=== PATIENT | female | born 1940 | race Caucasian/White ===

== ENCOUNTER 2018-05-20 12:23 | Observation (INO) | payer OTHER ==
[~2018-05-20] VITALS: Ht 154.9 cm; Wt 53.2 kg
[~2018-05-20 12:23] MED LIST: BENAZEPRIL HCL10 MG PO; CITRACAL; CITRACAL + D C1 EACH PO; CLARITIN; CLARITIN10 MG PO; CLONIDINE HCL0.1 MG PO; EYE CAPS PO; KLOR-CON; KLOR-CON 1010 MEQ PO; LASIX80 MG PO; OMEPRAZOLE; OMEPRAZOLE20 MG PO; PREDNISONE2.5 MG PO; VERAPAMIL HCL240 MG PO
[2018-05-20] MEDS ORDERED: ASPIRIN 81 MG CHEW TAB PO ONE ×2 (12:45→15:45)
[2018-05-20 13:25] LABS: BASOPHILS # (AUTO) 0.1 (0.0-0.1); BASOPHILS % 0.6 % (0.0-1.0); EOSINOPHILS % 0.1 % (0.0-6.0); HEMATOCRIT 36.5 % (34.2-44.1); LYMPHOCYTES # (AUTO) 2.5 (1.0-3.2); LYMPHOCYTES % 16.2 % (18.0-39.1); MEAN CORPUSCULAR HEMOGLOBIN 31.3 pg (28-32); MEAN CORPUSCULAR HGB CONC 32.9 g/dL (31-35); MEAN CORPUSCULAR VOLUME 95.3 fL (81-99); MONOCYTES % 6.5 % (4.4-11.3); NEUTROPHILS # (AUTO) 11.6 (2.1-6.9); NEUTROPHILS % 75.3 % (38.7-80.0); PLATELET COUNT 355 x10e3/uL (140-360); RED BLOOD COUNT 3.83 x10e6/uL (3.6-5.1)
[2018-05-20 13:35] LABS: INR 1.14; PROTHROMBIN TIME 13.7 seconds (11.9-14.5)
[2018-05-20 13:36] LABS: PARTIAL THROMBOPLASTIN TIME 29.7 seconds (23.8-35.5)
[2018-05-20 13:47] LABS: ALBUMIN 3.1 g/dL (3.5-5.0); ALBUMIN/GLOBULIN RATIO 0.9 (0.8-2.0); ANION GAP 15.6 mmol/L (8-16); CALCIUM 8.8 mg/dL (8.4-10.2); CHOL/HDL RATIO 4.8 (3.0-3.6); CREATININE, SERUM 1.09 mg/dL (0.57-1.11); MAGNESIUM 1.7 MG/DL (1.3-2.1); POTASSIUM 3.6 mmol/L (3.5-5.1)
--- NOTE | 2018-05-20 13:56 | Diagnostic Imaging Report ---
EXAMINATION: CHEST SINGLE (PORTABLE) 05/20/2018 12:37 PM COMPARISON: None INDICATION: Shortness of breath, lower extremity weakness DISCUSSION: LINES: None. LUNGS: The lungs are well inflated and clear. No pneumonia or pulmonary edema. PLEURA: No pleural effusion or pneumothorax. HEART AND MEDIASTINUM: Normal heart size. Atherosclerotic calcifications of the thoracic aorta. BONES AND SOFT TISSUES: No acute osseous lesion. The soft tissues are normal. IMPRESSION: No acute cardiopulmonary disease. Joselo Wallis MD Signed by: Dr. Joselo Wallis M.D. on 05/20/2018 1:53 PM
[2018-05-20 14:31] LABS: CLARITY,URINE HAZY (CLEAR); COLOR,URINE YELLOW (YELLOW); LEUKOCYTE ESTERASE ,URINE TRACE (NEGATIVE); NITRITE,URINE NEGATIVE (NEGATIVE); PROTEIN,URINE DIPSTICK NEGATIVE (NEGATIVE)
[2018-05-20 14:32] LABS: BILIRUBIN,URINE NEGATIVE (NEGATIVE); KETONES,URINE NEGATIVE (NEGATIVE); URINE UROBILINOGEN 0.2 mg/dL (0.2 - 1)
[2018-05-20 14:43] LABS: BACTERIA,URINE FEW /HPF; EPITHELIAL CELLS,URINE FEW /LPF
[2018-05-20 17:13] VITALS: BP 123/57
[2018-05-20 17:56] VITALS: BP 123/57
[2018-05-20 18:15] VITALS: BP 123/57
[2018-05-20 19:30] VITALS: BP 123/57
[2018-05-20 21:04] VITALS: BP 140/65
[2018-05-21] VITALS (8 sets, daily range): BP systolic 116–189; BP diastolic 54–97
[2018-05-21] MEDS ORDERED: LOSARTAN POTASS25 MG PO (00:43)
[2018-05-21] MEDS ORDERED: HYDRALAZINE HCL 20 MG/ML VIAL IV PRN ×2 (00:45→13:45)
[2018-05-21] MEDS: VERAPAMIL HCL 240 MG TABSR PO SCH ×3 (00:57→17:10)
[2018-05-21] MEDS: CLONIDINE HCL 0.1 MG TAB PO SCH ×5 (00:58→21:00)
[2018-05-21] MEDS: LOSARTAN POTASSIUM 25 MG TAB PO SCH ×3 (00:58→12:08)
[2018-05-21 05:43] LABS: CREATINE KINASE MB 0.7 ng/mL (0-5.0)
[2018-05-21 05:58] LABS: CHOL/HDL RATIO 4.6 (3.0-3.6)
[2018-05-21] MEDS ORDERED: ONDANSETRON HCL INJ 2 MG/ML VIAL IV PRN (08:45)
[2018-05-21] MEDS ORDERED: ACETAMINOPHEN 325 MG TAB PO PRN (08:45)
[2018-05-21] MEDS ORDERED: HYDROCODONE/APAP 5MG-325MG TAB PO PRN (08:45)
[2018-05-21 09:08] LABS: BASOPHILS # (AUTO) 0.1 (0.0-0.1); BASOPHILS % 0.4 % (0.0-1.0); EOSINOPHILS # (AUTO) 0.1 (0.0-0.4); EOSINOPHILS % 0.4 % (0.0-6.0); HEMATOCRIT 34.3 % (34.2-44.1); HEMOGLOBIN 11.3 g/dL (12.0-16.0); LYMPHOCYTES # (AUTO) 3.8 (1.0-3.2); LYMPHOCYTES % 28.3 % (18.0-39.1); MEAN CORPUSCULAR HGB CONC 32.9 g/dL (31-35); MEAN CORPUSCULAR VOLUME 94.2 fL (81-99); MONOCYTES # (AUTO) 1.2 (0.2-0.8); MONOCYTES % 8.8 % (4.4-11.3); NEUTROPHILS # (AUTO) 8.2 (2.1-6.9); NEUTROPHILS % 61.1 % (38.7-80.0); PLATELET COUNT 345 x10e3/uL (140-360); RED BLOOD COUNT 3.64 x10e6/uL (3.6-5.1); RED CELL DISTRIBUTION WIDTH 14.7 % (11.7-14.4)
[2018-05-21] MEDS ORDERED: FAMOTIDINE20 MG PO (09:18)
[2018-05-21 09:25] LABS: ANION GAP 12.9 mmol/L (8-16); CALCIUM 8.2 mg/dL (8.4-10.2); CREATININE, SERUM 0.97 mg/dL (0.57-1.11); MAGNESIUM 1.9 MG/DL (1.3-2.1)
[2018-05-21 09:35] LABS: POTASSIUM 2.9 mmol/L (3.5-5.1)
[2018-05-21] MEDS ORDERED: POTASSIUM CHLORIDE 20 MEQ TAB CR PO NR (09:44)
[2018-05-21] MEDS: PREDNISONE 10 MG TAB PO SCH (10:30)
[2018-05-21] MEDS: FAMOTIDINE 20 MG TAB PO SCH (10:30)
[2018-05-21] MEDS: CEFTRIAXONE SOD 1 GM VIAL IV SCH (10:30)
[2018-05-21] MEDS: FUROSEMIDE 40 MG TAB PO SCH (10:30)
[2018-05-21] MEDS ORDERED: NITROGLYCERIN 0.4 MG SUBL SL PRN (13:45)
[2018-05-21] MEDS ORDERED: METOPROLOL TARTRATE INJ 1 MG/ML VIAL IV PRN (13:45)
[2018-05-21] MEDS ORDERED: POTASSIUM CHLORIDE 20 MEQ TAB CR PO SCH (15:00)
[2018-05-21] MEDS: CALCIUM CITRATE PO SCH ×2 (15:00→21:00)
[2018-05-21] MEDS: VIT D3 PO SCH ×2 (15:00→21:00)
[2018-05-21 15:18] LABS: ALBUMIN 2.6 g/dL (3.5-5.0); BILIRUBIN,DIRECT 0.1 mg/dL (0.0-0.5); CHOL/HDL RATIO 4.2 (3.0-3.6); MAGNESIUM 1.9 MG/DL (1.3-2.1); PHOSPHORUS 1.2 MG/DL (2.3-4.7)
[2018-05-21 15:38] LABS: THYROID STIMULATING HORMONE 0.402 uIU/mL (0.350-4.940)
[2018-05-21] MEDS ORDERED: ATORVASTATIN 10 MG TAB PO SCH (21:00)
[2018-05-22 00:19] VITALS: BP 161/65
[2018-05-22] MEDS: CLONIDINE HCL 0.1 MG TAB PO SCH ×2 (01:24→14:34)
[2018-05-22 04:35] LABS: BASOPHILS % 0.4 % (0.0-1.0); EOSINOPHILS % 0.4 % (0.0-6.0); HEMATOCRIT 32.2 % (34.2-44.1); HEMOGLOBIN 10.4 g/dL (12.0-16.0); LYMPHOCYTES # (AUTO) 2.8 (1.0-3.2); LYMPHOCYTES % 26.5 % (18.0-39.1); MEAN CORPUSCULAR HEMOGLOBIN 31.3 pg (28-32); MEAN CORPUSCULAR HGB CONC 32.3 g/dL (31-35); MONOCYTES # (AUTO) 0.8 (0.2-0.8); MONOCYTES % 7.7 % (4.4-11.3); NEUTROPHILS # (AUTO) 6.8 (2.1-6.9); NEUTROPHILS % 64.3 % (38.7-80.0); PLATELET COUNT 324 x10e3/uL (140-360); RED BLOOD COUNT 3.32 x10e6/uL (3.6-5.1); RED CELL DISTRIBUTION WIDTH 14.7 % (11.7-14.4)
[2018-05-22 05:00] LABS: ANION GAP 13.7 mmol/L (8-16); CALCIUM 8.8 mg/dL (8.4-10.2); CREATININE, SERUM 1.02 mg/dL (0.57-1.11); MAGNESIUM 2.3 MG/DL (1.3-2.1)
[2018-05-22 05:02] LABS: POTASSIUM 3.7 mmol/L (3.5-5.1)
[2018-05-22 05:22] VITALS: BP 142/69
[2018-05-22] MEDS ORDERED: FERROUS SULFAT325 M1 PO (07:44)
[2018-05-22] MEDS ORDERED: CEFTIN PO (07:44)
[2018-05-22] MEDS ORDERED: DOCUSATE SODIU100 MG PO (07:44)
[2018-05-22] MEDS ORDERED: ASCORBIC ACID500 MG PO (07:44)
[2018-05-22] MEDS ORDERED: PANTOPRAZOLE SOD 40 MG TABEC PO SCH (08:45)
[2018-05-22 09:00] VITALS: BP 174/77
[2018-05-22] MEDS ORDERED: LORATADINE 10 MG TAB PO SCH (09:00)
[2018-05-22] MEDS: CALCIUM CITRATE PO SCH ×2 (09:00→14:30)
[2018-05-22] MEDS: VIT D3 PO SCH ×2 (09:00→14:30)
[2018-05-22] MEDS ORDERED: PHOSPHORUS 250 MG TAB PO SCH (09:00)
[2018-05-22] MEDS ORDERED: LORATADINE 10 MG TAB PO PRN (09:00)
[2018-05-22] MEDS: CEFTRIAXONE SOD 1 GM VIAL IV SCH (09:57)
[2018-05-22] MEDS: FERROUS SULFATE 325 MG TAB PO SCH ×2 (09:57→17:12)
[2018-05-22] MEDS: LOSARTAN POTASSIUM 25 MG TAB PO SCH (09:57)
[2018-05-22] MEDS: DOCUSATE SODIUM 100 MG CAP PO SCH ×2 (09:57→17:12)
[2018-05-22] MEDS: VERAPAMIL HCL 240 MG TABSR PO SCH ×2 (09:57→17:12)
[2018-05-22] MEDS: FAMOTIDINE 20 MG TAB PO SCH (09:57)
[2018-05-22] MEDS: PREDNISONE 10 MG TAB PO SCH (09:58)
[2018-05-22] MEDS: ASCORBIC ACID 500 MG TAB PO SCH ×2 (09:58→17:12)
[2018-05-22] MEDS: POTASSIUM CHLORIDE 20 MEQ TAB CR PO SCH ×2 (09:58→14:34)
[2018-05-22] MEDS: FUROSEMIDE 40 MG TAB PO SCH (09:58)
[2018-05-22 12:00] VITALS: BP 151/72
[2018-05-22 13:20] VITALS: BP 143/63
--- NOTE | 2018-05-22 16:33 | Discharge Summary ---
ADMISSION DIAGNOSES 1. Chest pain. 2. Hypertension. 3. Urinary tract infection. 4. Hyponatremia. 5. Hyperlipidemia. 6. Hypokalemia. DISCHARGE DIAGNOSES 1. Chest pain. 2. Hypertension. 3. Urinary tract infection. 4. Hyponatremia. 5. Hyperlipidemia. 6. Hypokalemia. 7. Ruled out myocardial infarction. 8. Hypermagnesemia. HISTORY: The patient has a history of hypertension, polymyalgia rheumatica, chronic venous stasis and GERD. Surgical history of hysterectomy, cholecystectomy and appendectomy. HOSPITAL COURSE: Ms. Rosanna Jean-Baptiste complains of chest pain last week that started when running into [employer]. It lasted 5 minutes and did not radiate. She said she had dyspnea on exertion over the last few months and attributed it to her venous stasis. Shortness of breath was worse with ambulation. She came to the ER last night when she started having right jaw pain described as aching that lasted for 10 hours. The jaw pain is worse with movement. No fever noted. She is asymptomatic on assessment. On admission, the patient had a chest x-ray which was negative. Troponins were negative x3. Echo showed an EF of 60% to 65%. Cardiology was consulted. UA was positive for leukocytes, RBCs, WBCs, bacteria and blood. The patient was started on Rocephin. Sodium on admission was 134. Fluids were restricted to 1.2 liters. On the day of discharge, the sodium was normal. Potassium repleted, and on the day of discharge is normal. The urine culture came back contaminated, but the patient was still given Ceftin at home for the UTI. She was also given iron and vitamin C for anemia. She will discharge home and has been cleared by cardiology. The patient understands discharge instructions and agrees to plan. She will follow up with primary care physician in one to two weeks and cardiology as discussed. Vital signs stable. The patient is afebrile. Dictated by: Isabelle Kasper NP MANASA SEGURA MD Job#: [id number]
[2018-05-22 17:26] VITALS: BP 126/58
[2018-05-22] MEDS ORDERED: SIMVASTATIN 20 MG TAB PO SCH (21:00)
== END 2018-05-22 18:00 | disposition home or self-care (01) ==
LOC: ER 12:23 → ERHOLD 15:41 → MED/SURG2 16:27
PROVIDERS: ADMIT Internal Medicine; ATTEND Internal Medicine
DX: R07.89 Other chest pain (principal); I10 Essential (primary) hypertension; N39.0 Urinary tract infection, site not specified; E87.1 Hypo-osmolality and hyponatremia; E87.6 Hypokalemia; E78.5 Hyperlipidemia, unspecified; M35.3 Polymyalgia rheumatica; E83.41 Hypermagnesemia; D64.9 Anemia, unspecified; I87.8 Other specified disorders of veins; K21.9 Gastro-esophageal reflux disease without esophagitis
CPT/HCPCS: 36415 ×3; 71045; 80048 ×2; 80053; 80061 ×2; 80076; 81001; 82150 ×2; 82306; 82550 ×2; 82553 ×2; 83690; 83735 ×3; 83880 ×3; 84100; 84443; 84484 ×2; 84550; 85025 ×3; 85379; 85610; 85730; 87086; 93005; 93306; 99284; G0378 ×3; J0696 ×2

== ENCOUNTER 2019-05-18 17:42 | Inpatient (IN) | payer MEDICARE, OTHER ==
[~2019-05-18] VITALS: Ht 154.9 cm; Wt 48.3 kg
[~2019-05-18 17:42] MED LIST changes: +ASCORBIC ACID500 MG PO; +CEFTIN PO; +DOCUSATE SODIU100 MG PO; +FAMOTIDINE20 MG PO; +FERROUS SULFAT325 M1 PO; +LOSARTAN POTASS25 MG PO
--- OUTSIDE RECORDS SUMMARY | 2019-05-18 17:46 | XMS REPORT ---
Author Author Rico Sloan Organization [employer] Address Unknown Phone Unavailable Care Team Providers Care Supervisor [facility] Name Role Phone Rico Sloan CP Unavailable Allergies No Known Allergies Problems Problem Type Condition Code Onset Dates Condition Status Problem Polymyalgia rheumatica M35.3 Active Problem Polyarthralgia M25.50 Active Problem Carpal tunnel syndrome G56.00 Active Problem Lymphadenopathy of head and neck R59.1 Active Problem Age related osteoporosis M81.0 Active Problem Abnormal WBC count D72.9 Active Problem Other osteoporosis without current pathological fracture M81.8 Active Problem Osteoarthritis M19.90 Active Problem Vitamin D deficiency E55.9 Active Problem 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
--- OUTSIDE RECORDS SUMMARY | 2019-05-18 17:46 | XMS REPORT ---
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
--- OUTSIDE RECORDS SUMMARY | 2019-05-18 17:46 | XMS REPORT | Continuity of Care Document ---
Author Author [employer] Organization [employer] Address Unknown Phone Unavailable Care Team Providers Care Cinder Pitman Name Role Phone [employer] Unavailable Unavailable Problems Problem Status Onset Date Classification Date Reported Comments Source Carpal tunnel syndrome Active Problem 05/15/2019 Manish Sloan Polymyalgia rheumatica Active Problem 05/15/2019 Manish Sloan Age related osteoporosis Active Problem 05/15/2019 Manish Sloan Vitamin D deficiency Active Problem 05/15/2019 Manish Sloan Lymphadenopathy of head and neck Active Problem 05/15/2019 Manish Sloan Osteoarthritis Active Problem 05/15/2019 Manish Sloan Polyarthralgia Active Problem 05/15/2019 Manish Sloan Other mcc (current) drug therapy Active Problem 05/15/2019 Manish Sloan Other osteoporosis without current pathological fracture Active Problem 05/15/2019 Manish Sloan Leukocytosis, unspecified type Active Diagnosis 10/27/2017 Manish Sloan Abnormal WBC count Active Problem 05/15/2019 Manish Sloan Chest pain Active Problem 05/22/2018 [facility] Dyspnea on exertion Active Problem 05/22/2018 [facility] Medications Medication Details Route Status Patient Instructions Ordering Provider Order Date Source Boniva 1 tablet Orally Active 150 MG Orally once a month Bone 08/01/2018 Manish Sloan Ascorbic Acid 500 Mg Tablet Daily Active Ranjith 05/22/2018 [facility] Ceftin Twice A Day Active Ranjith 05/22/2018 [facility] Docusate Sodium 100 Mg Capsule Twice A Day Active Ranjith 05/22/2018 [facility] Ferrous Sulfate 325 Mg Tablet.dr Daily Active [place] 05/22/2018 [facility] Benazepril Hcl 10 Mg Tablet, 10 Mg Oral Daily Active 05/21/2018 [facility] Omeprazole 20 Mg Capsule., 20 Mg Oral Twice A Day Active 05/21/2018 [facility] PredniSONE 1 tablet Orally Active 10 MG Orally Once a day Sloan 03/21/2018 Manish Sloan Prednisone 2 tablets Orally Active 1mg Orally Once a day Sloan 01/16/2018 Manish Sloan PredniSONE 1 tablet Orally Active 5 MG Orally Once a day Sloan 01/16/2018 Manish Sloan PredniSONE take 7.5 mg on alternating days with 6 mg Orally Active 5 MG Orally Once a day Fakoya 11/18/2017 Manish Sloan PredniSONE 1 tab Orally Active 5 MG Orally Take with 2 mg prednisone to make 7 mg daily Sloan 10/25/2017 Manish Sloan Prolia as directed Subcutaneous Active 60 MG/ML Subcutaneous Sloan 10/25/2017 Manish Sloan Prednisone 2 tabs Orally Active 1mg Orally take with 5mg to make 7 mg a day Sloan 07/21/2017 Manish Sloan Citracal , Daily Active 04/04/2013 [facility] Claritin , as needed Active 04/04/2013 [facility] Klor-Con , Three Times A Day Active 04/04/2013 [facility] Omeprazole , Twice A Day Active 04/04/2013 [facility] Famotidine 1 tablet as needed Orally Active 10 MG Orally Twice a day Bone Manish Sloan Probiotic as directed Orally Active Orally Bone Manish Sloan Clonidine HCl 1 tablet at bedtime Orally Active 0.1 MG Orally Once a day Bone Manish Sloan Citracal + D 3 daily NA Active once a day Bone Manish Sloan Furosemide 1/2 tablet Orally Active 40 MG Orally Once a day Bone Manish Sloan Vitamin E 1 capsule Orally Active 100 UNIT Orally Once a day Bone Manish Sloan Verapamil HCl 1 capsule in the morning Orally Active 240 MG Orally Once a day Bone Manish Sloan Losartan Potassium 1/2 tablet Orally Active 100 MG Orally BID Bone Manish Sloan Iron 1 tablet NA Active once a day Bone Manish Sloan PredniSONE TAKE 4 TABLETS BY MOUTH EVERY DAY Orally Active 2.5 MG Orally Once a day Fakoya Manish Sloan Potassium 1 tablet Orally Active 75 MG Orally Once a day Bone Manish Sloan Vitamin B12 1 tablet Orally Active 1000 MCG Orally Once a day Bone Manish Sloan Prednisone 2 tablets Orally Active 1 MG Orally Once a day Lizandro Sloan PredniSONE 1 tab Orally Active 5 MG Orally Take with 2 mg prednisone to make 7 mg daily Luther Sloan PredniSONE 1 tablet Orally Active 5 MG Orally Take with 2 mg prednisone to make 7 mg daily Lizandro Sloan Calcium Citrate/Vitamin D3 (Citracal + D Caplet) 1 Each Tablet Three Times A Day Active [facility] Clonidine Hcl 0.1 Mg Tablet Three Times A Day Active [facility] Eye Caps Daily Active [facility] Famotidine 20 Mg Tab Daily Active [facility] Furosemide (Lasix) 80 Mg Tablet Daily Active [facility] Loratadine (Claritin) 10 Mg Tablet Daily Prn Active [facility] Losartan Potassium 25 Mg Tablet Daily Active [facility] Potassium Chloride (Klor-Con 10) 10 Meq Tablet.er Three Times A Day Active [facility] Prednisone 2.5 Mg Tablet Daily Active [facility] Verapamil Hcl 240 Mg Tablet.er Twice A Day Active [facility] Allergies, Adverse Reactions, Alerts Substance Category Reaction Severity Reaction type Status Date Reported Comments Source N.K.D.A. Adverse Reaction Info Not Available Adverse Reaction Active 03/21/2018 Manish Sloan Prolia Adverse Reaction Info Not Available Adverse Reaction Active 08/01/2018 Manish Sloan Immunizations No Data Provided for This Section Results Order Name Results Value Reference Range Date Interpretation Comments Source Automated blood basophil count (count/volume) Automated blood basophil count (count/volume) 0.0 0.0 - 0.1 05/22/2018 [facility] Automated blood basophil count as percentage of total leukocytes Automated blood basophil count as percentage of total leukocytes 0.4 0.0 - 1.0 05/22/2018 [facility] Automated blood eosinophil count Automated blood eosinophil count 0.0 0.0 - 0.4 05/22/2018 [facility] Automated blood eosinophil count as percentage of total leukocytes Automated blood eosinophil count as percentage of total leukocytes 0.4 0.0 - 6.0 05/22/2018 [facility] Automated blood hematocrit (volume fraction) Automated blood hematocrit (volume fraction) 32.2 34.2 - 44.1 05/22/2018 [facility] Automated blood lymphocyte count as percentage ot total leukocytes Automated blood lymphocyte count as percentage ot total leukocytes 26.5 18.0 - 39.1 05/22/2018 [facility] Automated blood monocyte count as percentage of total leukocytes Automated blood monocyte count as percentage of total leukocytes 7.7 4.4 - 11.3 05/22/2018 [facility] Automated blood neutrophil count Automated blood neutrophil count 6.8 2.1 - 6.9 05/22/2018 [facility] Automated blood platelet count (count/volume) Automated blood platelet count (count/volume) 324 140 - 360 05/22/2018 [facility] Automated blood segmented neutrophil count as percentage of total leukocytes Automated blood segmented neutrophil count as percentage of total leukocytes 64.3 38.7 - 80.0 05/22/2018 [facility] Automated erythrocyte mean corpuscular hemoglobin (mass per erythrocyte) Automated erythrocyte mean corpuscular hemoglobin (mass per erythrocyte) 31.3 28 - 32 05/22/2018 [facility] Automated erythrocyte mean corpuscular hemoglobin concentration measurement (mass/volume) Automated erythrocyte mean corpuscular hemoglobin concentration measurement (mass/volume) 32.3 31 - 35 05/22/2018 [facility] Automated erythrocyte mean corpuscular volume Automated erythrocyte mean corpuscular volume 97.0 81 - 99 05/22/2018 [facility] Blood erythrocytes automated count (number/volume) Blood erythrocytes automated count (number/volume) 3.32 3.6 - 5.1 05/22/2018 [facility] Blood hemoglobin measurement (moles/volume) Blood hemoglobin measurement (moles/volume) 10.4 12.0 - 16.0 05/22/2018 [facility] Blood leukocytes automated count (number/volume) Blood leukocytes automated count (number/volume) 10.51 4.8 - 10.8 05/22/2018 [facility] Blood lymphocytes count (number/volume) Blood lymphocytes count (number/volume) 2.8 1.0 - 3.2 05/22/2018 [facility] Blood monocytes automated count (number/volume) Blood monocytes automated count (number/volume) 0.8 0.2 - 0.8 05/22/2018 [facility] Estimated glomerular filtration rate (GFR) determination Estimated glomerular filtration rate (GFR) determination 52 60 05/22/2018 [facility] Glucose measurement Glucose measurement 95 74 - 118 05/22/2018 [facility] Serum or plasma anion gap Serum or plasma anion gap 13.7 8 - 16 05/22/2018 [facility] Serum or plasma calcium measurement (mass/volume) Serum or plasma calcium measurement (mass/volume) 8.8 8.4 - 10.2 05/22/2018 [facility] Serum or plasma carbon dioxide, total measurement (moles/volume) Serum or plasma carbon dioxide, total measurement (moles/volume) 27 22 - 29 05/22/2018 [facility] Serum or plasma chloride measurement (moles/volume) Serum or plasma chloride measurement (moles/volume) 102 98 - 107 05/22/2018 [facility] Serum or plasma creatinine measurement (mass/volume) Serum or plasma creatinine measurement (mass/volume) 1.02 0.57 - 1.11 05/22/2018 [facility] Serum or plasma magnesium measurement (mass/volume) Serum or plasma magnesium measurement (mass/volume) 2.3 1.3 - 2.1 05/22/2018 [facility] Serum or plasma potassium measurement (moles/volume) Serum or plasma potassium measurement (moles/volume) 3.7 3.5 - 5.1 05/22/2018 [facility] Serum or plasma sodium measurement (moles/volume) Serum or plasma sodium measurement (moles/volume) 139 136 - 145 05/22/2018 [facility] Serum or plasma urea nitrogen measurement (mass/volume) Serum or plasma urea nitrogen measurement (mass/volume) 20 7 - 26 05/22/2018 [facility] Serum or plasma urea nitrogen/creatinine mass ratio Serum or plasma urea nitrogen/creatinine mass ratio 20 6 - 25 05/22/2018 [facility] Red Cell Distribution Width 14.7 11.7 - 14.4 05/22/2018 [facility] IM GRANULOCYTES % 0.7 0.0 - 1.0 05/22/2018 [facility] Absolute Immature Granulocyte (auto 0.07 0 - 0.1 05/22/2018 [facility] B-Type Natriuretic Peptide 65.1 0 - 100 05/22/2018 [facility] Phosphorus measurement Phosphorus measurement 1.2 2.3 - 4.7 05/21/2018 [facility] Serum or plasma alanine aminotransferase measurement (enzymatic activity/volume) Serum or plasma alanine aminotransferase measurement (enzymatic activity/volume) 36 0 - 55 05/21/2018 [facility] Serum or plasma albumin measurement (mass/volume) Serum or plasma albumin measurement (mass/volume) 2.6 3.5 - 5.0 05/21/2018 [facility] Serum or plasma alkaline phosphatase measurement (enzymatic activity/volume) Serum or plasma alkaline phosphatase measurement (enzymatic activity/volume) 64 40 - 150 05/21/2018 [facility] Serum or plasma amylase measurement (enzymatic activity/volume) Serum or plasma amylase measurement (enzymatic activity/volume) 69 25 - 125 05/21/2018 [facility] Serum or plasma cholesterol in HDL measurement (mass/volume) Serum or plasma cholesterol in HDL measurement (mass/volume) 50 40 - 60 05/21/2018 [facility] Serum or plasma cholesterol in LDL measurement (mass/volume) Serum or plasma cholesterol in LDL measurement (mass/volume) 139 60 - 130 05/21/2018 [facility] Serum or plasma cholesterol measurement (mass/volume) Serum or plasma cholesterol measurement (mass/volume) 212 0 - 199 05/21/2018 [facility] Serum or plasma conjugated bilirubin measurement (mass/volume) Serum or plasma conjugated bilirubin measurement (mass/volume) 0.1 0.0 - 0.5 05/21/2018 [facility] Serum or plasma protein measurement (mass/volume) Serum or plasma protein measurement (mass/volume) 6.0 6.5 - 8.1 05/21/2018 [facility] Serum or plasma thyrotropin measurement by detection limit <=0.005 miu/l (units/volume) Serum or plasma thyrotropin measurement by detection limit <=0.005 miu/l (units/volume) 0.402 0.350 - 4.940 05/21/2018 [facility] Serum or plasma total bilirubin measurement (mass/volume) Serum or plasma total bilirubin measurement (mass/volume) 0.3 0.2 - 1.2 05/21/2018 [facility] Serum or plasma total cholesterol/cholesterol in HDL mass ratio Serum or plasma total cholesterol/cholesterol in HDL mass ratio 4.2 3.0 - 3.6 05/21/2018 [facility] Serum or plasma triglyceride measurement (mass/volume) Serum or plasma triglyceride measurement (mass/volume) 114 0 - 149 05/21/2018 [facility] Serum or plasma uric acid measurement (mass/volume) Serum or plasma uric acid measurement (mass/volume) 6.0 2.6 - 8.0 05/21/2018 [facility] Aspartate Amino Transf (AST/SGOT) 25 5 - 34 05/21/2018 [facility] Fibrin D-dimer DDU measurement in platelet poor plasma (mass/volume) Fibrin D-dimer DDU measurement in platelet poor plasma (mass/volume) 0.85 0.00 - 0.45 05/21/2018 [facility] Serum or plasma creatine kinase MB measurement (mass/volume) Serum or plasma creatine kinase MB measurement (mass/volume) 0.70 0 - 5.0 05/21/2018 [facility] Serum or plasma creatine kinase measurement (enzymatic activity/volume) Serum or plasma creatine kinase measurement (enzymatic activity/volume) 38 29 - 168 05/21/2018 [facility] Troponin I measurement by highly sensitive enzyme immunoassay Troponin I measurement by highly sensitive enzyme immunoassay 0.008 0 - 0.300 05/21/2018 [facility] Automated urine sediment leukocyte count by microscopy (number/high power field) Automated urine sediment leukocyte count by microscopy (number/high power field) <10 0 - 5 05/20/2018 [facility] Bacteria detection in urine sediment by light microscopy Bacteria detection in urine sediment by light microscopy FEW NONE 05/20/2018 [facility] Epithelial cells detection in urine sediment by light microscopy Epithelial cells detection in urine sediment by light microscopy FEW NONE 05/20/2018 [facility] Erythrocytes detection in urine sediment by light microscopy Erythrocytes detection in urine sediment by light microscopy <10 0 - 5 05/20/2018 [facility] Specific gravity of Urine by Test strip Specific gravity of Urine by Test strip 1.010 1.010 - 1.025 05/20/2018 [facility] Urine clarity Urine clarity HAZY CLEAR 05/20/2018 [facility] Urine color determination Urine color determination YELLOW YELLOW 05/20/2018 [facility] Urine erythrocytes detection Urine erythrocytes detection TRACE NEGATIVE 05/20/2018 [facility] Urine glucose detection Urine glucose detection NEGATIVE NEGATIVE 05/20/2018 [facility] Urine ketones detection by automated test strip Urine ketones detection by automated test strip NEGATIVE NEGATIVE 05/20/2018 [facility] Urine leukocyte esterase detection by dipstick Urine leukocyte esterase detection by dipstick TRACE NEGATIVE 05/20/2018 [facility] Urine nitrite detection Urine nitrite detection NEGATIVE NEGATIVE 05/20/2018 [facility] Urine pH measurement by automated test strip Urine pH measurement by automated test strip 6 5 - 7 05/20/2018 [facility] Urine protein measurement by test strip (mass/volume) Urine protein measurement by test strip (mass/volume) NEGATIVE NEGATIVE 05/20/2018 [facility] Urine total bilirubin measurement (mass/volume) Urine total bilirubin measurement (mass/volume) NEGATIVE NEGATIVE 05/20/2018 [facility] Urine urobilinogen measurement by test strip (mass/volume) Urine urobilinogen measurement by test strip (mass/volume) 0.2 0.2 - 1 05/20/2018 [facility] Activated partial thromboplastin time (aPTT) in platelet poor plasma bycoagulation assay Activated partial thromboplastin time (aPTT) in platelet poor plasma bycoagulation assay 29.7 23.8 - 35.5 05/20/2018 [facility] INR in Platelet poor plasma by Coagulation assay INR in Platelet poor plasma by Coagulation assay 1.14 05/20/2018 [facility] Plasma globulin measurement (mass/volume) Plasma globulin measurement (mass/volume) 3.6 2.3 - 3.5 05/20/2018 [facility] Prothrombin time (PT) in platelet poor plasma by coagulation assay Prothrombin time (PT) in platelet poor plasma by coagulation assay 13.7 11.9 - 14.5 05/20/2018 [facility] Serum or plasma albumin/globulin mass ratio Serum or plasma albumin/globulin mass ratio 0.9 0.8 - 2.0 05/20/2018 [facility] Serum or plasma lipase measurement (enzymatic activity/volume) Serum or plasma lipase measurement (enzymatic activity/volume) 34 8 - 78 05/20/2018 [facility] Pathology Reports No Data Provided for This Section Diagnostic Reports No Data Provided for This Section Consultation Notes No Data Provided for This Section Discharge Summaries No Data Provided for This Section History and Physicals No Data Provided for This Section Vital Signs Vital Sign Value Date Comments Source Weight 114 08/01/2018 Manish Sloan Height 58 08/01/2018 Manish Sloan Temperature Oral (F) 96.8 F 08/01/2018 Manish Sloan Heart Rate 68 08/01/2018 Manish Sloan Diastolic (mm Hg) 60 08/01/2018 Manish Sloan Systolic (mm Hg) 130 08/01/2018 Manish Almanzarer Weight 119.9 03/21/2018 Manish Almanzarer Height 58 03/21/2018 Manish Sloan Temperature Oral (F) 96.4 F 03/21/2018 Manish Sloan Heart Rate 60 03/21/2018 Manish Sloan Diastolic (mm Hg) 62 03/21/2018 Manish Sloan Systolic (mm Hg) 92 03/21/2018 Manish Sloan Weight 118 03/09/2018 Manish Sloan Height 58 03/09/2018 Manish Sloan Temperature Oral (F) 97.4 F 03/09/2018 Manish Sloan Heart Rate 72 03/09/2018 Manish Sloan Diastolic (mm Hg) 68 03/09/2018 Manish Sloan Systolic (mm Hg) 130 03/09/2018 Manish Sloan Weight 119.8 01/12/2018 Manish Sloan Height 58.5 01/12/2018 Manish Sloan Temperature Oral (F) 97.4 F 01/12/2018 Manish Sloan Heart Rate 60 01/12/2018 Manish Sloan Diastolic (mm Hg) 60 01/12/2018 Manish Sloan Systolic (mm Hg) 112 01/12/2018 Manish Sloan Weight 116 11/23/2017 Manish Sloan Height 58 11/23/2017 Manish Sloan Temperature Oral (F) 97.1 F 11/23/2017 Manish Sloan Heart Rate 58 11/23/2017 Manish Sloan Diastolic (mm Hg) 54 11/23/2017 Manish Sloan Systolic (mm Hg) 104 11/23/2017 Manish Sloan Weight 120.9 10/25/2017 Manish Sloan Height 61 10/25/2017 Manish Sloan Temperature Oral (F) 98.2 F 10/25/2017 Manish Sloan Heart Rate 60 10/25/2017 Manish Sloan Diastolic (mm Hg) 78 10/25/2017 Manish Sloan Systolic (mm Hg) 122 10/25/2017 Manish Sloan Weight 121 07/21/2017 Manish Sloan Height 59 07/21/2017 Manish Sloan Temperature Oral (F) 96.3 F 07/21/2017 Manish Sloan Heart Rate 52 07/21/2017 Manish Sloan Diastolic (mm Hg) 68 07/21/2017 Manish Sloan Systolic (mm Hg) 132 07/21/2017 Manish Sloan Encounters Location Location Details Encounter Type Encounter Number Reason For Visit Attending Provider ADM Date DC Date Status Source Discharged Inpatient (obs) [id number] MANASA SEGURA MD 05/20/2018 05/22/2018 [facility] Procedures No Data Provided for This Section Assessment and Plan No Data Provided for This Section Plan of Care Plan of Care Date Source Discharge Date 05/22/18 6:00pm Disposition HOME, SELF-CARE Instructions/Education Provided Chest Pain - Chest Wall Prescriptions See Medication Section Referrals SID PINZON MD (Cardiology) Order Date: 1-2 Weeks Entered Date: 05/22/2018 4:12pm Address: [place] [address] [address] Additional Instructions/Education FOLLOW UP WITH DR. PINZON INSTRUCTED. CALL THE OFFICE TO SCHEDULE AN APPOINTMENT TAKE ANTIBIOTIC PRESCRIBED UNTIL ALL MEDICATION TAKEN. 05/22/2018 [facility] Social History Social History Date Source Social History Problem Response Recorded Date/Time Onset Date Status Hx Psychiatric Problems No 04/04/2013 11:15pm Not Applicable Not Applicable Smoking Status Start Date Stop Date Never Smoker 05/22/2018 [facility] Family History Value Date Source Relationship Condition Age at Onset Recorded Date/Time 32 Father Family history of coronary artery disease 50's - 60 05/20/2018 6:08pm 05/22/2018 [facility] Advance Directives Order Name Results Value Date Source Advance Directives Advance Directives Directive Response Recorded Date/Time Does the patient have an advance directive? No 05/20/18 5:09pm If yes, is advance directive on file with [facility]? No 04/04/13 11:15pm If not on file with [facility] will patient provide a copy? No 08/21/12 2:47pm Do you have a Directive to Physician? No 05/20/18 3:40pm Do you have a Medical Power of Hedge Fund Principal? No 05/20/18 3:40pm Do you have an out of hospital Do Not Resuscitate Order? No 05/20/18 3:40pm Do you have any special needs we should be aware of? No 05/20/18 3:40pm Do you have a support person here with you today? Yes 05/20/18 3:40pm Did patient receive Notice of Privacy Practices? Yes 05/20/18 3:40pm Did patient receive patient rights and responsibilities? Yes 05/20/18 3:40pm 05/22/2018 [facility] Functional Status No Data Provided for This Section
--- OUTSIDE RECORDS SUMMARY | 2019-05-18 17:46 | XMS REPORT ---
Author Author Rico Sloan Organization [employer] Address Unknown Phone Unavailable Care Team Providers Care Catalytic Converter Operator Helper Name Role Phone Rico Sloan CP Unavailable [...]
--- OUTSIDE RECORDS SUMMARY | 2019-05-18 17:46 | XMS REPORT ---
Author Author Gretta Bone [facility] eClinicalWorks Address Unknown Phone Unavailable Care Team Providers Care Char Filter Operator Helper Name Role Phone Gretta Bone CP Unavailable Allergies, Adverse Reactions, Alerts Substance Reaction Event Type Prolia Info Not Available Drug Allergy Problems Problem Type Condition Code Onset Dates [...] Vitamin D deficiency E55.9 Active Problem Other fpc (current) drug therapy Z79.899 Active Assessment Other extermination supervisor (current) drug therapy Z79.899 Active Assessment Age related osteoporosis M81.0 Active Assessment Polymyalgia rheumatica M35.3 Active Medications Medication Code System Code Instructions Start Date End Date Status Dosage Clonidine HCl [facility] 99155880655 0.1 MG Orally Once a day Active 1 tablet at bedtime Probiotic [facility] 17369732662 Orally Active as directed Citracal + D NDC 0 once a day Active 3 daily Furosemide ND 01430427258 40 MG Orally Once a day Active 1/2 tablet Boniva [facility] 80060360176 150 MG Orally once a month Aug 01, 2018 Active 1 tablet Iron [facility] [address]-16 once a day Active 1 tablet Losartan Potassium ND 43760405462 100 MG Orally BID Active 1/2 tablet Potassium ND 62747876942 75 MG Orally Once a day Active 1 tablet Vitamin B12 [facility] 80083266770 1000 MCG Orally Once a day Active 1 tablet PredniSONE [facility] 84329733131 5 MG Orally Take with 2 mg prednisone to make 7 mg daily Active 1 tablet Vitamin E [facility] 96139732983 100 UNIT Orally Once a day Active 1 capsule Famotidine [facility] 19214610930 10 MG Orally Twice a day Active 1 tablet as needed Verapamil HCl [facility] 55405100742 240 MG Orally Once a day Active 1 capsule in the morning Prednisone NDC 0 1 MG Orally Once a day Active 2 tablets Vital Signs Date/Time: Aug 01, 2018 BMI 23.82 Index Weight 114 lbs Height 58 in Temperature 96.8 F Cardiac Monitoring Heart Rate 68 /min Blood Pressure Diastolic 60 mm Hg Blood Pressure Systolic 130 mm Hg Results No Known Results Summary Purpose eClinicalWorks Submission
--- OUTSIDE RECORDS SUMMARY | 2019-05-18 17:46 | XMS REPORT ---
Author Author Rico Sloan Organization [employer] Address Unknown Phone Unavailable Care Team Providers Care Biomedical Specialist Name Role Phone Rico Sloan CP Unavailable [...] Vitamin D deficiency E55.9 Active Problem Other long-term (current) drug therapy Z79.899 Active Medications No Known Medications Results No Known Results Summary Purpose eClinicalWorks Submission
--- OUTSIDE RECORDS SUMMARY | 2019-05-18 17:46 | XMS REPORT ---
Author Author Rico Sloan Organization [employer] Address Unknown Phone Unavailable Care Team Providers Care Internet Marketing Director Name Role Phone Rico Sloan CP Unavailable [...] Vitamin D deficiency E55.9 Active Problem Other intermediate project manager (current) drug therapy Z79.899 Active Medications No Known Medications Results No Known Results Summary Purpose eClinicalWorks Submission
--- OUTSIDE RECORDS SUMMARY | 2019-05-18 17:46 | XMS REPORT ---
Author Author Rico Sloan Organization [employer] Address Unknown Phone Unavailable Care Team Providers Care Petrol Tanker Driver Name Role Phone Rico Sloan CP Unavailable [...] Vitamin D deficiency E55.9 Active Problem Other moth exterminator (current) drug therapy Z79.899 Active Medications No Known Medications Results No Known Results Summary Purpose eClinicalWorks Submission
[2019-05-18] MEDS ORDERED: SODIUM CHLORIDE 0.9% 1000ML 1,000 ML ONE (18:11)
[2019-05-18] MEDS ORDERED: SODIUM CHLORIDE 0.9% 1000ML 1,000 ML IV ONE (18:15)
--- NOTE | 2019-05-18 18:45 | Diagnostic Imaging Report ---
EXAMINATION: Head CT HISTORY: Head pain, hypertension COMPARISON: None. TECHNIQUE: Multidetector axial images were obtained without contrast from the foramen magnum to the vertex . The images were reconstructed using brain and bone algorithms. Thin section brain images were reformatted into coronal and sagittal planes. Image quality: Motion/streaking artifact limits the evaluation of the skull base and posterior cranial fossa. Dose modulation, iterative reconstruction, and/or weight based adjustment of the mA/kV was utilized to reduce the radiation dose to as low as reasonably achievable. FINDINGS: Parenchyma: 1. A few scattered and periventricular white matter hypodensities, most likely age appropriate minimal chronic microvascular ischemic changes. 2. No mass or hemorrhage. No CT evidence of acute territorial vascular insult. Extra-axial spaces:No abnormal density. No extra-axial fluid collections . Incidentally noted small retrocerebellar benign arachnoid cyst without mass effect Brain volume: Normal for age. Ventricles: No hydrocephalus or displacement. Arteries: No density suggestive of thrombus. Dural sinuses: No abnormal density. Extra-axial spaces: No abnormal density. Foramen magnum: No mass, Chiari malformation, or basilar invagination. Sella: No obvious mass. Paranasal/mastoid sinuses: Partial opacification of the tip of the right mastoid air cells, likely effusion from chronic inflammatory process. Skull/Scalp: No lytic or blastic lesions. No fractures. IMPRESSION: No acute intracranial abnormality, particularly no hemorrhage. Signed by: Dr. Dorinda Snyder M.D. on 05/18/2019 6:42 PM
[2019-05-18] MEDS ORDERED: HYDRALAZINE HCL 20 MG/ML VIAL IV STA ×2 (18:46→19:31)
--- OUTSIDE RECORDS SUMMARY | 2019-05-18 19:55 | XMS REPORT | Continuity of Care Document ---
Author Author [facility] Organization [employer] Address Unknown Phone Unavailable Care Team Providers Care Barrel Assembly Inspector Name Role Phone [employer] Unavailable Unavailable Problems Problem Status [...] Polyarthralgia Active Problem 05/15/2019 Manish Sloan Other residential (current) drug therapy Active Problem 05/15/2019 Manish Sloan Other osteoporosis without current pathological fracture Active Problem 05/15/2019 Manish Sloan Leukocytosis, unspecified type Active Diagnosis 10/27/2017 Manish Sloan Abnormal WBC count Active Problem 05/15/2019 Manish Sloan Chest pain Active Problem 05/22/2018 [facility] Dyspnea on exertion Active Problem 05/22/2018 [facility] Medications Medication Details Route Status Patient Instructions Ordering Provider Order Date Source Boniva 1 tablet Orally Active 150 MG Orally once a month [place] 08/01/2018 Manish Sloan Ascorbic Acid 500 Mg Tablet Daily Active Ranjith 05/22/2018 [facility] Ceftin Twice A Day Active Ranjith 05/22/2018 [facility] Docusate Sodium 100 Mg Capsule Twice A Day Active Ranjith 05/22/2018 [facility] Ferrous Sulfate 325 Mg Tablet.dr Daily Active [place] 05/22/2018 [facility] Benazepril Hcl 10 Mg Tablet, 10 Mg Oral Daily Active 05/21/2018 [facility] Omeprazole 20 Mg Capsule., 20 Mg Oral Twice A Day Active 05/21/2018 [facility] PredniSONE 1 tablet Orally Active 10 MG [...] Manish Sloan Citracal , Daily Active 04/04/2013 [facility] Claritin , as needed Active 04/04/2013 [facility] Klor-Con , Three Times A Day Active 04/04/2013 [facility] Omeprazole , Twice A Day Active 04/04/2013 [facility] Famotidine 1 tablet as needed Orally Active [...] Each Tablet Three Times A Day Active [facility] Clonidine Hcl 0.1 Mg Tablet Three Times A Day Active [facility] Eye Caps Daily Active [facility] Famotidine 20 Mg Tab Daily Active [facility] Furosemide (Lasix) 80 Mg Tablet Daily Active [facility] Loratadine (Claritin) 10 Mg Tablet Daily Prn Active [facility] Losartan Potassium 25 Mg Tablet Daily Active [facility] Potassium Chloride (Klor-Con 10) 10 Meq Tablet.er Three Times A Day Active [facility] Prednisone 2.5 Mg Tablet Daily Active [facility] Verapamil Hcl 240 Mg Tablet.er Twice A Day Active [facility] Allergies, Adverse Reactions, Alerts Substance Category Reaction [...] count (count/volume) 0.0 0.0 - 0.1 05/22/2018 [facility] Automated blood basophil count as percentage of total leukocytes Automated blood basophil count as percentage of total leukocytes 0.4 0.0 - 1.0 05/22/2018 [facility] Automated blood eosinophil count Automated blood eosinophil count 0.0 0.0 - 0.4 05/22/2018 [facility] Automated blood eosinophil count as percentage of total leukocytes Automated blood eosinophil count as percentage of total leukocytes 0.4 0.0 - 6.0 05/22/2018 [facility] Automated blood hematocrit (volume fraction) Automated blood hematocrit (volume fraction) 32.2 34.2 - 44.1 05/22/2018 [facility] Automated blood lymphocyte count as percentage ot total leukocytes Automated blood lymphocyte count as percentage ot total leukocytes 26.5 18.0 - 39.1 05/22/2018 [facility] Automated blood monocyte count as percentage of total leukocytes Automated blood monocyte count as percentage of total leukocytes 7.7 4.4 - 11.3 05/22/2018 [facility] Automated blood neutrophil count Automated blood neutrophil count 6.8 2.1 - 6.9 05/22/2018 [facility] Automated blood platelet count (count/volume) Automated blood platelet count (count/volume) 324 140 - 360 05/22/2018 [facility] Automated blood segmented neutrophil count as percentage of total leukocytes Automated blood segmented neutrophil count as percentage of total leukocytes 64.3 38.7 - 80.0 05/22/2018 [facility] Automated erythrocyte mean corpuscular hemoglobin (mass per erythrocyte) Automated erythrocyte mean corpuscular hemoglobin (mass per erythrocyte) 31.3 28 - 32 05/22/2018 [facility] Automated erythrocyte mean corpuscular hemoglobin concentration measurement (mass/volume) Automated erythrocyte mean corpuscular hemoglobin concentration measurement (mass/volume) 32.3 31 - 35 05/22/2018 [facility] Automated erythrocyte mean corpuscular volume Automated erythrocyte mean corpuscular volume 97.0 81 - 99 05/22/2018 [facility] Blood erythrocytes automated count (number/volume) Blood erythrocytes automated count (number/volume) 3.32 3.6 - 5.1 05/22/2018 [facility] Blood hemoglobin measurement (moles/volume) Blood hemoglobin measurement (moles/volume) 10.4 12.0 - 16.0 05/22/2018 [facility] Blood leukocytes automated count (number/volume) Blood leukocytes automated count (number/volume) 10.51 4.8 - 10.8 05/22/2018 [facility] Blood lymphocytes count (number/volume) Blood lymphocytes count (number/volume) 2.8 1.0 - 3.2 05/22/2018 [facility] Blood monocytes automated count (number/volume) Blood monocytes automated count (number/volume) 0.8 0.2 - 0.8 05/22/2018 [facility] Estimated glomerular filtration rate (GFR) determination Estimated glomerular filtration rate (GFR) determination 52 60 05/22/2018 [facility] Glucose measurement Glucose measurement 95 74 - 118 05/22/2018 [facility] Serum or plasma anion gap Serum or plasma anion gap 13.7 8 - 16 05/22/2018 [facility] Serum or plasma calcium measurement (mass/volume) Serum or plasma calcium measurement (mass/volume) 8.8 8.4 - 10.2 05/22/2018 [facility] Serum or plasma carbon dioxide, total measurement (moles/volume) Serum or plasma carbon dioxide, total measurement (moles/volume) 27 22 - 29 05/22/2018 [facility] Serum or plasma chloride measurement (moles/volume) Serum or plasma chloride measurement (moles/volume) 102 98 - 107 05/22/2018 [facility] Serum or plasma creatinine measurement (mass/volume) Serum or plasma creatinine measurement (mass/volume) 1.02 0.57 - 1.11 05/22/2018 [facility] Serum or plasma magnesium measurement (mass/volume) Serum or plasma magnesium measurement (mass/volume) 2.3 1.3 - 2.1 05/22/2018 [facility] Serum or plasma potassium measurement (moles/volume) Serum or plasma potassium measurement (moles/volume) 3.7 3.5 - 5.1 05/22/2018 [facility] Serum or plasma sodium measurement (moles/volume) Serum or plasma sodium measurement (moles/volume) 139 136 - 145 05/22/2018 [facility] Serum or plasma urea nitrogen measurement (mass/volume) Serum or plasma urea nitrogen measurement (mass/volume) 20 7 - 26 05/22/2018 [facility] Serum or plasma urea nitrogen/creatinine mass ratio Serum or plasma urea nitrogen/creatinine mass ratio 20 6 - 25 05/22/2018 [facility] Red Cell Distribution Width 14.7 11.7 - 14.4 05/22/2018 [facility] IM GRANULOCYTES % 0.7 0.0 - 1.0 05/22/2018 [facility] Absolute Immature Granulocyte (auto 0.07 0 - 0.1 05/22/2018 [facility] B-Type Natriuretic Peptide 65.1 0 - 100 05/22/2018 [facility] Phosphorus measurement Phosphorus measurement 1.2 2.3 - 4.7 05/21/2018 [facility] Serum or plasma alanine aminotransferase measurement (enzymatic activity/volume) Serum or plasma alanine aminotransferase measurement (enzymatic activity/volume) 36 0 - 55 05/21/2018 [facility] Serum or plasma albumin measurement (mass/volume) Serum or plasma albumin measurement (mass/volume) 2.6 3.5 - 5.0 05/21/2018 [facility] Serum or plasma alkaline phosphatase measurement (enzymatic activity/volume) Serum or plasma alkaline phosphatase measurement (enzymatic activity/volume) 64 40 - 150 05/21/2018 [facility] Serum or plasma amylase measurement (enzymatic activity/volume) Serum or plasma amylase measurement (enzymatic activity/volume) 69 25 - 125 05/21/2018 [facility] Serum or plasma cholesterol in HDL measurement (mass/volume) Serum or plasma cholesterol in HDL measurement (mass/volume) 50 40 - 60 05/21/2018 [facility] Serum or plasma cholesterol in LDL measurement (mass/volume) Serum or plasma cholesterol in LDL measurement (mass/volume) 139 60 - 130 05/21/2018 [facility] Serum or plasma cholesterol measurement (mass/volume) Serum or plasma cholesterol measurement (mass/volume) 212 0 - 199 05/21/2018 [facility] Serum or plasma conjugated bilirubin measurement (mass/volume) Serum or plasma conjugated bilirubin measurement (mass/volume) 0.1 0.0 - 0.5 05/21/2018 [facility] Serum or plasma protein measurement (mass/volume) Serum or plasma protein measurement (mass/volume) 6.0 6.5 - 8.1 05/21/2018 [facility] Serum or plasma thyrotropin measurement by detection limit <=0.005 miu/l (units/volume) Serum or plasma thyrotropin measurement by detection limit <=0.005 miu/l (units/volume) 0.402 0.350 - 4.940 05/21/2018 [facility] Serum or plasma total bilirubin measurement (mass/volume) Serum or plasma total bilirubin measurement (mass/volume) 0.3 0.2 - 1.2 05/21/2018 [facility] Serum or plasma total cholesterol/cholesterol in HDL mass ratio Serum or plasma total cholesterol/cholesterol in HDL mass ratio 4.2 3.0 - 3.6 05/21/2018 [facility] Serum or plasma triglyceride measurement (mass/volume) Serum or plasma triglyceride measurement (mass/volume) 114 0 - 149 05/21/2018 [facility] Serum or plasma uric acid measurement (mass/volume) Serum or plasma uric acid measurement (mass/volume) 6.0 2.6 - 8.0 05/21/2018 [facility] Aspartate Amino Transf (AST/SGOT) 25 5 - 34 05/21/2018 [facility] Fibrin D-dimer DDU measurement in platelet poor plasma (mass/volume) Fibrin D-dimer DDU measurement in platelet poor plasma (mass/volume) 0.85 0.00 - 0.45 05/21/2018 [facility] Serum or plasma creatine kinase MB measurement (mass/volume) Serum or plasma creatine kinase MB measurement (mass/volume) 0.70 0 - 5.0 05/21/2018 [facility] Serum or plasma creatine kinase measurement (enzymatic activity/volume) Serum or plasma creatine kinase measurement (enzymatic activity/volume) 38 29 - 168 05/21/2018 [facility] Troponin I measurement by highly sensitive enzyme immunoassay Troponin I measurement by highly sensitive enzyme immunoassay 0.008 0 - 0.300 05/21/2018 [facility] Automated urine sediment leukocyte count by microscopy (number/high power field) Automated urine sediment leukocyte count by microscopy (number/high power field) <10 0 - 5 05/20/2018 [facility] Bacteria detection in urine sediment by light microscopy Bacteria detection in urine sediment by light microscopy FEW NONE 05/20/2018 [facility] Epithelial cells detection in urine sediment by light microscopy Epithelial cells detection in urine sediment by light microscopy FEW NONE 05/20/2018 [facility] Erythrocytes detection in urine sediment by light microscopy Erythrocytes detection in urine sediment by light microscopy <10 0 - 5 05/20/2018 [facility] Specific gravity of Urine by Test strip Specific gravity of Urine by Test strip 1.010 1.010 - 1.025 05/20/2018 [facility] Urine clarity Urine clarity HAZY CLEAR 05/20/2018 [facility] Urine color determination Urine color determination YELLOW YELLOW 05/20/2018 [facility] Urine erythrocytes detection Urine erythrocytes detection TRACE NEGATIVE 05/20/2018 [facility] Urine glucose detection Urine glucose detection NEGATIVE NEGATIVE 05/20/2018 [facility] Urine ketones detection by automated test strip Urine ketones detection by automated test strip NEGATIVE NEGATIVE 05/20/2018 [facility] Urine leukocyte esterase detection by dipstick Urine leukocyte esterase detection by dipstick TRACE NEGATIVE 05/20/2018 [facility] Urine nitrite detection Urine nitrite detection NEGATIVE NEGATIVE 05/20/2018 [facility] Urine pH measurement by automated test strip Urine pH measurement by automated test strip 6 5 - 7 05/20/2018 [facility] Urine protein measurement by test strip (mass/volume) Urine protein measurement by test strip (mass/volume) NEGATIVE NEGATIVE 05/20/2018 [facility] Urine total bilirubin measurement (mass/volume) Urine total bilirubin measurement (mass/volume) NEGATIVE NEGATIVE 05/20/2018 [facility] Urine urobilinogen measurement by test strip (mass/volume) Urine urobilinogen measurement by test strip (mass/volume) 0.2 0.2 - 1 05/20/2018 [facility] Activated partial thromboplastin time (aPTT) in platelet poor plasma bycoagulation assay Activated partial thromboplastin time (aPTT) in platelet poor plasma bycoagulation assay 29.7 23.8 - 35.5 05/20/2018 [facility] INR in Platelet poor plasma by Coagulation assay INR in Platelet poor plasma by Coagulation assay 1.14 05/20/2018 [facility] Plasma globulin measurement (mass/volume) Plasma globulin measurement (mass/volume) 3.6 2.3 - 3.5 05/20/2018 [facility] Prothrombin time (PT) in platelet poor plasma by coagulation assay Prothrombin time (PT) in platelet poor plasma by coagulation assay 13.7 11.9 - 14.5 05/20/2018 [facility] Serum or plasma albumin/globulin mass ratio Serum or plasma albumin/globulin mass ratio 0.9 0.8 - 2.0 05/20/2018 [facility] Serum or plasma lipase measurement (enzymatic activity/volume) Serum or plasma lipase measurement (enzymatic activity/volume) 34 8 - 78 05/20/2018 [facility] Pathology Reports No Data Provided for This [...] DC Date Status Source Discharged Inpatient (obs) [id number] MANASA SEGURA MD 05/20/2018 05/22/2018 [facility] Procedures No Data Provided for This Section Assessment and Plan No Data Provided for This Section Plan of Care Plan of Care Date Source Discharge Date 05/22/18 6:00pm Disposition HOME, SELF-CARE Instructions/Education Provided Chest Pain - Chest Wall Prescriptions See Medication Section Referrals SID PINZON MD (Cardiology) Order Date: 1-2 Weeks Entered Date: 05/22/2018 4:12pm Address: [place] [address] [address] Additional Instructions/Education FOLLOW UP WITH DR. PINZON INSTRUCTED. CALL THE OFFICE TO SCHEDULE AN APPOINTMENT TAKE ANTIBIOTIC PRESCRIBED UNTIL ALL MEDICATION TAKEN. 05/22/2018 [facility] Social History Social History Date Source Social History Problem Response Recorded Date/Time Onset Date Status Hx Psychiatric Problems No 04/04/2013 11:15pm Not Applicable Not Applicable Smoking Status Start Date Stop Date Never Smoker 05/22/2018 [facility] Family History Value Date Source Relationship Condition Age at Onset Recorded Date/Time 32 Father Family history of coronary artery disease 50's - 60 05/20/2018 6:08pm 05/22/2018 [facility] Advance Directives Order Name Results Value Date Source Advance Directives Advance Directives Directive Response Recorded Date/Time Does the patient have an advance directive? No 05/20/18 5:09pm If yes, is advance directive on file with [facility]? No 04/04/13 11:15pm If not on file with [facility] will patient provide a copy? No 08/21/12 2:47pm Do you have a Directive to Physician? No 05/20/18 3:40pm Do you have a Medical Power of Machine Greaser? No 05/20/18 3:40pm Do you have an [...] rights and responsibilities? Yes 05/20/18 3:40pm 05/22/2018 [facility] Functional Status No Data Provided for This Section
[2019-05-18 21:30] VITALS: BP 192/77
--- NOTE | 2019-05-18 21:31 | NUR ---
Pt received from [facility] via ambulance. Pt A&O and in no apparent distress. All safety measures ensured and pt call [facility] near. Pt has no complaints of pain.
[2019-05-18 22:40] VITALS: BP 192/77
[2019-05-18] MEDS: SODIUM CHLORIDE 0.9% 1000ML 1,000 ML IV SCH (23:56)
[2019-05-19] MEDS: HYDRALAZINE HCL 20 MG/ML VIAL IV PRN ×2 (02:19→06:43)
--- NOTE | 2019-05-19 02:19 | NUR ---
Pt BP 192/77. Pt IV fluids adjusted. Repeat BP 189/87. Pt asymptomatic. Hydralazine 10mg IV given. Will continue to monitor pt and repeat BP.
--- NOTE | 2019-05-19 03:35 | NUR ---
Pt repeat BP 188/77. Pt asymptomatic with no complaints. Will continue to monitor and give next dose of Hydralazine once due.
[2019-05-19] MEDS: SODIUM CHLORIDE 0.9% 1000ML 1,000 ML IV SCH (03:36)
[2019-05-19 05:36] VITALS: BP 188/77
--- NOTE | 2019-05-19 06:44 | NUR ---
Pt BP 192/87. Hydralazine 10mg IV given.
[2019-05-19 07:27] VITALS: BP 183/84
--- NOTE | 2019-05-19 07:35 | NUR ---
Bedside report walking rounds complete with day shift RN.
[2019-05-19 08:06] VITALS: BP 183/84
[2019-05-19] MEDS ORDERED: NIFEDIPINE CR 30 MG TAB PO NR (09:45)
[2019-05-19] MEDS: METOPROLOL TARTRATE 50 MG TAB PO SCH ×2 (09:54→16:47)
[2019-05-19 10:20] LABS: BASOPHILS # (AUTO) 0.1 (0.0-0.1); BASOPHILS % 0.4 % (0.0-1.0); EOSINOPHILS % 0.2 % (0.0-6.0); HEMATOCRIT 36.7 % (34.2-44.1); HEMOGLOBIN 12.3 g/dL (12.0-16.0); LYMPHOCYTES # (AUTO) 2.6 (1.0-3.2); LYMPHOCYTES % 18.9 % (18.0-39.1); MEAN CORPUSCULAR HEMOGLOBIN 31.1 pg (28-32); MEAN CORPUSCULAR HGB CONC 33.5 g/dL (31-35); MEAN CORPUSCULAR VOLUME 92.9 fL (81-99); MONOCYTES # (AUTO) 1.2 (0.2-0.8); MONOCYTES % 8.9 % (4.4-11.3); NEUTROPHILS # (AUTO) 9.8 (2.1-6.9); NEUTROPHILS % 71.2 % (38.7-80.0); PLATELET COUNT 336 x10e3/uL (140-360); RED BLOOD COUNT 3.95 x10e6/uL (3.6-5.1); RED CELL DISTRIBUTION WIDTH 13.5 % (11.7-14.4)
--- NOTE | 2019-05-19 10:30 | History and Physical ---
PRIMARY CARE PHYSICIAN: Neel Aviles MD. CHIEF COMPLAINT: Elevated blood pressure. HISTORY OF PRESENT ILLNESS: The patient is an 79-year-old female with long history of hypertension. The patient stated every time she gets home medication for her polymyalgia rheumatica, the patient's blood pressure went up. The patient is otherwise stable now. She is comfortable. No chest pain. No shortness of breath. The patient had echocardiogram back in last year, which showed ejection fraction of 60%. No history of arrhythmia. The patient is stable at this time. PAST MEDICAL HISTORY: Hypertension, polymyalgia rheumatica, chronic venous stasis, reflux, history of dyslipidemia, and electrolyte disorder. PAST SURGICAL HISTORY: Hysterectomy, cholecystectomy, and appendectomy. SOCIAL HISTORY: The patient does not smoke or use alcohol. No regular drugs. ALLERGIES: NO KNOWN ALLERGIES. HOME MEDICATIONS: The patient was on: 1. Ascorbic acid. 2. Calcium. 3. Clonidine 0.1 mg t.i.d. 4. Colace. 5. Pepcid. 6. Ferrous sulfate. 7. Lasix 40 mg daily. 8. Claritin 10 mg daily. 9. Losartan 25 mg daily. 10. Potassium 20 mEq three times a day. 11. Prednisone 2.5 mg daily. 12. Verapamil 240 mg daily. PHYSICAL EXAMINATION: VITAL SIGNS: Temperature is 98, blood pressure 183/84, pulse rate is 85, and respirations 18. GENERAL: The patient is not in acute distress. HEENT: Normocephalic, atraumatic. Pupils reactive. Anicteric. NECK: Supple grossly. PULMONARY: Diminished breath sounds bilaterally. CARDIOVASCULAR: S1, S2. Regular rate and rhythm. ABDOMEN: Soft. Positive bowel sounds. Grossly nontender, non-distention. EXTREMITIES: No cyanosis or edema. NEUROLOGIC: No gross focal deficit. LABORATORY DATA: Laboratory is still pending. IMPRESSION: 1. Hypertensive urgency. 2. Baseline polymyalgia rheumatica associated with hypertensive episode. 3. Osteoarthritis. 4. Reflux and fluid retention. PLAN: Discontinue IV fluid for now. Hold off the diuretics. Start the patient on nifedipine XL 60 mg once a day. Discontinue the Cardizem. Add on Lopressor 50 mg twice a day. Discontinue the clonidine due to the short-acting and rebound hypertension. We will continue some of the patient other medication. We will stop the losartan, the furosemide, and the potassium now. Repeat lab work. We will follow up on the patient's blood pressure. MD RAHTA Paul/MADINA /[id number]
[2019-05-19 10:35] LABS: BLOOD UREA NITROGEN 12 mg/dL (7-26); BUN/CREATININE RATIO 14 (6-25); CALCIUM 9.4 mg/dL (8.4-10.2); CARBON DIOXIDE 24 mmol/L (22-29); CHLORIDE 106 mmol/L (98-107); CREATININE, SERUM 0.83 mg/dL (0.57-1.11); EST GLOMERULAR FILTRATION RATE > 60 ML/MIN (60-); GLUCOSE 92 mg/dL (74-118); SODIUM 140 mmol/L (136-145)
[2019-05-19 11:25] VITALS: BP 168/67
[2019-05-19 15:36] VITALS: BP 169/73
[2019-05-19] MEDS: DOCUSATE SODIUM 100 MG CAP PO SCH (16:46)
--- NOTE | 2019-05-19 19:15 | NUR ---
Bedside report and walking rounds complete. Pt resting in bed and in no apparent distress. All safety measures ensured and pt call [facility] near.
[2019-05-19 20:00] VITALS: BP 181/79
[2019-05-20] VITALS (8 sets, daily range): BP systolic 114–219; BP diastolic 73–94
[2019-05-20] MEDS: HYDRALAZINE HCL 20 MG/ML VIAL IV PRN (00:19)
--- NOTE | 2019-05-20 00:19 | NUR ---
Pt BP 219/94. Pt asymptomatic and no complaints. Hydralazine 10mg IV given. Will continue to monitor pt and repeat BP.
--- NOTE | 2019-05-20 01:56 | NUR ---
Pt repeat BP 183/77. Pt asymptomatic and no complaints. Will continue to monitor.
[2019-05-20] MEDS ORDERED: NIFEDIPINE CR 30 MG TAB PO SCH (06:00)
--- NOTE | 2019-05-20 07:08 | NUR ---
Bedside report and walking rounds complete with day shift RN.
--- NOTE | 2019-05-20 07:17 | NUR ---
Morning rounds completed. Patient sitting up in bed, no c/o of pain or signs of distress. Bed locked and in low position, call light placed within reach. Patient instructed to call for assistance if needed. Will continue to monitor.
[2019-05-20] MEDS ORDERED: VALSARTAN 160 MG TAB PO ONE (07:45)
[2019-05-20] MEDS ORDERED: FUROSEMIDE 40 MG PO SCH (07:45)
[2019-05-20] MEDS ORDERED: NIFEDIPINE CR 30 MG TAB PO ONE (07:45)
[2019-05-20] MEDS: METOPROLOL TARTRATE 50 MG TAB PO SCH ×2 (07:46→16:37)
[2019-05-20] MEDS ORDERED: POTASSIUM CHLORIDE 10MEQ EA PO ONE (08:00)
[2019-05-20] MEDS: LORATADINE 10 MG TAB PO SCH (08:03)
[2019-05-20] MEDS: FERROUS SULFATE 325 MG TAB PO SCH (08:03)
[2019-05-20] MEDS: DOCUSATE SODIUM 100 MG CAP PO SCH ×2 (08:03→16:37)
[2019-05-20] MEDS: FAMOTIDINE 20 MG TAB PO SCH (08:03)
[2019-05-20] MEDS: ASCORBIC ACID 500 MG TAB PO SCH (08:03)
[2019-05-20] MEDS: FUROSEMIDE 40 MG TAB PO SCH (08:13)
[2019-05-20] MEDS: POTASSIUM CHLORIDE 10MEQ EA PO SCH ×2 (08:22→08:24)
[2019-05-20] MEDS: NIFEDIPINE CR 30 MG TAB PO SCH (10:33)
--- NOTE | 2019-05-20 12:04 | Diagnostic Imaging Report ---
EXAMINATION: Renal Doppler ultrasound. CLINICAL HISTORY :Hypertension COMPARISON: <None available.> TECHNIQUE: Grayscale and color Doppler evaluation of the kidneys and bladder was performed in transverse and longitudinal planes. Doppler interrogation of the main, hilar, segmental and arcuate renal arteries bilaterally as well as evaluation of the aorta were performed. DISCUSSION: RIGHT KIDNEY: The right kidney measures 8.7 cm in length and shows normal echogenicity. The right renal cortex measures 2.1 cm. No hydronephrosis, shadowing calculi or solid mass lesions. 1.2 x 1.1 x 1.2 cm mostly exophytic cystic, anechoic lesion in the lateral interpolar region consistent with a simple cyst. . Right main renal artery PSV is 178.5, 181.7 and 164.0 cm/sec at the proximal, mid and distal aspects. The renal ostium could not be visualized due to overlying bowel gas. Segmental artery PSV is 57.8, 53.9 and 33.5cm/sec at the superior, mid and inferior aspects of the right kidney Arterial waveforms are normal. The right renal artery PSV/aortic PSV ratio is 2.9. LEFT KIDNEY: The left kidney measures 7.8 cm in length and shows normal echogenicity. The left renal cortex measures 1.7 cm. No hydronephrosis, shadowing calculi or solid mass lesions. 1.0 x 0.7 x 0.8 cm cystic, anechoic lesion in the inferior pole Left main renal artery PSV is 115.1 and 106.3 cm/sec at the mid and distal portions. The ostium and proximal portions are obscured by overlying bowel gas.. Segmental artery PSV is 41.1, 42.1 and 35.5cm/sec at the superior, mid and inferior aspects. Arterial waveforms are normal. The left renal artery PSV/aortic PSV ratio is 1.8. Abdominal aortic PSV is 62.3, 61.4 and 62.3 cm/sec at the proximal, celiac axis/SMA and distal aspects IVC and renal veins are patent.. BLADDER: No focal lesions. IMPRESSION: 1. Limited exam, as the right renal ostium, left renal ostium and proximal left renal artery could not be evaluated due to overlying bowel gas. 2. Borderline elevation of the mid aspect of the right main renal artery and borderline right renal artery/aorta ratio. This may reflect mild stenosis and can be confirmed with CTA of the renal arteries. 3. Right kidney and the lower limit of normal. Left kidney smaller than normal. No hydronephrosis or obstruction. 4. Bilateral simple cysts, which require no further follow-up. Signed by: Dr. Neel Hutchinson M.D. on 05/20/2019 12:01 PM
--- NOTE | 2019-05-20 19:03 | NUR ---
Bedside report given to night nurse. Patient in stable condition.
--- NOTE | 2019-05-20 19:50 | NUR ---
INITIAL ASSESSMENT COMPLETE, CALL LIGHT IN REACH, FAMILY AT BEDSIDE, NO DISTRESS NOTED, PT STATES HE HAS A DULL HEADACHE, VS STABLE, IV INTACT, TELE #5 ON PT, TOLD TO CALL FOR HELP
[2019-05-21] VITALS (7 sets, daily range): BP systolic 122–196; BP diastolic 59–86
--- NOTE | 2019-05-21 | NUR ---
PT IN BED, NO DISTRESS NOTED, CALL LIGHT IN REACH, FAMILY AT BEDSIDE, VS STABLE, TOLD TO CALL FOR NEEDS
[2019-05-21] MEDS: ACETAMINOPHEN 325 MG TAB PO PRN ×2 (00:20→16:05)
[2019-05-21] MEDS: HYDRALAZINE HCL 20 MG/ML VIAL IV PRN (00:21)
--- NOTE | 2019-05-21 04:00 | NUR ---
VS STABLE, NO DISTRESS NOTED, PT AWAKE FOR VS, CALL LIGHT IN REACH, VS IMPROVED, TOLD TO CALL FOR NEEDS
[2019-05-21 05:50] LABS: BASOPHILS # (AUTO) 0.1 (0.0-0.1); BASOPHILS % 0.4 % (0.0-1.0); EOSINOPHILS % 0.2 % (0.0-6.0); HEMATOCRIT 40.7 % (34.2-44.1); HEMOGLOBIN 13.9 g/dL (12.0-16.0); LYMPHOCYTES # (AUTO) 3.5 (1.0-3.2); LYMPHOCYTES % 21.5 % (18.0-39.1); MEAN CORPUSCULAR HEMOGLOBIN 31.4 pg (28-32); MEAN CORPUSCULAR HGB CONC 34.2 g/dL (31-35); MEAN CORPUSCULAR VOLUME 92.1 fL (81-99); MONOCYTES # (AUTO) 2.3 (0.2-0.8); MONOCYTES % 14.2 % (4.4-11.3); NEUTROPHILS # (AUTO) 10.3 (2.1-6.9); NEUTROPHILS % 63.3 % (38.7-80.0); PLATELET COUNT 356 x10e3/uL (140-360); RED BLOOD COUNT 4.42 x10e6/uL (3.6-5.1); RED CELL DISTRIBUTION WIDTH 13.3 % (11.7-14.4)
[2019-05-21 06:11] LABS: ANION GAP 13.2 mmol/L (8-16); BLOOD UREA NITROGEN 12 mg/dL (7-26); BUN/CREATININE RATIO 14 (6-25); CALCIUM 8.6 mg/dL (8.4-10.2); CARBON DIOXIDE 25 mmol/L (22-29); CHLORIDE 101 mmol/L (98-107); CREATININE, SERUM 0.88 mg/dL (0.57-1.11); EST GLOMERULAR FILTRATION RATE > 60 ML/MIN (60-); GLUCOSE 108 mg/dL (74-118); POTASSIUM 3.2 mmol/L (3.5-5.1); SODIUM 136 mmol/L (136-145)
[2019-05-21] MEDS: VALSARTAN 160 MG TAB PO SCH ×2 (06:42→09:36)
[2019-05-21 06:50] LABS: MAGNESIUM 1.8 MG/DL (1.3-2.1); PHOSPHORUS 2.5 MG/DL (2.3-4.7)
[2019-05-21 07:04] LABS: LYMPHOCYTES % (MANUAL) 23 % (19-48); MONOCYTES % (MANUAL) 12 % (3.4-9.0); NEUTROPHILS % (MANUAL) 65 % (40-74); PLATELET ESTIMATE ADEQUATE
[2019-05-21 07:05] LABS: RBC MORPHOLOGY COMMENT NORMAL
[2019-05-21] MEDS ORDERED: POTASSIUM PHOSPHATE 20 MM in SODIUM CHLORIDE 0.9% 250ML 250 ML IV ONE (09:00)
[2019-05-21] MEDS ORDERED: POTASSIUM CHLORIDE 10MEQ EA PO SCH (09:00)
[2019-05-21] MEDS: DOCUSATE SODIUM 100 MG CAP PO SCH ×2 (09:31→17:01)
[2019-05-21] MEDS: FERROUS SULFATE 325 MG TAB PO SCH (09:31)
[2019-05-21] MEDS: FUROSEMIDE 40 MG TAB PO SCH (09:31)
[2019-05-21] MEDS: LORATADINE 10 MG TAB PO SCH (09:32)
[2019-05-21] MEDS: MAGNESIUM OXIDE 400 MG TAB PO SCH ×2 (09:32→17:01)
[2019-05-21] MEDS: FAMOTIDINE 20 MG TAB PO SCH (09:32)
[2019-05-21] MEDS: ASCORBIC ACID 500 MG TAB PO SCH (09:32)
[2019-05-21] MEDS: CEFTRIAXONE SOD 1 GM/NS 50 ML 50 ML IV SCH (09:32)
[2019-05-21] MEDS: METOPROLOL TARTRATE 50 MG TAB PO SCH ×2 (09:37→17:02)
[2019-05-21] MEDS: NIFEDIPINE CR 30 MG TAB PO SCH ×2 (09:38→17:03)
[2019-05-21] MEDS: LIDOCAINE 5% PATCH TP SCH ×2 (09:45→22:00)
[2019-05-21] MEDS ORDERED: POTASSIUM CHLORIDE 20MEQ/100ML 200 ML IV ONE (16:00)
--- NOTE | 2019-05-21 16:10 | NUR ---
Made Dr. Santiago aware patient given potassium phosphate 20mmols, and 20 MEQ KCL PO this morning, received orders to cancel potassium chloride riders 40 MEQ,
[2019-05-21] MEDS: SPIRONOLACTONE 25 MG TAB PO SCH (17:01)
--- NOTE | 2019-05-21 17:26 | Consultation ---
DATE OF CONSULTATION: 05/21/2019 HISTORY OF PRESENT ILLNESS: The patient is an 79-year-old female with underlying history of prior UTI, hypertension, history of hyponatremia and other electrolyte imbalance. Renal has been consulted for management of electrolyte imbalance and abnormal kidney function. She has existing history of chronic kidney renal insufficiency. Currently sprained her right knee and she does not know how, and complaining of pain. There is no local swelling, warmth, or tenderness present. She is lying supine, in no apparent distress. Workup included a kidney ultrasound shows right kidney 8.7 cm. No hydronephrosis. Left kidney 7.8 cm. Bilateral simple cysts. LABORATORY TEST: Shows a potassium of 3 and magnesium level 1.8. Phosphorus 2.4. TSH 1.024. ALLERGIES: NO APPARENT DRUG ALLERGIES. SOCIAL HISTORY: Does not smoke or drink. Currently denies nausea, vomiting, or diarrhea. CURRENT MEDICATIONS: 1. Ceftriaxone. 2. Tylenol p.r.n. 3. Docusate sodium. 4. Pepcid 20 mg daily. 5. Furosemide 40 mg daily, which I am going to stop. 6. She is on loratadine. 7. Hydralazine p.r.n. 8. Mag oxide 400 mg p.o. b.i.d. 9. Metoprolol 50 mg p.o. b.i.d. 10. Nifedipine 60 mg p.o. once and 90 mg p.o. daily. 11. She is on KCl 20 mEq p.o. b.i.d. PHYSICAL EXAMINATION: GENERAL: Awake, alert, lying supine, in no apparent distress. VITAL SIGNS: Blood pressure 196/86, pulse rate 86, afebrile, respiratory rate 22. HEAD AND NECK: Cornea clear. Oral mucosa moist. Neck veins flat. LUNGS: Relatively clear. No rales or rhonchi. HEART: S1, S2 audible. ABDOMEN: Otherwise soft, nontender. EXTREMITIES: Lower extremity, no edema. IMPRESSION: 1. Hypokalemia. 2. Hypertension. PLAN: I will order a CT of the adrenal gland to rule out adrenal adenoma and possibility of primary hyperaldosteronism. In the mean time, I will replace potassium, discontinue Lasix, titrate Procardia to 60 mg twice a day, start Aldactone 50 mg twice a day. Magnesium level noted. Continue with oral magnesium. Workup of her knee pain per primary care physician. Please see orders. MD KATARINA Soto/MADINA /[id number]
--- NOTE | 2019-05-21 19:15 | NUR ---
RECEIVED REPORT FROM DAY NURSE. PATIENT IS RESTING COMFORTABLY IN BED. BED IS IN LOWEST POSITION AND CALL LIGHT IS WITHIN REACH. WILL CONTINUE TO MONITOR PATIENT'S PLAN OF CARE.
--- NOTE | 2019-05-21 19:15 | NUR ---
HANDOFF REPORT TO ONCOMING NURSE, PATIENT IN BED EATING AND DRINKING. FAMILY AT BEDSIDE.
--- NOTE | 2019-05-21 20:02 | Diagnostic Imaging Report ---
CT Abdomen Unenhanced CPT CODE: 45885 INDICATION: Potential adrenal mass TECHNIQUE: 2.5 mm collimation axial images obtained from lung base to iliac crest without intravenous contrast. RADIATION DOSE: Total DLP: (DLP x 0.015 x size factor) mGy*cm Estimated effective dose: (DLP x 0.015 x size factor) mSv CTDIvol has been reviewed. It is below the limits set by the Radiation Protocol Committee (RPC). Comparison: Renal ultrasound 05/20/2019. FINDINGS: Lung bases: Bibasilar subsegmental atelectasis, right greater than left. Liver: Normal attenuation. No mass. Gallbladder: Absent. Biliary tree: No intrahepatic or hepatic biliary ductal dilatation Pancreas: Normal in attenuation without mass or ductal dilatation. Spleen: Normal in attenuation and size without mass. Adrenal Glands: Right: Normal morphology. No mass. Left: Mild thickening at the apex without discrete mass. There is a calcification adjacent to the lateral limb. On coronal reformations, this appears vascular. Kidneys: Right: 2 to 3 mm calculus in the upper pole the right kidney. 8 mm partially exophytic lesion may correspond to a cyst on ultrasound. No hydronephrosis. Left: Calculus in the anterior lower pole measures 3 mm. Hyperattenuating lesion in the lower pole measures 5 mm and may represent a proteinaceous/hemorrhagic cyst. No hydronephrosis. Bowel: Small hiatal hernia. Mild distention of the central small bowel loops without dilatation. No surrounding inflammation. Visualized large bowel is normal in diameter with normal wall thickness. Aorta: Normal in diameter with scattered calcifications Lymph Nodes: No enlarged abdominal or retroperitoneal lymph nodes. Peritoneum/retroperitoneum: No free fluid or fluid collection. Bones: Anterolisthesis of L3 on L4 of approximately 6 mm. There are degenerative changes of the spine at T12-L1. Soft tissues: Unremarkable. IMPRESSION: 1. Nonspecific thickening of the left adrenal gland with an adjacent calcification, likely vascular. A contrast-enhanced examination would be needed for confirmation. No defined nodule either adrenal gland. 2. Other findings as described above. Signed by: Dr. Joana Medellin MD on 05/21/2019 7:59 PM
--- NOTE | 2019-05-21 22:00 | NUR ---
patients lidocaine patch has come off of the right knee. patient is requesting another patch be applied to the knee. New Lidocaine patch has been obtained and applied to patients right knee.
[2019-05-22] VITALS (8 sets, daily range): BP systolic 121–173; BP diastolic 59–76
[2019-05-22] MEDS: ACETAMINOPHEN 325 MG TAB PO PRN ×2 (00:15→17:09)
[2019-05-22 06:04] LABS: BASOPHILS # (AUTO) 0.1 (0.0-0.1); BASOPHILS % 0.5 % (0.0-1.0); EOSINOPHILS % 0.2 % (0.0-6.0); HEMATOCRIT 40.1 % (34.2-44.1); HEMOGLOBIN 13.6 g/dL (12.0-16.0); LYMPHOCYTES # (AUTO) 3.6 (1.0-3.2); LYMPHOCYTES % 20.5 % (18.0-39.1); MEAN CORPUSCULAR HEMOGLOBIN 31.3 pg (28-32); MEAN CORPUSCULAR HGB CONC 33.9 g/dL (31-35); MEAN CORPUSCULAR VOLUME 92.4 fL (81-99); MONOCYTES # (AUTO) 2.3 (0.2-0.8); MONOCYTES % 12.9 % (4.4-11.3); NEUTROPHILS # (AUTO) 11.5 (2.1-6.9); NEUTROPHILS % 65.2 % (38.7-80.0); PLATELET COUNT 336 x10e3/uL (140-360); RED BLOOD COUNT 4.34 x10e6/uL (3.6-5.1); RED CELL DISTRIBUTION WIDTH 13.4 % (11.7-14.4)
[2019-05-22 06:23] LABS: ANION GAP 12.4 mmol/L (8-16); CREATININE, SERUM 0.95 mg/dL (0.57-1.11); POTASSIUM 3.4 mmol/L (3.5-5.1)
--- NOTE | 2019-05-22 06:38 | NUR ---
report given to day nurse. patient is resting comfortably in bed. bed is in lowest position and call mcbride is within reach.
[2019-05-22 06:54] LABS: LYMPHOCYTES % (MANUAL) 28 % (19-48); MONOCYTES % (MANUAL) 11 % (3.4-9.0); NEUTROPHILS % (MANUAL) 61 % (40-74); PLATELET ESTIMATE ADEQUATE
[2019-05-22 06:55] LABS: RBC MORPHOLOGY COMMENT NORMAL
--- NOTE | 2019-05-22 07:11 | NUR ---
pt asleep resp even and unlabored pt easily aroused to name and touch, pt able to make needs known, call light in reach pt has no c/o pain when asked, will cont to monitor.
[2019-05-22] MEDS: DOCUSATE SODIUM 100 MG CAP PO SCH ×2 (09:21→18:14)
[2019-05-22] MEDS: LORATADINE 10 MG TAB PO SCH (09:21)
[2019-05-22] MEDS: SPIRONOLACTONE 25 MG TAB PO SCH ×2 (09:21→18:14)
[2019-05-22] MEDS: VALSARTAN 160 MG TAB PO SCH (09:22)
[2019-05-22] MEDS: NIFEDIPINE CR 30 MG TAB PO SCH ×2 (09:22→18:15)
[2019-05-22] MEDS: FAMOTIDINE 20 MG TAB PO SCH (09:22)
[2019-05-22] MEDS: ASCORBIC ACID 500 MG TAB PO SCH (09:22)
[2019-05-22] MEDS: METOPROLOL TARTRATE 50 MG TAB PO SCH ×2 (09:22→18:15)
[2019-05-22] MEDS: FERROUS SULFATE 325 MG TAB PO SCH (09:22)
[2019-05-22] MEDS: MAGNESIUM OXIDE 400 MG TAB PO SCH ×2 (09:22→18:14)
[2019-05-22] MEDS: LIDOCAINE 5% PATCH TP SCH (09:25)
[2019-05-22] MEDS: CEFTRIAXONE SOD 1 GM/NS 50 ML 50 ML IV SCH (09:26)
[2019-05-22] MEDS ORDERED: POTASSIUM CHLORIDE 20MEQ/100ML 200 ML IV ONE (13:00)
[2019-05-22] MEDS ORDERED: MAGNESIUM SULFATE 2GM/50ML 50 ML IV ONE (13:00)
[2019-05-22] MEDS ORDERED: SODIUM CHLORIDE 0.9% 1000ML 1,000 ML ONE (15:13)
--- NOTE | 2019-05-22 19:13 | NUR ---
WALKING ROUNDS PERFORMED, RECEIVED PT LAYING FOWLERS IN BED, AAOX3, RR EVEN AND NON-LABORED, ON ROOM AIR. PT CURRENTLY EATING DINNER. NO S/SX OF DISTRESS NOTED. IV TO (R) WRIST NOTED TO BE BRUISED, RECEIVED IN REPORT UNABLE TO FLUSH IV. IV CURRENTLY SALINE LOCKED. LEFT PT FOWLERS IN BED, EATING DINNER, BED IN LOW LOCKED POSITION, SIDE RAILS UPX2, CALL LIGHT AND PHONE WITHIN REACH.
--- NOTE | 2019-05-22 19:20 | NUR ---
report given to oncoming nurse, pt stable.
--- NOTE | 2019-05-22 20:15 | NUR ---
(R) FA IV DRESSING REMOVED AND NEW TEGADERM APPLIED. ABLE TO FLUSH IV, NO PAIN NOTED. RECONNECTED IV POTASSIUM.
[2019-05-22 23:43] LABS: BILIRUBIN,URINE NEGATIVE (NEGATIVE); CLARITY,URINE CLOUDY (CLEAR); COLOR,URINE YELLOW (YELLOW); KETONES,URINE NEGATIVE (NEGATIVE); LEUKOCYTE ESTERASE ,URINE SMALL (NEGATIVE); NITRITE,URINE NEGATIVE (NEGATIVE); PROTEIN,URINE DIPSTICK 1+ (NEGATIVE); URINE UROBILINOGEN 0.2 mg/dL (0.2 - 1)
[2019-05-23] VITALS (8 sets, daily range): BP systolic 135–160; BP diastolic 61–68
[2019-05-23 00:16] LABS: BACTERIA,URINE MANY /HPF; EPITHELIAL CELLS,URINE FEW /LPF; MUCUS,URINE FEW (RARE); TRANSITIONAL EPI CELLS,URINE FEW
[2019-05-23] MEDS: MAGNESIUM OXIDE 400 MG TAB PO SCH ×2 (07:54→16:24)
[2019-05-23] MEDS: FAMOTIDINE 20 MG TAB PO SCH (07:54)
[2019-05-23] MEDS: LORATADINE 10 MG TAB PO SCH (07:54)
[2019-05-23] MEDS: SPIRONOLACTONE 25 MG TAB PO SCH ×2 (07:54→16:24)
[2019-05-23] MEDS: VALSARTAN 160 MG TAB PO SCH (07:54)
[2019-05-23] MEDS: NIFEDIPINE CR 30 MG TAB PO SCH ×2 (07:54→16:25)
[2019-05-23] MEDS: METOPROLOL TARTRATE 50 MG TAB PO SCH ×2 (07:54→16:24)
[2019-05-23] MEDS: CEFTRIAXONE SOD 1 GM/NS 50 ML 50 ML IV SCH (07:54)
[2019-05-23] MEDS: FERROUS SULFATE 325 MG TAB PO SCH (07:54)
[2019-05-23] MEDS: LIDOCAINE 5% PATCH TP SCH (07:54)
[2019-05-23] MEDS: ASCORBIC ACID 500 MG TAB PO SCH (07:54)
[2019-05-23] MEDS: DOCUSATE SODIUM 100 MG CAP PO SCH ×2 (07:54→16:24)
[2019-05-23] MEDS: ACETAMINOPHEN 325 MG TAB PO PRN (07:55)
--- NOTE | 2019-05-23 07:55 | NUR ---
TYLENOL PRN GIVEN FOR TEMP OF 100.2
--- NOTE | 2019-05-23 19:15 | NUR ---
BED SIDE SHIFT REPORT TAKEN FROM MORNING MARIA LUZ IN THE BED.STABLE CONDITION.
[2019-05-24 00:20] VITALS: BP 145/65
[2019-05-24 03:49] VITALS: BP 151/70
--- NOTE | 2019-05-24 04:15 | NUR ---
PATIENT IS RESTING IN THE BED.STABLE CONDITION.
[2019-05-24 05:41] LABS: BASOPHILS # (AUTO) 0.1 (0.0-0.1); BASOPHILS % 0.6 % (0.0-1.0); EOSINOPHILS # (AUTO) 0.1 (0.0-0.4); EOSINOPHILS % 1.1 % (0.0-6.0); HEMATOCRIT 36.1 % (34.2-44.1); HEMOGLOBIN 11.9 g/dL (12.0-16.0); LYMPHOCYTES # (AUTO) 2.5 (1.0-3.2); LYMPHOCYTES % 23.2 % (18.0-39.1); MEAN CORPUSCULAR HEMOGLOBIN 30.8 pg (28-32); MEAN CORPUSCULAR VOLUME 93.5 fL (81-99); MONOCYTES # (AUTO) 1.1 (0.2-0.8); MONOCYTES % 10.7 % (4.4-11.3); NEUTROPHILS # (AUTO) 6.8 (2.1-6.9); NEUTROPHILS % 63.9 % (38.7-80.0); PLATELET COUNT 333 x10e3/uL (140-360); RED BLOOD COUNT 3.86 x10e6/uL (3.6-5.1); RED CELL DISTRIBUTION WIDTH 13.2 % (11.7-14.4)
[2019-05-24 06:05] LABS: ALANINE AMINOTRANSFERASE 22 IU/L (0-55); ALBUMIN 2.5 g/dL (3.5-5.0); ALBUMIN/GLOBULIN RATIO 0.7 (0.8-2.0); ALKALINE PHOSPHATASE 52 IU/L (40-150); ANION GAP 13.9 mmol/L (8-16); BLOOD UREA NITROGEN 13 mg/dL (7-26); BUN/CREATININE RATIO 15 (6-25); CALCIUM 9.1 mg/dL (8.4-10.2); CARBON DIOXIDE 26 mmol/L (22-29); CHLORIDE 100 mmol/L (98-107); CREATININE, SERUM 0.87 mg/dL (0.57-1.11); EST GLOMERULAR FILTRATION RATE > 60 ML/MIN (60-); GLUCOSE 95 mg/dL (74-118); POTASSIUM 3.9 mmol/L (3.5-5.1); SODIUM 136 mmol/L (136-145)
--- NOTE | 2019-05-24 06:59 | NUR ---
Bed side shift report given to the oncoming rn.stable condition.
[2019-05-24 08:13] VITALS: BP 154/69
[2019-05-24] MEDS: SPIRONOLACTONE 25 MG TAB PO SCH (08:14)
[2019-05-24] MEDS: LORATADINE 10 MG TAB PO SCH (08:14)
[2019-05-24] MEDS: FAMOTIDINE 20 MG TAB PO SCH (08:14)
[2019-05-24] MEDS: NIFEDIPINE CR 30 MG TAB PO SCH (08:14)
[2019-05-24] MEDS: FERROUS SULFATE 325 MG TAB PO SCH (08:14)
[2019-05-24] MEDS: CEFTRIAXONE SOD 1 GM/NS 50 ML 50 ML IV SCH (08:14)
[2019-05-24] MEDS: VALSARTAN 160 MG TAB PO SCH (08:14)
[2019-05-24] MEDS: METOPROLOL TARTRATE 50 MG TAB PO SCH (08:14)
[2019-05-24] MEDS: MAGNESIUM OXIDE 400 MG TAB PO SCH (08:14)
[2019-05-24] MEDS: ASCORBIC ACID 500 MG TAB PO SCH (08:14)
[2019-05-24] MEDS: DOCUSATE SODIUM 100 MG CAP PO SCH (08:14)
[2019-05-24] MEDS: LIDOCAINE 5% PATCH TP SCH (08:15)
[2019-05-24 09:10] VITALS: BP 154/69
[2019-05-24] MEDS ORDERED: DIOVAN160 MG PO (09:28)
[2019-05-24] MEDS ORDERED: METOPROLOL TART50 MG PO (09:28)
[2019-05-24] MEDS ORDERED: NIFEDIPINE ER30 M1 PO (09:31)
[2019-05-24] MEDS ORDERED: ALDACTONE25 MG PO (09:32)
--- NOTE | 2019-05-24 10:01 | NUR ---
DISCHARGE INSTRUCTIONS AND PRESCRIPTIONS GIVEN. PT VERBALIZED UNDERSTANDING IV DC PRESSURE DRESSING APPLIED AND TAPED PT IS NOW WAITING FOR RIDE HOME
--- NOTE | 2019-05-24 11:07 | NUR ---
PT DC TO HOME AT THIS TIME
--- NOTE | 2019-05-25 06:56 | Discharge Summary ---
PRIMARY CARE PHYSICIAN: Neel Aviles MD. CONSULTANTS: Dr. Lazaro Santiago. FINAL DIAGNOSES: 1. Hypertensive urgency with difficult blood pressure control. 2. Hypokalemia, corrected. 3. Urinary tract infection. Urine culture negative due to previous antibiotic treatment. 4. Leukocytosis, most likely reactive, leukemoid reaction. However, patient did have low-grade fever, resolved. DISCHARGE MEDICATIONS/HOME MEDICATIONS: As follows. She will continue as follows: 1. Ascorbic acid. 2. Calcium citrate. 3. Colace. 4. Pepcid. 5. Ferrous sulfate. 6. Loratadine. The patient will discontinue clonidine, Lasix, losartan, potassium, prednisone, and verapamil. New prescription is: 1. Metoprolol tartrate 50 mg twice a day. 2. Diovan 160 mg daily. 3. Nifedipine ER 60 mg twice a day. 4. Aldactone 50 mg twice a day. SUMMARY: The patient is an 79-year-old female with difficult blood pressure control due to rebound hypertension. The patient was on short-acting medication that contributed to the patient up and down blood pressure. Overall, the patient was stable. Workup including abdominal CT scan done. Nonspecific thickening of the left adrenal gland with an adjacent calcification likely vascular problem. There is no other significant finding. The renal ultrasound showed borderline elevation of the mid aspect of the right main renal artery and borderline right renal artery aorta ratio. The Doppler was done. No significant abnormality. She had bilateral simple cysts of the kidney. The patient is otherwise stable. The right kidney lower limit of the normal, left kidney smaller than normal, but no hydronephrosis or obstruction. The patient is stable. She makes good urine. Vital signs stable. Blood pressure is 130-150 under control systolic. LABORATORY DATA: WBC is 10.6. Hemoglobin and hematocrit of 11.9 and 36.1. Platelet is normal at 333. The patient is stable. Urinalysis that was cloudy urine, but the urine culture was negative. The patient is otherwise stable. She did have enough antibiotics. The patient is stable, discharged home with the above instructions. She will need to follow up with Dr. Lazaro Santiago to continue to monitor her electrolyte and renal function. The patient will follow up with Dr. Neel Aviles for repeated lab work. The patient is otherwise stable. She is ambulatory. No chest pain, no shortness of breath. No abdominal pain. She makes good urine. She will go home today. MD RAHAT Paul/MADINA /[id number] cc: Neel Aviles MD
== END 2019-05-24 11:00 | disposition home or self-care (01) | DRG 305 ==
LOC: FSED 17:42 → ERHOLD 19:38 → INTOOBSV 19:38 → MED/SURG 21:28 → INTOOBSV 05-20 07:47 → OBSVTOIN 05-20 07:47
PROVIDERS: ADMIT Internal Medicine; ATTEND Internal Medicine
DX: I16.0 Hypertensive urgency (principal); N39.0 Urinary tract infection, site not specified; E87.6 Hypokalemia; M19.90 Unspecified osteoarthritis, unspecified site; S83.91XA Sprain of unspecified site of right knee, initial encounter; M35.3 Polymyalgia rheumatica; K21.9 Gastro-esophageal reflux disease without esophagitis; E78.5 Hyperlipidemia, unspecified; Z87.440 Personal history of urinary (tract) infections; D72.823 Leukemoid reaction; E27.8 Other specified disorders of adrenal gland; N28.1 Cyst of kidney, acquired; I12.9 Hypertensive chronic kidney disease with stage 1 through stage 4 chronic kidney disease, or unspecified chronic kidney disease; N18.9 Chronic kidney disease, unspecified
CPT/HCPCS: 36415; 70450; 74150; 76770; 80048; 80053; 81001; 82948; 83735; 84100; 84443; 85025; 87086; 93976; 99284; G0378; J0360; J0696; J3475; J3480; J7030; J7050

== ENCOUNTER 2019-08-05 11:27 | Emergency (ER) | payer MEDICARE ==
[~2019-08-05] VITALS: Ht 154.9 cm; Wt 51.7 kg
[~2019-08-05 11:27] MED LIST changes: +ALDACTONE25 MG PO; +DIOVAN160 MG PO; +METOPROLOL TART50 MG PO; +NIFEDIPINE ER30 M1 PO
[2019-08-05] MEDS ORDERED: ALBUTEROL/IPRATROPIUM 3 ML NEB NEB ONE (12:00)
--- NOTE | 2019-08-05 12:43 | Diagnostic Imaging Report ---
EXAMINATION: CXR 2 VIEW - HOPD INDICATION: Cough, congestion for 5 days ^[id number] ^1200 COMPARISON: Chest x-ray 05/20/2018 FINDINGS: PA and lateral views TUBES and LINES: None. LUNGS: Lungs are well inflated. There is no evidence of pneumonia or pulmonary edema. Mild bronchial wall thickening. PLEURA: Mild stable eventration of the right diaphragm. No pleural effusion or pneumothorax. HEART AND MEDIASTINUM: The cardiomediastinal silhouette is unremarkable.. BONES AND SOFT TISSUES: No focal osseous lesions. Soft tissues are unremarkable. UPPER ABDOMEN: Cholecystectomy clips in the right upper quadrant. No free air under the diaphragm. IMPRESSION: Mild bronchial wall thickening is suggestive of acute or chronic bronchitis. No infiltrates. Signed by: Dr. Joana Medellin MD on 08/05/2019 12:40 PM
[2019-08-05] MEDS ORDERED: ALBUTEROL/IPRATROPIUM 3 ML NEB ONE (12:55)
[2019-08-05 13:09] VITALS: BP 170/79
== END 2019-08-05 13:16 | disposition home or self-care (01) ==
LOC: FSED 11:27
DX: R05 Cough (principal); J20.9 Acute bronchitis, unspecified
CPT/HCPCS: 71046; 80048; 80076; 82553; 83880; 84484; 85025; 87400; 93005; 99284

== ENCOUNTER 2020-01-15 13:24 | Emergency (ER) | payer MEDICARE ==
[~2020-01-15] VITALS: Ht 154.9 cm; Wt 51.7 kg
[2020-01-15 13:59] LABS: BASOPHILS # (AUTO) 0.1 (0.0-0.1); BASOPHILS % 0.6 % (0.0-1.0); EOSINOPHILS # (AUTO) 0.3 (0.0-0.4); EOSINOPHILS % 2.1 % (0.0-6.0); HEMATOCRIT 34.4 % (34.2-44.1); HEMOGLOBIN 11.6 g/dL (12.0-16.0); LYMPHOCYTES # (AUTO) 1.5 (1.0-3.2); LYMPHOCYTES % 11.8 % (18.0-39.1); MEAN CORPUSCULAR HEMOGLOBIN 31.8 pg (28-32); MEAN CORPUSCULAR HGB CONC 33.7 g/dL (31-35); MEAN CORPUSCULAR VOLUME 94.2 fL (81-99); MONOCYTES # (AUTO) 0.6 (0.2-0.8); MONOCYTES % 5.1 % (4.4-11.3); NEUTROPHILS # (AUTO) 9.9 (2.1-6.9); NEUTROPHILS % 79.8 % (38.7-80.0); PLATELET COUNT 383 x10e3/uL (140-360); RED BLOOD COUNT 3.65 x10e6/uL (3.6-5.1); RED CELL DISTRIBUTION WIDTH 12.3 % (11.7-14.4)
[2020-01-15 14:02] LABS: STREPTOCOCCUS GRP A ANTIGEN NEGATIVE (NEGATIVE)
[2020-01-15 14:09] LABS: INR 0.96; PROTHROMBIN TIME 13.4 seconds (11.9-14.5)
[2020-01-15 14:14] LABS: INFLUENZAE A&B ANTIGEN (RAPID) NEGATIVE (NEGATIVE)
--- NOTE | 2020-01-15 14:14 | Diagnostic Imaging Report ---
Chest, portable AP view History: Wheezing, cough Comparison: 08/05/2019 IMPRESSION: The heart is within normal limits of size. There is no focal consolidation, sizable pleural effusion, or pneumothorax. Minimal left basilar atelectasis is present. No acute osseous abnormalities. Signed by: Charbel Abrams MD on 01/15/2020 2:11 PM
[2020-01-15 14:19] LABS: ALANINE AMINOTRANSFERASE 18 IU/L (0-55); ALBUMIN 3.6 g/dL (3.5-5.0); ALBUMIN/GLOBULIN RATIO 1.2 (0.8-2.0); ALKALINE PHOSPHATASE 52 IU/L (40-150); BLOOD UREA NITROGEN 26 mg/dL (7-26); BUN/CREATININE RATIO 15 (6-25); CALCIUM 9.7 mg/dL (8.4-10.2); CARBON DIOXIDE 24 mmol/L (22-29); CHLORIDE 103 mmol/L (98-107); CREATINE KINASE 110 IU/L (29-168); CREATININE, SERUM 1.75 mg/dL (0.57-1.11); EST GLOMERULAR FILTRATION RATE 28 ML/MIN (60-); GLUCOSE 120 mg/dL (74-118); SODIUM 133 mmol/L (136-145)
[2020-01-15] MEDS ORDERED: SODIUM CHLORIDE 0.9% 1000ML 1,000 ML IV STA (14:52)
[2020-01-15 15:40] LABS: BILIRUBIN,URINE NEGATIVE (NEGATIVE); CLARITY,URINE SL CLOUDY (CLEAR); COLOR,URINE YELLOW (YELLOW); KETONES,URINE NEGATIVE (NEGATIVE); LEUKOCYTE ESTERASE ,URINE MODERATE (NEGATIVE); NITRITE,URINE NEGATIVE (NEGATIVE); PROTEIN,URINE DIPSTICK NEGATIVE (NEGATIVE); URINE UROBILINOGEN 0.2 mg/dL (0.2 - 1)
[2020-01-15 15:50] LABS: BACTERIA,URINE MODERATE /HPF; EPITHELIAL CELLS,URINE FEW /LPF
[2020-01-15 15:51] LABS: AMORPHOUS SEDIMENT,URINE MODERATE (FEW); TRANSITIONAL EPI CELLS,URINE FEW
[2020-01-15 16:57] VITALS: BP 148/48
== END 2020-01-15 17:09 | disposition home or self-care (01) ==
LOC: ER 13:24
DX: R05 Cough (principal); J20.9 Acute bronchitis, unspecified; N39.0 Urinary tract infection, site not specified; N28.9 Disorder of kidney and ureter, unspecified
CPT/HCPCS: 36415; 71045; 80053; 81001; 82550; 82553; 83518; 83880; 84484; 85025; 85610; 85730; 87070; 87086; 87400; 93005; 94760; 99284; J7030

== ENCOUNTER 2020-03-09 14:45 | Inpatient (IN) | payer MEDICARE, OTHER ==
[~2020-03-09] VITALS: Ht 154.9 cm; Wt 52.6 kg
--- OUTSIDE RECORDS SUMMARY | 2020-03-09 14:49 | XMS REPORT ---
Author Author JAMEY Verma Organization Unknown Address Unknown Phone Care Team Providers Care Forensic Technician Name Role Phone LuciKacie PP Unavailable Reason for Referral No Reason for Referral was given. History of Present Illness No HPI available. Problems * Normal Routine History And Physical Senior Citizen (65-80) (V70.0); ( Active) * Hypertension (401.9); (Active) * Hyperlipidemia (272.4); (Active) * Laceration Of Forearm (881.00); (Active) Medication * Verapamil HCl ER 240 MG Oral Tablet Extended Release; 1 tablet bid (Active) * CloNIDine HCl 0.1 MG Oral Tablet; TAKE 1 TABLET BY MOUTH 3 TIMES A DAY; Start Date: 08/09/2013; End Date: (Active) * Lasix 40 MG Oral Tablet; TAKE 1 TABLET DAILY. (Active) * Omeprazole 20 MG Oral Capsule Delayed Release; TAKE 1 CAPSULE TWICE DAILY. (Active) * Potassium TABS; 20 mEq TID (Active) * PredniSONE 2.5 MG Oral Tablet; TAKE 1 TABLET 3 TIMES DAILY UNTIL GONE.; Start Date: 06/21/2013; End Date: (Active) * Hydrochlorothiazide 12.5 MG Oral Capsule; TAKE 1 CAPSULE DAILY. (Active) * Benazepril HCl 10 MG Oral Tablet; TAKE 1 TABLET DAILY. (Active) * ICaps CAPS; TAKE DIRECTED. (Active) * Citracal Plus TABS; TAKE 2 TABLET DAILY (Active) * Vitamin B-6 100 MG Oral Tablet; TAKE 1 TABLET DAILY DIRECTED. (Active) * Vitamin E 400 UNIT Oral Capsule; TAKE DIRECTED. (Active) * Tylenol CAPS; PRN (Active) * Claritin 10 MG Oral Capsule; TAKE 1 CAPSULE DAILY (Active) Allergies and Adverse Reactions * No Known Drug Allergies (Active) Past Medical History * History of Polymyalgia Rheumatica (725); (Resolved) Procedures Procedure Procedure Date Date Completed Status Tonsillectomy With Adenoidectomy - - Resolved Cholecystectomy - - Resolved Hysterectomy - - Resolved Family History * Maternal history of Hypertension (V17.49); (Active) * Maternal history of Diabetes Mellitus (V18.0); (Active) * Maternal history of Coronary Artery Disease (V17.49); (Active) * Maternal history of Uterine Cancer (V16.49); (Active) Social History * Never A Smoker (Active) * Never Drank Alcohol (Active) * Marital History - (Active) Advance Directives * No Advance Directives available. Encounters * AUDIT 08/09/2013
--- OUTSIDE RECORDS SUMMARY | 2020-03-09 14:49 | XMS REPORT ---
Author Author JAMEY Sloan Organization [employer] Address Unknown Phone Unavailable Care Team Providers Care Basic Combatant Swimmer Name Role Phone Rico Sloan CP Unavailable Allergies No Known Allergies Problems Problem Type Condition Code Onset Dates Condition Statu s Problem Polymyalgia rheumatica M35.3 Activ e Problem Polyarthralgia M25.50 Active Problem Carpal tunnel syndrome G56.00 Activ e Problem Abnormal WBC count D72.9 Active Problem Lymphadenopathy of head and neck R59.1 Active Problem Other specified counseling Z71.89 A ctive Problem Other osteoporosis without current pathological fractu re M81.8 Active Problem Osteoarthritis M19.90 Active Problem Vitamin D deficiency E55.9 Active Problem Other fci (current) drug therapy Z79.899 Active Medications No Known Medications Results No Known Results Summary Purpose [employer] Submission
--- OUTSIDE RECORDS SUMMARY | 2020-03-09 14:49 | XMS REPORT ---
Author Author JAMEY Verma Organization Unknown Address Unknown Phone Care Team Providers Care Naval Aircrewman Operator Name Role Phone Luci Kacie PP Unavailable Reason for Referral No Reason for Referral was given. History of Present Illness No HPI available. Problems * Normal Routine History And Physical Senior Citizen (65-80) (V70.0); ( Active) * Hypertension (401.9); (Active) * Hyperlipidemia (272.4); (Active) * Laceration Of Forearm (881.00); (Active) * Chronic Reflux Esophagitis (530.11); (Active) Medication * Verapamil HCl ER 240 MG Oral Tablet Extended Release; 1 tablet bid (Active) * CloNIDine HCl 0.1 MG Oral Tablet; TAKE 1 TABLET BY MOUTH 3 TIMES A DAY; Start Date: 08/09/2013; End Date: (Active) * Lasix 40 MG Oral Tablet; TAKE 1 TABLET DAILY. (Active) * Potassium TABS; 20 mEq TID (Active) * PredniSONE 2.5 MG Oral Tablet; TAKE 1 TABLET 3 TIMES DAILY UNTIL GONE.; Start Date: 06/21/2013; End Date: (Active) * Omeprazole 20 MG Oral Capsule Delayed Release; TAKE TAKE ONE CAPSULE BY MOUTH TWICE A DAY; Start Date: 08/20/2013 (Active) * Hydrochlorothiazide 12.5 MG Oral Capsule; [...] No Advance Directives available. Encounters * AUDIT 08/20/2013
--- OUTSIDE RECORDS SUMMARY | 2020-03-09 14:49 | XMS REPORT ---
Author Author JAMEY Sloan Organization [employer] Address Unknown Phone Unavailable Care Team Providers Care Fire Range Technician Name Role Phone Rico Sloan CP Unavailable Allergies, Adverse Reactions, Alerts Substance Reaction Event Type Prolia Info Not Available Drug Allergy Problems Problem Type Condition Code Onset Dates Condition Statu s Problem Polymyalgia rheumatica M35.3 Activ e Problem Polyarthralgia M25.50 Active Problem Carpal tunnel syndrome G56.00 Activ e Assessment Osteoarthritis M19.90 Active Assessment Carpal tunnel syndrome G56.00 Activ e Assessment Polymyalgia rheumatica M35.3 Activ e Assessment Other specified counseling Z71.89 A ctive Problem Abnormal WBC count D72.9 Active Problem Lymphadenopathy of head and neck R59.1 Active Problem Other specified counseling Z71.89 A ctive Problem Other osteoporosis without current pathological fractu re M81.8 Active Problem Osteoarthritis M19.90 Active Problem Vitamin D deficiency E55.9 Active Problem Other computer terminal operator (current) drug therapy Z79.899 Active Medications Medication Code System Code Instructions Start Date End Date Status Dosage Metoprolol Tartrate [facility] 59453732882 50 MG Orally Twice a day Active 1 tablet with food NIFEdipine ER ND 29942050571 60 MG Orally twice a day Active 1 tablet on an empty stomach Furosemide ND 10008953085 40 MG Orally Once a day A ctive 1/2 tablet Vitamin E [facility] 12488756317 100 UNIT Orally Once a day Active 1 capsule PredniSONE ND 19234852448 1 MG Orally q am with food Active take 2 tablets by mouth once daily Valsartan ND 03135428834 80 MG Orally Once a day Ac tive 1 tablet Probiotic [facility] 43427278006 Orally Active as direct ed Famotidine ND 13681104558 20 MG Orally Twice a day Active 1 tablet as needed Iron [facility] [address]-01 once a day Active 1 tab let PredniSONE ND 07870649870 5 MG Orally Take with 2 mg prednisone to make 7 mg daily Active 1 tablet Spironolactone [facility] 28297128706 50 MG Orally Twice a day Active 1 tablet with food Vital Signs Date/Time: January 29, 2020 BMI 23.22 Index Weight 115 lbs Height 59 in Results No Known Results Summary Purpose [employer] Submission
--- OUTSIDE RECORDS SUMMARY | 2020-03-09 14:49 | XMS REPORT ---
Author Author JAMEY Sloan Organization [employer] Address Unknown Phone Unavailable Care Team Providers Care Depot Manager Name Role Phone Rico Sloan CP Unavailable Allergies No Known Allergies Problems Problem Type Condition Code Onset Dates Condition Statu s Problem Polymyalgia rheumatica M35.3 Activ e Problem Polyarthralgia M25.50 Active Problem Carpal tunnel syndrome G56.00 Activ e Problem Lymphadenopathy of head and neck R59.1 Active Problem Age related osteoporosis M81.0 Act mert Problem Abnormal WBC count D72.9 Active Problem Other osteoporosis without current pathological fractu re M81.8 Active Problem Osteoarthritis M19.90 Active Problem Vitamin D deficiency E55.9 Active Problem Other half-way (current) drug therapy Z79.899 Active Medications Medication Code System Code Instructions Start Date End Date Status Dosage PredniSONE [facility] 13283208303 10 MG Orally Once a day Jun 22, 2019 Active 1 tablet Results No Known Results Summary Purpose [employer] Submission
--- OUTSIDE RECORDS SUMMARY | 2020-03-09 14:49 | XMS REPORT ---
Author Author JAMEY LAWS Organization Unknown Address Unknown Phone Care Team Providers Care Special Order Jeweler Name Role Phone FREDI LAWS PP Unavailable Reason for Referral No Reason [...] Potassium TABS; 20 mEq TID (Active) * Omeprazole 20 MG Oral Capsule Delayed Release; TAKE TAKE ONE CAPSULE BY MOUTH TWICE A DAY; Start Date: 08/20/2013; End Date: (Active) * PredniSONE 2.5 MG Oral Tablet; [...] No Advance Directives available. Encounters * AUDIT 08/27/2013
--- OUTSIDE RECORDS SUMMARY | 2020-03-09 14:49 | XMS REPORT ---
Author Author JAMEY Sloan Organization [employer] Address Unknown Phone Unavailable Care Team Providers Care Survey Workers Supervisor Name Role Phone Rico Sloan CP Unavailable Allergies, Adverse Reactions, Alerts Substance Reaction Event Type Prolia Info Not Available Drug Allergy Problems Problem Type Condition Code Onset Dates Condition Statu s Problem Carpal tunnel syndrome G56.00 Activ e Problem Polymyalgia rheumatica M35.3 Activ e Assessment Osteoarthritis M19.90 Active Assessment Other osteoporosis without current pathological fractu re M81.8 Active Assessment Polyarthralgia M25.50 Active Assessment Polymyalgia rheumatica M35.3 Activ e Problem Lymphadenopathy of head and neck R59.1 Active Problem Vitamin D deficiency E55.9 Active Problem Abnormal WBC count D72.9 Active Problem Osteoarthritis M19.90 Active Problem Polyarthralgia M25.50 Active Problem 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 Active Problem Other osteoporosis without current pathological fractu re M81.8 Active Medications Medication Code System Code Instructions Start Date End Date Status Dosage Spironolactone [facility] [address]-75 50 MG Orally Twice a day Active 1 tablet with food Metoprolol Tartrate [facility] 34941999643 50 MG Orally Twice a day Active 1 tablet with food Citracal + D ND 0 once a day Active 3 kenisha y Iron [facility] [address]-76 once a day Active 1 tab let NIFEdipine ER [facility] [address]-43 60 MG Orally twice a day Active 1 tablet on an empty stomach Clonidine HCl [facility] 70462698151 0.1 MG Orally Once a day Active 1 tablet at bedtime Famotidine [facility] 61166043539 20 MG Orally Twice a day Active 1 tablet as needed Verapamil HCl [facility] 32769962206 240 MG Orally Once a day Active 1 capsule in the morning Boniva [facility] 92609840988 150 MG Active TAKE 1 TABL ET BY MOUTH ONCE A MONTH. Vitamin E [facility] 95299490628 100 UNIT Orally Once a day Active 1 capsule Losartan Potassium [facility] 93648568936 100 MG Orally BID Active 1/2 tablet PredniSONE [facility] 98082406641 5 MG Orally Take with 2 mg prednisone to make 7 mg daily Active 1 tablet PredniSONE [facility] 50228348581 1 MG Orally q am with food Active take 2 tablets by mouth once daily Probiotic [facility] 35975740452 Orally Active as direct ed Potassium [facility] 27571617276 75 MG Orally Once a day Ac tive 1 tablet Valsartan [facility] 38699225125 80 MG Orally Once a day Ac tive 1 tablet Vitamin B12 [facility] 02948317411 1000 MCG Orally Once a day Active 1 tablet Furosemide [facility] 46115882998 40 MG Orally Once a day A ctive 1/2 tablet Vital Signs Date/Time: Jul 31, 2019 BMI 23.35 Index Weight 115.6 lbs Height 59 in Temperature 97.9 F Cardiac Monitoring Heart Rate 80 /min Blood Pressure Diastolic 50 mm Hg Blood Pressure Systolic 120 mm Hg Results No Known Results Summary Purpose [employer] Submission
--- OUTSIDE RECORDS SUMMARY | 2020-03-09 14:49 | XMS REPORT ---
Author Author JAMEY LAWS Organization Unknown Address Unknown Phone Care Team Providers Care School Photographs Detailer Name Role Phone FREDI LAWS PP Unavailable [...] 0.1 MG Oral Tablet; TAKE 1 TABLET TWICE DAILY. (Active) * Lasix 40 MG Oral Tablet; TAKE 1 TABLET DAILY. (Active) * Potassium TABS; 20 mEq TID (Active) * PredniSONE 2.5 MG Oral Tablet; TAKE 1 TABLET 3 TIMES DAILY. (Active) * Omeprazole 20 MG Oral Capsule Delayed Release; TAKE 1 CAPSULE TWICE DAILY. (Active) * Hydrochlorothiazide 12.5 MG Oral Capsule; [...] Oral Capsule; TAKE 1 CAPSULE DAILY (Active) * Cephalexin 500 MG Oral Capsule; TAKE 1 CAPSULE 3 TIMES DAILY.; Start Date: 06/01/2013; End Date: 06/08/2013 (Active) Allergies and Adverse Reactions * No [...] No Advance Directives available. Encounters * AUDIT 06/01/2013
--- OUTSIDE RECORDS SUMMARY | 2020-03-09 14:49 | XMS REPORT | Continuity of Care Document ---
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 [employer] Unavailable Un available Problems Problem Status Onset Date Classification Date Reported Comments Source Hypertension Active 08/27/2013 [facility] Hyperlipidemia Active 08/27/2013 [facility] Laceration Of Forearm Active 08/27/2013 [facility] Chronic Reflux Esophagitis Act mert 08/27/2013 [facility] Carpal tunnel syndrome Active Problem 02/03/2020 Manish Sloan Polymyalgia rheumatica Active Problem 02/03/2020 Manish Sloan Age related osteoporosis Active Problem 06/23/2019 Manish Sloan Vitamin D deficiency Active Problem 02/03/2020 Manish Sloan Lymphadenopathy of head and neck Active Problem 06/2020 Manish Sloan Osteoarthritis Active Diagnosis 02/03/2020 Manish Sloan Polyarthralgia Active Problem 02/03/2020 Manish Sloan Other retirement (current) drug therapy Active Problem 06/2020 Manish Sloan Other osteoporosis without current patho logical fracture Active Prob isa 02/03/2020 Manish Almanzarer Abnormal WBC count Active Problem 02/03/2020 Manish Sloan Leukocytosis, unspecified type Active Diagnosis 0 10/27/2017 Manish Sloan Other specified counseling Act mert Diagnosis 0 02/03/2020 Manish Sloan Medications Medication Details Route Status Patient Instructions Ordering Provider Order Date Source PredniSONE 1 tablet Orally Active 10 MG Orally Once a day Sloan 06/22/2019 Manish Sloan Boniva 1 tablet Orally Active 150 MG Orally once a mo [facility] Sloan 01/16/2019 Manish Sloan Boniva 1 tablet Orally Active 150 MG Orally once a mo [facility] 08/01/2018 Manish Sloan PredniSONE 1 tablet Orally Active 10 MG Orally Once a day Sloan 03/21/2018 Manish Sloan Prednisone 2 tablets Orally Active 1mg Orally Once a day Sloan 01/16/2018 Manish Sloan PredniSONE 1 tablet Orally Active 5 MG Orally Once a day [place] 01/16/2018 Manish Sloan PredniSONE take 7.5 mg on alte rnating days with 6 mg Orally Active 5 MG Orally Once a day [place] 11/18/2017 Manish Sloan PredniSONE 1 tab Orally Active 5 MG Orally Take with 2 mg prednisone to make 7 mg daily Sloan 10/25/2017 Manish Sloan Prolia as directed Subcutaneous Active 60 MG/ML Subcutaneous Almond 10/25/2017 Manish Sloan Prednisone 2 tabs Orally Active 1mg Orally take with 5m g to make 7 mg a day [place] 07/21/2017 Manish Sloan Omeprazole 20 MG Oral Capsule Delayed Release ; Start Date: 08/20/2013; End Date: (Active) Active 08/20/2013 [facility] CloNIDine HCl 0.1 MG Oral Tablet ; Start Date: 08/09/2013; End Date: (Active) Active 08/09/2013 [facility] PredniSONE 2.5 MG Oral Tablet ; Start Date: 06/21/2013; End Date: (Active) Active 06/21/2013 [facility] Cephalexin 500 MG Oral Capsule ; Start Date: 06/01/2013; End Date: 06/08/2013 (Active) Active 06/01/2013 [facility] Verapamil HCl ER 240 MG Oral Tablet Extended Release (Active) Active [facility] CloNIDine HCl 0.1 MG Oral Tablet (Active) Active [facility] Lasix 40 MG Oral Tablet (Acti ve) Active [facility] Potassium TABS (Active) Active [facility] PredniSONE 2.5 MG Oral Tablet (Active) Active [facility] Omeprazole 20 MG Oral Capsule Delayed Release (Active) Active [facility] Hydrochlorothiazide 12.5 MG Oral Capsule (Active) Active [facility] Benazepril HCl 10 MG Oral Tablet (Active) Active [facility] ICaps CAPS (Active) Active [facility] Citracal Plus TABS (Active) Active [facility] Vitamin B-6 100 MG Oral Tablet (Active) Active [facility] Vitamin E 400 UNIT Oral Capsule (Active) Active [facility] Tylenol CAPS (Active) Active [facility] Claritin 10 MG Oral Capsule ( Active) Active [facility] Furosemide 1/2 tablet Orally Active 40 MG Orally Once a day [place] Manish Sloan Losartan Potassium 1/2 tablet Orally Active 100 MG Orally BID [place] Manish Sloan PredniSONE TAKE 4 TABLETS BY M OUTH EVERY DAY Orally Active 2.5 MG Orally Once a day [place] Manish Sloan Clonidine HCl 1 tablet at bedt sunny Orally Active 0.1 MG Orally Once a day Sloan Manish Sloan Probiotic as directed Orally Active Orally Luther Sloan Citracal + D 3 daily NA Active once a day Sloan Galindo Sloan Iron 1 tablet NA Active once a day [place] Manish Sloan Verapamil HCl 1 capsule in the morning Orally Active 240 MG Orally Once a day [place] Manish Sloan Vitamin E 1 capsule Orally Active 100 UNIT Orally Once a day Sloan Manish Sloan Vitamin B12 1 tablet Orally Active 1000 MCG Orally Once a day [place] Manish Sloan Famotidine 1 tablet as needed Orally Active 10 MG Orally Twice a day Sloan Manish Sloan PredniSONE take 2 tablets by m outh once daily Orally Active 1 MG Orally q am with food [place]mond Mnaish Sloan Potassium 1 tablet Orally Active 75 MG Orally Once a day Sloan Galindo Sloan Prednisone 2 tablets Orally Active 1 MG Orally Once a day Sloan Galindo Sloan PredniSONE 1 tablet Orally Active 5 MG Orally Take with 2 mg prednisone to make 7 mg daily Sloan Manish Sloan PredniSONE 1 tab Orally Active 5 MG Orally Take with 2 mg prednisone to make 7 mg daily [place] Manish Sloan Spironolactone 1 tablet with f ood Orally Active 50 MG Orally Twice a day Sloan Manish Sloan Metoprolol Tartrate 1 tablet w ith food Orally Active 50 MG Orally Twice a day Sloan Manish Sloan NIFEdipine ER 1 tablet on an e mpty stomach Orally Active 60 MG Orally twice a day [place] Manish Sloan Famotidine 1 tablet as needed Orally Active 20 MG Orally Twice a day Sloan Manish Sloan Boniva TAKE 1 TABLET BY MOUTH ONCE A MONTH. NA Active 15 0 MG Sloan Manish Sloan Valsartan 1 tablet Orally Active 80 MG Orally Once a day Sloan Galindo Sloan NIFEdipine ER 1 tablet on an e mpty stomach Orally Active 60 MG Orally twice a day Sloan Manish Sloan Iron 1 tablet NA Active once a day Sloan Manish Sloan Spironolactone 1 tablet with f ood Orally Active 50 MG Orally Twice a day Sloan Manish Sloan Allergies, Adverse Reactions, Alerts Substance Category Reaction Severity Reaction type Status Date Reported Comments Source N.K.D.A. Adverse Reaction Info Not Available Adverse Reaction Active 03/21/2018 Manish Sloan Prolia Adverse Reaction Info Not Available Adverse Reaction Active 01/29/2020 Manish Sloan No Known Drug Allergies drug a llergy drug aller gy Active [facility] Immunizations No Data Provided for This Section Results No Data Provided for This Section Pathology Reports No Data Provided for This Section Diagnostic Reports No Data Provided for This Section Consultation Notes No Data Provided for This Section Discharge Summaries No Data Provided for This Section History and Physicals No Data Provided for This Section Vital Signs Vital Sign Value Date Comments Source Weight 115 01/29/2020 Manish Sloan Height 59 0 01/29/2020 Manish Sloan Weight 115.6 07/31/2019 Manish Sloan Height 59 1 09/30/2018 Manish Sloan Temperature Oral (F) 97.9 F 07/31/2019 Manish Sloan Heart Rate 80 07/31/2019 Manish Sloan Diastolic (mm Hg) 50 07/31/2019 Manish Sloan Systolic (mm Hg) 120 07/31/2019 Manish Sloan Weight 113.4 01/29/2019 Manish Sloan Height 58 0 01/29/2019 Manish Sloan Temperature Oral (F) 97.6 F 01/29/2019 Manish Sloan Heart Rate 72 01/29/2019 Manish Sloan Diastolic (mm Hg) 60 01/29/2019 Manish Sloan Systolic (mm Hg) 166 01/29/2019 Manish Sloan Weight 114 08/01/2018 Manish Sloan Height 58 1 10/01/2017 Manish Sloan Temperature Oral (F) 96.8 F 08/01/2018 Manish Sloan Heart Rate 68 08/01/2018 Manish Sloan Diastolic (mm Hg) 60 08/01/2018 Manish Sloan Systolic (mm Hg) 130 08/01/2018 Manish Sloan Weight 119.9 03/21/2018 Manish Sloan Height 58 0 03/21/2018 Manish Sloan Temperature Oral (F) 96.4 F 03/21/2018 Manish Sloan Heart Rate 60 03/21/2018 Manish Sloan Diastolic (mm Hg) 62 03/21/2018 Manish Sloan Systolic (mm Hg) 92 03/21/2018 Manish Sloan Weight 118 03/09/2018 Manish Sloan Height 58 0 03/09/2018 Manish Sloan Temperature Oral (F) 97.4 [...] Weight 116 11/23/2017 Manish Sloan Height 58 0 11/23/2017 Manish Sloan Temperature Oral (F) 97.1 F 11/23/2017 Manish Sloan Heart Rate 58 11/23/2017 Manish Sloan Diastolic (mm Hg) 54 11/23/2017 Manish Sloan Systolic (mm Hg) 104 11/23/2017 Manish Sloan Weight 120.9 10/25/2017 Manish Sloan Height 61 0 10/25/2017 Manish Sloan Temperature Oral (F) 98.2 F 10/25/2017 Manish Sloan Heart Rate 60 10/25/2017 Manish Sloan Diastolic (mm Hg) 78 10/25/2017 Manish Sloan Systolic (mm Hg) 122 10/25/2017 Manish Sloan Weight 121 07/21/2017 Manish Sloan Height 59 1 Manish Sloan Temperature Oral (F) 96.3 F 07/21/2017 Manish Sloan Heart Rate 52 07/21/2017 Manish Sloan Diastolic (mm Hg) 68 07/21/2017 Manish Sloan Systolic (mm Hg) 132 07/21/2017 Manish Sloan Encounters Location Location Details Encounter Type Encounter Number Reason For Visit Attending Provider ADM Date DC Date Status Source AUDIT [id number] 06/01/2013 06/01/2013 [facility] AUDIT [id number] 08/09/2013 08/09/2013 [facility] AUDIT [id number] 08/20/2013 08/20/2013 [facility] AUDIT [id number] 08/27/2013 08/27/2013 [facility] Procedures No Data Provided for This Section Assessment and Plan No Data Provided for This Section Plan of Care No Data Provided for This Section Social History Social History Date Source Never A Smoker (Active) Never Drank Alcohol (Active) Marital History - (Active) 08/27/2013 [facility] Family History Value Date S ource Maternal history of Hypertension (V17.49 ); (Active) Maternal history of Diabetes Mellitus (V18.0); (Active) Maternal history of Coronary Artery Disease (V17.49); (Active) Maternal history of Uterine Cancer (V16.49); (Active) 08/27/2013 [facility] Maternal history of Hypertension (V17.49 ); (Active) Maternal history of Diabetes Mellitus (V18.0); (Active) Maternal history of Coronary Artery Disease (V17.49); (Active) Maternal history of Uterine Cancer (V16.49); (Active) 08/20/2013 [facility] Maternal history of Hypertension (V17.49 ); (Active) Maternal history of Diabetes Mellitus (V18.0); (Active) Maternal history of Coronary Artery Disease (V17.49); (Active) Maternal history of Uterine Cancer (V16.49); (Active) 08/09/2013 [facility] Maternal history of Hypertension (V17.49 ); (Active) Maternal history of Diabetes Mellitus (V18.0); (Active) Maternal history of Coronary Artery Disease (V17.49); (Active) Maternal history of Uterine Cancer (V16.49); (Active) 06/01/2013 [facility] Advance Directives Order Name Results Value Date Source Advance Directives Advance Dir ectives No Advance Directives available. 08/27/2013 [facility] Advance Directives Advance Dir ectives No Advance Directives available. 08/20/2013 [facility] Advance Directives Advance Dir ectives No Advance Directives available. 08/09/2013 [facility] Advance Directives Advance Dir ectives No Advance Directives available. 06/01/2013 [facility] Functional Status No Data Provided for This Section
--- OUTSIDE RECORDS SUMMARY | 2020-03-09 14:49 | XMS REPORT ---
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 Medications Medication Code System Code Instructions Start Date End Date Status Dosage Vitamin B12 [facility] 96768758090 1000 MCG Orally Once a day Active 1 tablet Losartan Potassium ND 54298288356 100 MG Orally BID Active 1/2 tablet Clonidine HCl ND 81325835887 0.1 MG Orally Once a day Active 1 tablet at bedtime Famotidine ND 30136817166 10 MG Orally Twice a day Active 1 tablet as needed Citracal + D ND 0 once a day Active 3 kenisha y PredniSONE ND 57343824116 1 MG Active TAKE 2 TA BLETS BY MOUTH ONCE DAILY Furosemide ND 00061882555 40 MG Orally Once a day A ctive 1/2 tablet Probiotic ND 01430842448 Orally Active as direct ed Iron [facility] [address]-50 once a day Active 1 tab let Potassium ND 71694887546 75 MG Orally Once a day Ac tive 1 tablet Verapamil HCl ND 51227415321 240 MG Orally Once a day Active 1 capsule in the morning Prednisone NDC 0 1 MG Orally Once a day Active 2 tablets PredniSONE [facility] 75945936318 5 MG Orally Take with 2 mg prednisone to make 7 mg daily Active 1 tablet Boniva [facility] 99715519701 150 MG Orally once a month January 16, 2019 Active 1 tablet Vitamin E [facility] 64189013225 100 UNIT Orally Once a day Active 1 capsule Vital Signs Date/Time: January 29, 2019 BMI 23.70 Index Weight 113.4 lbs Height 58 in Temperature 97.6 F Cardiac Monitoring Heart Rate 72 /min Blood Pressure Diastolic 60 mm Hg Blood Pressure Systolic 166 mm Hg Results No Known Results Summary Purpose [employer] Submission
--- OUTSIDE RECORDS SUMMARY | 2020-03-09 14:50 | XMS REPORT | Continuity of Care Document ---
Author Author [facility] t Organization [facility] Address [address] [place] [address] Phone Unavailable Care Team Providers Care Operations [place] Name Role Phone ISELA MCGEE MD PCP Ivy PERALES Attphys Unavailable ROETHKEN BOYLE Attphys Unavailable FLAHERTY, PEPITO Attphys Unavailable Stacy FERMIN Attphys Unavailable FLAHERTYPEPITO Admphys Unavailable Payers Payer Name Policy Type Policy Number Effective Date Expiration Date Grace mancera [facility] [id number] 2018 00:00:00 2019 00:00:00 [facility] [place] [employer] [id number] 2018 00:00:00 [facility] Problems Condition Name Condition Details Condition Category Status Onset Date Resolution Date Last Treatment Date Treating Clinician Comments Source Chest pain Chest pain Problem Active [facility] Dyspnea on exertion Dyspnea on exertion Problem Active [facility] Hypertension Hype rtension Active 08/27/2013 [facility] Problem Active 2013-08-27 21:19:13 Claude Knutson Hyperlipidemia Hype rlipidemia Active 08/27/2013 [facility] Problem Active 2013-08-27 21:19:13 M emomanolo Knutson Laceration Of Forearm Lace ration Of Forearm Active 08/27/2013 [facility] Problem Active 2013-08-27 21:19:13 Monique Knutson Chronic Reflux Esophagitis Chr onic Reflux Esophagitis Active 08/27/2013 [facility] Problem Active 2013-08-27 21:19: 13 Monique Knutson Carpal tunnel syndrome Carp al tunnel syndrome Active Problem 02/03/2020 Manish Sloan Problem Active 2020-02-03 02 :45:03 Monique Knutson Polymyalgia rheumatica Poly myalgia rheumatica Active Problem 02/03/2020 Manish Almanzarer Problem Active 2020-02-03 02 :45:03 Monique Knutson Age related osteoporosis Age related osteoporosis Active Problem 06/23/2019 Manish Sloan Problem Active 2019-06-23 02 :45:26 Monique Knutson Vitamin D deficiency Alisha min D deficiency Active Problem 02/03/2020 Manish Sloan Problem Active 2020-02-03 02:45:03 Monique Knutson Lymphadenopathy of head and neck Lymphadenopathy of head and neck Active Problem 02/03/2020 Manish Sloan Problem Active 2020-02-03 02:45:03 Monique Knutson Osteoarthritis Oste oarthritis Active Diagnosis 02/03/2020 Manish Sloan Diagnosis Active 2020-02-03 02:45:03 Monique Knutson Polyarthralgia Poly arthralgia Active Problem 02/03/2020 Manish Almanzarer Problem Active 2020-02-03 02:45:03 Monique Knutson 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 Active Problem 02/03/2020 Manish Sloan Problem Ac tive 2020-02-03 02:45:03 Monique nkowles Other osteoporosis without current pathological fractu re Other osteoporosis without current pathological fracture Active Problem 02/03/2020 Manish Almanzarer Problem Active 2020-02-03 02:45:03 Monique Knutson Abnormal WBC count Abno rmal WBC count Active Problem 02/03/2020 Manish Sloan Problem Active 2020-02-03 02:45:03 Monique Knutson Leukocytosis, unspecified type Leukocytosis, unspecified type Active Diagnosis 10/27/2017 Manish Sloan Diagnosis Active 2017-10-27 03:48:08 Monique Knutson Other specified counseling Oth er specified counseling Active Diagnosis 02/03/2020 Manish Sloan Diagnosis Active 2020-02-03 02:45:03 Monique Knutson Allergies, Adverse Reactions, Alerts Allergy Name Allergy Type Status Severity Reaction(s) Onset Date Inacti ve Date Treating Clinician Comments Source Prolia Prolia Active Info Not Available 2020-01-29 00:00:00 Monique Knutson NDanna Odell Active Info Not Available 2018-03-21 00:00:00 Monique Eamon No Known Drug Allergies No Known Drug Allergies Active Monique Baltazarann Family History Family Member Diagnosis Comments Start Date Stop Date Source Unknown Family Member Family History 2013-06-01 18:02:18 2 18:02:18 [facility] Social History Social Habit Start Date Stop Date Quantity Comments Source Social History 2013-08-27 21:19:13 2013-08-27 21:19:13 [facility] Medications Ordered Medication Name Filled Medication Name Start Date Stop Da te Current Medication? Ordering Clinician Indication Dosage Frequency Signature (SIG) Comments Components Source Furosemide 2020-02-03 02:45:03 Yes Rico Sloan 1/[address] [facility] Probiotic 2020-02-03 02:45:03 Yes Rico Sloan a s directed [facility] Vitamin E 2020-02-03 02:45:03 Yes Rico Sloan [address] [facility] PredniSONE 2020-02-03 02:45:03 Yes Rico Sloan take 2 tablets by mouth once daily [facility] PredniSONE 2020-02-03 02:45:03 Yes Rico Almanzarer [address] [facility] Metoprolol Tartrate 2020-02-03 02:45:03 Yes Rico Carmona r [address] [facility] Famotidine 2020-02-03 02:45:03 Yes Rico Almanzarer [address] [facility] Valsartan 2020-02-03 02:45:03 Yes Rico Sloan [address] [facility] NIFEdipine ER 2020-02-03 02:45:03 Yes Rico Almanzarer 1 tablet on an empty stomach [facility] Iron 2020-02-03 02:45:03 Yes Rico Almanzarer [address] [facility] Spironolactone 2020-02-03 02:45:03 Yes Rico Sloan [address] [facility] Losartan Potassium 2019-09-01 03:46:23 Yes Rico Sloan 1/[address] [facility] Clonidine HCl 2019-09-01 03:46:23 Yes Rico Sloan [address] [facility] Citracal + D 2019-09-01 03:46:23 Yes Rico Almanzarer [address] [facility] Iron 2019-09-01 03:46:23 Yes Rico Sloan [address] [facility] Verapamil HCl 2019-09-01 03:46:23 Yes Rico Sloan 1 capsule in the morning [facility] Vitamin B12 2019-09-01 03:46:23 Yes Rico Sloan [address] [facility] Potassium 2019-09-01 03:46:23 Yes Rico Sloan [address] [facility] Spironolactone 2019-09-01 03:46:23 Yes Rico Sloan [address] [facility] NIFEdipine ER 2019-09-01 03:46:23 Yes Rico Sloan 1 tablet on an empty stomach [facility] Boniva 2019-09-01 03:46:23 Yes Rico Sloan TAKE 1 TABLET BY MOUTH ONCE A MONTH. [facility] PredniSONE 2019-06-22 00:00:00 Yes Rico Sloan [address] [facility] Famotidine 2019-06-20 03:09:47 Yes Rico Sloan [address] [facility] Prednisone 2019-06-20 03:09:47 Yes Rico Sloan [address] [facility] Boniva 2019-01-16 00:00:00 Yes Rico Sloan 1 ta blet [facility] 2018-08-01 00:00:00 Yes Grettaricky Almanzarace [address] [facility] Ascorbic Acid 500 Mg Tablet Ascorbic Acid 500 Mg Tablet 2018-05-22 00:00:00 Yes Isabelle M Ranjith [employer] 500 Daily [facility] Docusate Sodium 100 Mg Capsule Docusate Sodium 100 Mg Capsul e 2018-05-22 00:00:00 Yes Isabelle M Ranjith [employer] 100 Twice A Day [facility] Ferrous Sulfate 325 Mg Tablet. Ferrous Sulfate 325 Mg Kianna deng 2018-05-22 00:00:00 Yes Isabelle M Ranjith [employer] 325 Daily [facility] Ceftin , 250 Mg Oral Ceftin , 250 Mg Oral 2018-05-22 00:00:00 20 14-05-29 00:00:00 No Isabelle M Ranjith [employer] 250 Twice A Day [facility] PredniSONE 2018-03-23 02:52:04 Yes Rico Sloan [address] [facility] PredniSONE 2018-03-21 00:00:00 Yes Rico Sloan [address] [facility] Prednisone 2018-01-16 00:00:00 Yes Rico Sloan [address] [facility] PredniSONE 2018-01-16 00:00:00 Yes Rico Sloan [address] [facility] PredniSONE 2017-11-18 00:00:00 Yes Latifa Fakoya take 7.5 mg on alternating days with 6 mg [facility] PredniSONE 2017-10-25 00:00:00 Yes Rico Sloan 1 tab Monique Knutson Prolia 2017-10-25 00:00:00 Yes Rico Sloan as d irected [facility] PredniSONE 2017-07-26 02:46:54 Yes Latifa Fakoya TAKE 4 TABLETS BY MOUTH EVERY DAY [facility] Prednisone 2017-07-21 00:00:00 Yes Rico Sloan 2 tabs [facility] Verapamil HCl ER 240 MG Oral Tablet Extended Release 2 21:19:13 Yes (Active) [facility] Lasix 40 MG Oral Tablet 2013-08-27 21:19:13 Yes (Active) [facility] Potassium TABS 2013-08-27 21:19:13 Yes (Act mert) [facility] Hydrochlorothiazide 12.5 MG Oral Capsule 2013-08-27 21:19:13 Yes (Active) [facility] Benazepril HCl 10 MG Oral Tablet 2013-08-27 21:19:13 Yes (Active) [facility] ICaps CAPS 2013-08-27 21:19:13 Yes (Active) [facility] Citracal Plus TABS 2013-08-27 21:19:13 Yes (Active) [facility] Vitamin B-6 100 MG Oral Tablet 2013-08-27 21:19:13 Yes (Active) [facility] Vitamin E 400 UNIT Oral Capsule 2013-08-27 21:19:13 Yes (Active) [facility] Tylenol CAPS 2013-08-27 21:19:13 Yes (Activ e) [facility] Claritin 10 MG Oral Capsule 2013-08-27 21:19:13 Yes [facility] Oral Capsule Delayed Release 2013-08-20 06:00:0 0 Yes ; Start Date: 08/20/2013; End Date: (Active) [facility] Omeprazole 20 MG Oral Capsule Delayed Release 2013-08-09 20:18:1 9 Yes (Active) [facility] CloNIDine HCl 0.1 MG Oral Tablet 2013-08-09 06:00:00 Yes ; Start Date: 08/09/2013; End Date: (Active) [facility] PredniSONE 2.5 MG Oral Tablet 2013-06-21 05:00:00 Yes ; Start Date: 06/21/2013; End Date: (Active) Monique Knutson CloNIDine HCl 0.1 MG Oral Tablet 2013-06-01 18:02:18 Yes (Active) Monique nKutson PredniSONE 2.5 MG Oral Tablet 2013-06-01 18:02:18 Yes (Active) Monique Knutson Cephalexin 500 MG Oral Capsule 2013-06-01 05:00:00 Yes ; Start Date: 06/01/2013; End Date: 06/08/2013 (Active) Monique Knutson Calcium Citrate/Vitamin D3 (Citracal + D Caplet) 1 Eac h Tablet Calcium Citrate/Vitamin D3 (Citracal + D Caplet) 1 Each Tablet Yes 1 Three Times A Day [facility] Eye Caps Eye Caps Yes 1 Daily [facility] Famotidine 20 Mg Tab Famotidine 20 Mg Tab Yes 20 Daily [facility] Loratadine (Claritin) 10 Mg Tablet Loratadine (Claritin) 10 Mg Tablet Yes 10 Daily Prn [facility] Metoprolol Tartrate 50 Mg Tablet Metoprolol Tartrate 50 Mg Tablet Yes 50 Twice A Day [facility] Nifedipine (Nifedipine Er) 30 Mg Tab.er.24 Nifedipine (Nifedipine Er) 30 Mg Tab.er.24 Yes 60 Twice A Day [facility] Spironolactone (Aldactone) 25 Mg Tablet Spironolactone (Maggy ctone) 25 Mg Tablet Yes 50 Twice A Day [facility] Valsartan (Diovan) 160 Mg Tab Valsartan (Diovan) 160 Mg Tab Yes 160 Daily [facility] Clonidine Hcl 0.1 Mg Tablet, 0.1 Mg Oral Clonidine Hcl 0.1 Mg Tablet, 0.1 Mg Oral 2019-05-24 00:00:00 No .1 Three Times A Day [facility] Furosemide (Lasix) 80 Mg Tablet, 40 Mg Oral Furosemide (Lasix) 80 Mg Tablet, 40 Mg Oral 2019-05-24 00:00:00 No 40 Daily [facility] Losartan Potassium 25 Mg Tablet, 25 Mg Oral Losartan P otassium 25 Mg Tablet, 25 Mg Oral 2019-05-24 00:00:00 No 25 Daily [facility] Potassium Chloride (Klor-Con 10) 10 Meq Tablet.er, 20 Meq Oral Potassium Chloride (Klor-Con 10) 10 Meq Tablet.er, 20 Meq Oral 2019-05-24 00: 00:00 No 20 Three Times A Day [facility] Prednisone 2.5 Mg Tablet, 10 Mg Oral Prednisone 2.5 Mg Tablet, 1 0 Mg Oral 2019-05-24 00:00:00 No 10 Daily [facility] Verapamil Hcl 240 Mg Tablet.er, 240 Mg Oral Verapamil Hcl 240 Mg Tablet.er, 240 Mg Oral 2019-05-24 00:00:00 No 240 Twice A Day [facility] Benazepril Hcl 10 Mg Tablet, 10 Mg Oral Benazepril Hcl 10 Mg Tablet, 10 Mg Oral 2018-05-21 00:00:00 No 10 Daily [facility] Omeprazole 20 Mg Capsule., 20 Mg Oral Omeprazole 20 Mg Cap kevin., 20 Mg Oral 2018-05-21 00:00:00 No 20 Twice A Day [facility] Citracal , Citracal , 2013-04-04 00:00:00 No Clarisa ly [facility] Claritin , Claritin , 2013-04-04 00:00:00 No as needed [facility] Klor-Con , Klor-Con , 2013-04-04 00:00:00 No Thr ee Times A Day [facility] Omeprazole , Omeprazole , 2013-04-04 00:00:00 No Twice A Day [facility] Vital Signs Vital Name Observation Time Observation Value Comments Source Weight 2020-01-29 15:45:00 [facility] Height 2020-01-29 15:45:00 [facility] Weight 2019-07-31 17:15:00 [facility] Height 2019-07-31 17:15:00 [facility] Temperature Oral (F) 2019-07-31 17:15:[address] [facility] Heart Rate 2019-07-31 17:15:00 [facility] Diastolic (mm Hg) 2019-07-31 17:15:00 [facility] Systolic (mm Hg) 2019-07-31 17:15:00 Claude rial [facility] Weight 2019-01-29 15:30:00 [facility] Height 2019-01-29 15:30:00 [facility] Temperature Oral (F) 2019-01-29 15:30:00 97.6 F [facility] Heart Rate 2019-01-29 15:30:00 [facility] Diastolic (mm Hg) 2019-01-29 15:30:00 [facility] Systolic (mm Hg) 2019-01-29 15:30:00 Claude rial [facility] Weight 2018-08-01 16:45:00 [facility] Height 2018-08-01 16:45:00 [facility] Temperature Oral (F) 2018-08-01 16:45:00 96.8 F [facility] Heart Rate 2018-08-01 16:45:00 [facility] Diastolic (mm Hg) 2018-08-01 16:45:00 [facility] Systolic (mm Hg) 2018-08-01 16:45:00 Claude sravanthil [facility] Weight 2018-03-21 16:15:00 [facility] Height 2018-03-21 16:15:00 [facility] Temperature Oral (F) 2018-03-21 16:15:00 96.4 F [facility] Heart Rate 2018-03-21 16:15:00 [facility] Diastolic (mm Hg) 2018-03-21 16:15:00 [facility] Systolic (mm Hg) 2018-03-21 16:15:00 Claude rial [facility] Weight 2018-03-09 16:45:00 [facility] Height 2018-03-09 16:45:00 [facility] Temperature Oral (F) 2018-03-09 16:45:00 97.4 F [facility] Heart Rate 2018-03-09 16:45:00 [facility] Diastolic (mm Hg) 2018-03-09 16:45:00 [facility] Systolic (mm Hg) 2018-03-09 16:45:00 Claude sravanthil [facility] Weight 2018-01-12 16:15:00 [facility] Height 2018-01-12 16:15:00 [facility] Temperature Oral (F) 2018-01-12 16:15:00 97.4 F [facility] Heart Rate 2018-01-12 16:15:00 [facility] Diastolic (mm Hg) 2018-01-12 16:15:00 [facility] Systolic (mm Hg) 2018-01-12 16:15:00 Cluade rial [place] Weight 2017-11-23 16:30:00 [facility] Height 2017-11-23 16:30:00 [facility] Temperature Oral (F) 2017-11-23 16:30:00 97.1 F [facility] Heart Rate 2017-11-23 16:30:00 [facility] Diastolic (mm Hg) 2017-11-23 16:30:00 [facility] Systolic (mm Hg) 2017-11-23 16:30:00 Claude rial [facility] Weight 2017-10-25 20:15:00 [facility] Height 2017-10-25 20:15:00 [facility] Temperature Oral (F) 2017-10-25 20:15:00 98.2 F [facility] Heart Rate 2017-10-25 20:15:00 [facility] Diastolic (mm Hg) 2017-10-25 20:15:00 [facility] Systolic (mm Hg) 2017-10-25 20:15:00 Claude rial [facility] Weight 2017-07-21 15:30:00 [facility] Height 2017-07-21 15:30:00 [facility] Temperature Oral (F) 2017-07-21 15:30:00 96.3 F [facility] Heart Rate 2017-07-21 15:30:00 [facility] Diastolic (mm Hg) 2017-07-21 15:30:00 [facility] Systolic (mm Hg) 2017-07-21 15:30:00 Claude rial Eamon Procedures Procedure Date / Time Performed Performing Clinician [facility] e Computed tomography of abdomen without contrast 2019-05-21 0 0:00:00 SHANTE PEREZ [facility] US Doppler renal vessels limited 2019-05-20 00:00[facility] renal 2019-05-20 00:00:00 FLAHERTY [facility] Encounters Start Date/Time End Date/Time [facility] ID Source 2020-01-29 11:51:00 2020-01-29 11:51:00 Outpatient Rico DU [id number] Manish Sloan MD 2020-01-29 10:45:00 2020-01-29 10:45:00 Outpatient Rico DU [id number] CARLOS Sloan MD 2020-01-15 13:24:00 2020-01-15 17:09:00 Departed Emergency Room 1 NATALI PERALES [facility] [id number] [facility] 2019-08-05 11:27:00 2019-08-05 13:16:00 Departed Emergency Room 1 KEN KUO [facility] [id number] [facility] 2019-07-31 11:15:00 2019-07-31 11:15:00 Outpatient Rico Sloan MD [place] [id number] Manish Sloan MD 2019-06-22 08:31:00 2019-06-22 08:31:00 Outpatient MD FLORIAN Burnett MD [place] [id number] Manish Sloan MD 2019-05-20 07:47:00 2019-05-24 11:00:00 Discharged Inpatient 1 PEPITO FLAHERTY [facility] [id number] [facility] 2019-05-14 08:49:00 2019-05-14 08:49:00 Outpatient Rico Sloan MD PA [id number] CARLOS Sloan MD 2019-01-29 10:30:00 2019-01-29 10:30:00 Outpatient MD FLORIAN Burnett MD PA [id number] CARLOS Sloan MD 2019-01-09 15:23:00 2019-01-09 15:23:00 Outpatient Rico Sloan MD PA [id number] CARLOS Sloan MD 2018-08-01 11:45:00 2018-08-01 11:45:00 Outpatient Rico Sloan MD PA [id number] Manish Sloan MD 2018-08-01 10:45:00 2018-08-01 10:45:00 Outpatient Rico Sloan MD PA [id number] Manish Sloan MD 2018-07-18 10:22:00 2018-07-18 10:22:00 Outpatient Rico DU [id number] Manish Sloan MD 2018-06-07 13:15:00 2018-06-07 13:15:00 Outpatient Rico DU [id number] Manish Sloan MD 2018-06-07 13:07:00 2018-06-07 13:07:00 Outpatient Rico Sloan MD PA [id number] Manish Sloan MD 2018-05-20 15:41:00 2018-05-22 18:00:00 Discharged Inpatient (obs) 1 [facility] [id number] [facility] 2018-03-22 09:05:00 2018-03-22 09:05:00 Outpatient Rico DU [id number] Manish Sloan MD 2018-03-21 11:55:00 2018-03-21 11:55:00 Outpatient Rico Sloan MD PA [id number] Manish Sloan MD 2018-03-21 11:15:00 2018-03-21 11:15:00 Outpatient Rico Sloan MD PA [id number] Manish Sloan MD 2018-03-09 11:45:00 2018-03-09 11:45:00 Outpatient Rico DU [id number] Manish Sloan MD 2018-01-16 11:50:00 2018-01-16 11:50:00 Outpatient Rico Sloan MD PA [id number] Manish Sloan MD 2018-01-12 11:15:00 2018-01-12 11:15:00 Outpatient Rico Sloan MD PA [id number] Manish Sloan MD 2017-12-02 10:00:00 2017-12-02 10:00:00 Outpatient Rico DU [id number] Manish Sloan MD 2017-11-28 09:02:00 2017-11-28 09:02:00 Outpatient Rico Sloan MD PA [id number] Manish Sloan MD 2017-11-23 10:30:00 2017-11-23 10:30:00 Outpatient Rico Sloan MD PA [id number] Manish Sloan MD 2017-10-25 14:15:00 2017-10-25 14:15:00 Outpatient Rico Sloan MD PA [id number] Manish Sloan MD 2017-09-28 14:24:00 2017-09-28 14:24:00 Outpatient Rico Sloan MD PA [id number] Manish Sloan MD 2017-07-21 12:54:00 2017-07-21 12:54:00 Outpatient Rico Sloan MD PA [id number] Manish Sloan MD 2017-07-21 10:30:00 2017-07-21 10:30:00 Outpatient Rico Sloan MD PA [id number] Manish Sloan MD 2013-08-27 15:19:13 2013-08-27 15:19:13 Outpatient MHIE MHIE [id number] 2013-08-20 13:37:51 2013-08-20 13:37:50 Outpatient [facility]IE [facility] [id number] 2013-08-09 14:18:19 2013-08-09 14:18:19 Outpatient [facility] [id number] 2013-06-01 13:02:19 2013-06-01 13:02:18 Outpatient MHIE [facility]IE [id number] Results Test Description Test Time Test Comments Results Result Comments Source Urine WBC 2020-01-15 15:51:00 Test Item Urine WBC (test code = 5821-4) 6-10 0-5 [facility] [id number] 15:51:00* Test Item Value Reference Range Interpretation Comments Urine RBC (test code = 65494-2) NONE 0-5 [facility] [id number] 15:51:00* Test Item Value Reference Range Interpretation Comments Urine Bacteria (test code = 30399-0) MODERATE NONE [facility] Epithelial [id number] 15:51:00 * Test Item Value Reference Range Interpretation Comments Urine Epithelial Cells (test code = 79524-4) FEW NONE [facility] Transitional Epithelial Cells 2020-01-15 15:51:00* Test Item Value Reference Range Interpretation Comments Urine Transitional Epithelial Cells (test code = 8249-5) FEW NONE [facility] Amorphous [id number] 15:51:00* Test Item Value Reference Range Interpretation Comments Urine Amorphous Sediment (test code = 8246-1) MODERATE FEW H [facility] [id number] 15:40:00* Test Item Value Reference Range Interpretation Comments Urine Color (test code = 5778-6) YELLOW YELLOW [facility] [id number] 15:40:00* Test Item Value Reference Range Interpretation Comments Urine Clarity (test code = 24554-8) SL CLOUDY CLEAR [facility] Specific [id number] 15:40:00 * Test Item Value Reference Range Interpretation Comments Urine Specific Palmer (test code = 5811-5) 1.020 1.010-1.02 5 [facility] [id number] 15:40:00* Test Item Value Reference Range Interpretation Comments Urine pH (test code = 32567-1) 5 5-7 [facility] Leukocyte [id number] 15:40:00* Test Item Value Reference Range Interpretation Comments Urine Leukocyte Esterase (test code = 5799-2) MODERATE NEGATIVE [facility] [id number] 15:40:00* Test Item Value Reference Range Interpretation Comments Urine Nitrite (test code = 18192-9) NEGATIVE NEGATIVE [facility] [id number] 15:40:00* Test Item Value Reference Range Interpretation Comments Urine Protein (test code = 5804-0) NEGATIVE NEGATIVE [facility] Glucose (UA)2020-01-15 15:40:00* Test Item Value Reference Range Interpretation Comments Urine Glucose (UA) (test code = 2349-9) NEGATIVE NEGATIVE [facility] [id number] 15:40:00* Test Item Value Reference Range Interpretation Comments Urine Ketones (test code = 64918-4) NEGATIVE NEGATIVE [facility] [id number] 15:40:00* Test Item Value Reference Range Interpretation Comments Urine Urobilinogen (test code = 80863-2) 0.2 0.2-1 [facility] [id number] 15:40:00* Test Item Value Reference Range Interpretation Comments Urine Bilirubin (test code = 1978-6) NEGATIVE NEGATIVE [facility] [id number] 15:40:00* Test Item Value Reference Range Interpretation Comments Urine Blood (test code = 69386-5) NEGATIVE NEGATIVE [facility] Natriuretic [id number] 14:36:00* Test Item Value Reference Range Interpretation Comments B-Type Natriuretic Peptide (test code = 36991-2) 84.6 0-100 [facility] Kinase [id number] 14:26:00* Test Item Value Reference Range Interpretation Comments Creatine Kinase MB (test code = 05293-7) 2.70 0-5.0 [facility] [id number] 14:26:00* Test Item Value Reference Range Interpretation Comments Troponin I (test code = 92530-0) < 0.001 0-0.300 [facility]th[facility] [id number] 14:23:00* Test Item Value Reference Range Interpretation Comments Prothrombin Time (test code = 5902-2) 13.4 11.9-14.5 [facility] Time International Ratio 2020-01-15 14:23:00* Test Item Value Reference Range Interpretation Comments Prothromb Time International Ratio (test code = 6301-6) 0.96 Oral Anticoagulant Therapy INR Values:1. Low Intensity Therapy 1.5 - 2.02 . Moderate Intensity Therapy 2.0 - 3.03. High Intensity Therapy(1) 2.5 - 3. 54. High Intensity Therapy(2) 3.0 - 4.05. Panic Value INR > 5.0 [facility] CenterActivated Partial Thromboplast Time 2020-01-15 14:23:00* Test Item Value Reference Range Interpretation Comments Activated Partial Thromboplast Time (test code = 87213-7) 27.0 23.8-35.5 [facility] Pidxd2007-29-01 14:23:00* Test Item Value Reference Range Interpretation Comments Sodium Level (test code = 2951-2) 133 136-145 L [facility] CenterPotassium Yggcn0231-64-88 14:23:00* Test Item Value Reference Range Interpretation Comments Potassium Level (test code = 2823-3) 5.0 3.5-5.1 [facility] CenterChloride Rfuox9766-87-03 14:23:00* Test Item Value Reference Range Interpretation Comments Chloride Level (test code = 2075-0) 103 98-107 [facility] CenterCarbon Dioxide Mypxj0182-91-93 14:23:00* Test Item Value Reference Range Interpretation Comments Carbon Dioxide Level (test code = 2028-9) 24 22-29 [facility] CenterAnion Dox5794-94-10 14:23:00* Test Item Value Reference Range Interpretation Comments Anion Gap (test code = 97273-9) 11.0 8-16 [facility] CenterBlood Urea Tezfnkdt8421-43-28 14:23:00* Test Item Value Reference Range Interpretation Comments Blood Urea Nitrogen (test code = 3094-0) 26 7-26 [facility] CenterCreatinine2020-04-21 14:23:00* Test Item Value Reference Range Interpretation Comments Creatinine (test code = 2160-0) 1.75 0.57-1.11 H [facility] CenterBUN/Creatinine Cdjbm5406-85-11 14:23:00* Test Item Value Reference Range Interpretation Comments BUN/Creatinine Ratio (test code = 3097-3) 15 6-25 [facility] CenterEstimat Glomerular Filtration Rate 2020-01-15 14:23:00* Test Item Value Reference Range Interpretation Comments Estimat Glomerular Filtration Rate (test code = 635836972) 28 >60 L Ranges were taken from the National Kidney Disease Education Program and the On license of [facility] Kidney Foundation literature.Reference ranges:60 or greater: Kymqgs37-65 ( for 3 consecutive months): Chronic kidney disease 15 or less: Kidney failureCarrollton Regional Medical CenterGlucose Ynncf1683-43-85 14:23:00* Test Item Value Reference Range Interpretation Comments Glucose Level (test code = VZZ9125) 120 74-118 H [facility] CenterCalcium Jkgwu3228-86-51 14:23:00* Test Item Value Reference Range Interpretation Comments Calcium Level (test code = 49544-8) 9.7 8.4-10.2 [facility] CenterTotal Jetjwfzae1772-41-60 14:23:00* Test Item Value Reference Range Interpretation Comments Total Bilirubin (test code = 1975-2) 0.3 0.2-1.2 [facility] CenterAspartate Amino Transf (AST/SGOT) 2020-01-15 14:23:00* Test Item Value Reference Range Interpretation Comments Aspartate Amino Transf (AST/SGOT) (test code = Aspartate Amino Transf (AST/SGOT)) 22 5-34 [facility] CenterAlanine Aminotransferase (ALT/SGPT) 2020-01-15 14:23:00* Test Item Value Reference Range Interpretation Comments Alanine Aminotransferase (ALT/SGPT) (test code = 1742-6) 18 0-55 [facility] CenterTotal Hbytsfk2675-03-85 14:23:00* Test Item Value Reference Range Interpretation Comments Total Protein (test code = 2885-2) 6.6 6.5-8.1 [facility] CenterAlbumin2020-04-21 14:23:00* Test Item Value Reference Range Interpretation Comments Albumin (test code = 1751-7) 3.6 3.5-5.0 [facility] CenterGlobulin2020-04-21 14:23:00* Test Item Value Reference Range Interpretation Comments Globulin (test code = 02452-5) 3.0 2.3-3.5 [facility] CenterAlbumin/Globulin Xdvfw9030-08-16 14:23:00 * Test Item Value Reference Range Interpretation Comments Albumin/Globulin Ratio (test code = 1759-0) 1.2 0.8-2.0 [facility] CenterAlkaline Tecvqagdmmd8925-98-62 14:23:00* Test Item Value Reference Range Interpretation Comments Alkaline Phosphatase (test code = 6768-6) 52 40-150 [facility] CenterCreatine Yiwejh5610-96-74 14:23:00* Test Item Value Reference Range Interpretation Comments Creatine Kinase (test code = 2157-6) 110 29-168 [facility] CenterInfluenza Virus Types A,B Antigen 2020-01-15 14:14:00* Test Item Value Reference Range Interpretation Comments Influenza Virus Types A,B Antigen (test code = 51045-6) NEGATIVE NEGATIVE [facility] CenterCHEST SINGLE (PORTABLE)2020-01-15 14:10:00 [place] [address] Patient Name: JAMEY ELAINE MR #: [id number] : 1940 Age/Sex: 79/F Req #: [id number] Adm Physician: Ordered by: HENRY NELSON LEGAL TRANSCRIPTIONIST Report #: [id number] Location: ER Room/Bed: Procedure: [id number] DX/CHEST SINGLE (PORTABLE) Exam Date: 01/15/20 Exam Time: 1350 REPORT STATUS: Signed Chest, portable AP view History: Wheezing, cough Comparison: 08/05/20 19 IMPRESSION: The heart is within normal limits of size. There is no focal consolidation, sizable pleural effusion, or pneumothorax. Minimal left b asilar atelectasis is present. No acute osseous abnormalities. Signed by: Charbel Lou MD on 01/15/2020 2:11 PM Dictated By: CHARBEL LOU MD 10 Transcribed By: CAMI on 01/15/201410 COPY TO: HENRY NELSON NP White Blood Qdllm2327-32-03 14:05:00* Test Item Value Reference Range Interpretation Comments White Blood Count (test code = 6690-2) 12.43 4.8-10.8 H [facility] CenterRed Blood Iwidx5132-52-45 14:05:00* Test Item Value Reference Range Interpretation Comments Red Blood Count (test code = 789-8) 3.65 3.6-5.1 [facility] CenterHemoglobin2020-04-21 14:05:00* Test Item Value Reference Range Interpretation Comments Hemoglobin (test code = 83371-6) 11.6 12.0-16.0 L [facility] CenterHematocrit2020-04-21 14:05:00* Test Item Value Reference Range Interpretation Comments Hematocrit (test code = 4544-3) 34.4 34.2-44.1 [facility] CenterMean Corpuscular Drbsgl2754-31-39 14:05:00* Test Item Value Reference Range Interpretation Comments Mean Corpuscular Volume (test code = 787-2) 94.2 81-99 [facility] Corpuscular Loyfwkxact8710-38-09 14:05:00* Test Item Value Reference Range Interpretation Comments Mean Corpuscular Hemoglobin (test code = 785-6) 31.8 28-32 [facility] Concent 2020-01-15 14:05:00* Test Item Value Reference Range Interpretation Comments Mean Corpuscular Hemoglobin Concent (test code = 786-4) 33.7 31-35 [facility] CenterRed Cell Distribution Wzbed6343-01-51 14:05:00* Test Item Value Reference Range Interpretation Comments Red Cell Distribution Width (test code = 90068-1) 12.3 11.7 -14.4 [facility] CenterPlatelet Qolsb3232-63-18 14:05:00* Test Item Value Reference Range Interpretation Comments Platelet Count (test code = 777-3) 383 140-360 H [facility] CenterNeutrophils (%) (Auto)2020-01-15 14:05:00 * Test Item Value Reference Range Interpretation Comments Neutrophils (%) (Auto) (test code = 90028-8) 79.8 38.7-80.0 [facility] CenterLymphocytes (%) (Auto)2020-01-15 14:05:00 * Test Item Value Reference Range Interpretation Comments Lymphocytes (%) (Auto) (test code = 736-9) 11.8 18.0-39.1 L [facility] CenterMonocytes (%) (Auto)2020-01-15 14:05:00* Test Item Value Reference Range Interpretation Comments Monocytes (%) (Auto) (test code = 5905-5) 5.1 4.4-11.3 [facility] CenterEosinophils (%) (Auto)2020-01-15 14:05:00 * Test Item Value Reference Range Interpretation Comments Eosinophils (%) (Auto) (test code = 713-8) 2.1 0.0-6.0 [facility] CenterBasophils (%) (Auto)2020-01-15 14:05:00* Test Item Value Reference Range Interpretation Comments Basophils (%) (Auto) (test code = 706-2) 0.6 0.0-1.0 [facility] CenterIM GRANULOCYTES %2020-01-15 14:05:00* Test Item Value Reference Range Interpretation Comments IM GRANULOCYTES % (test code = IM GRANULOCYTES %) 0.6 0.0- 1.0 [facility] CenterNeutrophils # (Auto)2020-01-15 14:05:00* Test Item Value Reference Range Interpretation Comments Neutrophils # (Auto) (test code = 751-8) 9.9 2.1-6.9 H [facility] CenterLymphocytes # (Auto)2020-01-15 14:05:00* Test Item Value Reference Range Interpretation Comments Lymphocytes # (Auto) (test code = 64079-0) 1.5 1.0-3.2 [facility] CenterMonocytes # (Auto)2020-01-15 14:05:00* Test Item Value Reference Range Interpretation Comments Monocytes # (Auto) (test code = 742-7) 0.6 0.2-0.8 [facility] CenterEosinophils # (Auto)2020-01-15 14:05:00* Test Item Value Reference Range Interpretation Comments Eosinophils # (Auto) (test code = 711-2) 0.3 0.0-0.4 [facility] CenterBasophils # (Auto)2020-01-15 14:05:00* Test Item Value Reference Range Interpretation Comments Basophils # (Auto) (test code = 704-7) 0.1 0.0-0.1 [facility] CenterAbsolute Immature Granulocyte (auto 2020-01-15 14:05:00* Test Item Value Reference Range Interpretation Comments Absolute Immature Granulocyte (auto (kevin t code = Absolute Immature Granulocyte (auto) 0.07 0-0.1 [facility] CenterGroup A Streptococcus Npgliw3653-86-02 14:02:00* Test Item Value Reference Range Interpretation Comments Group A Streptococcus Screen (test code = 37918-5) NEGATIVE NEG ATIVE [facility] CenterCXR 2 VIEW - IGFQ4034-41-82 12:39:00 [place] [address] Patient Name: JAMEY ELAINE MR #: [id number] : 1940 Age/Sex: 79/F Req #: [id number] Adm Physician: Ordered by: KEN KUO MD Report #: [id number] Location: [facility] Room/Bed: Procedure: [id number] HOPD/CXR 2 VIEW - HOPD Exam Date: 08/05/19 Exam Time : 1200 REPORT STATUS: Signed EXA MINATION: CXR 2 VIEW - HOPD INDICATION: Cough, congestion for 5 days [id number] COMPARISON: Chest x-ray 05/20/2018 FINDINGS: PA and lateral views TUBES and LINES: None. LUNGS: Lungs are well i nflated. There is no evidence of pneumonia or pulmonary edema. Mild bronchial wall thickening. PLEURA: Mild stable eventration of the right diaphragm. No pleural effusion or pneumothorax. HEART AND MEDIASTINUM: The cardiomed iastinal silhouette is unremarkable.. BONES AND SOFT TISSUES: No focal o sseous lesions. Soft tissues are unremarkable. UPPER ABDOMEN: Cholecyst ectomy clips in the right upper quadrant. No free air under the diaphragm. IMPRESSION: Mild bronchial wall thickening is suggestive of acute or chron ic bronchitis. No infiltrates. Signed by: Dr. Kristian Keating MD on 08/05/2019 12:40 PM Dictated By: KRISTIAN KEATING MD Electronically Si gned By: KRISTIAN KEATING MD on 08/05/19 1240 Transcribed By: CAMI on 08/05 1240 COPY TO: KEN KUO MD Sodium Qjpxx0385-66-10 06:05:00* Test Item Value Reference Range Interpretation Comments Sodium Level (test code = 2951-2) 136 136-145 [facility] CenterPotassium Aeokr2436-67-98 06:05:00* Test Item Value Reference Range Interpretation Comments Potassium Level (test code = 2823-3) 3.9 3.5-5.1 [facility] CenterChloride Avtsr7297-83-32 06:05:00* Test Item Value Reference Range Interpretation Comments Chloride Level (test code = 2075-0) 100 98-107 [facility] CenterCarbon Dioxide Szlkc7545-61-73 06:05:00* Test Item Value Reference Range Interpretation Comments Carbon Dioxide Level (test code = 2028-9) 26 22-29 [facility] CenterAnion Oii5707-13-40 06:05:00* Test Item Value Reference Range Interpretation Comments Anion Gap (test code = 74150-7) 13.9 8-16 [facility] CenterBlood Urea Jwedngzy5214-91-52 06:05:00* Test Item Value Reference Range Interpretation Comments Blood Urea Nitrogen (test code = 3094-0) 13 7-26 [facility] CenterCreatinine2019-08-29 06:05:00* Test Item Value Reference Range Interpretation Comments Creatinine (test code = 2160-0) 0.87 0.57-1.11 [facility] CenterBUN/Creatinine Rvzer2285-88-67 06:05:00* Test Item Value Reference Range Interpretation Comments BUN/Creatinine Ratio (test code = 3097-3) 15 6-25 [facility] CenterEstimat Glomerular Filtration Rate 2019-05-24 06:05:00* Test Item Value Reference Range Interpretation Comments Estimat Glomerular Filtration Rate (test code = 815461372) > 60 >60 Ranges were taken from the National Kidney Disease Education Program and the [facility] Kid[facility] Foundation literature.Reference ranges:60 or greater: Wgsxev89-43 ( for 3 consecutive months): Chronic kidney disease 15 or less: Kidney failureCarrollton Regional Medical CenterGlucose Dqghn9190-52-03 06:05:00* Test Item Value Reference Range Interpretation Comments Glucose Level (test code = YKV4981) 95 74-118 [facility] CenterCalcium Ztiov9570-86-58 06:05:00* Test Item Value Reference Range Interpretation Comments Calcium Level (test code = 12233-9) 9.1 8.4-10.2 [facility] CenterTotal Qamtbauat0216-72-13 06:05:00* Test Item Value Reference Range Interpretation Comments Total Bilirubin (test code = 1975-2) 0.4 0.2-1.2 [facility] CenterAspartate Amino Transf (AST/SGOT) 2019-05-24 06:05:00* Test Item Value Reference Range Interpretation Comments Aspartate Amino Transf (AST/SGOT) (test code = Aspartate Amino Transf (AST/SGOT)) 26 5-34 [facility] CenterAlanine Aminotransferase (ALT/SGPT) 2019-05-24 06:05:00* Test Item Value Reference Range Interpretation Comments Alanine Aminotransferase (ALT/SGPT) (test code = 1742-6) 22 0-[address] [facility] Fppadmt5566-65-59 06:05:00* Test Item Value Reference Range Interpretation Comments Total Protein (test code = 2885-2) 6.1 6.5-8.1 L [facility] CenterAlbumin2019-08-29 06:05:00* Test Item Value Reference Range Interpretation Comments Albumin (test code = 1751-7) 2.5 3.5-5.0 L [facility] CenterGlobulin2019-08-29 06:05:00* Test Item Value Reference Range Interpretation Comments Globulin (test code = 00504-1) 3.6 2.3-3.5 H [facility] CenterAlbumin/Globulin Mxuqm2050-63-10 06:05:00 * Test Item Value Reference Range Interpretation Comments Albumin/Globulin Ratio (test code = 1759-0) 0.7 0.8-2.0 L [facility] CenterAlkaline Slautdtorwq4158-30-32 06:05:00* Test Item Value Reference Range Interpretation Comments Alkaline Phosphatase (test code = 6768-6) 52 40-150 [facility]odium Spins1152-17-00 06:05:00* Test Item Value Reference Range Interpretation Comments Sodium Level (test code = 2951-2) 136 136-145 [facility] CenterPotassium Kwmuw3824-35-00 06:05:00* Test Item Value Reference Range Interpretation Comments Potassium Level (test code = 2823-3) 3.9 3.5-5.1 [facility] CenterChloride Enhax5010-07-13 06:05:00* Test Item Value Reference Range Interpretation Comments Chloride Level (test code = 2075-0) 100 98-107 [facility] CenterCarbon Dioxide Rudjr7442-64-20 06:05:00* Test Item Value Reference Range Interpretation Comments Carbon Dioxide Level (test code = 2028-9) 26 22-29 [facility] CenterAnion Dhu5104-86-68 06:05:00* Test Item Value Reference Range Interpretation Comments Anion Gap (test code = 66220-8) 13.9 8-16 [facility] CenterBlood Urea Pxspkdcx3985-56-11 06:05:00* Test Item Value Reference Range Interpretation Comments Blood Urea Nitrogen (test code = 3094-0) 13 7-26 [facility] CenterCreatinine2019-08-29 06:05:00* Test Item Value Reference Range Interpretation Comments Creatinine (test code = 2160-0) 0.87 0.57-1.11 [facility] CenterBUN/Creatinine Dvbwn3753-70-60 06:05:00* Test Item Value Reference Range Interpretation Comments BUN/Creatinine Ratio (test code = 3097-3) 15 6- [facility] CenterEstimat Glomerular Filtration Rate 2019-05-24 06:05:00* Test Item Value Reference Range Interpretation Comments Estimat Glomerular Filtration Rate (test code = 401007783) > 60 >60 Ranges were taken from the National Kidney Disease Education Program and the [facility] Kidney Foundation literature.Reference ranges:60 or greater: Zggfgp40-64 ( for 3 consecutive months): Chronic kidney disease 15 or less: Kidney failureCarrollton Regional Medical CenterGlucose Klllj4817-31-49 06:05:00* Test Item Value Reference Range Interpretation Comments Glucose Level (test code = VLD5420) 95 74-118 [facility] CenterCalcium Zzxrt8516-17-97 06:05:00* Test Item Value Reference Range Interpretation Comments Calcium Level (test code = 68472-0) 9.1 8.4-10.2 [facility] CenterTotal Hsufjlhki6458-77-84 06:05:00* Test Item Value Reference Range Interpretation Comments Total Bilirubin (test code = 1975-2) 0.4 0.2-1.2 [facility] CenterAspartate Amino Transf (AST/SGOT) 2019-05-24 06:05:00* Test Item Value Reference Range Interpretation Comments Aspartate Amino Transf (AST/SGOT) (test code = Aspartate Amino Transf (AST/SGOT)) 26 5-34 [facility] CenterAlanine Aminotransferase (ALT/SGPT) 2019-05-24 06:05:00* Test Item Value Reference Range Interpretation Comments Alanine Aminotransferase (ALT/SGPT) (test code = 1742-6) 22 0-[address] [facility] Ibawihe9233-91-99 06:05:00* Test Item Value Reference Range Interpretation Comments Total Protein (test code = 2885-2) 6.1 6.5-8.1 L [facility] CenterAlbumin2019-08-29 06:05:00* Test Item Value Reference Range Interpretation Comments Albumin (test code = 1751-7) 2.5 3.5-5.0 L [facility] CenterGlobulin2019-08-29 06:05:00* Test Item Value Reference Range Interpretation Comments Globulin (test code = 50371-2) 3.6 2.3-3.5 H [facility] CenterAlbumin/Globulin Yljwf7168-53-41 06:05:00 * Test Item Value Reference Range Interpretation Comments Albumin/Globulin Ratio (test code = 1759-0) 0.7 0.8-2.0 L [facility] CenterAlkaline Qifjfinrxvs6903-14-60 06:05:00* Test Item Value Reference Range Interpretation Comments Alkaline Phosphatase (test code = 6768-6) 52 40-150 [facility] CenterWhite Blood Tqchr4827-77-18 05:55:00* Test Item Value Reference Range Interpretation Comments White Blood Count (test code = 6690-2) 10.66 4.8-10.8 [facility] CenterRed Blood Pkblb7678-22-46 05:55:00* Test Item Value Reference Range Interpretation Comments Red Blood Count (test code = 789-8) 3.86 3.6-5.1 [facility] CenterHemoglobin2019-08-29 05:55:00* Test Item Value Reference Range Interpretation Comments Hemoglobin (test code = 41768-4) 11.9 12.0-16.0 L [facility] CenterHematocrit2019-08-29 05:55:00* Test Item Value Reference Range Interpretation Comments Hematocrit (test code = 4544-3) 36.1 34.2-44.1 [facility] CenterMean Corpuscular Boxmqu4945-54-20 05:55:00* Test Item Value Reference Range Interpretation Comments Mean Corpuscular Volume (test code = 787-2) 93.5 81-99 [facility] CenterMean Corpuscular Zbznnrdnte5531-89-13 05:55:00* Test Item Value Reference Range Interpretation Comments Mean Corpuscular Hemoglobin (test code = 785-6) 30.8 28-32 [facility] CenterMean Corpuscular Hemoglobin Concent 2019-05-24 05:55:00* Test Item Value Reference Range Interpretation Comments Mean Corpuscular Hemoglobin Concent (test code = 786-4) 33.0 31-35 [facility] CenterRed Cell Distribution Cylbd9765-99-79 05:55:00* Test Item Value Reference Range Interpretation Comments Red Cell Distribution Width (test code = 01998-5) 13.2 11.7 -14.4 [facility] CenterPlatelet Cutpl8122-42-56 05:55:00* Test Item Value Reference Range Interpretation Comments Platelet Count (test code = 777-3) 333 140-360 [facility] CenterNeutrophils (%) (Auto)2019-05-24 05:55:00 * Test Item Value Reference Range Interpretation Comments Neutrophils (%) (Auto) (test code = 28960-5) 63.9 38.7-80.0 [facility] CenterLymphocytes (%) (Auto)2019-05-24 05:55:00 * Test Item Value Reference Range Interpretation Comments Lymphocytes (%) (Auto) (test code = 736-9) 23.2 18.0-39.1 [facility] CenterMonocytes (%) (Auto)2019-05-24 05:55:00* Test Item Value Reference Range Interpretation Comments Monocytes (%) (Auto) (test code = 5905-5) 10.7 4.4-11.3 [facility] CenterEosinophils (%) (Auto)2019-05-24 05:55:00 * Test Item Value Reference Range Interpretation Comments Eosinophils (%) (Auto) (test code = 713-8) 1.1 0.0-6.0 [facility] CenterBasophils (%) (Auto)2019-05-24 05:55:00* Test Item Value Reference Range Interpretation Comments Basophils (%) (Auto) (test code = 706-2) 0.6 0.0-1.0 [facility] CenterIM GRANULOCYTES %2019-05-24 05:55:00* Test Item Value Reference Range Interpretation Comments IM GRANULOCYTES % (test code = IM GRANULOCYTES %) 0.5 0.0- 1.0 [facility] CenterNeutrophils # (Auto)2019-05-24 05:55:00* Test Item Value Reference Range Interpretation Comments Neutrophils # (Auto) (test code = 751-8) 6.8 2.1-6.9 [facility] CenterLymphocytes # (Auto)2019-05-24 05:55:00* Test Item Value Reference Range Interpretation Comments Lymphocytes # (Auto) (test code = 95924-2) 2.5 1.0-3.2 [facility] CenterMonocytes # (Auto)2019-05-24 05:55:00* Test Item Value Reference Range Interpretation Comments Monocytes # (Auto) (test code = 742-7) 1.1 0.2-0.8 H [facility] CenterEosinophils # (Auto)2019-05-24 05:55:00* Test Item Value Reference Range Interpretation Comments Eosinophils # (Auto) (test code = 711-2) 0.1 0.0-0.4 [facility] CenterBasophils # (Auto)2019-05-24 05:55:00* Test Item Value Reference Range Interpretation Comments Basophils # (Auto) (test code = 704-7) 0.1 0.0-0.1 [facility] CenterAbsolute Immature Granulocyte (auto 2019-05-24 05:55:00* Test Item Value Reference Range Interpretation Comments Absolute Immature Granulocyte (auto (kevin t code = Absolute Immature Granulocyte (auto) 0.05 0-0.1 [facility] CenterWhite Blood Srclc4746-11-49 05:55:00* Test Item Value Reference Range Interpretation Comments White Blood Count (test code = 6690-2) 10.66 4.8-10.8 [facility] CenterRed Blood Ndbkm2611-35-74 05:55:00* Test Item Value Reference Range Interpretation Comments Red Blood Count (test code = 789-8) 3.86 3.6-5.1 [facility] CenterHemoglobin2019-08-29 05:55:00* Test Item Value Reference Range Interpretation Comments Hemoglobin (test code = 50292-4) 11.9 12.0-16.0 L [facility] CenterHematocrit2019-08-29 05:55:00* Test Item Value Reference Range Interpretation Comments Hematocrit (test code = 4544-3) 36.1 34.2-44.1 [facility] CenterMean Corpuscular Tdpxhh9386-02-93 05:55:00* Test Item Value Reference Range Interpretation Comments Mean Corpuscular Volume (test code = 787-2) 93.5 81-99 [facility] CenterMean Corpuscular Pxkuvejpdo8284-97-28 05:55:00* Test Item Value Reference Range Interpretation Comments Mean Corpuscular Hemoglobin (test code = 785-6) 30.8 28-32 [facility] CenterMean Corpuscular Hemoglobin Concent 2019-05-24 05:55:00* Test Item Value Reference Range Interpretation Comments Mean Corpuscular Hemoglobin Concent (test code = 786-4) 33.0 31-35 [facility] CenterRed Cell Distribution Elncz8171-41-31 05:55:00* Test Item Value Reference Range Interpretation Comments Red Cell Distribution Width (test code = 66237-9) 13.2 11.7 -14.4 [facility] CenterPlatelet Wluvf4786-72-50 05:55:00* Test Item Value Reference Range Interpretation Comments Platelet Count (test code = 777-3) 333 140-360 [facility] CenterNeutrophils (%) (Auto)2019-05-24 05:55:00 * Test Item Value Reference Range Interpretation Comments Neutrophils (%) (Auto) (test code = 02486-7) 63.9 38.7-80.0 [facility] (Auto)2019-05-24 05:55:00 * Test Item Value Reference Range Interpretation Comments Lymphocytes (%) (Auto) (test code = 736-9) 23.2 18.0-39.1 [facility] (%) (Auto)2019-05-24 05:55:00* Test Item Value Reference Range Interpretation Comments Monocytes (%) (Auto) (test code = 5905-5) 10.7 4.4-11.3 [facility]ophils (%) (Auto)2019-05-24 05:55:00 * Test Item Value Reference Range Interpretation Comments Eosinophils (%) (Auto) (test code = 713-8) 1.1 0.0-6.0 [facility]Basophils (%) (Auto)2019-05-24 05:55:00* Test Item Value Reference Range Interpretation Comments Basophils (%) (Auto) (test code = 706-2) 0.6 0.0-1.0 [facility] CenterIM GRANULOCYTES %2019-05-24 05:55:00* Test Item Value Reference Range Interpretation Comments IM GRANULOCYTES % (test code = IM GRANULOCYTES %) 0.5 0.0- 1.0 [facility] CenterNeutrophils # (Auto)2019-05-24 05:55:00* Test Item Value Reference Range Interpretation Comments Neutrophils # (Auto) (test code = 751-8) 6.8 2.1-6.9 [facility] CenterLymphocytes # (Auto)2019-05-24 05:55:00* Test Item Value Reference Range Interpretation Comments Lymphocytes # (Auto) (test code = 89455-1) 2.5 1.0-3.2 [facility]Monocytes # (Auto)2019-05-24 05:55:00* Test Item Value Reference Range Interpretation Comments Monocytes # (Auto) (test code = 742-7) 1.1 0.2-0.8 H [facility] CenterEosinophils # (Auto)2019-05-24 05:55:00* Test Item Value Reference Range Interpretation Comments Eosinophils # (Auto) (test code = 711-2) 0.1 0.0-0.4 [facility]Basophils # (Auto)2019-05-24 05:55:00* Test Item Value Reference Range Interpretation Comments Basophils # (Auto) (test code = 704-7) 0.1 0.0-0.1 [facility] CenterAbsolute Immature Granulocyte (auto 2019-05-24 05:55:00* Test Item Value Reference Range Interpretation Comments Absolute Immature Granulocyte (auto (kevin t code = Absolute Immature Granulocyte (auto) 0.05 0-0.1 [facility] CenterUrine [id number] 00:16:00* Test Item Value Reference Range Interpretation Comments Urine WBC (test code = 5821-4) 11-20 0-5 H [facility] CenterU[facility] [id number] 00:16:00* Test Item Value Reference Range Interpretation Comments Urine RBC (test code = 00660-8) 11-20 0-5 H [facility] CenterU[facility] Ewngabyx3770-76-88 00:16:00* Test Item Value Reference Range Interpretation Comments Urine Bacteria (test code = 79342-0) MANY NONE H [facility] CenterU[facility] Epithelial [id number] 00:16:00 * Test Item Value Reference Range Interpretation Comments Urine Epithelial Cells (test code = 25672-8) FEW NONE [facility] Center[facility] Transitional Epithelial Cells 2019-05-23 00:16:00* Test Item Value Reference Range Interpretation Comments Urine Transitional Epithelial Cells (test code = 8249-5) FEW NONE H [facility] CenterU[facility] Fine Granular Dxrxw1755-26-32 00:16:00* Test Item Value Reference Range Interpretation Comments Urine Fine Granular Casts (test code = 80577-4) 1-5 >0 H [facility] CenterU[facility] Coarse Granular Zzqpd7981-51-97 00:16:00* Test Item Value Reference Range Interpretation Comments Urine Coarse Granular Casts (test code = 89042-0) 1-5 >0 H [facility] CenterU[facility] Dpuvy6921-63-93 00:16:00* Test Item Value Reference Range Interpretation Comments Urine Mucus (test code = 8247-9) FEW RARE H [facility] CenterU[facility] [id number] 00:16:00* Test Item Value Reference Range Interpretation Comments Urine WBC (test code = 5821-4) 11-20 0-5 H [facility] Center[facility] [id number] 00:16:00* Test Item Value Reference Range Interpretation Comments Urine RBC (test code = 43480-5) 11-20 0-5 H [facility] CenterU[facility] Sgspfqub4595-25-38 00:16:00* Test Item Value Reference Range Interpretation Comments Urine Bacteria (test code = 70643-8) MANY NONE H [facility] Center[facility] Epithelial Wookk8211-82-13 00:16:00 * Test Item Value Reference Range Interpretation Comments Urine Epithelial Cells (test code = 52917-4) FEW NONE [facility] Transitional Epithelial Cells 2019-05-23 00:16:00* Test Item Value Reference Range Interpretation Comments Urine Transitional Epithelial Cells (test code = 8249-5) FEW NONE H [facility] CenterU[facility] Fine Granular Bshpn7754-03-74 00:16:00* Test Item Value Reference Range Interpretation Comments Urine Fine Granular Casts (test code = 51810-9) 1-5 >0 H [facility] CenterUrine Coarse Granular Onibb9843-13-68 00:16:00* Test Item Value Reference Range Interpretation Comments Urine Coarse Granular Casts (test code = 65764-8) 1-5 >0 H [facility] CenterU[facility] Ttuiz0434-15-36 00:16:00* Test Item Value Reference Range Interpretation Comments Urine Mucus (test code = 8247-9) FEW RARE H [facility] CenterU[facility] Fine Granular Mcukl2756-35-25 00:16:00* Test Item Value Reference Range Interpretation Comments Urine Fine Granular Casts (test code = 28733-5) 1-5 >0 H [facility] CenterU[facility] Coarse Granular Epwcy6325-90-79 00:16:00* Test Item Value Reference Range Interpretation Comments Urine Coarse Granular Casts (test code = 43146-5) 1-5 >0 H [facility] Center[facility] Aajhi2366-19-07 00:16:00* Test Item Value Reference Range Interpretation Comments Urine Mucus (test code = 8247-9) FEW RARE H [facility] CenterU[facility] Aprdt3138-33-86 23:44:00* Test Item Value Reference Range Interpretation Comments Urine Color (test code = 5778-6) YELLOW YELLOW [facility] Fpxvnnv8330-73-66 23:44:00* Test Item Value Reference Range Interpretation Comments Urine Clarity (test code = 01550-6) CLOUDY CLEAR H [facility] CenterUrine Specific Bvskbew7053-23-43 23:44:00 * Test Item Value Reference Range Interpretation Comments Urine Specific Palmer (test code = 5811-5) 1.025 1.010-1.02 5 [facility] CenterU[facility] zR6375-35-02 23:44:00* Test Item Value Reference Range Interpretation Comments Urine pH (test code = 83737-5) 5.5 5-7 [facility] Leukocyte Kobdcdtw9549-58-81 23:44:00* Test Item Value Reference Range Interpretation Comments Urine Leukocyte Esterase (test code = 20640-4) SMALL NEGATIV E [facility] CenterU[facility] Lhwmuez1291-92-67 23:44:00* Test Item Value Reference Range Interpretation Comments Urine Nitrite (test code = 75703-1) NEGATIVE NEGATIVE [facility] Slpivkf9767-97-11 23:44:00* Test Item Value Reference Range Interpretation Comments Urine Protein (test code = 26575-9) 1+ NEGATIVE H [facility] CenterU[facility] Glucose (UA)2019-05-22 23:44:00* Test Item Value Reference Range Interpretation Comments Urine Glucose (UA) (test code = 43967-4) NEGATIVE NEGATIVE [facility] Lrjygeu0770-35-77 23:44:00* Test Item Value Reference Range Interpretation Comments Urine Ketones (test code = 80876-6) NEGATIVE NEGATIVE [facility] Ixpwwggefwlg9048-90-78 23:44:00* Test Item Value Reference Range Interpretation Comments Urine Urobilinogen (test code = 41084-5) 0.2 0.2-1 [facility] Vkumlaghn4117-04-63 23:44:00* Test Item Value Reference Range Interpretation Comments Urine Bilirubin (test code = 1977-8) NEGATIVE NEGATIVE [facility] Gxuht7148-91-71 23:44:00* Test Item Value Reference Range Interpretation Comments Urine Blood (test code = 68523-2) MODERATE NEGATIVE [facility] Wwiwg7617-28-60 23:44:00* Test Item Value Reference Range Interpretation Comments Urine Color (test code = 5778-6) YELLOW YELLOW [facility] Gkhphoc3802-86-50 23:44:00* Test Item Value Reference Range Interpretation Comments Urine Clarity (test code = 69298-0) CLOUDY CLEAR H [facility] CenterU[facility] Specific Qmlkrfn2197-90-59 23:44:00 * Test Item Value Reference Range Interpretation Comments Urine Specific Palmer (test code = 5811-5) 1.025 1.010-1.02 5 [facility] iQ4475-30-35 23:44:00* Test Item Value Reference Range Interpretation Comments Urine pH (test code = 09119-4) 5.5 5-7 [facility] Leukocyte Yyiirskb6472-18-05 23:44:00* Test Item Value Reference Range Interpretation Comments Urine Leukocyte Esterase (test code = 06780-4) SMALL NEGATIV E [facility] CenterU[facility] Oaclxea2815-99-84 23:44:00* Test Item Value Reference Range Interpretation Comments Urine Nitrite (test code = 74952-4) NEGATIVE NEGATIVE [facility] Shgfyuk6749-55-09 23:44:00* Test Item Value Reference Range Interpretation Comments Urine Protein (test code = 41403-1) 1+ NEGATIVE H [facility] CenterU[facility] Glucose (UA)2019-05-22 23:44:00* Test Item Value Reference Range Interpretation Comments Urine Glucose (UA) (test code = 47164-8) NEGATIVE NEGATIVE [facility] Iolrzgi4522-74-43 23:44:00* Test Item Value Reference Range Interpretation Comments Urine Ketones (test code = 39284-1) NEGATIVE NEGATIVE [facility] Itbanhfjyngg9534-46-09 23:44:00* Test Item Value Reference Range Interpretation Comments Urine Urobilinogen (test code = 61757-7) 0.2 0.2-1 [facility] Acqsivmxx0554-22-09 23:44:00* Test Item Value Reference Range Interpretation Comments Urine Bilirubin (test code = 1977-8) NEGATIVE NEGATIVE [facility] Djnra0085-07-49 23:44:00* Test Item Value Reference Range Interpretation Comments Urine Blood (test code = 93502-1) MODERATE NEGATIVE [facility] CenterDifferential Total Cells Counted 2019-05-22 06:55:00* Test Item Value Reference Range Interpretation Comments Differential Total Cells Counted (test code = Differen tial Total Cells Counted) 100 [facility] CenterNeutrophils % (Manual)2019-05-22 06:55:00 * Test Item Value Reference Range Interpretation Comments Neutrophils % (Manual) (test code = 46821-1) 61 40-74 [facility] CenterLymphocytes % (Manual)2019-05-22 06:55:00 * Test Item Value Reference Range Interpretation Comments Lymphocytes % (Manual) (test code = 737-7) 28 -48 [facility] CenterMon[facility] % (Manual)2019-05-22 06:55:00* Test Item Value Reference Range Interpretation Comments Monocytes % (Manual) (test code = 744-3) 11 3.4-9.0 H [facility] CenterPlatelet Vikgrmoi9352-49-42 06:55:00* Test Item Value Reference Range Interpretation Comments Platelet Estimate (test code = 12266-6) ADEQUATE [facility] CenterRed Cell Morphology Ssyynzl8487-32-62 06:55:00* Test Item Value Reference Range Interpretation Comments Red Cell Morphology Comment (test code = 6742-1) NORMAL [facility] CenterDifferential Total Cells Counted 2019-05-22 06:55:00* Test Item Value Reference Range Interpretation Comments Differential Total Cells Counted (test code = Differen tial Total Cells Counted) 100 [facility] CenterNeutrophils % (Manual)2019-05-22 06:55:00 * Test Item Value Reference Range Interpretation Comments Neutrophils % (Manual) (test code = 31165-0) 61 40-74 [facility] CenterLymphocytes % (Manual)2019-05-22 06:55:00 * Test Item Value Reference Range Interpretation Comments Lymphocytes % (Manual) (test code = 737-7) 28 -48 [facility] CenterMon[facility] % (Manual)2019-05-22 06:55:00* Test Item Value Reference Range Interpretation Comments Monocytes % (Manual) (test code = 744-3) 11 3.4-9.0 H [facility] CenterPlatelet Tefkfwav5064-59-00 06:55:00* Test Item Value Reference Range Interpretation Comments Platelet Estimate (test code = 35911-8) ADEQUATE [facility] CenterRed Cell Morphology Kqvyglb7093-78-47 06:55:00* Test Item Value Reference Range Interpretation Comments Red Cell Morphology Comment (test code = 6742-1) NORMAL [facility] CenterDifferential Total Cells Counted 2019-05-22 06:55:00* Test Item Value Reference Range Interpretation Comments Differential Total Cells Counted (test code = Differen tial Total Cells Counted) 100 [facility] CenterNeutrophils % (Manual)2019-05-22 06:55:00 * Test Item Value Reference Range Interpretation Comments Neutrophils % (Manual) (test code = 86912-9) 61 40-74 [facility] CenterLymphocytes % (Manual)2019-05-22 06:55:00 * Test Item Value Reference Range Interpretation Comments Lymphocytes % (Manual) (test code = 737-7) 28 19-48 [facility] CenterMon[facility] % (Manual)2019-05-22 06:55:00* Test Item Value Reference Range Interpretation Comments Monocytes % (Manual) (test code = 744-3) 11 3.4-9.0 H [facility] CenterPlatelet Fhhofblt1531-39-73 06:55:00* Test Item Value Reference Range Interpretation Comments Platelet Estimate (test code = 71786-5) ADEQUATE [facility] CenterRed Cell Morphology Nrmglcn2556-47-29 06:55:00* Test Item Value Reference Range Interpretation Comments Red Cell Morphology Comment (test code = 6742-1) NORMAL [facility] CenterCT ABDOMEN [id number] 18:18:00 [facility] [address] [address] Patient Name: JAMEY ELAINE MR #: [id number] : 1940 Age/Sex: 79/F Req #: [id number] Adm Physician: PEPITO FLAHERTY MD Ordered by: ANA GOMEZ, SHANTE GOMEZ Report #: [id number] Location: MED/SURG Room/Bed: [facility] Procedure: [id number] C T/CT ABDOMEN WO Exam Date: 05/21/19 Exam Time: 1750 REPORT STATUS: Signed CT Abdomen Unenhanced CPT CODE: 73668 INDICATION: Potential adrenal mass TE CHNIQUE: 2.5 mm collimation axial images obtained from lung base to iliac froylan t without intravenous contrast. RADIATION DOSE: Total DLP: (DLP x 0. 015 x size factor) mGy*cm Estimated effective dose: (DLP x 0.015 x size factor) mSv CTDIvol has been reviewed. It is below the limits set by the Radiation Protocol Committee (RPC). Comparison: Renal ultrasound 9. FINDINGS: Lung bases: Bibasilar subsegmental atelectasis, right gre ater than left. Liver: Normal attenuation. No mass. Gallbladder: Absen t. Biliary tree: No intrahepatic or hepatic biliary ductal dilatation Pancreas: Normal in attenuation without mass or ductal dilatation. Spleen: Normal in attenuation and size without mass. Adrenal Glands: Right: Norm al morphology. No mass. Left: Mild thickening at the apex without discrete mass. There is a calcification adjacent to the lateral limb. On coronal reform ations, this appears vascular. Kidneys: Right: 2 to 3 mm calculus i n the upper pole the right kidney. 8 mm partially exophytic lesion may corresp ond to a cyst on ultrasound. No hydronephrosis. Left: Calculus in the anter ior lower pole measures 3 mm. Hyperattenuating lesion in the lower pole measur es 5 mm and may represent a proteinaceous/hemorrhagic cyst. No hydronephrosis. Bowel: Small hiatal hernia. Mild distention of the central small bowel loo ps without dilatation. No surrounding inflammation. Visualized large bowel is normal in diameter with normal wall thickness. Aorta: Normal in diameter with scattered calcifications Lymph Nodes: No enlarged abdominal or retrope ritoneal lymph nodes. Peritoneum/retroperitoneum: No free fluid or fluid co llection. Bones: Anterolisthesis of L3 on L4 of approximately 6 mm. There a re degenerative changes of the spine at T12-L1. Soft tissues: Unremarkabl e. IMPRESSION: 1. Nonspecific thickening of the left adrenal gland wi th an adjacent calcification, likely vascular. A contrast-enhanced examination would be needed for confirmation. No defined nodule either adrenal gland. 2. Other findings as described above. Signed by: Dr. Kristian Keating MD on 05/21/2019 7:59 PM Dictated By: KRISTIAN KEATING MD 58 Transcribed By: CAMI on 1958 COPY TO: SHANTE PEREZ Phosphorus Zthqs9513-12-44 06:52:00* Test Item Value Reference Range Interpretation Comments Phosphorus Level (test code = PJB2153) 2.5 2.3-4.7 [facility] Nouhb7391-83-91 06:52:00* Test Item Value Reference Range Interpretation Comments Magnesium Level (test code = 20346-9) 1.8 1.3-2.1 [facility] CenterPhosphorus Byjwe1993-24-72 06:52:00* Test Item Value Reference Range Interpretation Comments Phosphorus Level (test code = OGX3425) 2.5 2.3-4.7 [facility] Zdmyd0786-20-86 06:52:00* Test Item Value Reference Range Interpretation Comments Magnesium Level (test code = 92675-4) 1.8 1.3-2.1 [facility] CenterPhosphorus Zpqro2234-08-59 06:52:00* Test Item Value Reference Range Interpretation Comments Phosphorus Level (test code = CVC1041) 2.5 2.3-4.7 [facility] Ashcs6725-14-47 06:52:00* Test Item Value Reference Range Interpretation Comments Magnesium Level (test code = 42762-8) 1.8 1.3-2.1 [facility] Xshkphi4623-52-14 00:07:00* Test Item Value Reference Range Interpretation Comments Bedside Glucose (test code = 42415-9) 165 70-120 H Meter ID: [id number] [facility] Glucose 2019-05-21 00:07:00* Test Item Value Reference Range Interpretation Comments Bedside Glucose (test code = 71750-4) 165 70-120 H Meter ID: [id number] [facility] Glucose 2019-05-21 00:07:00* Test Item Value Reference Range Interpretation Comments Bedside Glucose (test code = 96035-4) 165 70-120 H Meter ID: [id number] [facility] RETROPERITONEAL [id number] 11:50:00 [facility] [address] [address] Patient Name: JAMEY ELAINE MR #: [id number] : 1940 Age/Sex: 79/F Req #: [id number] Adm Physician: PEPITO FLAHERTY MD Ordered by: PEPITO FLAHERTY MD Report #: [id number] Location: MED/SURG Room/Bed: [facility] Procedure: [id number] US/US RENAL RETROPERITONEAL COMP Exam Date: 05/20/19 Exam Time: 951 REPORT STATUS: Signed EXAMINATION: Renal Doppler ultrasound. CLINICAL HISTORY :Hypertension COMPARISON: <None available.> TECHNIQUE: Grayscale and color Doppler evaluation of the kidneys and bladder was performed in transverse and longitudinal planes. Doppler interrogation of the main, hilar, segmental and arcuate renal arteries bilaterally as well as evaluation of the aorta were performed. DISCUSSION: RIGHT KIDNEY: The right kidney measures 8.7 cm in length and shows normal echogenicity. The right renal cortex measures 2.1 cm. No hydronephrosis, shadowing calculi or solid mass lesions. 1.2 x 1.1 x 1.2 cm mostly exophytic cystic, anechoic lesion in the lateral interpolar region consistent with a simple cyst. . Right main renal artery PSV is 178.5, 181.7 and 164.0 cm/sec at the proximal, mid and distal aspects. The renal ostium could not be visualized due to overlying bowel gas. Segmental artery PSV is 57.8, 53.9 and 33.5cm/sec at the superior, mid and inferior aspects of the right kidney Arterial waveforms are normal. The right renal artery PSV/aortic PSV ratio is 2.9. LEFT KIDNEY: The left kidney measures 7.8 cm in length and shows normal echogenicity. The left renal cortex measures 1.7 cm. No hydronephrosis, shadowing calculi or solid mass lesions. 1.0 x 0.7 x 0.8 cm cystic, anechoic lesion in the inferior pole Left main renal artery PSV is 115.1 and 106.3 cm/sec at the mid and distal portions. The ostium and proximal portions are obscured by overlying bowel gas.. Segmental artery PSV is 41.1, 42.1 and 35.5cm/sec at the superior, mid and inferior aspects. Arterial waveforms are normal. The left renal artery PSV/aortic PSV ratio is 1.8. Abdominal aortic PSV is 62.3, 61.4 and 62.3 cm/sec at the proximal, celiac axis/SMA and distal aspects IVC and renal veins are patent.. BLADDER: No focal lesions. IMPRESSION: 1. Limited exam, as the right renal ostium, left renal ostium and proximal left renal artery could not be evaluated due to overlying bowel gas. 2. Borderline elevation of the mid aspect of the right main renal artery and bord chula right renal artery/aorta ratio. This may reflect mild stenosis and can be confirmed with CTA of the renal arteries. 3. Right kidney and the lower limit of normal. Left kidney smaller than normal. No hydronephrosis or obstruc tion. 4. Bilateral simple cysts, which require no further follow-up. S igned by: Dr. Neel Cazares M.D. on 05/20/2019 12:01 PM Dictated By: NEEL CAZARES MD 134 Transcribed By: CAMI on 05/29/19 1348 COPY TO: PEPITO FLAHERTY MD RENAL/LIVER DOPPLER [id number] 11:50:00 [address] [address] Patient Name: JAMEY ELAINE MR #: [id number] : 1940 Age/Sex: 79/F Req #: [id number] [facility] Physician: PEPITO FLAHERTY MD Ordered by: PEPITO FLAHERTY MD Report #: [id number] Location: MED/SURG Room/Bed: [facility] Procedure: [id number] US/US RENAL/LIVER DOPPLER LTD Exam Date: 05/20/19 Exam Ti me: 0952 REPORT STATUS: Signed E XAMINATION: Renal Doppler ultrasound. CLINICAL HISTORY :Hypertension C OMPARISON: <None available.> TECHNIQUE: Grayscale and color Doppler evaluation of the kidneys and bladder was performed in transverse and longitudinal planes. Doppler interrogation of the main, hilar, segmental and arcuate renal arteries bilaterally as well as evaluation of the aorta were performed. DISCUSSION: RIGHT KIDNEY: The right kidney measures 8.7 cm in length and shows normal echogenicity. The right renal cortex measures 2.1 cm. No hydronephrosis, shadowing calculi or solid mass lesions. 1.2 x 1.1 x 1.2 cm mostly exophytic cystic, anechoic lesion in the lateral interpolar region consistent with a simple cyst. . Right main renal artery PSV is 178.5, 181.7 and 164.0 cm/sec at the proximal, mid and distal aspects. The renal ostium could not be visualized due to overlying bowel gas. Segmental artery PSV is 57.8, 53.9 and 33.5cm/sec at the superior, mid and inferior aspects of the right kidney Arterial waveforms are normal. The right renal artery PSV/aortic PSV ratio is 2.9. LEFT KIDNEY: The left kidney measures 7.8 cm in length and shows normal echogenicity. The left renal cortex measures 1.7 cm. No hydronephrosis, shadowing calculi or solid mass lesions. 1.0 x 0.7 x 0.8 cm cystic, anechoic lesion in the inferior pole Left main renal artery PSV is 115.1 and 106.3 cm/sec at the mid and distal portions. The ostium and proximal portions are obscured by overlying bowel gas.. Segmental artery PSV is 41.1, 42.1 and 35.5cm/sec at the superior, mid and inferior aspects. Arterial waveforms are normal. The left renal artery PSV/aortic PSV ratio is 1.8. Abdominal aortic PSV is 62.3, 61.4 and 62.3 cm/sec at the proximal, celiac axis/SMA and distal aspects IVC and renal veins are patent.. BLADDER: No focal lesions. IMPRESSION: 1. Limited exam, as the right renal ostium, left renal ostium and proximal left renal artery could not be evaluated due to overlying bowel gas. 2. Borderline elevation of the mid aspect of the right main renal artery and bord chula right renal artery/aorta ratio. This may reflect mild stenosis and can be confirmed with CTA of the renal arteries. 3. Right kidney and the lower limit of normal. Left kidney smaller than normal. No hydronephrosis or obstruc tion. 4. Bilateral simple cysts, which require no further follow-up. S igned by: Dr. Neel Cazares M.D. on 05/20/2019 12:01 PM Dictated By: NEEL CAZARES MD 1348 Transcribed By: CAMI on 05/29/19 1348 COPY TO: PEPITO FLAHERTY MD Thyroid Stimulating Hormone (TSH)2019-05-19 11:22:00* Test Item Value Reference Range Interpretation Comments Thyroid Stimulating Hormone (TSH) (test code = 67492-7) 1.024 0.350-4.940 [facility]) 2019-05-19 11:22:00* Test Item Value Reference Range Interpretation Comments Thyroid Stimulating Hormone (TSH) (test code = 29785-0) 1.024 0.350-4.940 [facility] Center[facility]ulating [facility]ormone (TSH) 2019-05-19 11:22:00* Test Item Value Reference Range Interpretation Comments Thyroid Stimulating Hormone (TSH) (test code = 50569-8) 1.024 0.350-4.940 [facility] CenterCT BRAIN DS-VXFT2277-14-23 18:40:00 [facility] [address] [address] Patient Name: JAMEY ELAINE MR #: [id number] : 1940 Age/Sex: 79/F Req #: [id number] Adm Physician: Ordered by: HENRY FLAHERTY DO Report #: [id number] Location: [facility] Room/Bed: Procedure: [id number] HOP D/CT BRAIN WO-HOPD Exam Date: 05/18/19 Exam Time: 18 34 REPORT STATUS: Signed EXAMINA TION: Head CT HISTORY: Head pain, hypertension COMPARISON: None. TECHN IQUE: Multidetector axial images were obtained without contrast from the yolanda en magnum to the vertex . The images were reconstructed using brain and bone a lgorithms. Thin section brain images were reformatted into coronal and sagitt al planes. Image quality: Motion/streaking artifact limits the evaluation of t he skull base and posterior cranial fossa. Dose modulation, iterative recons truction, and/or weight based adjustment of the mA/kV was utilized to reduce t he radiation dose to as low as reasonably achievable. FINDINGS: Parenchyma: 1. A few scattered and periventricular white matter hypodens ities, most likely age appropriate minimal chronic microvascular ischemic savage ges. 2. No mass or hemorrhage. No CT evidence of acute territorial vascular i nsult. Extra-axial spaces:No abnormal density. No extra-axial f luid collections . Incidentally noted small retrocerebellar benign arachnoid c yst without mass effect Brain volume: Normal for age. Ventricle s: No hydrocephalus or displacement. Arteries: No density suggestive of thrombus. Dural sinuses: No abnormal density. Extra-axial space s: No abnormal density. Foramen magnum: No mass, Chiari malformation, or basilar invagination. Sella: No obvious mass. Paranasal/mastoid sinuses: Partial opacification of the tip of the right mastoid air cells, li kenneth effusion from chronic inflammatory process. Skull/Scalp: No lytic o r blastic lesions. No fractures. IMPRESSION: No acute intracranial a bnormality, particularly no hemorrhage. Signed by: Dr. Dorinda Snyder M.D. on 05/18/2019 6:42 PM Dictated By: DORINDA SNYDER MD 41 Transcribed By: CAMI on 05/18/191841 COPY TO: HENRY FLAHERTY DO Sodium Xsfbs6469-05-28 05:02:00* Test Item Value Reference Range Interpretation Comments Sodium Level (test code = 2951-2) 139 136-145 [facility] CenterPotassium Wqckm9473-29-08 05:02:00* Test Item Value Reference Range Interpretation Comments Potassium Level (test code = 2823-3) 3.7 3.5-5.1 VERIFIED PREVIOUS RESULTSCarrollton Regional Medical CenterChloride Level 2018-05-22 05:02:00* Test Item Value Reference Range Interpretation Comments Chloride Level (test code = 2075-0) 102 98-107 [facility] CenterCarbon Dioxide Mkwbp2390-07-75 05:02:00* Test Item Value Reference Range Interpretation Comments Carbon Dioxide Level (test code = 2028-9) 27 22-29 [facility] CenterAnion Jcs6847-54-75 05:02:00* Test Item Value Reference Range Interpretation Comments Anion Gap (test code = 13267-9) 13.7 8-16 [facility] CenterBlood Urea Fstphxiu3089-47-57 05:02:00* Test Item Value Reference Range Interpretation Comments Blood Urea Nitrogen (test code = 3094-0) 20 7-26 [facility] CenterCreatinine2018-08-27 05:02:00* Test Item Value Reference Range Interpretation Comments Creatinine (test code = 2160-0) 1.02 0.57-1.11 [facility] CenterBUN/Creatinine Tznxg8066-49-06 05:02:00* Test Item Value Reference Range Interpretation Comments BUN/Creatinine Ratio (test code = 3097-3) 20 6-25 [facility] CenterEstimat Glomerular Filtration Rate 2018-05-22 05:02:00* Test Item Value Reference Range Interpretation Comments Estimat Glomerular Filtration Rate (test code = 77309-9) 52 >60 L Ranges were taken from the National Kidney Disease Education Program and the On license of [facility] [employer] literature.Reference ranges:60 or greater: Wzekfq07-13 ( for 3 consecutive months): Chronic kidney disease 15 or less: Kidney failureCarrollton Regional Medical CenterGlucose Lrwzt2223-93-49 05:02:00* Test Item Value Reference Range Interpretation Comments Glucose Level (test code = NYL6368) 95 74-118 [facility] CenterCalcium Hpplf6651-99-38 05:02:00* Test Item Value Reference Range Interpretation Comments Calcium Level (test code = 44579-1) 8.8 8.4-10.2 [facility] CenterMagnesium Iaapo7247-46-00 05:02:00* Test Item Value Reference Range Interpretation Comments Magnesium Level (test code = 07990-2) 2.3 1.3-2.1 H [facility] CenterB-Type Natriuretic Lrrnvpe3443-91-86 05:02:00* Test Item Value Reference Range Interpretation Comments B-Type Natriuretic Peptide (test code = 29367-7) 65.1 0-100 [facility] CenterWhite Blood Azayz0986-72-55 04:37:00* Test Item Value Reference Range Interpretation Comments White Blood Count (test code = 6690-2) 10.51 4.8-10.8 [facility] CenterRed Blood Kyutk0582-32-85 04:37:00* Test Item Value Reference Range Interpretation Comments Red Blood Count (test code = 789-8) 3.32 3.6-5.1 L [facility] CenterHemoglobin2018-08-27 04:37:00* Test Item Value Reference Range Interpretation Comments Hemoglobin (test code = 39354-1) 10.4 12.0-16.0 L [facility] CenterHematocrit2018-08-27 04:37:00* Test Item Value Reference Range Interpretation Comments Hematocrit (test code = 4544-3) 32.2 34.2-44.1 L [facility] CenterMean Corpuscular Hkhnwu6829-16-98 04:37:00* Test Item Value Reference Range Interpretation Comments Mean Corpuscular Volume (test code = 787-2) 97.0 81-99 [facility] CenterMean Corpuscular Ejmfjehmlq2838-87-29 04:37:00* Test Item Value Reference Range Interpretation Comments Mean Corpuscular Hemoglobin (test code = 785-6) 31.3 28-32 [facility] CenterMean Corpuscular Hemoglobin Concent 2018-05-22 04:37:00* Test Item Value Reference Range Interpretation Comments Mean Corpuscular Hemoglobin Concent (test code = 786-4) 32.3 31-35 [facility] CenterRed Cell Distribution Jmsjx2546-33-50 04:37:00* Test Item Value Reference Range Interpretation Comments Red Cell Distribution Width (test code = 23925-3) 14.7 11.7 -14.4 H [facility] CenterPlatelet Orqfs5080-70-02 04:37:00* Test Item Value Reference Range Interpretation Comments Platelet Count (test code = 777-3) 324 140-360 [facility] CenterNeutrophils (%) (Auto)2018-05-22 04:37:00 * Test Item Value Reference Range Interpretation Comments Neutrophils (%) (Auto) (test code = 20531-0) 64.3 38.7-80.0 [facility] CenterLymphocytes (%) (Auto)2018-05-22 04:37:00 * Test Item Value Reference Range Interpretation Comments Lymphocytes (%) (Auto) (test code = 736-9) 26.5 18.0-39.1 [facility] CenterMonocytes (%) (Auto)2018-05-22 04:37:00* Test Item Value Reference Range Interpretation Comments Monocytes (%) (Auto) (test code = 5905-5) 7.7 4.4-11.3 [facility] CenterEosinophils (%) (Auto)2018-05-22 04:37:00 * Test Item Value Reference Range Interpretation Comments Eosinophils (%) (Auto) (test code = 713-8) 0.4 0.0-6.0 [facility] CenterBasophils (%) (Auto)2018-05-22 04:37:00* Test Item Value Reference Range Interpretation Comments Basophils (%) (Auto) (test code = 706-2) 0.4 0.0-1.0 [facility] CenterIM GRANULOCYTES %2018-05-22 04:37:00* Test Item Value Reference Range Interpretation Comments IM GRANULOCYTES % (test code = IM GRANULOCYTES %) 0.7 0.0- 1.0 [facility] CenterNeutrophils # (Auto)2018-05-22 04:37:00* Test Item Value Reference Range Interpretation Comments Neutrophils # (Auto) (test code = 751-8) 6.8 2.1-6.9 [facility] CenterLymphocytes # (Auto)2018-05-22 04:37:00* Test Item Value Reference Range Interpretation Comments Lymphocytes # (Auto) (test code = 95941-0) 2.8 1.0-3.2 [facility] CenterMonocytes # (Auto)2018-05-22 04:37:00* Test Item Value Reference Range Interpretation Comments Monocytes # (Auto) (test code = 742-7) 0.8 0.2-0.8 [facility] CenterEosinophils # (Auto)2018-05-22 04:37:00* Test Item Value Reference Range Interpretation Comments Eosinophils # (Auto) (test code = 711-2) 0.0 0.0-0.4 [facility] CenterBasophils # (Auto)2018-05-22 04:37:00* Test Item Value Reference Range Interpretation Comments Basophils # (Auto) (test code = 704-7) 0.0 0.0-0.1 [facility] CenterAbsolute Immature Granulocyte (auto 2018-05-22 04:37:00* Test Item Value Reference Range Interpretation Comments Absolute Immature Granulocyte (auto (kevin t code = Absolute Immature Granulocyte (auto) 0.07 0-0.1 [facility] CenterThyroid Stimulating Hormone (TSH) 2018-05-21 15:39:00* Test Item Value Reference Range Interpretation Comments Thyroid Stimulating Hormone (TSH) (test code = 92118-6) 0.402 0.350-4.940 [facility] CenterUric Qocx1800-76-29 15:23:00* Test Item Value Reference Range Interpretation Comments Uric Acid (test code = 3084-1) 6.0 2.6-8.0 [facility] CenterPhosphorus Fdioo4253-56-00 15:23:00* Test Item Value Reference Range Interpretation Comments Phosphorus Level (test code = PWS3328) 1.2 2.3-4.7 L [facility] CenterTotal Tvnkquhwu9545-58-18 15:23:00* Test Item Value Reference Range Interpretation Comments Total Bilirubin (test code = 1975-2) 0.3 0.2-1.2 [facility] CenterDirect Piuhvhksn2252-30-28 15:23:00* Test Item Value Reference Range Interpretation Comments Direct Bilirubin (test code = 79990-9) 0.1 0.0-0.5 [facility] CenterAspartate Amino Transf (AST/SGOT) 2018-05-21 15:23:00* Test Item Value Reference Range Interpretation Comments Aspartate Amino Transf (AST/SGOT) (test code = Aspartate Amino Transf (AST/SGOT)) 25 5-34 [facility] CenterAlanine Aminotransferase (ALT/SGPT) 2018-05-21 15:23:00* Test Item Value Reference Range Interpretation Comments Alanine Aminotransferase (ALT/SGPT) (test code = 1742-6) 36 0-55 [facility] CenterTotal Ggegvhy6559-87-02 15:23:00* Test Item Value Reference Range Interpretation Comments Total Protein (test code = 2885-2) 6.0 6.5-8.1 L [facility] CenterAlbumin2018-08-26 15:23:00* Test Item Value Reference Range Interpretation Comments Albumin (test code = 1751-7) 2.6 3.5-5.0 L [facility] CenterAlkaline Qtvyrpokldf0680-62-69 15:23:00* Test Item Value Reference Range Interpretation Comments Alkaline Phosphatase (test code = 6768-6) 64 40-150 [facility] CenterTriglycerides Dhacz5243-58-53 15:23:00* Test Item Value Reference Range Interpretation Comments Triglycerides Level (test code = 2571-8) 114 0-149 [facility] CenterCholesterol Lbgah0716-84-99 15:23:00* Test Item Value Reference Range Interpretation Comments Cholesterol Level (test code = 2093-3) 212 0-199 H Less than 200 mg/dL Low Niee816 - 239 mg/dL Borderline Rorj099 m g/dl and greater High Risk [facility] CenterLDL Gewdwlgrgzd7252-85-86 15:23:00* Test Item Value Reference Range Interpretation Comments LDL Cholesterol (test code = 2089-1) 139 60-130 H [facility] CenterHDL Chwqiibupzj0587-94-52 15:23:00* Test Item Value Reference Range Interpretation Comments HDL Cholesterol (test code = 2085-9) 50 40-60 [facility] CenterCholesterol/HDL Wfbkw8142-62-68 15:23:00 * Test Item Value Reference Range Interpretation Comments Cholesterol/HDL Ratio (test code = 9830-1) 4.2 3.0-3.6 H [facility] CenterAmylase Qqxfs3373-15-91 15:23:00* Test Item Value Reference Range Interpretation Comments Amylase Level (test code = 1798-8) 69 25-125 [facility] CenterD-Dimer Quantitative (PE/DVT)2018-05-21 09:22:00* Test Item Value Reference Range Interpretation Comments D-Dimer Quantitative (PE/DVT) (test code = 64502-2) 0.85 0. 00-0.45 H As with all in vitro diagnostic tests, the test results should be interpreted by the physician in conjunction with clinical findings and other test results.Test results are reported in NEW D-dimer units(ug/mLFEU).[facility] CenterCreatine Kinase MW6346-40-70 05:43:00* Test Item Value Reference Range Interpretation Comments Creatine Kinase MB (test code = 84644-2) 0.70 0-5.0 [facility] CenterTroponin Z8880-81-24 05:43:00* Test Item Value Reference Range Interpretation Comments Troponin I (test code = QYY4588) 0.008 0-0.300 [facility] CenterCreatine Zdhjlr7594-58-98 05:38:00* Test Item Value Reference Range Interpretation Comments Creatine Kinase (test code = 2157-6) 38 29-168 [facility] CenterUrine HTN8718-26-95 14:43:00* Test Item Value Reference Range Interpretation Comments Urine WBC (test code = 5821-4) 6-10 0-5 H [facility] CenterUrine WNZ7566-74-52 14:43:00* Test Item Value Reference Range Interpretation Comments Urine RBC (test code = 07842-5) 6-10 0-5 H [facility] CenterUrine Wzxijkrf2339-78-78 14:43:00* Test Item Value Reference Range Interpretation Comments Urine Bacteria (test code = 88482-5) FEW NONE [facility] CenterUrine Epithelial Hikic2814-82-95 14:43:00 * Test Item Value Reference Range Interpretation Comments Urine Epithelial Cells (test code = 29970-0) FEW NONE [facility] CenterUrine Pmsrb2812-77-18 14:32:00* Test Item Value Reference Range Interpretation Comments Urine Color (test code = 5778-6) YELLOW YELLOW [facility] CenterUrine Oyavnxr3403-01-59 14:32:00* Test Item Value Reference Range Interpretation Comments Urine Clarity (test code = 65886-7) HAZY CLEAR [facility] CenterUrine Specific Facqopr3663-55-36 14:32:00 * Test Item Value Reference Range Interpretation Comments Urine Specific Palmer (test code = 5811-5) 1.010 1.010-1.02 5 [facility] CenterUrine tD2647-88-91 14:32:00* Test Item Value Reference Range Interpretation Comments Urine pH (test code = 79852-9) 6 5-7 [facility] CenterUrine Leukocyte Yhvwbrsa3289-39-12 14:32:00* Test Item Value Reference Range Interpretation Comments Urine Leukocyte Esterase (test code = 5799-2) TRACE NEGATIVE H [facility] CenterUrine Wfkuety5567-45-18 14:32:00* Test Item Value Reference Range Interpretation Comments Urine Nitrite (test code = 37326-7) NEGATIVE NEGATIVE [facility] CenterUrine Fhmnbst2186-68-39 14:32:00* Test Item Value Reference Range Interpretation Comments Urine Protein (test code = 5804-0) NEGATIVE NEGATIVE [facility] CenterUrine Glucose (UA)2018-05-20 14:32:00* Test Item Value Reference Range Interpretation Comments Urine Glucose (UA) (test code = 2349-9) NEGATIVE NEGATIVE [facility] CenterUrine Jgbyutv4290-18-43 14:32:00* Test Item Value Reference Range Interpretation Comments Urine Ketones (test code = 81008-7) NEGATIVE NEGATIVE [facility] CenterUrine Omdshgankrdr6594-03-18 14:32:00* Test Item Value Reference Range Interpretation Comments Urine Urobilinogen (test code = 22206-0) 0.2 0.2-1 [facility] CenterUrine Dfgargmjb2848-12-40 14:32:00* Test Item Value Reference Range Interpretation Comments Urine Bilirubin (test code = 1978-6) NEGATIVE NEGATIVE [facility] CenterUrine Riryi8209-60-33 14:32:00* Test Item Value Reference Range Interpretation Comments Urine Blood (test code = 73168-0) TRACE NEGATIVE H [facility] CenterCHEST SINGLE (PORTABLE)2018-05-20 13:52:[address] [address] Patient Name: JAMEY ELAINE MR #: [id number] : 1940 Age/Sex: 78/F Req #: [id number] Adm Physician: Ordered by: ELIZABETH SWARTZ LEGAL TRANSCRIPTIONIST Report #: [id number] Location: ER Room/Bed: Procedure: [id number] DX/CHEST SINGLE (PORTABLE) Exam Date: 05/20/18 Exam Time: [address] ATUS: Signed EXAMINATION: CHEST SINGLE (PORTABLE) 05/20/2018 12:37 PM COMPARISON: None INDICATION: Shortness of breath, lower extremity weakness DISCUSSION: LINES: None. LUNGS: The lungs are well inflated and clear. No pneumonia or pulmonary edema. PLEURA: No pleural effusion or pneumothorax. HEART AND MEDIASTINUM: Normal heart size. Atherosclerotic calcifications of the thoracic aorta. BONES AND SOFT TISSUES: No acute o sseous lesion. The soft tissues are normal. IMPRESSION: No acute card iopulmonary disease. Lisa Wallis MD Signed by: Dr. Lisa Wallis M.D. on 05/20/2018 1:53 PM Dictated By: LISA WALLIS MD [facility] Signed By: LISA WALLIS MD on 05/20/18 1353 Transcribed By: CAMI on 05/20/18 1353 COPY TO: ELIZABETH SWARTZ NP Mrpewiuh6758-67-95 13:48:00* Test Item Value Reference Range Interpretation Comments Globulin (test code = 35114-7) 3.6 2.3-3.5 H [facility] CenterAlbumin/Globulin Efjzx0639-91-31 13:48:00 * Test Item Value Reference Range Interpretation Comments Albumin/Globulin Ratio (test code = 1759-0) 0.9 0.8-2.0 [facility] CenterLipase2018-08-25 13:48:00* Test Item Value Reference Range Interpretation Comments Lipase (test code = 3040-3) 34 8-78 [facility] CenterProthrombin Xzxn3128-75-44 13:39:00* Test Item Value Reference Range Interpretation Comments Prothrombin Time (test code = 5902-2) 13.7 11.9-14.5 [facility] CenterProthromb Time International Ratio 2018-05-20 13:39:00* Test Item Value Reference Range Interpretation Comments Prothromb Time International Ratio (test code = 6301-6) 1.14 Oral Anticoagulant Therapy INR Values:1. Low Intensity Therapy 1.5 - 2.02 . Moderate Intensity Therapy 2.0 - 3.03. High Intensity Therapy(1) 2.5 - 3. 54. High Intensity Therapy(2) 3.0 - 4.05. Panic Value INR > 5.0 [facility] CenterActivated Partial Thromboplast Time 2018-05-20 13:39:00* Test Item Value Reference Range Interpretation Comments Activated Partial Thromboplast Time (test code = 59552-1) 29.7 23.8-35.5 [facility]
[2020-03-09] MEDS ORDERED: SODIUM CHLORIDE 0.9% 500ML 500 ML IV ONE (15:15)
--- NOTE | 2020-03-09 16:15 | Diagnostic Imaging Report ---
EXAMINATION: CHEST SINGLE (PORTABLE) INDICATION: headache, dehydration, n/v/d COMPARISON: 01/15/2020. FINDINGS: TUBES and LINES: None. LUNGS: Mild patchy density in the left midlung laterally may present summation of shadows. PLEURA: No pleural effusion or pneumothorax. HEART AND MEDIASTINUM: Cardiac size is mildly enlarged. There are atherosclerotic calcifications within the aorta. BONES AND SOFT TISSUES: No acute osseous lesion. Soft tissues are unremarkable. UPPER ABDOMEN: No free air under the diaphragm. IMPRESSION: Mild patchy density in the left midlung laterally may present summation of shadows. Consider chest PA and lateral views of patient's condition permits. Signed by: Dr. Harmeet Kwong M.D. on 03/09/2020 4:12 PM
[2020-03-09 16:25] LABS: BASOPHILS # (AUTO) 0.1 (0.0-0.1); BASOPHILS % 0.5 % (0.0-1.0); EOSINOPHILS # (AUTO) 0.1 (0.0-0.4); EOSINOPHILS % 0.7 % (0.0-6.0); HEMATOCRIT 34.6 % (34.2-44.1); HEMOGLOBIN 11.4 g/dL (12.0-16.0); LYMPHOCYTES # (AUTO) 2.1 (1.0-3.2); LYMPHOCYTES % 12.5 % (18.0-39.1); MEAN CORPUSCULAR HGB CONC 32.9 g/dL (31-35); MONOCYTES # (AUTO) 2.2 (0.2-0.8); MONOCYTES % 13.3 % (4.4-11.3); NEUTROPHILS # (AUTO) 12.2 (2.1-6.9); NEUTROPHILS % 72.4 % (38.7-80.0); PLATELET COUNT 503 x10e3/uL (140-360); RED BLOOD COUNT 3.68 x10e6/uL (3.6-5.1); RED CELL DISTRIBUTION WIDTH 11.9 % (11.7-14.4)
--- NOTE | 2020-03-09 16:36 | Diagnostic Imaging Report ---
CT BRAIN WO HISTORY: Trauma COMPARISON: Head CT 05/18/2019 Technique: Noncontrast axial scans were obtained from skull base to the vertex. Coronal and sagittal reconstructions obtained from the axial data. One or more of the following dose reduction techniques were used: Automated exposure control, adjustment of the mA and/or kV according to patient size, and/or utilization of iterative reconstruction technique. DISCUSSION: Scalp/Skull: Unremarkable. Brain sulci: Mildly prominent. Ventricles: Compensatory dilatation. 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 No other mass or fluid collections. Carotid siphon calcifications are present. Parenchyma: New focal cortical hypodensity in the right posterior cerebellum may be due to acute ischemia. Mild bilateral deep white matter hypodensity is likely chronic microvascular ischemic change. Otherwise, no masses, hemorrhage, or large vascular territory acute infarct. Dural sinuses: No abnormal densities. Sellar/Suprasellar region: Intact. Skull base: Intact. Incidental findings: Trace right mastoid effusion. IMPRESSION: 1. New focal cortical hypodensity in the right posterior cerebellum may be due to acute ischemia. 2. No other acute intracranial abnormalities. 3. Mild supratentorial chronic microvascular ischemic change. Mild generalized cerebral volume loss. Signed by: Dr. Justice Ferreira M.D. on 03/09/2020 4:33 PM
[2020-03-09 16:37] LABS: INR 0.96; PROTHROMBIN TIME 13.3 seconds (11.9-14.5)
[2020-03-09 16:38] LABS: PARTIAL THROMBOPLASTIN TIME 28.6 seconds (23.8-35.5)
[2020-03-09 16:45] LABS: ALBUMIN 3.5 g/dL (3.5-5.0); CALCIUM 10.8 mg/dL (8.4-10.2); CREATININE, SERUM 1.74 mg/dL (0.57-1.11); MAGNESIUM 1.3 MG/DL (1.3-2.1)
--- NOTE | 2020-03-09 16:45 | Diagnostic Imaging Report ---
CT CERVICAL SPINE WO HISTORY: Headache COMPARISON: Concurrent head CT TECHNIQUE: CT of the cervical spine without contrast. Sagittal and coronal reformations were created. One or more of the following dose reduction techniques were used: Automated exposure control, adjustment of the mA and/or kV according to patient size, and/or utilization of iterative reconstruction technique. FINDINGS: Cervical lordosis is slightly reversed at C5. There is no significant scoliosis. Mild bone demineralization limits evaluation. No definite acute fracture or compression deformity is seen. The craniocervical junction is intact. No gross spinal canal masses are seen. The paravertebral and paraspinal soft tissues are unremarkable. Multilevel spondylotic changes are severe at C5-C6. Grade 1 anterolisthesis of C3 on C4, C4 on C5, and C7 on T1 are due to facet arthrosis. There is at least mild canal stenosis from C3-C4 to C5-C6 due to posterior disc osteophyte complexes. Mild to moderate atlantoaxial arthrosis is present as well. Mild to moderate right carotid bulb calcified plaque is present. Both carotid arteries have a slight retropharyngeal course. Aberrant right subclavian artery is present. There is mild scarring in the lung apices. 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 IMPRESSION: 1. No acute osseous abnormalities. 2. Multilevel spondylosis, severe at C5-C6. 3. Grade 1 anterolisthesis of C3 on C4, C4 on C5, and C7 on T1 are due to facet arthrosis. Signed by: Dr. Justice Ferreira M.D. on 03/09/2020 4:42 PM
[2020-03-09 16:51] LABS: CREATINE KINASE MB 0.8 ng/mL (0-5.0)
[2020-03-09 16:53] LABS: COLOR,URINE YELLOW (YELLOW)
[2020-03-09 16:54] LABS: CLARITY,URINE CLOUDY (CLEAR); LEUKOCYTE ESTERASE ,URINE TRACE (NEGATIVE); NITRITE,URINE NEGATIVE (NEGATIVE)
[2020-03-09 16:55] LABS: PROTEIN,URINE DIPSTICK NEGATIVE (NEGATIVE)
[2020-03-09 16:56] LABS: BILIRUBIN,URINE NEGATIVE (NEGATIVE); KETONES,URINE NEGATIVE (NEGATIVE); URINE UROBILINOGEN 0.2 mg/dL (0.2 - 1)
[2020-03-09] MEDS ORDERED: ACETAMINOPHEN 325 MG TAB PO ONE (17:00)
[2020-03-09] MEDS ORDERED: DIAZEPAM 2 MG TAB PO ONE (17:00)
[2020-03-09 17:22] LABS: BACTERIA,URINE MANY /HPF; EPITHELIAL CELLS,URINE MANY /LPF
[2020-03-09] MEDS ORDERED: ONDANSETRON HCL INJ 2MG/ML 2ML 2 MG/ML VIAL IV PRN (17:30)
[2020-03-09] MEDS ORDERED: ASPIRIN 325 MG TAB EC PO ONE (17:30)
[2020-03-09 17:50] LABS: ERYTHROCYTE SEDIMENTATION RATE 91 mm/hr (0-20)
--- NOTE | 2020-03-09 18:35 | NUR ---
cOVID 19 Swab obtained and sent to lab
--- NOTE | 2020-03-09 18:46 | Emergency Department Note ---
History of Present Illnes History of Present Illness Chief Complaint: Neurological History of Present Illness This is a 80 year old female headache since this 2 am this morning also reports dizziness when she stands. 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 Any updates have been documented here. 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 Past Surgical History: Cholecysctectomy, Appendectomy, Hysterectomy, T&A Other Surgery: SALIVARY GLAND SURGERY PARTIAL HYST RUPTURED APPENDIX TONSILECTOMY Social History Smoking Cessation: Never Smoker Counseling Performed: No Alcohol Use: None Any Illegal Drug Use: No TB Exposure/Symptoms: No Physically hurt or threatened: No Other Last Tetanus: UNKNOWN Any Pre-Existing Lines (PICC,: No Is patient up to date on immun: Yes Last Flu: utd Last Pneumovax: utd Review of Systems Review of Systems Constitutional: Reports as per HPI EENTM: Reports no symptoms Cardiovascular: Reports no symptoms Respiratory: Reports no symptoms Gastrointestinal: Reports no symptoms Genitourinary: Reports no symptoms Musculoskeletal: Reports as per HPI, Reports neck pain Integumentary: Reports no symptoms Neurological: Reports as per HPI, Reports headache, Reports weakness, Reports other (OFF-BALANCE) Psychological: Reports no symptoms Endocrine: Reports no symptoms Hematological/Lymphatic: Reports no symptoms Physical Exam Related Data Allergies: Coded Allergies: No Known Allergies (Unverified , 08/25/12) Triage Vital Signs Vital Signs Date Time Temp Pulse Resp B/P (MAP) Pulse Ox O2 Delivery O2 Flow Rate FiO2 03/09/20 14:52 98.0 64 16 142/66 98 Physical Exam CONSTITUTIONAL Constitutional: Present well-developed, Present well-nourished HENT HENT: Present normocephalic, Present atraumatic, Present oropharynx clear/moist, Present nose normal HENT L/R: Present left ext ear normal, Present right ext ear normal EYES Eyes: Reports PERRL, Reports conjunctivae normal NECK Neck: Present other (DECR ROM DUE TO PAIN, NO MENINGEAL SIGNS) PULMONARY Pulmonary: Present effort normal, Present breath sounds normal CARDIOVASCULAR Cardiovascular: Present regular rhythm, Present heart sounds normal, Present capillary refill normal, Present normal rate GASTROINTESTINAL Abdominal: Present soft, Present nontender, Present bowel sounds normal GENITOURINARY Genitourinary: Present exam deferred SKIN Skin: Present warm, Present dry MUSCULOSKELETAL Musculoskeletal: Present ROM normal NEUROLOGICAL Neurological: Present alert, Present oriented x 3, Present no gross motor or sensory deficits, Present abnormal gait (ATAXIC); Absent cranial nerve deficit PSYCHOLOGICAL Psychological: Present mood/affect normal, Present judgement normal Results Laboratory Result Diagram: 03/09/20 1609 03/09/20 1609 Laboratory Laboratory Tests Test 03/09/20 16:30 03/09/20 16:09 Urine Color Yellow (YELLOW) Urine Clarity Cloudy (CLEAR) Urine pH 7 (5 - 7) Urine Specific [place] 1.020 (1.010-1.025) Urine Protein Negative (NEGATIVE) Urine Glucose (UA) Negative (NEGATIVE) Urine Ketones Negative (NEGATIVE) Urine Blood Trace (NEGATIVE) Urine Nitrite Negative (NEGATIVE) Urine Bilirubin Negative (NEGATIVE) Urine Urobilinogen 0.2 mg/dL (0.2 - 1) Urine Leukocyte Esterase Trace (NEGATIVE) Urine RBC 6-10 /HPF (0-5) Urine WBC 6-10 /HPF (0-5) Urine Epithelial Cells Many /LPF (NONE) Urine Bacteria Many /HPF (NONE) White Blood Count 16.88 x10e3/uL (4.8-10.8) Red Blood Count 3.68 x10e6/uL (3.6-5.1) Hemoglobin 11.4 g/dL (12.0-16.0) Hematocrit 34.6 % (34.2-44.1) Mean Corpuscular Volume 94.0 fL (81-99) Mean Corpuscular Hemoglobin 31.0 pg (28-32) Mean Corpuscular Hemoglobin Concent 32.9 g/dL (31-35) Red Cell Distribution Width 11.9 % (11.7-14.4) Platelet Count 503 x10e3/uL (140-360) Neutrophils (%) (Auto) 72.4 % (38.7-80.0) Lymphocytes (%) (Auto) 12.5 % (18.0-39.1) Monocytes (%) (Auto) 13.3 % (4.4-11.3) Eosinophils (%) (Auto) 0.7 % (0.0-6.0) Basophils (%) (Auto) 0.5 % (0.0-1.0) Neutrophils # (Auto) 12.2 (2.1-6.9) Lymphocytes # (Auto) 2.1 (1.0-3.2) Monocytes # (Auto) 2.2 (0.2-0.8) Eosinophils # (Auto) 0.1 (0.0-0.4) Basophils # (Auto) 0.1 (0.0-0.1) Absolute Immature Granulocyte (auto 0.10 x10e3/uL (0-0.1) Erythrocyte Sedimentation Rate 91 mm/hr (0-20) Prothrombin Time 13.3 seconds (11.9-14.5) Prothromb Time International Ratio 0.96 Activated Partial Thromboplast Time 28.6 seconds (23.8-35.5) Sodium Level 134 mmol/L (136-145) Potassium Level 4.0 mmol/L (3.5-5.1) Chloride Level 97 mmol/L (98-107) Carbon Dioxide Level 24 mmol/L (22-29) Anion Gap 17.0 mmol/L (8-16) Blood Urea Nitrogen 23 mg/dL (7-26) Creatinine 1.74 mg/dL (0.57-1.11) Estimat Glomerular Filtration Rate 28 ML/MIN (60-) BUN/Creatinine Ratio 13 (6-25) Glucose Level 96 mg/dL (74-118) Calcium Level 10.8 mg/dL (8.4-10.2) Magnesium Level 1.3 MG/DL (1.3-2.1) Total Bilirubin 0.5 mg/dL (0.2-1.2) Aspartate Amino Transf (AST/SGOT) 16 IU/L (5-34) Alanine Aminotransferase (ALT/SGPT) 10 IU/L (0-55) Alkaline Phosphatase 64 IU/L (40-150) Creatine Kinase 27 IU/L (29-168) Creatine Kinase MB 0.80 ng/mL (0-5.0) Troponin I 0.014 ng/mL (0-0.300) Total Protein 7.0 g/dL (6.5-8.1) Albumin 3.5 g/dL (3.5-5.0) Globulin 3.5 g/dL (2.3-3.5) Albumin/Globulin Ratio 1.0 (0.8-2.0) Lab results reviewed: Yes Imaging Imaging results reviewed: Yes Impressions CT BRAIN WO HISTORY: Trauma COMPARISON: Head CT 05/18/2019 Technique: Noncontrast axial scans were obtained from skull base to the vertex. Coronal and sagittal reconstructions obtained from the axial data. One or more of the following dose reduction techniques were used: Automated exposure control, adjustment of the mA and/or kV according to patient size, and/or utilization of iterative reconstruction technique. DISCUSSION: Scalp/Skull: Unremarkable. Brain sulci: Mildly prominent. Ventricles: Compensatory dilatation. 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 No other mass or fluid collections. Carotid siphon calcifications are present. Parenchyma: New focal cortical hypodensity in the right posterior cerebellum may be due to acute ischemia. Mild bilateral deep white matter hypodensity is likely chronic microvascular ischemic change. Otherwise, no masses, hemorrhage, or large vascular territory acute infarct. Dural sinuses: No abnormal densities. Sellar/Suprasellar region: Intact. Skull base: Intact. Incidental findings: Trace right mastoid effusion. IMPRESSION: 1. New focal cortical hypodensity in the right posterior cerebellum may be due to acute ischemia. 2. No other acute intracranial abnormalities. 3. Mild supratentorial chronic microvascular ischemic change. Mild generalized cerebral volume loss. Signed by: Dr. Justice Ferreira M.D. on 03/09/2020 4:[address] CERVICAL SPINE WO HISTORY: Headache COMPARISON: Concurrent head CT TECHNIQUE: CT of the cervical spine without contrast. Sagittal and coronal reformations were created. One or more of the following dose reduction techniques were used: Automated exposure control, adjustment of the mA and/or kV according to patient size, and/or utilization of iterative reconstruction technique. FINDINGS: Cervical lordosis is slightly reversed at C5. There is no significant scoliosis. Mild bone demineralization limits evaluation. No definite acute fracture or compression deformity is seen. The craniocervical junction is intact. No gross spinal canal masses are seen. The paravertebral and paraspinal soft tissues are unremarkable. Multilevel spondylotic changes are severe at C5-C6. Grade 1 anterolisthesis of C3 on C4, C4 on C5, and C7 on T1 are due to facet arthrosis. There is at least mild canal stenosis from C3-C4 to C5-C6 due to posterior disc osteophyte complexes. Mild to moderate atlantoaxial arthrosis is present as well. Mild to moderate right carotid bulb calcified plaque is present. Both carotid arteries have a slight retropharyngeal course. Aberrant right subclavian artery is present. There is mild scarring in the lung apices. 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 IMPRESSION: 1. No acute osseous abnormalities. 2. Multilevel spondylosis, severe at C5-C6. 3. Grade 1 anterolisthesis of C3 on C4, C4 on C5, and C7 on T1 are due to facet arthrosis. Signed by: Dr. Justice Ferreira M.D. on 03/09/2020 4:42 PM Procedure: [id number] DX/CHEST SINGLE (PORTABLE) Exam Date: 03/09/20 Exam Time: 1544 REPORT STATUS: Signed EXAMINATION: CHEST SINGLE (PORTABLE) INDICATION: headache, dehydration, n/v/d COMPARISON: 01/15/2020. FINDINGS: TUBES and LINES: None. LUNGS: Mild patchy density in the left midlung laterally may present summation of shadows. PLEURA: No pleural effusion or pneumothorax. HEART AND MEDIASTINUM: Cardiac size is mildly enlarged. There are atherosclerotic calcifications within the aorta. BONES AND SOFT TISSUES: No acute osseous lesion. Soft tissues are unremarkable. UPPER ABDOMEN: No free air under the diaphragm. IMPRESSION: Mild patchy density in the left midlung laterally may present summation of shadows. Consider chest PA and lateral views of patient's condition permits. Signed by: Dr. Harmeet Kwong M.D. 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: Interpreted by ED physician Date: Mar 09, 2020 Time: 16:03 Rhythm: sinus rhythm Conduction: left bundle branch block ST segments normal: Yes T wave inversion: I, aVL, V6 Clinical Impression: abnormal ECG Assessment & Plan Medical Decision Making MDM PT WITH HEADACHE AND OFF-BALANCE, SLIGHTLY ATAXIC GAIT ON EXAM - CHECK CBC, CHEM, CARDIACS, ECG, CXR, CT HEAD, UA/CX - R/O CEREBRAL BLEED, CVA, STEMI/NSTEMI, ELECTROLYTE ABNL, UTI Reassessment Reassessment SPOKE WITH DR FLAHERTY FOR ADMISSION Assessment & Plan Final Impression: (1) Headache (2) Ataxia Depart Disposition: ADMITTED Last Vital Signs Date Time Temp Pulse Resp B/P (MAP) Pulse Ox O2 Delivery O2 Flow Rate FiO2 03/09/20 18:28 60 16 99 03/09/20 18:04 126/59 03/09/20 14:52 98.0 Home Meds Active Scripts Docusate Sodium (DOCUSATE SODIUM) 100 Mg Capsule, 100 MG PO BID, #60 CAP Prov:TIFFANIE VALDEZ SPEED READING TEACHER 05/22/18 Ascorbic Acid (ASCORBIC ACID) 500 Mg Tablet, 500 MG PO DAILY, #30 TAB Prov:TIFFANIE VALDEZ SPEED READING TEACHER 05/22/18 Ferrous Sulfate (FERROUS SULFATE) 325 Mg Tablet., 325 MG PO DAILY, #30 Prov:TIFFANIE VALDEZ SPEED READING TEACHER 05/22/18 Reported Medications Spironolactone (ALDACTONE) 25 Mg Tablet, 50 MG PO BID 05/24/19 Nifedipine (NIFEDIPINE ER) 30 Mg Tab.er.24, 60 MG PO BID 05/24/19 Valsartan (DIOVAN) 160 Mg Tab, 160 MG PO DAILY, #60 TAB 05/24/19 Metoprolol Tartrate (METOPROLOL TARTRATE) 50 Mg Tablet, 50 MG PO BID, TAB 05/24/19 Famotidine (FAMOTIDINE) 20 Mg Tab, 20 MG PO DAILY, #30 TAB 05/21/18 [Eye Caps] No Conflict Check, 1 TAB PO DAILY 04/04/13 Loratadine (CLARITIN) 10 Mg Tablet, 10 MG PO DAILY PRN 04/04/13 Calcium Citrate/Vitamin D3 (CITRACAL + D CAPLET) 1 Each Tablet, 1 TAB PO TID 04/04/13 Medications in the ED Sodium Chloride 500 ml @ 0 mls/hr Q0M ONCE IV Last administered on 03/09/20at 16:10; Admin Dose 500 MLS/HR; Start 03/09/20 at 15:15; Stop 03/09/20 at 15:17; Status DC Acetaminophen 650 mg ONCE ONCE PO Last administered on 03/09/20at 17:25; Admin Dose 650 MG; Start 03/09/20 at 17:00; Stop 03/09/20 at 17:01; Status DC Diazepam 2 mg ONCE ONCE PO Last administered on 03/09/20at 17:26; Admin Dose 2 MG; Start 03/09/20 at 17:00; Stop 03/09/20 at 17:01; Status DC NATALI PERALES MD Mar 09, 2020 18:46
[2020-03-09 19:05] VITALS: BP 109/50
[2020-03-09 19:12] VITALS: BP 109/50
[2020-03-09] MEDS ORDERED: SODIUM CHLORIDE 0.9% 250ML 250 ML ONE (19:49)
[2020-03-09 20:00] VITALS: BP 109/50
[2020-03-09] MEDS: CEFTRIAXONE SOD 1 GM/NS 50 ML 50 ML IV SCH (20:00)
[2020-03-09 23:05] LABS: CREATINE KINASE MB 0.8 ng/mL (0-5.0)
[2020-03-10] VITALS (8 sets, daily range): BP systolic 0–169; BP diastolic 61–95
[2020-03-10 05:06] LABS: ALBUMIN 3.1 g/dL (3.5-5.0); ALBUMIN/GLOBULIN RATIO 0.9 (0.8-2.0); ANION GAP 18.7 mmol/L (8-16); CHOL/HDL RATIO 4.8 (3.0-3.6); CREATININE, SERUM 1.58 mg/dL (0.57-1.11); POTASSIUM 3.7 mmol/L (3.5-5.1)
[2020-03-10 05:52] LABS: CREATINE KINASE MB 0.6 ng/mL (0-5.0)
[2020-03-10 06:04] LABS: BASOPHILS # (AUTO) 0.1 (0.0-0.1); BASOPHILS % 0.5 % (0.0-1.0); EOSINOPHILS # (AUTO) 0.3 (0.0-0.4); EOSINOPHILS % 2.3 % (0.0-6.0); HEMATOCRIT 35.7 % (34.2-44.1); HEMOGLOBIN 11.7 g/dL (12.0-16.0); LYMPHOCYTES # (AUTO) 1.6 (1.0-3.2); LYMPHOCYTES % 13.5 % (18.0-39.1); MEAN CORPUSCULAR HGB CONC 32.8 g/dL (31-35); MEAN CORPUSCULAR VOLUME 94.4 fL (81-99); MONOCYTES # (AUTO) 1.5 (0.2-0.8); MONOCYTES % 13.3 % (4.4-11.3); NEUTROPHILS % 70.1 % (38.7-80.0); PLATELET COUNT 424 x10e3/uL (140-360); RED BLOOD COUNT 3.78 x10e6/uL (3.6-5.1); RED CELL DISTRIBUTION WIDTH 11.9 % (11.7-14.4)
[2020-03-10] MEDS: CEFTRIAXONE SOD 1 GM/NS 50 ML 50 ML IV SCH ×2 (06:51→17:56)
--- NOTE | 2020-03-10 07:12 | NUR ---
REPORT GIVEN TO DAYSHIFT NURSE. RESTING IN BED. IN STABLE CONDITION. NO SIGNS OF IV INFILTRATION. ZARINA LOCKED AND IN LOW POSITION. CALL LIGHT WITHIN REACH. BED ALARM ACTIVATED.
[2020-03-10] MEDS ORDERED: AZITHROMYCIN 250 MG TAB PO ONE (09:30)
--- NOTE | 2020-03-10 09:46 | History and Physical ---
CHIEF COMPLAINT: Dizziness and difficulty with walking acutely. HISTORY OF PRESENT ILLNESS: The patient is an 80-year-old female with hypertension, polymyalgia rheumatica, chronic venous stasis lower extremities, reflux, dyslipidemia, and overall stable with hypertension, came in with basically episode of dizziness when she stand up. The patient had a CT scan of the brain in the emergency room and this showed that there was new focal cortical hypodensity in the right posterior cerebellum may be due to acute ischemia. The patient is pending for MRI of the brain. The patient had a cervical spine CT that was done showed multilevel spondylosis severe at C5-C6. The patient is otherwise stable at this time. She complained of dizziness, but no visual changes. No chest pain or shortness of breath. PAST MEDICAL HISTORY: 1. Hypertension. 2. Polymyalgia rheumatica. 3. Dyslipidemia. 4. Chronic venous stasis, lower extremity. PAST SURGICAL HISTORY: Hysterectomy, cholecystectomy, and appendectomy. SOCIAL HISTORY: The patient does not smoke or use alcohol. No regular drug. ALLERGIES: NO KNOWN ALLERGIES. MEDICATIONS: At home, she is on: 1. Pepcid. 2. Ferrous sulfate. 3. Metoprolol tartrate. 4. Nifedipine ER. 5. Spironolactone. 6. Diovan. PHYSICAL EXAMINATION: VITAL SIGNS: Temperature is 98, blood pressure 138/63, pulse rate 77, respirations 18. GENERAL: The patient is not in acute distress. She is awake. She is communicating, moving all extremities. HEENT: Normocephalic and atraumatic. Anicteric. NECK: Supple grossly. PULMONARY: Diminished breath sounds without any wheezing or rales. CARDIOVASCULAR: S1, S2. Regular rate and rhythm. ABDOMEN: Soft, nontender, non-distended. EXTREMITIES: No cyanosis or edema. NEUROLOGIC: No gross focal deficit. The patient does have dizziness. She is moving all extremities, however. LABORATORY DATA: Sodium is 136, potassium 3.7, chloride 100, bicarb 21, BUN 21, creatinine 1.5, glucose 87. WBC is 11, hemoglobin 11.7, hematocrit 35.7, platelets 428. INR is 0.96. IMPRESSION: 1. Possible cerebellar ischemic cerebrovascular accident. No bleed on CT scan of the brain. 2. Leukocytosis could be secondary to pneumonia versus mild urinary tract infection. 3. Multiple baseline problems. PLAN: PT and OT. MRI of the brain without contrast. CT chest without contrast. Empiric antibiotics. Home medication resumed. We will follow up on carotid Doppler, echocardiogram as well. We will follow up on the patient's status. In the meantime, baby aspirin once a day. MD RAHAT Paul/MADINA /[id number]
--- NOTE | 2020-03-10 10:00 | NUR ---
ASSESSMENT: Spiritual concern Pt anticipating daughter's arrival. 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 Intervention: Provided hospitality and empathic listening. Closed pt's blinds per request. Provided prayer and information on how to reach nuclear scientist, if needed. No need to follow at this time. Outcome: Followed up with daughter. Will follow as able. KEREN KINGSLEY Technology Applications Consultant Spiritual Care Department O: [phone]
--- NOTE | 2020-03-10 11:54 | Diagnostic Imaging Report ---
EXAMINATION: MRI of the brain without contrast. HISTORY: Ataxia, headaches, weakness, evaluate for cerebellar infarct COMPARISON: Head CT 03/09/2020 TECHNIQUE: Sagittal T2; axial DWI, T2, FLAIR, T1-IR, T2 gradient echo; coronal FLAIR. IMAGE QUALITY: Artifact from patient's motion mildly limits the evaluation of some of the sequences. FINDINGS: Parenchyma: 1. Focal area of restricted diffusion in the right inferolateral cerebellum and FLAIR hyperintensity is consistent with an acute ischemic infarct along the right PICA vascular distribution, and additional smaller focus of FLAIR hyperintensity and mild restricted diffusion in the right inferior cerebellum is also noted. 2. Few scatter and periventricular white matter T2 and FLAIR hyperintense foci, most likely nonspecific chronic microvascular ischemic changes. 3. No mass, hemorrhage, acute or chronic infarcts. Skull: Unremarkable. Vessels: Expected flow voids present in the major arteries and dural sinuses. Extra-axial spaces: No abnormal signal intensity or mass effect. Incidentally noted benign retrocerebellar arachnoid cyst without associated mass effect. Brain volume: Within normal limits for age. Ventricles: No hydrocephalus or displacement. Foramen magnum: Unremarkable. Sella: Unremarkable. Paranasal / mastoid sinuses: No significant inflammatory disease. IMPRESSION: 1. Acute ischemic infarct in the right inferolateral cerebellum, along the PICA distribution, no significant associated mass effect and no hemorrhagic conversion. 2. Mild white matter chronic microvascular ischemic changes. Signed by: Dr. Dorinda Snyder M.D. on 03/10/2020 11:51 AM
[2020-03-10] MEDS ORDERED: PREDNISONE5 MG PO (12:12)
[2020-03-10] MEDS: ASPIRIN 81 MG ENTERIC COATED PO SCH (12:13)
[2020-03-10] MEDS: NIFEDIPINE CR 30 MG TAB PO SCH ×2 (12:15→22:21)
[2020-03-10] MEDS: FERROUS SULFATE 325 MG TAB PO SCH (12:16)
[2020-03-10] MEDS: METOPROLOL TARTRATE 50 MG TAB PO SCH ×2 (12:16→17:56)
--- NOTE | 2020-03-10 13:09 | Diagnostic Imaging Report ---
CT of the chest, without contrast. History: Abnormal chest x-ray. Comparison: Chest radiograph from 03/09/2020. Technique: Multidetector CT scanning of the chest was performed from the level of the apices to the upper abdomen without contrast. Coronal and sagittal multiplanar reformations were obtained. RADIATION DOSE: Total DLP: 369.19 mGy*cm Dose modulation, iterative reconstruction, and/or weight based adjustment of the mA/kV was utilized to reduce the radiation dose to as low as reasonably achievable. FINDINGS: The thyroid and remaining visualized structures within the base of the neck demonstrate no significant abnormalities. The thoracic aorta is normal course and caliber with prominent atherosclerotic calcifications. The heart is not enlarged. No abnormal pericardial fluid is present. There is no abnormal axillary, mediastinal, or hilar lymph node enlargement. The trachea and proximal airways are patent. Bandlike opacity likely reflecting subsegmental atelectasis/scarring noted within the right lower lobe. There is minimal left basilar atelectasis present. The patchy density noted within the mid left lung on the recent prior chest radiograph is not confirmed on this CT examination. The lungs otherwise demonstrate no evidence for consolidation, pneumothorax, mass, suspicious nodule, or pleural effusion. Cholecystectomy clips noted within the right upper quadrant. There is a small hiatal hernia present. The remaining visualized upper abdominal contents demonstrate no significant abnormalities. The osseous structures demonstrate no evidence for acute fracture or destructive process. The extra thoracic soft tissues are unremarkable. IMPRESSION: No acute intrathoracic process identified. Abnormality noted within the left lung on the recent prior chest radiograph likely reflects summation of shadows. Subsegmental atelectasis/scarring noted within the right lower lobe. Small hiatal hernia. Signed by: Dr. Cornell Stallworth MD on 03/10/2020 1:06 PM
[2020-03-11] VITALS (9 sets, daily range): BP systolic 0–131; BP diastolic 50–69
[2020-03-11 05:51] LABS: BASOPHILS # (AUTO) 0.1 (0.0-0.1); BASOPHILS % 0.4 % (0.0-1.0); EOSINOPHILS % 0.1 % (0.0-6.0); HEMATOCRIT 32.9 % (34.2-44.1); HEMOGLOBIN 11.2 g/dL (12.0-16.0); LYMPHOCYTES # (AUTO) 2.4 (1.0-3.2); LYMPHOCYTES % 11.6 % (18.0-39.1); MEAN CORPUSCULAR HEMOGLOBIN 32.7 pg (28-32); MEAN CORPUSCULAR VOLUME 96.2 fL (81-99); MONOCYTES # (AUTO) 2.5 (0.2-0.8); MONOCYTES % 12.5 % (4.4-11.3); NEUTROPHILS # (AUTO) 15.2 (2.1-6.9); NEUTROPHILS % 74.6 % (38.7-80.0); PLATELET COUNT 377 x10e3/uL (140-360); RED BLOOD COUNT 3.42 x10e6/uL (3.6-5.1); RED CELL DISTRIBUTION WIDTH 12.3 % (11.7-14.4)
[2020-03-11 06:10] LABS: ANION GAP 20.4 mmol/L (8-16); CALCIUM 9.3 mg/dL (8.4-10.2); CREATININE, SERUM 1.44 mg/dL (0.57-1.11); POTASSIUM 3.4 mmol/L (3.5-5.1)
[2020-03-11] MEDS: CEFTRIAXONE SOD 1 GM/NS 50 ML 50 ML IV SCH ×2 (06:34→18:01)
--- NOTE | 2020-03-11 07:00 | NUR ---
Walking rounds done. Patient resting comfortably. Bed-side report given to oncoming nurse.
[2020-03-11] MEDS: FAMOTIDINE 20 MG TAB PO SCH (07:30)
[2020-03-11] MEDS: ASPIRIN 81 MG ENTERIC COATED PO SCH (08:54)
[2020-03-11] MEDS: FERROUS SULFATE 325 MG TAB PO SCH (08:54)
[2020-03-11] MEDS: METOPROLOL TARTRATE 50 MG TAB PO SCH ×2 (08:57→16:13)
[2020-03-11] MEDS: AZITHROMYCIN 250 MG TAB PO SCH (08:58)
[2020-03-11] MEDS: NIFEDIPINE CR 30 MG TAB PO SCH ×2 (08:58→20:49)
--- NOTE | 2020-03-11 11:10 | NUR ---
CALL TO PT'S ROOM. SPOKE W HER DAUGHTER, DOTTIE. DISCUSSED REHAB ORDER. DISCUSSED CHOICE. INFORMED OF DR. [facility]. STATES SHE HAD SPOKEN W DR. FLAHERTY, BUT WOULD LIKE TO DISCUSS W HER 2 SIBLINGS BEFORE MAKING A CHOICE. WILL F/U
--- NOTE | 2020-03-11 11:50 | NUR ---
CALL BACK TO DOTTIE IN PT'S RM. STATES SHE AND HER SIBLINGS ALL AGREED TO [facility]. STATES THEY CALLED AND WAS TOLD THEY WOULD BE ABLE TO VISIT THEIR UP TIL 6PM DAILY. CONSENT WAS GIVEN FOR PT TO BE EVAL'D FOR REHAB. CHOICE LETTER WAS SIGNED. MOT WAS INITIATED.
--- NOTE | 2020-03-11 19:12 | NUR ---
REPORT GIVEN TO ONCOMING NURSE, WALKING ROUNDS COMPLETE.
--- NOTE | 2020-03-11 19:20 | NUR ---
Patient received lying in bed. AAO x 2. Patient had no complaints of pain. Respirations even and non-labored. Safety measures in place. Patient instructed to call for assistance when needed. Call light within reach.
--- NOTE | 2020-03-11 22:17 | Consultation ---
DATE OF CONSULTATION: 03/11/2020 REASON FOR CONSULTATION: 1. Right inferior lateral cerebellar stroke with impaired gait mobility. 2. Polymyalgia rheumatica. 3. Hypertension. 4. Dyslipidemia. HISTORY: An 80-year-old female, history of hypertension, PMR, who came into the hospital because of dizziness when she stood up. The CT was negative, but a cervical spine showed severe spondylosis at C5 through 6, but MRI recently showed . The patient is being evaluated for rehab needs. PAST MEDICAL HISTORY: Hypertension, polymyalgia rheumatica, dyslipidemia, and chronic stasis ulcers. PAST SURGICAL HISTORY: Hysterectomy, cholecystectomy, and appendectomy. SOCIAL HISTORY: Lives by herself in a ground floor apartment with otherwise independent. She said being on prednisone even the PMR did not hurt her too much. HABITS: Nonsmoker, nondrinker. ALLERGIES: NO KNOWN DRUG ALLERGIES. FAMILY HISTORY: Negative. REVIEW OF SYSTEMS: Constitutional review of systems essentially negative. LABORATORY DATA: White cell count of 20.32, hemoglobin 11.2, hematocrit 32.9, and platelets of 377. Sodium is 132, potassium 3.4, BUN of 21, and creatinine 1.44. PHYSICAL EXAMINATION: GENERAL: The patient is awake. She is alert. No apparent distress. Family is at the bedside. Following commands. HEENT: Eyes, gaze conjugate. Oral, tongue is midline. NECK: Supple. No JVD. HEART: Regular. LUNGS: Fair air entry. ABDOMEN: Nondistended, nontender. EXTREMITIES: Arthritic changes in the hands and knuckles bilaterally. Limited shoulder range of motion due to her intake of prednisone. Sensory lopez, denies any numbness or tingling in hands, feet, or face. Gallhi-mkgq-awwpqh tracing actually not too bad at this point. Yahflq-apyr-nayiqu tracing relatively well. This is limited, however, due to her shoulder arthritis. Strength lopez, she is good at about 4/5 strength bilaterally. Clonus, negative bilaterally. She has good lower extremity strength. IMPRESSION: 1. Right cerebellar cerebrovascular accident. 2. Polymyalgia rheumatica. 3. Hypertension. 4. History of chronic venous stasis. PLAN: Continue therapy to optimize functional level. We are going to transfer to inpatient rehab for mobility, gait, transfers and ADLs. We will follow along with you. Thank you once again for allowing me to participate in the care of this very interesting patient. Daniel Dimas DO RPL/ARMINL /[id number]
[2020-03-12] VITALS (8 sets, daily range): BP systolic 123–135; BP diastolic 57–64
[2020-03-12] MEDS: CEFTRIAXONE SOD 1 GM/NS 50 ML 50 ML IV SCH ×2 (06:18→18:37)
[2020-03-12 06:21] LABS: BASOPHILS # (AUTO) 0.1 (0.0-0.1); BASOPHILS % 0.4 % (0.0-1.0); EOSINOPHILS # (AUTO) 0.1 (0.0-0.4); EOSINOPHILS % 0.4 % (0.0-6.0); HEMATOCRIT 30.2 % (34.2-44.1); HEMOGLOBIN 10.1 g/dL (12.0-16.0); LYMPHOCYTES # (AUTO) 2.2 (1.0-3.2); LYMPHOCYTES % 13.5 % (18.0-39.1); MEAN CORPUSCULAR HEMOGLOBIN 30.9 pg (28-32); MEAN CORPUSCULAR HGB CONC 33.4 g/dL (31-35); MEAN CORPUSCULAR VOLUME 92.4 fL (81-99); MONOCYTES # (AUTO) 1.6 (0.2-0.8); MONOCYTES % 9.7 % (4.4-11.3); NEUTROPHILS # (AUTO) 12.3 (2.1-6.9); NEUTROPHILS % 75.2 % (38.7-80.0); PLATELET COUNT 408 x10e3/uL (140-360); RED BLOOD COUNT 3.27 x10e6/uL (3.6-5.1); RED CELL DISTRIBUTION WIDTH 11.9 % (11.7-14.4)
[2020-03-12 06:43] LABS: ANION GAP 20.1 mmol/L (8-16); CALCIUM 9.4 mg/dL (8.4-10.2); CREATININE, SERUM 1.28 mg/dL (0.57-1.11); POTASSIUM 3.1 mmol/L (3.5-5.1)
--- NOTE | 2020-03-12 07:00 | NUR ---
Walking rounds done. Patient resting comfortably. Bed-side report given to oncoming nurse regarding patient's status.
--- NOTE | 2020-03-12 07:15 | NUR ---
Received bedside shift report. Patient asleep at this time, no visible signs of distress noted. Call light within reach.
[2020-03-12] MEDS: FAMOTIDINE 20 MG TAB PO SCH (07:30)
[2020-03-12 08:39] LABS: LYMPHOCYTES % (MANUAL) 17 % (19-48); MONOCYTES % (MANUAL) 12 % (3.4-9.0); NEUTROPHILS % (MANUAL) 71 % (40-74); PLATELET ESTIMATE SLIGHTLY INCREASED; PLATELET MORPHOLOGY COMMENT NORMAL; RBC MORPHOLOGY COMMENT NORMAL
[2020-03-12] MEDS: FERROUS SULFATE 325 MG TAB PO SCH (09:23)
[2020-03-12] MEDS: ASPIRIN 81 MG ENTERIC COATED PO SCH (09:23)
[2020-03-12] MEDS: NIFEDIPINE CR 30 MG TAB PO SCH ×2 (09:24→21:58)
[2020-03-12] MEDS: AZITHROMYCIN 250 MG TAB PO SCH (09:24)
[2020-03-12] MEDS: METOPROLOL TARTRATE 50 MG TAB PO SCH ×2 (09:24→18:37)
--- NOTE | 2020-03-12 09:45 | NUR ---
Per Cassidy Mcknight with [facility], still pending insurance auth.
[2020-03-12] MEDS ORDERED: POTASSIUM CHLORIDE 10MEQ EA PO ONE (10:00)
--- NOTE | 2020-03-12 12:05 | NUR ---
Dr Swann called at [phone] regarding patient's prednisone home medication that she has not received. Per Dr. Swann, ok to resume.
[2020-03-12] MEDS ORDERED: PREDNISONE 5 MG TAB PO ONE (12:55)
--- NOTE | 2020-03-12 14:51 | NUR ---
Per Cassidy Mcknight with [facility], still pending auth. States does not expect to get it today, since they just submitted referral yesterday.
--- NOTE | 2020-03-12 18:12 | NUR ---
Notified Dr. Liana Swann regarding patient's c/o leg pain. Verbal order given to give tylenol # 3 Q6H, PRN for pain.
[2020-03-12] MEDS ORDERED: ACETAMINOPHEN/CODEINE 300MG - 30MG TAB PO PRN (18:15)
[2020-03-13 00:27] VITALS: BP 109/67
[2020-03-13 04:56] VITALS: BP 107/76
[2020-03-13] MEDS: CEFTRIAXONE SOD 1 GM/NS 50 ML 50 ML IV SCH (06:02)
--- NOTE | 2020-03-13 07:00 | NUR ---
RCD PT AT BED PT IS ALERT AND ORIENTED PT RESTING ON BED IV PATENT BED LOW AND LOCKED CALL LIGHT IN REACH
[2020-03-13] MEDS: FAMOTIDINE 20 MG TAB PO SCH (07:30)
[2020-03-13 08:19] VITALS: BP 124/69
[2020-03-13] MEDS: METOPROLOL TARTRATE 50 MG TAB PO SCH ×2 (09:00→16:32)
[2020-03-13] MEDS: AZITHROMYCIN 250 MG TAB PO SCH (09:00)
[2020-03-13] MEDS ORDERED: PREDNISONE 5 MG TAB PO SCH (09:00)
[2020-03-13] MEDS: ASPIRIN 81 MG ENTERIC COATED PO SCH (09:00)
[2020-03-13] MEDS: FERROUS SULFATE 325 MG TAB PO SCH (09:00)
[2020-03-13] MEDS: NIFEDIPINE CR 30 MG TAB PO SCH (09:00)
[2020-03-13 10:32] LABS: BASOPHILS # (AUTO) 0.1 (0.0-0.1); BASOPHILS % 0.5 % (0.0-1.0); EOSINOPHILS # (AUTO) 0.1 (0.0-0.4); EOSINOPHILS % 0.7 % (0.0-6.0); HEMATOCRIT 30.8 % (34.2-44.1); HEMOGLOBIN 10.3 g/dL (12.0-16.0); LYMPHOCYTES # (AUTO) 1.3 (1.0-3.2); LYMPHOCYTES % 8.6 % (18.0-39.1); MEAN CORPUSCULAR HEMOGLOBIN 30.9 pg (28-32); MEAN CORPUSCULAR HGB CONC 33.4 g/dL (31-35); MEAN CORPUSCULAR VOLUME 92.5 fL (81-99); MONOCYTES # (AUTO) 1.2 (0.2-0.8); MONOCYTES % 8.1 % (4.4-11.3); NEUTROPHILS # (AUTO) 12.1 (2.1-6.9); NEUTROPHILS % 81.4 % (38.7-80.0); PLATELET COUNT 568 x10e3/uL (140-360); RED BLOOD COUNT 3.33 x10e6/uL (3.6-5.1); RED CELL DISTRIBUTION WIDTH 11.9 % (11.7-14.4)
[2020-03-13 10:56] LABS: ANION GAP 18.7 mmol/L (8-16); CREATININE, SERUM 1.3 mg/dL (0.57-1.11); MAGNESIUM 1.6 MG/DL (1.3-2.1); POTASSIUM 3.7 mmol/L (3.5-5.1)
[2020-03-13 11:30] VITALS: BP 127/58
--- NOTE | 2020-03-13 11:36 | NUR ---
Per Cassidy with [facility], still pending auth. Hoping to have answer today.
[2020-03-13 12:11] LABS: PHOSPHORUS 2.6 MG/DL (2.3-4.7)
[2020-03-13 16:50] VITALS: BP 120/57
--- NOTE | 2020-03-13 16:51 | NUR ---
Insurance approved pt for inpatient rehab. Cassidy will call MOT to nurses station and/or house rn once she has a bed. CM provided her with phone numbers for both. MOT was initiated and placed with pt's packet at nurses station.
--- NOTE | 2020-03-13 17:45 | NUR ---
PAGED DR FLAHERTY TO NOTIFY THAT THE PT IS APPROVED BY [facility] AND FOR THE DISCHARGE ORDER
--- NOTE | 2020-03-13 17:51 | NUR ---
REPORT GIVEN TO DIONIICO BELLA
--- NOTE | 2020-03-13 17:54 | NUR ---
DR FLAHERTY RETURNED THE CALL AND GOT THE DISCHARGE ORDER
--- NOTE | 2020-03-13 18:47 | NUR ---
PT RESTING ON BED BED SIDE REPORT GIVEN TO ONCOMING NURSE
[2020-03-13 20:40] VITALS: BP 119/55
== END 2020-03-13 20:43 | DRG 64 ==
LOC: ER 14:45 → ERHOLD 17:27 → MED/SURG2 19:00
PROVIDERS: ADMIT Internal Medicine; ATTEND Internal Medicine
DX: I63.541 Cerebral infarction due to unspecified occlusion or stenosis of right cerebellar artery (principal); N18.6 End stage renal disease; I12.0 Hypertensive chronic kidney disease with stage 5 chronic kidney disease or end stage renal disease; R26.0 Ataxic gait; R51 Headache; Z90.49 Acquired absence of other specified parts of digestive tract; M35.3 Polymyalgia rheumatica; K21.9 Gastro-esophageal reflux disease without esophagitis; E78.5 Hyperlipidemia, unspecified; M47.812 Spondylosis without myelopathy or radiculopathy, cervical region; I87.8 Other specified disorders of veins; Z11.59 Encounter for screening for other viral diseases
CPT/HCPCS: 36415; 70450; 70551; 71045; 71250; 72125; 80048; 80053; 80061; 81001; 82550; 82553; 82607; 82746; 83735; 84100; 84443; 84484; 85025; 85610; 85651; 85730; 87086; 87635; 93005; 93306; 93880; 97139; 99284; J0696; J7040; J7050; J7512

== ENCOUNTER 2020-05-21 10:14 | Emergency (ER) | payer MEDICARE ==
[~2020-05-21] VITALS: Ht 154.9 cm; Wt 52.6 kg
[~2020-05-21 10:14] MED LIST changes: +PREDNISONE5 MG PO
--- OUTSIDE RECORDS SUMMARY | 2020-05-21 10:27 | XMS REPORT | Continuity of Care Document ---
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 Phone [employer] Unavailable Un available Problems Problem Status Onset Date Classification Date Reported Comments Source Carpal tunnel syndrome Active Problem 02/03/2020 Manish Sloan Polymyalgia rheumatica Active Problem 02/03/2020 Manish Sloan Age related osteoporosis Active Problem 06/23/2019 Manish Sloan Vitamin D deficiency Active Problem 02/03/2020 Manish Sloan Lymphadenopathy of head and neck Active Problem 06/2020 Manish Sloan Osteoarthritis Active Diagnosis 02/03/2020 Manish Sloan Polyarthralgia Active Problem 02/03/2020 Manish Sloan Other care home (current) drug therapy Active Problem 06/2020 Manish Sloan Other osteoporosis without current patho logical fracture Active Prob isa 02/03/2020 Manish Sloan Abnormal WBC count Active Problem 02/03/2020 Manish Sloan Leukocytosis, unspecified type Active Diagnosis 0 10/27/2017 Mnaish Sloan Other specified counseling Act mert Diagnosis 0 02/03/2020 Manish Sloan Hypertension Active 08/27/2013 [facility] Hyperlipidemia Active 08/27/2013 [facility] Laceration Of Forearm Active 08/27/2013 [facility] Chronic Reflux Esophagitis Act mert 08/27/2013 [facility] Medications Medication Details Route Status Patient Instructions Ordering Provider Order Date Source PredniSONE 1 tablet Orally Active 10 MG Orally Once a day [facility] 06/22/2019 Manish Sloan Boniva 1 tablet Orally Active 150 MG Orally once a mo [facility] Sloan 01/16/2019 Manishanabela Sloan Boniva 1 tablet Orally Active 150 MG Orally once a mo [facility] Bone 08/01/2018 Manishanabela Sloan PredniSONE 1 tablet Orally Active 10 [...] mg prednisone to make 7 mg daily [facility] 10/25/2017 Manish Sloan Prolia as directed Subcutaneous Active 60 MG/ML Subcutaneous [place] 10/25/2017 Manish Sloan Prednisone 2 tabs Orally Active 1mg Orally take with 5m g to make 7 mg a day [facility] 07/21/2017 Manish Sloan Omeprazole 20 MG Oral Capsule Delayed Release ; Start Date: 08/20/2013; End Date: (Active) Active 08/20/2013 [facility] CloNIDine HCl 0.1 MG Oral Tablet ; Start Date: 08/09/2013; End Date: (Active) Active 08/09/2013 [facility] PredniSONE 2.5 MG Oral Tablet ; Start Date: 06/21/2013; End Date: (Active) Active 06/21/2013 [facility] Cephalexin 500 MG Oral Capsule ; Start Date: 06/01/2013; End Date: 06/08/2013 (Active) Active 06/01/2013 [facility] Furosemide 1/2 tablet Orally Active 40 MG Orally Once a day [facility] Losartan Potassium 1/2 tablet Orally Active 100 MG Orally BID Luther Sloan PredniSONE TAKE 4 TABLETS BY M OUTH EVERY DAY Orally Active 2.5 MG Orally Once a day [facility] Manish Sloan Clonidine HCl 1 tablet at bedt sunny Orally Active 0.1 MG Orally Once a day Luther Sloan Probiotic as directed Orally Active Orally Luther S[facility] Citracal + D 3 daily NA Active once a day Luther Sloan Iron 1 tablet NA Active once a day Luther Sloan Verapamil HCl 1 capsule in the morning Orally Active 240 MG Orally Once a day Luther Sloan Vitamin E 1 capsule Orally Active 100 UNIT Orally Once a day Luther Sloan Vitamin B12 1 tablet Orally Active 1000 MCG Orally Once a day Luther Sloan Famotidine 1 tablet as needed Orally Active 10 MG Orally Twice a day Luther Sloan PredniSONE take 2 tablets by m outh once daily Orally Active 1 MG Orally q am with food Luther Sloan Potassium 1 tablet Orally Active 75 MG Orally Once a day [facility] Galindo Sloan Prednisone 2 tablets Orally Active 1 MG Orally Once a day [facility] PredniSONE 1 tablet Orally Active 5 MG Orally Take with 2 mg prednisone to make 7 mg daily [facility] Manish Sloan PredniSONE 1 tab Orally Active 5 MG Orally Take with 2 mg prednisone to make 7 mg daily [facility] Manish Sloan Spironolactone 1 tablet with f ood Orally Active 50 MG Orally Twice a day [facility] Manishanabela Sloan Metoprolol Tartrate 1 tablet w ith food Orally Active 50 MG Orally Twice a day [facility] Manish Sloan NIFEdipine ER 1 tablet on an e mpty stomach Orally Active 60 MG Orally twice a day [facility] Manishanabela Sloan Famotidine 1 tablet as needed Orally Active 20 MG Orally Twice a day [facility] Manishanabela Sloan Boniva TAKE 1 TABLET BY MOUTH ONCE A MONTH. NA Active 15 0 MG [facility] Manish Sloan Valsartan 1 tablet Orally Active 80 MG Orally Once a day [facility] NIFEdipine ER 1 tablet on an e mpty stomach Orally Active 60 MG Orally twice a day [facility] Manish Almanzarer Iron 1 tablet NA Active once a day [facility] Manishanabela Sloan Spironolactone 1 tablet with f ood Orally Active 50 MG Orally Twice a day [facility] Manishanabela [facility] Verapamil HCl ER 240 MG Oral Tablet Extended Release (Active) Active [facility] CloNIDine HCl 0.1 MG Oral Tablet (Active) Active [facility] Lasix 40 MG Oral Tablet (Acti ve) Active [facility] Potassium TABS (Active) Active [facility] PredniSONE 2.5 MG Oral Tablet (Active) Active [facility] Omeprazole 20 MG Oral Capsule Delayed Release (Active) Active [facility] Hydrochlorothiazide 12.5 MG Oral Capsule (Active) Active [facility] Benazepril HCl 10 MG Oral Tablet (Active) Active [facility] ICaps CAPS (Active) Active [facility] Citracal Plus TABS (Active) Active [facility] Vitamin B-6 100 MG Oral Tablet (Active) Active [facility] Vitamin E 400 UNIT Oral Capsule (Active) Active [facility] Tylenol CAPS (Active) Active [facility] Claritin 10 MG Oral Capsule ( Active) Active [facility] Allergies, Adverse Reactions, Alerts Substance Category Reaction Severity Reaction type Status Date Reported Comments Source N.K.D.A. Adverse Reaction Info Not Available Adverse Reaction Active 03/21/2018 Manish Sloan Prolia Adverse Reaction Info Not Available Adverse Reaction Active 01/29/2020 Manish Almanzarer No Known Drug Allergies drug a llergy [...] ADM Date DC Date Status Source AUDIT [id number] 06/01/2013 06/01/2013 [facility] AUDIT [id number] 08/09/2013 08/09/2013 [facility] AUDIT [id number] 08/20/2013 08/20/2013 [facility] AUDIT [id number] 08/27/2013 08/27/2013 [facility] Procedures No Data Provided for This Section Assessment and Plan No Data Provided for This Section Plan of Care No Data Provided for This Section Social History Social History Date Source Never A Smoker (Active) Never Drank Alcohol (Active) Marital History - (Active) 08/27/2013 [facility] Family History Value Date S ource Maternal history of Hypertension (V17.49 ); (Active) Maternal history of Diabetes Mellitus (V18.0); (Active) Maternal history of Coronary Artery Disease (V17.49); (Active) Maternal history of Uterine Cancer (V16.49); (Active) 08/27/2013 [facility] Maternal history of Hypertension (V17.49 ); (Active) Maternal history of Diabetes Mellitus (V18.0); (Active) Maternal history of Coronary Artery Disease (V17.49); (Active) Maternal history of Uterine Cancer (V16.49); (Active) 08/20/2013 [facility] Maternal history of Hypertension (V17.49 ); (Active) Maternal history of Diabetes Mellitus (V18.0); (Active) Maternal history of Coronary Artery Disease (V17.49); (Active) Maternal history of Uterine Cancer (V16.49); (Active) 08/09/2013 [facility] Maternal history of Hypertension (V17.49 ); (Active) Maternal history of Diabetes Mellitus (V18.0); (Active) Maternal history of Coronary Artery Disease (V17.49); (Active) Maternal history of Uterine Cancer (V16.49); (Active) 06/01/2013 [facility] Advance Directives Order Name Results Value Date Source Advance Directives Advance Dir ectives No Advance Directives available. 08/27/2013 [facility] Advance Directives Advance Dir ectives No Advance Directives available. 08/20/2013 [facility] Advance Directives Advance Dir ectives No Advance Directives available. 08/09/2013 [facility] Advance Directives Advance Dir ectives No Advance Directives available. 06/01/2013 [facility] Functional Status No Data Provided for This Section
--- OUTSIDE RECORDS SUMMARY | 2020-05-21 10:28 | XMS REPORT | Continuity of Care Document ---
Author Author [facility] t Organization [facility] Address [address] [place] [address] Phone Unavailable Care Team Providers Care Furnace Feeder Name Role Phone ISELA MCGEE MD PCP PEPITO FLAHERTY Attphys Unavailable Ivy PERALES Attphys Unavailable KEN KUO Attphys Unavailable Stacy FERMIN Attphys Unavailable PEPITO FLAHERTY Admphys Unavailable Payers Payer Name Policy Type Policy Number Effective Date Expiration Date Grace man[place]a [place] [id number] 2018 00:00:00 2019 00:00:00 [facility] [id number] 2018 00:00:00 [facility] Problems Condition Name Condition Details Condition Category Status Onset Date Resolution Date Last Treatment Date Treating Clinician Comments Source Chest pain Chest pain Problem Active [facility] Dyspnea on exertion Dyspnea on exertion Problem Active [facility] Carpal tunnel syndrome Carp al tunnel syndrome Active Problem 02/03/2020 Manish Sloan Problem Active 2020-02-03 02 :45:03 Monique Knutson Polymyalgia rheumatica Poly myalgia rheumatica Active Problem 02/03/2020 Manish Sloan Problem Active [...] Polyarthralgia Poly arthralgia Active Problem 02/03/2020 Manish Sloan Problem Active 2020-02-03 02:45:03 Monique Knutson [facility] drug therapy 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 Active Problem 02/03/2020 Manish Sloan Problem Ac tive 2020-02-03 02:45:03 Monique knowles Other osteoporosis without current pathological fractu re Other osteoporosis without current pathological fracture Active Problem 02/03/2020 Manish Sloan Problem Active 2020-02-03 02:45:03 Monique Baltazarann Abnormal WBC count Abno rmal WBC count Active Problem 02/03/2020 Manish Sloan Problem Active 2020-02-03 02:45:03 Monique Eamon Leukocytosis, unspecified type Leukocytosis, unspecified type Active Diagnosis 10/27/2017 Manish Sloan Diagnosis Active 2017-10-27 03:48:08 Monique Knutson Other specified counseling Oth er specified counseling Active Diagnosis 02/03/2020 Manish Sloan Diagnosis Active 2020-02-03 02:45:03 Monique Knutson Hypertension Hype rtension Active 08/27/2013 [facility] Problem Active 2013-08-27 21:19:13 Claude manolo Knutson Hyperlipidemia Hype rlipidemia Active 08/27/2013 [facility] Problem Active 2013-08-27 21:19:13 [facility] Laceration Of Forearm Lace ration Of Forearm Active 08/27/2013 [facility] Problem Active 2013-08-27 21:19:13 Monique Knutson Chronic Reflux Esophagitis Chr onic Reflux Esophagitis Active 08/27/2013 [facility] Problem Active 2013-08-27 21:19: 13 Monique Knutson Allergies, Adverse Reactions, Alerts Allergy Name Allergy Type Status Severity Reaction(s) Onset Date Inacti ve Date Treating Clinician Comments Source No Known Allergies DA Active U 2020-03-13 00:00:00 [facility] Prolia Prolia Active Info Not Available 2020-01-29 00:00[facility]00 [facility] Active Info Not Available 2018-03-21 00:00:00 [facility] No Known Allergies DA Active U 2016-09-17 00:00:00 [facility] No Known Drug Allergies No Known Drug Allergies Active [facility] Family History Family Member Diagnosis Comments Start Date Stop Date Source Unknown Family Member Family History 2013-06-01 18:02:18 2 18:02:18 [facility] Social History Social Habit Start Date Stop Date Quantity Comments Source Social History 2013-08-27 21:19:13 2013-08-27 21:19:13 [facility] Medications Ordered Medication Name Filled Medication Name Start Date Stop Da te Current Medication? Ordering Clinician Indication Dosage Frequency Signature (SIG) Comments Components Source Furosemide 2020-02-03 02:45:03 Yes Rico Sloan 1/2 tablet [facility] Probiotic 2020-02-03 02:45:03 Yes Rico Sloan a s directed [facility] Vitamin E 2020-02-03 02:45:03 Yes Rico Almanzarer 1 capsule [facility] PredniSONE 2020-02-03 02:45:03 Yes Rico Sloan take 2 tablets by mouth once daily [facility] PredniSONE 2020-02-03 02:45:03 Yes Rico Sloan 1 tablet [facility] Metoprolol Tartrate 2020-02-03 02:45:03 Yes Rico Almanzare r 1 tablet with food [facility] Famotidine 2020-02-03 02:45:03 Yes Rico Sloan 1 tablet as needed [facility] Valsartan 2020-02-03 02:45:03 Yes Rico Sloan 1 tablet [facility] NIFEdipine ER 2020-02-03 02:45:03 Yes Rico Sloan 1 tablet on an empty stomach [facility] Iron 2020-02-03 02:45:03 Yes Rico Sloan 1 tabl et [facility] Spironolactone 2020-02-03 02:45:03 Yes Rico Sloan 1 tablet with food [facility] Losartan Potassium 2019-09-01 03:46:23 Yes Rico Sloan 1/2 tablet [facility] Clonidine HCl 2019-09-01 03:46:23 Yes Rico Sloan 1 tablet at bedtime [facility] Citracal + D 2019-09-01 03:46:23 Yes Rico Sloan 3 daily [facility] Iron 2019-09-01 03:46:23 Yes Rico Sloan 1 tabl et [facility] Verapamil HCl 2019-09-01 03:46:23 Yes Rico Sloan 1 capsule in the morning [facility] Vitamin B12 2019-09-01 03:46:23 Yes Rico Sloan 1 tablet [facility] Potassium 2019-09-01 03:46:23 Yes Rico Sloan 1 tablet [facility] Spironolactone 2019-09-01 03:46:23 Yes Rico Sloan 1 tablet with food [facility] NIFEdipine ER 2019-09-01 03:46:23 Yes Rico Sloan 1 tablet on an empty stomach [facility] Boniva 2019-09-01 03:46:23 Yes Rico Sloan TAKE 1 TABLET BY MOUTH ONCE A MONTH. [facility] PredniSONE 2019-06-22 00:00:00 Yes Rico Sloan 1 tablet [facility] Famotidine 2019-06-20 03:09:47 Yes Rico Sloan 1 tablet as needed [facility] Prednisone 2019-06-20 03:09:47 Yes Rico Sloan 2 tablets [facility] Boniva 2019-01-16 00:00:00 Yes Rico Sloan 1 ta blet [facility] Boniva 2018-08-01 00:00:00 Yes Grettaricky Almanzarace 1 t ablet [facility] Ascorbic Acid 500 Mg Tablet Ascorbic Acid 500 Mg Tablet 2018-05-22 00:00:00 Yes Isabelle Kasper Engraver Signature 500 Daily [facility] Docusate Sodium 100 Mg Capsule Docusate Sodium 100 Mg Capsul e 2018-05-22 00:00:00 Yes Isabelle Hernandez Ranjith Engraver Signature 100 Twice A Day [facility] Ferrous Sulfate 325 Mg Tablet. Ferrous Sulfate 325 Mg Tabl et. 2018-05-22 00:00:00 Yes Isabelle Hernandez [place] Engraver Signature 325 Daily [facility] Ceftin , 250 Mg Oral Ceftin , 250 Mg Oral 2018-05-22 00:00:00 20 14-05-29 00:00:00 No Isabelle Hernandez Ranjith Engraver Signature 250 Twice A Day [facility] PredniSONE 2018-03-23 02:52:04 Yes Rico Sloan 1 tab [facility] PredniSONE 2018-03-21 00:00:00 Yes Rico Sloan 1 tablet [facility] Prednisone 2018-01-16 00:00:00 Yes Rico Sloan 2 tablets [facility] PredniSONE 2018-01-16 00:00:00 Yes Rico Sloan 1 tablet [facility] PredniSONE 2017-11-18 00:00:00 Yes Latifa Fakoya take 7.5 mg on alternating days with 6 mg [facility] PredniSONE 2017-10-25 00:00:00 Yes Rico Sloan 1 tab [facility] Prolia 2017-10-25 00:00:00 Yes Rico Sloan as d irected [facility] PredniSONE 2017-07-26 02:46:54 Yes Latifa Fakoya TAKE 4 TABLETS BY MOUTH EVERY DAY [facility] Prednisone 2017-07-21 00:00:00 Yes Rico Sloan 2 tabs [facility] Verapamil HCl ER 240 MG Oral Tablet Extended Release 2 21:19:13 Yes (Active) [facility] Lasix 40 MG Oral Tablet 2013-08-27 21:19:13 Yes (Active) [facility] [address] Potassium TABS 2013-08-27 21:19:13 Yes (Act mert) [facility] [place] Hydrochlorothiazide 12.5 MG Oral Capsule 2013-08-27 21:19:13 Yes (Active) [facility] Benazepril HCl 10 MG Oral Tablet 2013-08-27 21:19:13 Yes (Active) [facility] [address] ICaps CAPS 2013-08-27 21:19:13 Yes (Active) [facility] Citracal Plus TABS 2013-08-27 21:19:13 Yes (Active) [facility] Vitamin B-6 100 MG Oral Tablet 2013-08-27 21:19:13 Yes (Active) [facility] Vitamin E 400 UNIT Oral Capsule 2013-08-27 21:19:13 Yes (Active) [facility] Tylenol CAPS 2013-08-27 21:19:13 Yes (Activ e) [facility] Claritin 10 MG Oral Capsule 2013-08-27 21:19:13 Yes (Active) [facility] Omeprazole 20 MG Oral Capsule Delayed Release 2013-08-20 06:00:0 0 Yes ; Start Date: 08/20/2013; End Date: (Active) Monique Knutson Omeprazole 20 MG Oral Capsule Delayed Release 2013-08-09 20:18:1 9 Yes (Active) Monique Kntuson CloNIDine HCl 0.1 MG Oral Tablet 2013-08-09 06:00:00 Yes ; Start Date: 08/09/2013; End Date: (Active) Monique Knutson PredniSONE 2.5 MG Oral Tablet 2013-06-21 05:00:00 Yes ; Start Date: 06/21/2013; End Date: (Active) Monique Kntuson CloNIDine HCl 0.1 MG Oral Tablet 2013-06-01 18:02:18 Yes (Active) Monique Knutson PredniSONE 2.5 MG Oral Tablet 2013-06-01 18:02:18 Yes (Active) Monique Knutson Cephalexin 500 MG Oral Capsule 2013-06-01 05:00:00 Yes ; Start Date: 06/01/2013; End Date: 06/08/2013 (Active) Monique Knutson Calcium Citrate/Vitamin D3 (Citracal + D Caplet) 1 Eac h Tablet Calcium Citrate/Vitamin D3 (Citracal + D Caplet) 1 Each Tablet Yes 1 Three Times A Day [facility] Eye Caps Eye Caps Yes 1 Daily [facility] Famotidine 20 Mg Tab Famotidine 20 Mg Tab Yes 20 Daily [facility] Loratadine (Claritin) 10 Mg Tablet Loratadine (Claritin) 10 Mg Tablet Yes 10 Daily Prn [facility] Metoprolol Tartrate 50 Mg Tablet Metoprolol Tartrate 50 Mg Tablet Yes 50 Twice A Day [facility] Nifedipine (Nifedipine Er) 30 Mg Tab.er.24 Nifedipine (Nifedipine Er) 30 Mg Tab.er.24 Yes 60 Twice A Day [facility] Spironolactone (Aldactone) 25 Mg Tablet Spironolactone (Maggy ctone) 25 Mg Tablet Yes 50 Twice A Day [facility] Valsartan (Diovan) 160 Mg Tab Valsartan (Diovan) 160 Mg Tab Yes 160 Daily [facility] Clonidine Hcl 0.1 Mg Tablet, 0.1 Mg Oral Clonidine Hcl 0.1 Mg Tablet, 0.1 Mg Oral 2019-05-24 00:00:00 No .1 Three Times A Day [facility] Furosemide (Lasix) 80 Mg Tablet, 40 Mg Oral Furosemide (Lasix) 80 Mg Tablet, 40 Mg Oral 2019-05-24 00:00:00 No 40 Daily [facility] Losartan Potassium 25 Mg Tablet, 25 Mg Oral Losartan P otassium 25 Mg Tablet, 25 Mg Oral 2019-05-24 00:00:00 No 25 Daily [facility] Potassium Chloride (Klor-Con 10) 10 Meq Tablet.er, 20 Meq Oral Potassium Chloride (Klor-Con 10) 10 Meq Tablet.er, 20 Meq Oral 2019-05-24 00: 00:00 No 20 Three Times A Day [facility] Prednisone 2.5 Mg Tablet, 10 Mg Oral Prednisone 2.5 Mg Tablet, 1 0 Mg Oral 2019-05-24 00:00:00 No 10 Daily [facility] Verapamil Hcl 240 Mg Tablet.er, 240 Mg Oral Verapamil Hcl 240 Mg Tablet.er, 240 Mg Oral 2019-05-24 00:00:00 No 240 Twice A Day [facility] Benazepril Hcl 10 Mg Tablet, 10 Mg Oral Benazepril Hcl 10 Mg Tablet, 10 Mg Oral 2018-05-21 00:00:00 No 10 Daily [facility] Omeprazole 20 Mg Capsule., 20 Mg Oral Omeprazole 20 Mg Cap kevin., 20 Mg Oral 2018-05-21 00:00:00 No 20 Twice A Day [facility] Citracal , Citracal , 2013-04-04 00:00:00 No Clarisa ly [facility] Claritin , Claritin , 2013-04-04 00:00:00 No as needed [facility] Klor-Con , Klor-Con , 2013-04-04 00:00:00 No Thr ee Times A Day [facility] Omeprazole , Omeprazole , 2013-04-04 00:00:00 No Twice A Day [facility] Vital Signs Vital Name Observation Time Observation Value Comments Source Weight 2020-01-29 15:45:00 [facility] Height 2020-01-29 15:45:00 [facility] Weight 2019-07-31 17:15:00 [facility] Height 2019-07-31 17:15:00 [facility] Temperature Oral (F) 2019-07-31 17:15:00 97.9 F [facility] Heart Rate 2019-07-31 17:15:00 [facility] Diastolic (mm Hg) 2019-07-31 17:15:00 [facility] Systolic (mm Hg) 2019-07-31 17:15:00 [facility] [place] Weight 2019-01-29 15:30:00 [facility] Height 2019-01-29 15:30:00 [facility] Temperature Oral (F) 2019-01-29 15:30:00 97.6 F [facility] Heart Rate 2019-01-29 15:30:00 [facility] Diastolic (mm Hg) 2019-01-29 15:30:00 [facility] [place] Systolic (mm Hg) 2019-01-29 15:30:00 [facility] Weight 2018-08-01 16:45:00 [facility] Height 2018-08-01 16:45:00 [facility] Temperature Oral (F) 2018-08-01 16:45:00 96.8 F [facility] Heart Rate 2018-08-01 16:45:00 [facility] Diastolic (mm Hg) 2018-08-01 16:45:00 [facility] Systolic (mm Hg) 2018-08-01 16:45:00 Claude [facility] Weight 2018-03-21 16:15:00 [facility] Height 2018-03-21 16:15:00 [facility] Temperature Oral (F) 2018-03-21 16:15:00 96.4 F [facility] Heart Rate 2018-03-21 16:15:00 [facility] Diastolic (mm Hg) 2018-03-21 16:15:00 [facility] Systolic (mm Hg) 2018-03-21 16:15:00 Claude [facility] Weight 2018-03-09 16:45:00 [facility] Height 2018-03-09 16:45:00 [facility] Temperature Oral (F) 2018-03-09 16:45:00 97.4 F [facility] Heart Rate 2018-03-09 16:45:00 [facility] Diastolic (mm Hg) 2018-03-09 16:45:00 [facility] Systolic (mm Hg) 2018-03-09 16:45:00 [facility] [place] Weight 2018-01-12 16:15:00 [facility] Height 2018-01-12 16:15:00 [facility] Temperature Oral (F) 2018-01-12 16:15:00 97.4 F [facility] Heart Rate 2018-01-12 16:15:00 [facility] Diastolic (mm Hg) 2018-01-12 16:15:00 [facility] Systolic (mm Hg) 2018-01-12 16:15:00 [facility] Weight 2017-11-23 16:30:00 [facility] Height 2017-11-23 16:30:00 [facility] Temperature Oral (F) 2017-11-23 16:30:00 97.1 F [facility] Heart Rate 2017-11-23 16:30:00 [facility] Diastolic (mm Hg) 2017-11-23 16:30:00 [facility] Systolic (mm Hg) 2017-11-23 16:30:00 [facility] Weight 2017-10-25 20:15:00 [facility] Height 2017-10-25 20:15:00 [facility] Temperature Oral (F) 2017-10-25 20:15:00 98.2 F [facility] Heart Rate 2017-10-25 20:15:00 [facility] Diastolic (mm Hg) 2017-10-25 20:15:00 [facility] Systolic (mm Hg) 2017-10-25 20:15:00 Claude [facility] Weight 2017-07-21 15:30:00 [facility] Height 2017-07-21 15:30:00 [facility] Temperature Oral (F) 2017-07-21 15:30:00 96.3 F [facility] Heart Rate 2017-07-21 15:30:00 [facility] Diastolic (mm Hg) 2017-07-21 15:30:00 [facility] Systolic (mm Hg) 2017-07-21 15:30:00 [facility] [place] Procedures Procedure Date / Time Performed Performing Clinician [facility] e Computed tomography of abdomen without contrast 2019-05-21 0 0:00:00 SHANTE PEREZ [facility] US Doppler renal vessels limited 2019-05-20 00:00:00 PEPITO FLAHERTY [facility] Ultrasound, renal 2019-05-20 00:00:00 PEPITO FLAHERTY [facility] Encounters Start Date/Time End Date/Time Encounter Type Admission Type Attendi [facility] Care Department Encounter ID Source 2020-01-29 11:51:00 2020-01-29 11:51:00 Outpatient Rico Sloan MD [place] [id number] Manish Sloan MD 2020-01-29 10:45:00 2020-01-29 10:45:00 Outpatient Rico Sloan MD [place] [id number] Manish Sloan MD 2020-01-15 13:24:00 2020-01-15 17:09:00 Departed Emergency Room 1 NATALI PERALES [facility] [id number] [facility] 2019-08-05 11:27:00 2019-08-05 13:16:00 Departed Emergency Room 1 KEN KUO [facility] [id number] [facility] 2019-07-31 11:15:00 2019-07-31 11:15:00 Outpatient Rico Sloan MD PA [id number] Manish Sloan MD 2019-06-22 08:31:00 2019-06-22 08:31:00 Outpatient MD FLORIAN Burnett MD [place] [id number] Manish Sloan MD 2019-05-20 07:47:00 2019-05-24 11:00:00 Discharged Inpatient 1 PEPITO FLAHERTY [facility] [id number] [facility] 2019-05-14 08:49:00 2019-05-14 08:49:00 Outpatient Rico Sloan MD PA [id number] Manish Sloan MD 2019-01-29 10:30:00 2019-01-29 10:30:00 Outpatient MD FLORIAN Burnett MD PA [id number] Manish Sloan MD 2019-01-09 15:23:00 2019-01-09 15:23:00 Outpatient Rico DU [id number] Manish Sloan MD 2018-08-01 11:45:00 2018-08-01 11:45:00 Outpatient Rico DU [id number] Manish Sloan MD 2018-08-01 10:45:00 2018-08-01 10:45:00 Outpatient Rico DU [id number] Manish Sloan MD 2018-07-18 10:22:00 2018-07-18 10:22:00 Outpatient Rico Sloan MD PA [id number] Manish Sloan MD 2018-06-07 13:15:00 2018-06-07 13:15:00 Outpatient Rico DU [id number] Manish Sloan MD 2018-06-07 13:07:00 2018-06-07 13:07:00 Outpatient Rico DU [id number] Manish Sloan MD 2018-05-20 15:41:00 2018-05-22 18:00:00 Discharged Inpatient (obs) 1 JENY KEN [facility] [id number] [facility] 2018-03-22 09:05:00 2018-03-22 09:05:00 Outpatient Rico Sloan MD PA [id number] Manish Sloan MD 2018-03-21 11:55:00 2018-03-21 11:55:00 Outpatient Rico DU [id number] CARLOS Sloan MD 2018-03-21 11:15:00 2018-03-21 11:15:00 Outpatient Rico Sloan MD PA [id number] Manish Sloan MD 2018-03-09 11:45:00 2018-03-09 11:45:00 Outpatient Rico Sloan MD PA [id number] Manish Sloan MD 2018-01-16 11:50:00 2018-01-16 11:50:00 Outpatient Rico Sloan MD PA [id number] Manish Sloan MD 2018-01-12 11:15:00 2018-01-12 11:15:00 Outpatient Rico Sloan MD PA [id number] Manish Sloan MD 2017-12-02 10:00:00 2017-12-02 10:00:00 Outpatient Rico Sloan MD PA [id number] Manish Sloan MD 2017-11-28 09:02:00 2017-11-28 09:02:00 Outpatient Rico Sloan MD PA [id number] Manish Sloan MD 2017-11-23 10:30:00 2017-11-23 10:30:00 Outpatient Rico Sloan MD PA [id number] Manish Sloan MD 2017-10-25 14:15:00 2017-10-25 14:15:00 Outpatient Rico Sloan MD PA [id number] Manish Sloan MD 2017-09-28 14:24:00 2017-09-28 14:24:00 Outpatient Rico Sloan MD PA [id number] Manish Sloan MD 2017-07-21 12:54:00 2017-07-21 12:54:00 Outpatient Rico Sloan MD PA [id number] Manish Sloan MD 2017-07-21 10:30:00 2017-07-21 10:30:00 Outpatient Rico Sloan MD PA [id number] Manish Sloan MD 2013-08-27 15:19:13 2013-08-27 15:19:13 Outpatient [facility] [id number] 2013-08-20 13:37:51 2013-08-20 13:37:50 Outpatient [facility] [id number] 2013-08-09 14:18:19 2013-08-09 14:18:19 [id number] 2013-06-01 13:02:19 2013-06-01 13:02:18 [id number] Results Test Description Test Time Test Comments Results Result Comments Source URINALYSIS COMPLETE 2020-03-16 13:11:00 Test Item UA COLOR (test code = COLU) YELLOW YELLOW UA APPEARANCE (test code = APPU) CLEAR CLEAR UA GLUCOSE DIPSTICK (test code = DGLUU) NEGATIVE mg/dL NEGATIVE UA BILIRUBIN DIPSTICK (test code = BILU) NEGATIVE mg/dL NEGATIVE UA KETONE DIPSTICK (test code = KETU) NEGATIVE mg/dL NEGATIVE UA SPECIFIC GRAVITY (test code = SGU) 1.017 1.001-1.035 UA BLOOD DIPSTICK (test code = SALOME) Negative mg/dL NEGATIVE UA PH DIPSTICK (test code = YINKA) 5.5 5.0-8.0 UA PROTEIN DIPSTICK (test code = PROU) 10 (Trace) mg/dL NEGATIVE A UA UROBILINIOGEN DIPSTICK (test code = URO) Normal mg/dL NEGATIVE UA NITRITE DIPSTICK (test code = DEVIKA) NEGATIVE NEGATIVE UA LEUKOCYTE ESTERASE W REFLEX (test code = LEUUR) 25 Sandrine/uL (Trace) Sandrine/uL NEGATIVE A UA WBC (test code = WBCU) 6-10 per HPF 0-5 A UA RBC (test code = RBCU) 0-2 #/HPF 0-5 UA EPITHELIAL CELLS (test code = EPIU) FEW per HPF FEW UA BACTERIA (test code = BACU) FEW #/HPF NONE A UA HYALINE CAST (test code = HYALU) 3-5 #/LPF 0-5 UA MUCUS (test code = MUCU) FEW #/LPF FEW COMMENTS TO PLASTIC FRAME INSERTER: NOUrine Source? Clean CatchCT CHEST [id number] 13:00:00 [place] [address] Patient Name: JAMEY ELAINE MR #: [id number] : 1940 Age/Sex: 80/F Req #: [id number] Adm Physician: PEPITO FLAHERTY MD Ordered by: PEPITO FLAHERTY MD Report #: [id number] Location: MED/SURG2 Room/Bed: [facility] Procedure: [id number] CT/CT CHEST WO Exam Date: 03/10/20 Exam Time: 1010 REPORT STATUS: Signed CT of the chest, without co ntrast. History: Abnormal chest x-ray. Comparison: Chest radiog raph from 03/09/2020. Technique: Multidetector CT scanning of the chest was performed from the level of the apices to the upper abdomen without contrast. Coronal and sagittal multiplanar reformations were obtained. RADIATION D OSE: Total DLP: 369.19 mGy*cm Dose modulation, iterative reconstru ction, and/or weight based adjustment of the mA/kV was utilized to reduce the radiation dose to as low as reasonably achievable. FINDINGS: The thyro id and remaining visualized structures within the base of the neck demonstrate no significant abnormalities. The thoracic aorta is normal course and kim salena with prominent atherosclerotic calcifications. The heart is not enlarged. No abnormal pericardial fluid is present. There is no abnormal axillary, media stinal, or hilar lymph node enlargement. The trachea and proximal airways are patent. Bandlike opacity likely reflecting subsegmental atelectasis/scarr ing noted within the right lower lobe. There is minimal left basilar atelectas is present. The patchy density noted within the mid left lung on the recent pr ior chest radiograph is not confirmed on this CT examination. The lungs otherw ise demonstrate no evidence for consolidation, pneumothorax, mass, suspicious nodule, or pleural effusion. Cholecystectomy clips noted within the right u pper quadrant. There is a small hiatal hernia present. The remaining visualize d upper abdominal contents demonstrate no significant abnormalities. The osseous structures demonstrate no evidence for acute fracture or destructive p rocess. The extra thoracic soft tissues are unremarkable. IMPRESSION: No acute intrathoracic process identified. Abnormality noted within the left lung on the recent prior chest radiograph likely reflects summation of sh adows. Subsegmental atelectasis/scarring noted within the right lower lobe. Small hiatal hernia. Signed by: Dr. Cornell Stallworth MD on 03/10/2020 1:06 PM Dictated By: CORNELL STALLWORTH MD [id number] Transcribed By: CAMI on 03/10/20 1306 COPY TO: PEPITO KAUR MD MRI BRAIN [id number] 11:46:00 [place] [address] Patient Name: JAMEY ELAINE MR #: [id number] : 1940 Age/Sex: 80/F Req #: [id number] Adm Physician: PEPITO FLAHERTY MD Ordered by: NATALI PERALES MD Report #: [id number] Location: MED/SURG2 Room/Bed: [facility] Procedure: [id number] MRI/MRI BRAIN WO Exam Date: Exam Time: REPORT STATUS: Signed EXAMINATION: MRI of the brain with out contrast. HISTORY: Ataxia, headaches, weakness, evaluate for cerebellar infarct COMPARISON: Head CT 03/09/2020 TECHNIQUE: Sagittal T2; axial DWI, T2, FLAIR, T1-IR, T2 gradient echo; coronal FLAIR. IMAGE QUALITY: Artifact f rom patient's motion mildly limits the evaluation of some of the sequences. FINDINGS: Parenchyma: 1. Focal area of restricted diffusion in the right inferolateral cerebellum and FLAIR hyperintensity is consistent with an acute ischemic infarct along the right PICA vascular distribution, and add itional smaller focus of FLAIR hyperintensity and mild restricted diffusion in the right inferior cerebellum is also noted. 2. Few scatter and periventr icular white matter T2 and FLAIR hyperintense foci, most likely nonspecific ch ronic microvascular ischemic changes. 3. No mass, hemorrhage, acute or chroni c infarcts. Skull: Unremarkable. Vessels: Expected flow voids present in the major arteries and dural sinuses. Extra-axial spac es: No abnormal signal intensity or mass effect. Incidentally noted benign ret rocerebellar arachnoid cyst without associated mass effect. Brain volum e: Within normal limits for age. Ventricles: No hydrocephalus or displace ment. Foramen magnum: Unremarkable. Sella: Unremarkable. Paranasal / mastoid sinuses: No significant inflammatory disease. IMPRESS ION: 1. 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 2. Mild white matter chronic microvascular ischemic savage ges. Signed by: Dr. Robby Snyder M.D. on 03/10/2020 11:51 AM Dictated By: ROBBY SNYDER MD 1151 Transcribed By: CMAI on 03/10/20 1151 COPY TO: NATALI PERALES MD CT CERVICAL SPINE [id number] 16:33:00 [place] [address] Patient Name: JAMEY ELAINE MR #: [id number] : 1940 Age/Sex: 80/F Req #: [id number] Adm Physician: Ordered by: NATALI PERALES MD Report #: [id number] Location: ER Room/Bed: Procedure: [id number] CT/CT CERVICA L SPINE WO Exam Date: 03/09/20 Exam Time: 1545 REPORT STATUS: Signed CT CERVICAL SPI NE WO HISTORY: Headache COMPARISON: Concurrent head CT TECHNIQUE : CT of the cervical spine without contrast. Sagittal and coronal reformation s were created. One or more of the following dose reduction techniques were u sed: Automated exposure control, adjustment of the mA and/or kV according to p atient size, and/or utilization of iterative reconstruction technique. FI NDINGS: Cervical lordosis is slightly reversed at C5. There is no si gnificant scoliosis. Mild bone demineralization limits evaluation. No defin ite acute fracture or compression deformity is seen. The craniocervical j unction is intact. No gross spinal canal masses are seen. The paravertebra l and paraspinal soft tissues are unremarkable. Multilevel spondylotic mauro nges are severe at C5-C6. Grade 1 anterolisthesis of C3 on C4, C4 on C5, and C 7 on T1 are due to facet arthrosis. There is at least mild canal stenosis from C3-C4 to C5-C6 due to posterior disc osteophyte complexes. Mild to moderate a tlantoaxial arthrosis is present as well. Mild to moderate right carotid bu lb calcified plaque is present. Both carotid arteries have a slight retrophary ngeal course. Aberrant right subclavian artery is present. There is mild scarr ing in the lung apices. 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 IMPRESSION: 1. No acute osseous abnormalities. 2. Multilevel spondylosis, severe at C5-C6. 3. Grade 1 anterolisthesis of C3 on C4, C4 on C5, and C7 on T1 are due to facet arthrosis. Signed by: Dr. Aaron Ferreira M.D. on 03/09/2020 4:42 PM Dictated By: JUSTICE FERREIRA MD 1642 Transcribed By: CAMI on 03/09/20 1642 COPY TO: NATALI PERALES MD CT BRAIN WO 2020-03-09 16:27:00 [place] [address] Patient Name: JAMEY ELAINE MR #: [id number] : 1940 Age/Sex: 80/F Req #: [id number] Adm Physician: Ordered by: NATALI PERALES MD Report #: [id number] Location: ER Room/Bed: Procedure: [id number] CT/CT BRAIN W O Exam Date: 03/09/20 Exam Time: 1545 REPORT STATUS: Signed CT BRAIN WO HISTORY: Trauma COMPARISON: Head CT 05/18/2019 Technique: Noncontrast axial scans were obtained from skull base to the vertex. Coronal and sagittal rec onstructions obtained from the axial data. One or more of the following dose reduction techniques were used: Automated exposure control, adjustment of the mA and/or kV according to patient size, and/or utilization of iterative recons truction technique. DISCUSSION: Scalp/Skull: Unremarkable. Brain sul ci: Mildly prominent. Ventricles: Compensatory dilatation. 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 No other mass or f luid collections. Carotid siphon calcifications are present. Parenchyma: New focal cortical hypodensity in the right posterior cerebellum may be due to acute ischemia. Mild bilateral deep white matter hypodensity is likely chronic microvascular ischemic change. Otherwise, no masses, hemorrhage, or large vascular territory acute infarct. Dural sinuses: No abnormal densities. Sellar/Suprasellar region: Intact. Skull base: Intact. Incidental findings: Trace right mastoid effusion. IMPRESSION: 1. New focal cortical hypode nsity in the right posterior cerebellum may be due to acute ischemia. 2. No other acute intracranial abnormalities. 3. Mild supratentorial chronic micro vascular ischemic change. Mild generalized cerebral volume loss. Saba d by: Dr. Justice Ferreira M.D. on 03/09/2020 4:33 PM Dictated By: JUSTICE FERREIRA MD 212 Tra nscribed By: CAMI on 06/14/20 1633 COPY TO: NATALI PERALES MD CHEST SINGLE (PORTABLE)2020-03-09 16:09:00 [place] [address] Patient Name: JAMEY ELAINE MR #: [id number] : 1940 Age/Sex: 80/F Req #: [id number] Adm Physician: Ordered by: NATALI PERALES MD Report #: [id number] Location: ER Room/Bed: Procedure: [id number] DX/CHEST SING LE (PORTABLE) Exam Date: 03/09/20 Exam Time: 1545 REPORT STATUS: Signed EXAMINATION: CHEST SINGLE (PORTABLE) INDICATION: headache, dehydration, n/v/d COMPARISON: 01/15/2020. FINDINGS: TUBES and LINES: None. TONY GS: Mild patchy density in the left midlung laterally may present summation of shadows. PLEURA: No pleural effusion or pneumothorax. HEART AND MEDI ASTINUM: Cardiac size is mildly enlarged. There are atherosclerotic calcifica tions within the aorta. BONES AND SOFT TISSUES: No acute osseous lesion. Soft tissues are unremarkable. UPPER ABDOMEN: No free air under the diaph ragm. IMPRESSION: Mild patchy density in the left midlung laterally may present summation of shadows. Consider chest PA and lateral views of patie nt's condition permits. Signed by: Dr. Harmeet Oliveira M.D. on 02/24 4:12 PM Dictated By: JOVAN OLIVEIRA MD, MD 1612 Transcribed By: CAMI on 03/09/20 16 12 COPY TO: NATALI PERALES MD Urine [id number] 15:51:00* Test Item Value Reference Range Interpretation Comments Urine WBC (test code = 5821-4) 6-10 0-5 [facility] [id number] 15:51:00* Test Item Value Reference Range Interpretation Comments Urine RBC (test code = 67862-2) NONE 0-5 [facility] Tnmlrrez4649-16-14 15:51:00* Test Item Value Reference Range Interpretation Comments Urine Bacteria (test code = 56000-5) MODERATE NONE [facility] Epithelial Yoelx6495-28-82 15:51:00 * Test Item Value Reference Range Interpretation Comments Urine Epithelial Cells (test code = 89009-8) FEW NONE [facility] Transitional Epithelial Cells 2020-01-15 15:51:00* Test Item Value Reference Range Interpretation Comments Urine Transitional Epithelial Cells (test code = 8249-5) FEW NONE [facility] Amorphous Uuwfcnsz6701-23-07 15:51:00* Test Item Value Reference Range Interpretation Comments Urine Amorphous Sediment (test code = 8246-1) MODERATE FEW H [facility] Tglde9127-24-27 15:40:00* Test Item Value Reference Range Interpretation Comments Urine Color (test code = 5778-6) YELLOW YELLOW [facility] Dzofzbj3821-95-01 15:40:00* Test Item Value Reference Range Interpretation Comments Urine Clarity (test code = 41689-4) SL CLOUDY CLEAR [facility] Specific Uenrvjt6319-58-94 15:40:00 * Test Item Value Reference Range Interpretation Comments Urine Specific [place] (test code = 5811-5) 1.020 1.010-1.02 5 [facility] uH2365-89-71 15:40:00* Test Item Value Reference Range Interpretation Comments Urine pH (test code = 70331-3) 5 5-7 [facility] Leukocyte Eemeygfu2071-02-10 15:40:00* Test Item Value Reference Range Interpretation Comments Urine Leukocyte Esterase (test code = 5799-2) MODERATE NEGATIVE [facility] Uevendq9637-81-62 15:40:00* Test Item Value Reference Range Interpretation Comments Urine Nitrite (test code = 73607-4) NEGATIVE NEGATIVE [facility] Aviuumi4800-53-68 15:40:00* Test Item Value Reference Range Interpretation Comments Urine Protein (test code = 5804-0) NEGATIVE NEGATIVE [facility] Glucose (UA)2020-01-15 15:40:00* Test Item Value Reference Range Interpretation Comments Urine Glucose (UA) (test code = 2349-9) NEGATIVE NEGATIVE [facility] Rwomkli1045-54-53 15:40:00* Test Item Value Reference Range Interpretation Comments Urine Ketones (test code = 50985-9) NEGATIVE NEGATIVE [facility] Lhsokhzucpvj3456-55-11 15:40:00* Test Item Value Reference Range Interpretation Comments Urine Urobilinogen (test code = 86823-0) 0.2 0.2-1 [facility] Cbodxcjxb3395-74-00 15:40:00* Test Item Value Reference Range Interpretation Comments Urine Bilirubin (test code = 1978-6) NEGATIVE NEGATIVE [facility] Ssvna7205-17-18 15:40:00* Test Item Value Reference Range Interpretation Comments Urine Blood (test code = 85108-6) NEGATIVE NEGATIVE [facility] HospitalB-Type Natriuretic Lksckjc7643-73-35 14:36:00* Test Item Value Reference Range Interpretation Comments B-Type Natriuretic Peptide (test code = 75644-3) 84.6 0-100 [facility] HospitalCreatine Kinase HH5618-02-64 14:26:00* Test Item Value Reference Range Interpretation Comments Creatine Kinase MB (test code = 41272-9) 2.70 0-5.0 [facility] HospitalTroponin [id number] 14:26:00* Test Item Value Reference Range Interpretation Comments Troponin I (test code = 75447-8) < 0.001 0-0.300 [facility] HospitalProthrombin Ejzb5165-86-99 14:23:00* Test Item Value Reference Range Interpretation Comments Prothrombin Time (test code = 5902-2) 13.4 11.9-14.5 [facility] HospitalProthromb Time International Ratio 2020-01-15 14:23:00* Test Item Value Reference Range Interpretation Comments Prothromb Time International Ratio (test code = 6301-6) 0.96 Oral Anticoagulant Therapy INR Values:1. Low Intensity Therapy 1.5 - 2.02 . Moderate Intensity Therapy 2.0 - 3.03. High Intensity Therapy(1) 2.5 - 3. 54. High Intensity Therapy(2) 3.0 - 4.05. Panic Value INR > 5.0 [facility] HospitalActivated Partial Thromboplast Time 2020-01-15 14:23:00* Test Item Value Reference Range Interpretation Comments Activated Partial Thromboplast Time (test code = 73028-7) 27.0 23.8-35.5 [facility] Inbsc7998-61-80 14:23:00* Test Item Value Reference Range Interpretation Comments Sodium Level (test code = 2951-2) 133 136-145 L [facility] HospitalPotassium Mkbwi1982-59-76 14:23:00* Test Item Value Reference Range Interpretation Comments Potassium Level (test code = 2823-3) 5.0 3.5-5.1 [facility] HospitalChloride Wkxqd4410-20-22 14:23:00* Test Item Value Reference Range Interpretation Comments Chloride Level (test code = 2075-0) 103 98-107 [facility] HospitalCarbon Dioxide Qfgkf0623-96-90 14:23:00* Test Item Value Reference Range Interpretation Comments Carbon Dioxide Level (test code = 2028-9) 24 22-29 [facility] HospitalAnion Olg2415-00-67 14:23:00* Test Item Value Reference Range Interpretation Comments Anion Gap (test code = 36911-1) 11.0 8-16 [facility] HospitalBlood Urea Nvmwamgt2744-43-80 14:23:00* Test Item Value Reference Range Interpretation Comments Blood Urea Nitrogen (test code = 3094-0) 26 7-26 [facility] HospitalCreatinine2020-04-21 14:23:00* Test Item Value Reference Range Interpretation Comments Creatinine (test code = 2160-0) 1.75 0.57-1.11 H [facility] HospitalBUN/Creatinine Wyrzk7836-08-58 14:23:00* Test Item Value Reference Range Interpretation Comments BUN/Creatinine Ratio (test code = 3097-3) 15 6-25 [facility] HospitalEstimat Glomerular Filtration Rate 2020-01-15 14:23:00* Test Item Value Reference Range Interpretation Comments Estimat Glomerular Filtration Rate (test code = 494551579) 28 >60 L Ranges were taken from the National Kidney Disease Education Program and the [facility] Foundation literature.Reference ranges:60 or greater: Jovlvc78-40 ( for 3 consecutive months): Chronic kidney disease 15 or less: Kidney failureColumbus Community HospitalGlucose Wruqu8285-64-55 14:23:00* Test Item Value Reference Range Interpretation Comments Glucose Level (test code = QMQ2179) 120 74-118 H [facility] HospitalCalcium Qfhak1647-94-06 14:23:00* Test Item Value Reference Range Interpretation Comments Calcium Level (test code = 66791-6) 9.7 8.4-10.2 [facility] HospitalTotal Kvjknfhro5391-23-15 14:23:00* Test Item Value Reference Range Interpretation Comments Total Bilirubin (test code = 1975-2) 0.3 0.2-1.2 [facility] HospitalAspartate Amino Transf (AST/SGOT) 2020-01-15 14:23:00* Test Item Value Reference Range Interpretation Comments Aspartate Amino Transf (AST/SGOT) (test code = Aspartate Amino Transf (AST/SGOT)) 22 5-34 [facility] HospitalAlanine Aminotransferase (ALT/SGPT) 2020-01-15 14:23:00* Test Item Value Reference Range Interpretation Comments Alanine Aminotransferase (ALT/SGPT) (test code = 1742-6) 18 0-55 [facility] HospitalTotal Olnmjzn9640-99-03 14:23:00* Test Item Value Reference Range Interpretation Comments Total Protein (test code = 2885-2) 6.6 6.5-8.1 [facility] HospitalAlbumin2020-04-21 14:23:00* Test Item Value Reference Range Interpretation Comments Albumin (test code = 1751-7) 3.6 3.5-5.0 [facility] HospitalGlobulin2020-04-21 14:23:00* Test Item Value Reference Range Interpretation Comments Globulin (test code = 79856-6) 3.0 2.3-3.5 [facility] HospitalAlbumin/Globulin Imgmy6507-80-81 14:23:00 * Test Item Value Reference Range Interpretation Comments Albumin/Globulin Ratio (test code = 1759-0) 1.2 0.8-2.0 [facility] HospitalAlkaline Gbehwnvxpld3160-47-21 14:23:00* Test Item Value Reference Range Interpretation Comments Alkaline Phosphatase (test code = 6768-6) 52 40-150 [facility] HospitalCreatine Lxorqt1563-53-54 14:23:00* Test Item Value Reference Range Interpretation Comments Creatine Kinase (test code = 2157-6) 110 29-168 [facility] HospitalInfluenza Virus Types A,B Antigen 2020-01-15 14:14:00* Test Item Value Reference Range Interpretation Comments Influenza Virus Types A,B Antigen (test code = 27137-2) NEGATIVE NEGATIVE [facility] HospitalCHEST SINGLE (PORTABLE)2020-01-15 14:10:00 [place] [address] Patient Name: JAMEY ELAINE MR #: [id number] : 1940 Age/Sex: 79/F Req #: [id number] Adm Physician: Ordered by: HENRY NELSON NP Report #: [id number] Location: ER Room/Bed: Procedure: [id number] DX/CHEST SINGLE (PORTABLE) Exam Date: 01/15/20 Exam Time: 1350 REPORT STATUS: Signed Chest, portable AP view History: Wheezing, cough Comparison: 08/05/20 IMPRESSION: The heart is within normal limits of size. There is no focal consolidation, sizable pleural effusion, or pneumothorax. Minimal left b asilar atelectasis is present. No acute osseous abnormalities. Signed by: Charbel Lou MD on 01/15/2020 2:11 PM Dictated By: CHARBEL LOU MD 10 Transcribed By: CAMI on 01/15/201410 COPY TO: HENRY NELSON NP White Blood Nfrjo5998-24-21 14:05:00* Test Item Value Reference Range Interpretation Comments White Blood Count (test code = 6690-2) 12.43 4.8-10.8 H [facility] HospitalRed Blood Fbowx2461-80-23 14:05:00* Test Item Value Reference Range Interpretation Comments Red Blood Count (test code = 789-8) 3.65 3.6-5.1 [facility] HospitalHemoglobin2020-04-21 14:05:00* Test Item Value Reference Range Interpretation Comments Hemoglobin (test code = 55344-2) 11.6 12.0-16.0 L [facility] HospitalHematocrit2020-04-21 14:05:00* Test Item Value Reference Range Interpretation Comments Hematocrit (test code = 4544-3) 34.4 34.2-44.1 [facility] HospitalMean Corpuscular Yjyntp7470-95-20 14:05:00* Test Item Value Reference Range Interpretation Comments Mean Corpuscular Volume (test code = 787-2) 94.2 81-99 [facility] HospitalMean Corpuscular Nnqyljbjer3056-36-98 14:05:00* Test Item Value Reference Range Interpretation Comments Mean Corpuscular Hemoglobin (test code = 785-6) 31.8 28-32 [facility] HospitalMean Corpuscular Hemoglobin Concent 2020-01-15 14:05:00* Test Item Value Reference Range Interpretation Comments Mean Corpuscular Hemoglobin Concent (test code = 786-4) 33.7 31-35 [facility] HospitalRed Cell Distribution Zarzm2491-87-19 14:05:00* Test Item Value Reference Range Interpretation Comments Red Cell Distribution Width (test code = 40602-4) 12.3 11.7 -14.4 [facility] HospitalPlatelet Vnbqk8787-23-87 14:05:00* Test Item Value Reference Range Interpretation Comments Platelet Count (test code = 777-3) 383 140-360 H [facility] HospitalNeutrophils (%) (Auto)2020-01-15 14:05:00 * Test Item Value Reference Range Interpretation Comments Neutrophils (%) (Auto) (test code = 85614-0) 79.8 38.7-80.0 [facility] HospitalLymphocytes (%) (Auto)2020-01-15 14:05:00 * Test Item Value Reference Range Interpretation Comments Lymphocytes (%) (Auto) (test code = 736-9) 11.8 18.0-39.1 L [facility] HospitalMonocytes (%) (Auto)2020-01-15 14:05:00* Test Item Value Reference Range Interpretation Comments Monocytes (%) (Auto) (test code = 5905-5) 5.1 4.4-11.3 [facility] HospitalEosinophils (%) (Auto)2020-01-15 14:05:00 * Test Item Value Reference Range Interpretation Comments Eosinophils (%) (Auto) (test code = 713-8) 2.1 0.0-6.0 [facility] HospitalBasophils (%) (Auto)2020-01-15 14:05:00* Test Item Value Reference Range Interpretation Comments Basophils (%) (Auto) (test code = 706-2) 0.6 0.0-1.0 [facility] HospitalIM GRANULOCYTES %2020-01-15 14:05:00* Test Item Value Reference Range Interpretation Comments IM GRANULOCYTES % (test code = IM GRANULOCYTES %) 0.6 0.0- 1.0 [facility] HospitalNeutrophils # (Auto)2020-01-15 14:05:00* Test Item Value Reference Range Interpretation Comments Neutrophils # (Auto) (test code = 751-8) 9.9 2.1-6.9 H [facility] HospitalLymphocytes # (Auto)2020-01-15 14:05:00* Test Item Value Reference Range Interpretation Comments Lymphocytes # (Auto) (test code = 14353-8) 1.5 1.0-3.2 [facility] HospitalMonocytes # (Auto)2020-01-15 14:05:00* Test Item Value Reference Range Interpretation Comments Monocytes # (Auto) (test code = 742-7) 0.6 0.2-0.8 [facility] HospitalEosinophils # (Auto)2020-01-15 14:05:00* Test Item Value Reference Range Interpretation Comments Eosinophils # (Auto) (test code = 711-2) 0.3 0.0-0.4 [facility] HospitalBasophils # (Auto)2020-01-15 14:05:00* Test Item Value Reference Range Interpretation Comments Basophils # (Auto) (test code = 704-7) 0.1 0.0-0.1 [facility] HospitalAbsolute Immature Granulocyte (auto 2020-01-15 14:05:00* Test Item Value Reference Range Interpretation Comments Absolute Immature Granulocyte (auto (kevin t code = Absolute Immature Granulocyte (auto) 0.07 0-0.1 [facility] HospitalGroup A Streptococcus Cmhgga8755-73-55 14:02:00* Test Item Value Reference Range Interpretation Comments Group A Streptococcus Screen (test code = 74588-6) NEGATIVE NEG ATIVE [facility] HospitalCXR 2 VIEW - FFTD3431-70-66 12:39:00 [place] [address] Patient Name: JAMEY ELAINE MR #: [id number] : 1940 Age/Sex: 79/F Req #: [id number] Adm Physician: Ordered by: KEN KUO MD Report #: [id number] Location: [facility] Room/Bed: Procedure: [id number] HOPD/CXR 2 VIEW - HOPD Exam Date: [...] ic bronchitis. No infiltrates. Signed by: Dr. Joana Keating MD on 08/05/2019 12:40 PM Dictated By: JOANA KEATING MD Electronically Si gned By: JOANA KEATING MD on 08/05/19 124 Transcribed By: CAMI on 08/05 1240 COPY TO: KEN KUO MD Sodium Whakt0959-85-96 06:05:00* Test Item Value Reference Range Interpretation Comments Sodium Level (test code = 2951-2) 136 136-145 [facility] Utoqg8824-89-93 06:05:00* Test Item Value Reference Range Interpretation Comments Potassium Level (test code = 2823-3) 3.9 3.5-5.1 [facility] HospitalChloride Drkxs4196-67-81 06:05:00* Test Item Value Reference Range Interpretation Comments Chloride Level (test code = 2075-0) 100 98-107 [facility] HospitalCarbon Dioxide Fgeeq3197-02-51 06:05:00* Test Item Value Reference Range Interpretation Comments Carbon Dioxide Level (test code = 2028-9) 26 -29 [facility] HospitalAnion Gdc5448-32-51 06:05:00* Test Item Value Reference Range Interpretation Comments Anion Gap (test code = 78682-5) 13.9 8-16 [facility] HospitalBlood Urea Iehwkmrl2536-31-93 06:05:00* Test Item Value Reference Range Interpretation Comments Blood Urea Nitrogen (test code = 3094-0) 13 7-26 [facility] HospitalCreatinine2019-08-29 06:05:00* Test Item Value Reference Range Interpretation Comments Creatinine (test code = 2160-0) 0.87 0.57-1.11 [facility] HospitalBUN/Creatinine Yxjhh4179-20-54 06:05:00* Test Item Value Reference Range Interpretation Comments BUN/Creatinine Ratio (test code = 3097-3) 15 03-20 [facility] HospitalEstimat Glomerular Filtration Rate 2019-05-24 06:05:00* Test Item Value Reference Range Interpretation Comments Estimat Glomerular Filtration Rate (test code = 171521676) > 60 >60 Ranges were taken from the National Kidney Disease Education Program and the [facility] literature.Reference ranges:60 or greater: Zxiptk04-42 ( for 3 consecutive months): Chronic kidney disease 15 or less: Kidney failureColumbus Community HospitalGlucose Sbfdf7649-18-16 06:05:00* Test Item Value Reference Range Interpretation Comments Glucose Level (test code = AGH5468) 95 74-118 [facility] HospitalCalcium Scwzp1742-25-56 06:05:00* Test Item Value Reference Range Interpretation Comments Calcium Level (test code = 15308-6) 9.1 8.4-10.2 [facility] HospitalTotal Fippjxrmh6201-23-04 06:05:00* Test Item Value Reference Range Interpretation Comments Total Bilirubin (test code = 1975-2) 0.4 0.2-1.2 [facility] HospitalAspartate Amino Transf (AST/SGOT) 2019-05-24 06:05:00* Test Item Value Reference Range Interpretation Comments Aspartate Amino Transf (AST/SGOT) (test code = Aspartate Amino Transf (AST/SGOT)) 26 5-34 [facility] HospitalAlanine Aminotransferase (ALT/SGPT) 2019-05-24 06:05:00* Test Item Value Reference Range Interpretation Comments Alanine Aminotransferase (ALT/SGPT) (test code = 1742-6) 22 0-55 [facility] Vtimsin9738-33-31 06:05:00* Test Item Value Reference Range Interpretation Comments Total Protein (test code = 2885-2) 6.1 6.5-8.1 L [facility] HospitalAlbumin2019-08-29 06:05:00* Test Item Value Reference Range Interpretation Comments Albumin (test code = 1751-7) 2.5 3.5-5.0 L [facility] HospitalGlobulin2019-08-29 06:05:00* Test Item Value Reference Range Interpretation Comments Globulin (test code = 46469-2) 3.6 2.3-3.5 H [facility] HospitalAlbumin/Globulin Ueeky7367-58-21 06:05:00 * Test Item Value Reference Range Interpretation Comments Albumin/Globulin Ratio (test code = 1759-0) 0.7 0.8-2.0 L [facility] HospitalAlkaline Vikwmuoxyhc9698-28-73 06:05:00* Test Item Value Reference Range Interpretation Comments Alkaline Phosphatase (test code = 6768-6) 52 40-150 [facility] Campusodium Upjes1083-61-96 06:05:00* Test Item Value Reference Range Interpretation Comments Sodium Level (test code = 2951-2) 136 136-145 [facility] HospitalPotassium Ajarb2560-58-83 06:05:00* Test Item Value Reference Range Interpretation Comments Potassium Level (test code = 2823-3) 3.9 3.5-5.1 [facility] HospitalChloride Pdnee7499-44-53 06:05:00* Test Item Value Reference Range Interpretation Comments Chloride Level (test code = 2075-0) 100 98-107 [facility] HospitalCarbon Dioxide Hwbpw6087-18-18 06:05:00* Test Item Value Reference Range Interpretation Comments Carbon Dioxide Level (test code = 2028-9) 26 22-29 [facility] HospitalAnion Laf7747-99-39 06:05:00* Test Item Value Reference Range Interpretation Comments Anion Gap (test code = 29868-4) 13.9 8-16 [facility] HospitalBlood Urea Egjekrqd2771-50-26 06:05:00* Test Item Value Reference Range Interpretation Comments Blood Urea Nitrogen (test code = 3094-0) 13 7-26 [facility] HospitalCreatinine2019-08-29 06:05:00* Test Item Value Reference Range Interpretation Comments Creatinine (test code = 2160-0) 0.87 0.57-1.11 [facility] HospitalBUN/Creatinine Brjpt8873-92-97 06:05:00* Test Item Value Reference Range Interpretation Comments BUN/Creatinine Ratio (test code = 3097-3) 15 03-20 [facility] HospitalEstimat Glomerular Filtration Rate 2019-05-24 06:05:00* Test Item Value Reference Range Interpretation Comments Estimat Glomerular Filtration Rate (test code = 010355123) > 60 >60 Ranges were taken from the National Kidney Disease Education Program and the [facility] literature.Reference ranges:60 or greater: Aymddh53-79 ( for 3 consecutive months): Chronic kidney disease 15 or less: Kidney failureColumbus Community HospitalGlucose Kokwb8465-51-74 06:05:00* Test Item Value Reference Range Interpretation Comments Glucose Level (test code = PFM6529) 95 74-118 [facility] HospitalCalcium Yuoxi2412-80-48 06:05:00* Test Item Value Reference Range Interpretation Comments Calcium Level (test code = 32664-4) 9.1 8.4-10.2 [facility] HospitalTotal Zhmczurvf0791-20-58 06:05:00* Test Item Value Reference Range Interpretation Comments Total Bilirubin (test code = 1975-2) 0.4 0.2-1.2 [facility] HospitalAspartate Amino Transf (AST/SGOT) 2019-05-24 06:05:00* Test Item Value Reference Range Interpretation Comments Aspartate Amino Transf (AST/SGOT) (test code = Aspartate Amino Transf (AST/SGOT)) 26 5-34 [facility] HospitalAlanine Aminotransferase (ALT/SGPT) 2019-05-24 06:05:00* Test Item Value Reference Range Interpretation Comments Alanine Aminotransferase (ALT/SGPT) (test code = 1742-6) 22 0-55 [facility] HospitalTotal Cjvufwm3190-19-16 06:05:00* Test Item Value Reference Range Interpretation Comments Total Protein (test code = 2885-2) 6.1 6.5-8.1 L [facility] HospitalAlbumin2019-08-29 06:05:00* Test Item Value Reference Range Interpretation Comments Albumin (test code = 1751-7) 2.5 3.5-5.0 L [facility] HospitalGlobulin2019-08-29 06:05:00* Test Item Value Reference Range Interpretation Comments Globulin (test code = 20054-2) 3.6 2.3-3.5 H [facility] HospitalAlbumin/Globulin Oguvp2627-52-66 06:05:00 * Test Item Value Reference Range Interpretation Comments Albumin/Globulin Ratio (test code = 1759-0) 0.7 0.8-2.0 L [facility] HospitalAlkaline Dbnwzjderes4605-87-19 06:05:00* Test Item Value Reference Range Interpretation Comments Alkaline Phosphatase (test code = 6768-6) 52 40-150 [facility] HospitalWhite Blood Ybtby3361-35-74 05:55:00* Test Item Value Reference Range Interpretation Comments White Blood Count (test code = 6690-2) 10.66 4.8-10.8 [facility] HospitalRed Blood Igwfj5033-67-91 05:55:00* Test Item Value Reference Range Interpretation Comments Red Blood Count (test code = 789-8) 3.86 3.6-5.1 [facility] HospitalHemoglobin2019-08-29 05:55:00* Test Item Value Reference Range Interpretation Comments Hemoglobin (test code = 57137-5) 11.9 12.0-16.0 L [facility] HospitalHematocrit2019-08-29 05:55:00* Test Item Value Reference Range Interpretation Comments Hematocrit (test code = 4544-3) 36.1 34.2-44.1 [facility] HospitalMean Corpuscular Mvlbom1834-34-21 05:55:00* Test Item Value Reference Range Interpretation Comments Mean Corpuscular Volume (test code = 787-2) 93.5 81-99 [facility] HospitalMean Corpuscular Zyfxmxxspt6647-14-43 05:55:00* Test Item Value Reference Range Interpretation Comments Mean Corpuscular Hemoglobin (test code = 785-6) 30.8 28-32 [facility] HospitalMean Corpuscular Hemoglobin Concent 2019-05-24 05:55:00* Test Item Value Reference Range Interpretation Comments Mean Corpuscular Hemoglobin Concent (test code = 786-4) 33.0 31-35 [facility] HospitalRed Cell Distribution Gavfl5220-83-13 05:55:00* Test Item Value Reference Range Interpretation Comments Red Cell Distribution Width (test code = 20990-4) 13.2 11.7 -14.4 [facility] HospitalPlatelet Bfvca4124-79-93 05:55:00* Test Item Value Reference Range Interpretation Comments Platelet Count (test code = 777-3) 333 140-360 [facility] HospitalNeutrophils (%) (Auto)2019-05-24 05:55:00 * Test Item Value Reference Range Interpretation Comments Neutrophils (%) (Auto) (test code = 78779-6) 63.9 38.7-80.0 [facility] HospitalLymphocytes (%) (Auto)2019-05-24 05:55:00 * Test Item Value Reference Range Interpretation Comments Lymphocytes (%) (Auto) (test code = 736-9) 23.2 18.0-39.1 [facility] HospitalMonocytes (%) (Auto)2019-05-24 05:55:00* Test Item Value Reference Range Interpretation Comments Monocytes (%) (Auto) (test code = 5905-5) 10.7 4.4-11.3 [facility] HospitalEosinophils (%) (Auto)2019-05-24 05:55:00 * Test Item Value Reference Range Interpretation Comments Eosinophils (%) (Auto) (test code = 713-8) 1.1 0.0-6.0 [facility] HospitalBasophils (%) (Auto)2019-05-24 05:55:00* Test Item Value Reference Range Interpretation Comments Basophils (%) (Auto) (test code = 706-2) 0.6 0.0-1.0 [facility] HospitalIM GRANULOCYTES %2019-05-24 05:55:00* Test Item Value Reference Range Interpretation Comments IM GRANULOCYTES % (test code = IM GRANULOCYTES %) 0.5 0.0- 1.0 [facility] HospitalNeutrophils # (Auto)2019-05-24 05:55:00* Test Item Value Reference Range Interpretation Comments Neutrophils # (Auto) (test code = 751-8) 6.8 2.1-6.9 [facility] HospitalLymphocytes # (Auto)2019-05-24 05:55:00* Test Item Value Reference Range Interpretation Comments Lymphocytes # (Auto) (test code = 47270-5) 2.5 1.0-3.2 [facility] HospitalMonocytes # (Auto)2019-05-24 05:55:00* Test Item Value Reference Range Interpretation Comments Monocytes # (Auto) (test code = 742-7) 1.1 0.2-0.8 H [facility] HospitalEosinophils # (Auto)2019-05-24 05:55:00* Test Item Value Reference Range Interpretation Comments Eosinophils # (Auto) (test code = 711-2) 0.1 0.0-0.4 [facility] HospitalBasophils # (Auto)2019-05-24 05:55:00* Test Item Value Reference Range Interpretation Comments Basophils # (Auto) (test code = 704-7) 0.1 0.0-0.1 [facility] HospitalAbsolute Immature Granulocyte (auto 2019-05-24 05:55:00* Test Item Value Reference Range Interpretation Comments Absolute Immature Granulocyte (auto (kevin t code = Absolute Immature Granulocyte (auto) 0.05 0-0.1 [facility] HospitalWhite Blood Dnzwx9318-94-45 05:55:00* Test Item Value Reference Range Interpretation Comments White Blood Count (test code = 6690-2) 10.66 4.8-10.8 [facility] HospitalRed Blood Lanli0892-52-87 05:55:00* Test Item Value Reference Range Interpretation Comments Red Blood Count (test code = 789-8) 3.86 3.6-5.1 [facility] HospitalHemoglobin2019-08-29 05:55:00* Test Item Value Reference Range Interpretation Comments Hemoglobin (test code = 54573-9) 11.9 12.0-16.0 L [facility] HospitalHematocrit2019-08-29 05:55:00* Test Item Value Reference Range Interpretation Comments Hematocrit (test code = 4544-3) 36.1 34.2-44.1 [facility] HospitalMean Corpuscular Sziyon0561-09-35 05:55:00* Test Item Value Reference Range Interpretation Comments Mean Corpuscular Volume (test code = 787-2) 93.5 81-99 [facility] HospitalMean Corpuscular Stciyfvxvi6254-14-43 05:55:00* Test Item Value Reference Range Interpretation Comments Mean Corpuscular Hemoglobin (test code = 785-6) 30.8 28-32 [facility] HospitalMean Corpuscular Hemoglobin Concent 2019-05-24 05:55:00* Test Item Value Reference Range Interpretation Comments Mean Corpuscular Hemoglobin Concent (test code = 786-4) 33.0 31-35 [facility] HospitalRed Cell Distribution Swwoq7742-67-66 05:55:00* Test Item Value Reference Range Interpretation Comments Red Cell Distribution Width (test code = 91931-4) 13.2 11.7 -14.4 [facility] HospitalPlatelet Vhnnq7668-68-12 05:55:00* Test Item Value Reference Range Interpretation Comments Platelet Count (test code = 777-3) 333 140-360 [facility] HospitalNeutrophils (%) (Auto)2019-05-24 05:55:00 * Test Item Value Reference Range Interpretation Comments Neutrophils (%) (Auto) (test code = 68002-6) 63.9 38.7-80.0 [facility] HospitalLymphocytes (%) (Auto)2019-05-24 05:55:00 * Test Item Value Reference Range Interpretation Comments Lymphocytes (%) (Auto) (test code = 736-9) 23.2 18.0-39.1 [facility] HospitalMonocytes (%) (Auto)2019-05-24 05:55:00* Test Item Value Reference Range Interpretation Comments Monocytes (%) (Auto) (test code = 5905-5) 10.7 4.4-11.3 [facility] HospitalEosinophils (%) (Auto)2019-05-24 05:55:00 * Test Item Value Reference Range Interpretation Comments Eosinophils (%) (Auto) (test code = 713-8) 1.1 0.0-6.0 [facility] HospitalBasophils (%) (Auto)2019-05-24 05:55:00* Test Item Value Reference Range Interpretation Comments Basophils (%) (Auto) (test code = 706-2) 0.6 0.0-1.0 [facility] HospitalIM GRANULOCYTES %2019-05-24 05:55:00* Test Item Value Reference Range Interpretation Comments IM GRANULOCYTES % (test code = IM GRANULOCYTES %) 0.5 0.0- 1.0 [facility] HospitalNeutrophils # (Auto)2019-05-24 05:55:00* Test Item Value Reference Range Interpretation Comments Neutrophils # (Auto) (test code = 751-8) 6.8 2.1-6.9 [facility] HospitalLymphocytes # (Auto)2019-05-24 05:55:00* Test Item Value Reference Range Interpretation Comments Lymphocytes # (Auto) (test code = 65474-3) 2.5 1.0-3.2 [facility] HospitalMonocytes # (Auto)2019-05-24 05:55:00* Test Item Value Reference Range Interpretation Comments Monocytes # (Auto) (test code = 742-7) 1.1 0.2-0.8 H [facility] HospitalEosinophils # (Auto)2019-05-24 05:55:00* Test Item Value Reference Range Interpretation Comments Eosinophils # (Auto) (test code = 711-2) 0.1 0.0-0.4 [facility] HospitalBasophils # (Auto)2019-05-24 05:55:00* Test Item Value Reference Range Interpretation Comments Basophils # (Auto) (test code = 704-7) 0.1 0.0-0.1 [facility] HospitalAbsolute Immature Granulocyte (auto 2019-05-24 05:55:00* Test Item Value Reference Range Interpretation Comments Absolute Immature Granulocyte (auto (kevin t code = Absolute Immature Granulocyte (auto) 0.05 0-0.1 [facility] HospitalUrine YUR6123-33-21 00:16:00* Test Item Value Reference Range Interpretation Comments Urine WBC (test code = 5821-4) 11-20 0-5 H [facility] HospitalUrine JLC6144-37-14 00:16:00* Test Item Value Reference Range Interpretation Comments Urine RBC (test code = 13207-2) 11-20 0-5 H [facility] HospitalUrine Hjzoucrc8891-57-66 00:16:00* Test Item Value Reference Range Interpretation Comments Urine Bacteria (test code = 96478-1) MANY NONE H [facility] HospitalUrine Epithelial Czuth0208-91-41 00:16:00 * Test Item Value Reference Range Interpretation Comments Urine Epithelial Cells (test code = 84762-0) FEW NONE [facility] HospitalUrine Transitional Epithelial Cells 2019-05-23 00:16:00* Test Item Value Reference Range Interpretation Comments Urine Transitional Epithelial Cells (test code = 8249-5) FEW NONE H [facility] HospitalUrine Fine Granular Pkjre2937-85-39 00:16:00* Test Item Value Reference Range Interpretation Comments Urine Fine Granular Casts (test code = 33053-8) 1-5 >0 H [facility] HospitalUrine Coarse Granular Odqai4358-38-73 00:16:00* Test Item Value Reference Range Interpretation Comments Urine Coarse Granular Casts (test code = 80553-1) 1-5 >0 H [facility] HospitalUrine Bzqgi3328-87-29 00:16:00* Test Item Value Reference Range Interpretation Comments Urine Mucus (test code = 8247-9) FEW RARE H [facility] HospitalUrine TAP4787-09-67 00:16:00* Test Item Value Reference Range Interpretation Comments Urine WBC (test code = 5821-4) 11-20 0-5 H [facility] HospitalUrine ALU5436-03-14 00:16:00* Test Item Value Reference Range Interpretation Comments Urine RBC (test code = 50356-2) 11-20 0-5 H [facility] HospitalUrine Lqhbekkl8521-97-08 00:16:00* Test Item Value Reference Range Interpretation Comments Urine Bacteria (test code = 98351-1) MANY NONE H [facility] HospitalUrine Epithelial Ualcw3771-06-33 00:16:00 * Test Item Value Reference Range Interpretation Comments Urine Epithelial Cells (test code = 46276-7) FEW NONE [facility] HospitalUrine Transitional Epithelial Cells 2019-05-23 00:16:00* Test Item Value Reference Range Interpretation Comments Urine Transitional Epithelial Cells (test code = 8249-5) FEW NONE H [facility] HospitalUrine Fine Granular Ifzdh3981-96-40 00:16:00* Test Item Value Reference Range Interpretation Comments Urine Fine Granular Casts (test code = 02097-7) 1-5 >0 H [facility] HospitalUrine Coarse Granular Jszps6087-75-71 00:16:00* Test Item Value Reference Range Interpretation Comments Urine Coarse Granular Casts (test code = 20395-3) 1-5 >0 H [facility] HospitalUrine Vyjrf0144-48-95 00:16:00* Test Item Value Reference Range Interpretation Comments Urine Mucus (test code = 8247-9) FEW RARE H [facility] HospitalUrine Fine Granular Hkiey7721-78-98 00:16:00* Test Item Value Reference Range Interpretation Comments Urine Fine Granular Casts (test code = 04204-6) 1-5 >0 H [facility] HospitalUrine Coarse Granular Vtrwu3368-90-00 00:16:00* Test Item Value Reference Range Interpretation Comments Urine Coarse Granular Casts (test code = 16344-4) 1-5 >0 H [facility] HospitalUrine Rpfla9859-42-76 00:16:00* Test Item Value Reference Range Interpretation Comments Urine Mucus (test code = 8247-9) FEW RARE H [facility] HospitalUrine Qgrux6264-63-59 23:44:00* Test Item Value Reference Range Interpretation Comments Urine Color (test code = 5778-6) YELLOW YELLOW [facility]Urine Cjpswcs4082-80-42 23:44:00* Test Item Value Reference Range Interpretation Comments Urine Clarity (test code = 32754-5) CLOUDY CLEAR H [facility] HospitalUrine Specific Exxfaic0751-07-15 23:44:00 * Test Item Value Reference Range Interpretation Comments Urine Specific [place] (test code = 5811-5) 1.025 1.010-1.02 5 [facility] HospitalUrine rI6226-48-90 23:44:00* Test Item Value Reference Range Interpretation Comments Urine pH (test code = 69011-3) 5.5 5-7 [facility] Leukocyte Okavrpuw7679-81-38 23:44:00* Test Item Value Reference Range Interpretation Comments Urine Leukocyte Esterase (test code = 57850-0) SMALL NEGATIV E [facility] HospitalUrine Luxqpjr8711-58-53 23:44:00* Test Item Value Reference Range Interpretation Comments Urine Nitrite (test code = 30925-5) NEGATIVE NEGATIVE [facility] Cirwwiv3351-69-41 23:44:00* Test Item Value Reference Range Interpretation Comments Urine Protein (test code = 31367-1) 1+ NEGATIVE H [facility] HospitalUrine Glucose (UA)2019-05-22 23:44:00* Test Item Value Reference Range Interpretation Comments Urine Glucose (UA) (test code = 95682-7) NEGATIVE NEGATIVE [facility] Gmdrqoj1631-59-07 23:44:00* Test Item Value Reference Range Interpretation Comments Urine Ketones (test code = 18971-8) NEGATIVE NEGATIVE [facility] Ubzfvvlndhia8999-70-86 23:44:00* Test Item Value Reference Range Interpretation Comments Urine Urobilinogen (test code = 83124-0) 0.2 0.2-1 [facility] HospitalU[facility] Hhlkbzlbg1600-96-11 23:44:00* Test Item Value Reference Range Interpretation Comments Urine Bilirubin (test code = 1977-8) NEGATIVE NEGATIVE [facility] Ujbdh0963-78-93 23:44:00* Test Item Value Reference Range Interpretation Comments Urine Blood (test code = 58622-1) MODERATE NEGATIVE [facility] Yajwm9181-01-02 23:44:00* Test Item Value Reference Range Interpretation Comments Urine Color (test code = 5778-6) YELLOW YELLOW [facility] Ddjvqmu8590-18-77 23:44:00* Test Item Value Reference Range Interpretation Comments Urine Clarity (test code = 72304-3) CLOUDY CLEAR H [facility] HospitalUrine Specific Uqqdoik6733-75-66 23:44:00 * Test Item Value Reference Range Interpretation Comments Urine Specific [place] (test code = 5811-5) 1.025 1.010-1.02 5 [facility] qC5750-71-27 23:44:00* Test Item Value Reference Range Interpretation Comments Urine pH (test code = 63210-7) 5.5 5-7 [facility] Leukocyte Ehmhlqnf9160-56-10 23:44:00* Test Item Value Reference Range Interpretation Comments Urine Leukocyte Esterase (test code = 12828-7) SMALL NEGATIV E [facility] HospitalUrine Yvnxbqz7831-29-74 23:44:00* Test Item Value Reference Range Interpretation Comments Urine Nitrite (test code = 13590-9) NEGATIVE NEGATIVE [facility] Yfrbtrj5986-76-96 23:44:00* Test Item Value Reference Range Interpretation Comments Urine Protein (test code = 62702-9) 1+ NEGATIVE H [facility] HospitalUrine Glucose (UA)2019-05-22 23:44:00* Test Item Value Reference Range Interpretation Comments Urine Glucose (UA) (test code = 95824-1) NEGATIVE NEGATIVE [facility] Unagzzs1740-49-20 23:44:00* Test Item Value Reference Range Interpretation Comments Urine Ketones (test code = 80847-7) NEGATIVE NEGATIVE [facility] Bgguidjflzgj4128-27-63 23:44:00* Test Item Value Reference Range Interpretation Comments Urine Urobilinogen (test code = 79526-0) 0.2 0.2-1 [facility] Pyjntoycm9786-39-41 23:44:00* Test Item Value Reference Range Interpretation Comments Urine Bilirubin (test code = 1977-8) NEGATIVE NEGATIVE [facility] Qovtz9441-76-15 23:44:00* Test Item Value Reference Range Interpretation Comments Urine Blood (test code = 86494-3) MODERATE NEGATIVE [facility] HospitalDifferential Total Cells Counted 2019-05-22 06:55:00* Test Item Value Reference Range Interpretation Comments Differential Total Cells Counted (test code = Differen tial Total Cells Counted) 100 [facility] HospitalNeutrophils % (Manual)2019-05-22 06:55:00 * Test Item Value Reference Range Interpretation Comments Neutrophils % (Manual) (test code = 40835-0) 61 40-74 [facility] HospitalLymphocytes % (Manual)2019-05-22 06:55:00 * Test Item Value Reference Range Interpretation Comments Lymphocytes % (Manual) (test code = 737-7) 28 -48 [facility] HospitalMonocytes % (Manual)2019-05-22 06:55:00* Test Item Value Reference Range Interpretation Comments Monocytes % (Manual) (test code = 744-3) 11 3.4-9.0 H [facility] HospitalPlatelet Xndamyut9025-59-52 06:55:00* Test Item Value Reference Range Interpretation Comments Platelet Estimate (test code = 24559-4) ADEQUATE [facility] HospitalRed Cell Morphology Byddgzm1220-09-67 06:55:00* Test Item Value Reference Range Interpretation Comments Red Cell Morphology Comment (test code = 6742-1) NORMAL [facility] HospitalDifferential Total Cells Counted 2019-05-22 06:55:00* Test Item Value Reference Range Interpretation Comments Differential Total Cells Counted (test code = Differbaltazar tial Total Cells Counted) 100 [facility] HospitalNeutrophils % (Manual)2019-05-22 06:55:00 * Test Item Value Reference Range Interpretation Comments Neutrophils % (Manual) (test code = 18394-5) 61 40-74 [facility] HospitalLymphocytes % (Manual)2019-05-22 06:55:00 * Test Item Value Reference Range Interpretation Comments Lymphocytes % (Manual) (test code = 737-7) 28 -48 [facility] HospitalMonocytes % (Manual)2019-05-22 06:55:00* Test Item Value Reference Range Interpretation Comments Monocytes % (Manual) (test code = 744-3) 11 3.4-9.0 H [facility] HospitalPlatelet Vylfmvne3274-28-99 06:55:00* Test Item Value Reference Range Interpretation Comments Platelet Estimate (test code = 23993-7) ADEQUATE [facility] HospitalRed Cell Morphology Rletblg9293-11-62 06:55:00* Test Item Value Reference Range Interpretation Comments Red Cell Morphology Comment (test code = 6742-1) NORMAL [facility] HospitalDifferential Total Cells Counted 2019-05-22 06:55:00* Test Item Value Reference Range Interpretation Comments Differential Total Cells Counted (test code = Roseanen tial Total Cells Counted) 100 [facility] HospitalNeutrophils % (Manual)2019-05-22 06:55:00 * Test Item Value Reference Range Interpretation Comments Neutrophils % (Manual) (test code = 10990-3) 61 40-74 [facility] HospitalLymphocytes % (Manual)2019-05-22 06:55:00 * Test Item Value Reference Range Interpretation Comments Lymphocytes % (Manual) (test code = 737-7) 28 19-48 [facility] HospitalMonocytes % (Manual)2019-05-22 06:55:00* Test Item Value Reference Range Interpretation Comments Monocytes % (Manual) (test code = 744-3) 11 3.4-9.0 H [facility] HospitalPlatelet Ezyzuitf8572-07-69 06:55:00* Test Item Value Reference Range Interpretation Comments Platelet Estimate (test code = 64775-2) ADEQUATE [facility] HospitalRed Cell Morphology Zegrkya1865-33-36 06:55:00* Test Item Value Reference Range Interpretation Comments Red Cell Morphology Comment (test code = 6742-1) NORMAL [facility] HospitalCT ABDOMEN XU5472-61-39 18:18:00 [facility] [address] [address] Patient Name: JAMEY ELAINE MR #: [id number] : 1940 Age/Sex: 79/F Req #: [id number] Adm Physician: PEPITO FLAHERTY MD Ordered by: ANA GOMEZ, SHANTE GOMEZ Report #: [id number] Location: MED/SURG Room/Bed: 107 Procedure: [id number] C T/CT ABDOMEN WO Exam Date: 05/21/19 Exam Time: 1750 REPORT STATUS: Signed CT Abdomen Unenhanced CPT CODE: 25677 INDICATION: Potential adrenal mass TE CHNIQUE: 2.5 [...] findings as described above. Signed by: Dr. Joana Keating MD on 05/21/2019 7:59 PM Dictated By: JOANA KEATING MD 58 Transcribed By: CAMI on 1959 COPY TO: SHANTE PEREZ Phosphorus Axsit8918-95-33 06:52:00* Test Item Value Reference Range Interpretation Comments Phosphorus Level (test code = SSR2703) 2.5 2.3-4.7 [facility] Likyt[facility]11-99-40 06:52:00* Test Item Value Reference Range Interpretation Comments Magnesium Level (test code = 09975-7) 1.8 1.3-2.1 [facility] HospitalPhosphorus Dgwdh5168-88-92 06:52:00* Test Item Value Reference Range Interpretation Comments Phosphorus Level (test code = ISR0653) 2.5 2.3-4.7 [facility] HospitalMagnesium Zydno5297-19-35 06:52:00* Test Item Value Reference Range Interpretation Comments Magnesium Level (test code = 69656-8) 1.8 1.3-2.1 [facility] HospitalPhosphorus Muqsq9175-27-48 06:52:00* Test Item Value Reference Range Interpretation Comments Phosphorus Level (test code = RZU3857) 2.5 2.3-4.7 [facility] Xridr2460-84-83 06:52:00* Test Item Value Reference Range Interpretation Comments Magnesium Level (test code = 58256-9) 1.8 1.3-2.1 [facility] Cbjaued5444-91-16 00:07:00* Test Item Value Reference Range Interpretation Comments Bedside Glucose (test code = 98072-5) 165 70-120 H Meter ID: [id number] [facility] Glucose 2019-05-21 00:07:00* Test Item Value Reference Range Interpretation Comments Bedside Glucose (test code = 03550-8) 165 70-120 H Meter ID: [id number] [facility] Glucose 2019-05-21 00:07:00* Test Item Value Reference Range Interpretation Comments Bedside Glucose (test code = 61367-1) 165 70-120 H Meter ID: [id number] [facility] AIAB3770-26-61 11:50:00 [facility] [address] [address] Patient Name: JAMEY ELAINE MR #: [id number] : 1940 Age/Sex: 79/F Req #: [id number] Adm Physician: PEPITO FLAHERTY MD Ordered by: PEPITO FLAHERTY MD Report #: [id number] Location: MED/SURG Room/Bed: Formerly named [facility] Procedure: [id number] US/US RENAL RETROPERITONEAL COMP Exam Date: 05/20/19 [...] 05/29/19 1348 COPY TO: PEPITO FLAHERTY MD US RENAL/LIVER DOPPLER WOK9991-42-88 11:50:[address] [address] Patient Name: JAMEY ELAINE MR #: [id number] : 1940 Age/Sex: 79/F Req #: [id number] [facility] Physician: PEPITO FLAHERTY MD Ordered by: PEPITO FLAHERTY MD Report #: [id number] Location: MED/SURG Room/Bed: Formerly named [facility] Procedure: [id number] US/US RENAL/LIVER DOPPLER LTD Exam Date: 05/20/19 [...] Thyroid Stimulating Hormone (TSH) (test code = 30407-1) 1.024 0.350-4.940 [facility] (TSH) 2019-05-19 11:22:00* Test Item Value Reference Range Interpretation Comments Thyroid Stimulating Hormone (TSH) (test code = 67182-9) 1.024 0.350-4.940 [facility] HospitalThyroid Stimulating Hormone (TSH) 2019-05-19 11:22:00* Test Item Value Reference Range Interpretation Comments Thyroid Stimulating Hormone (TSH) (test code = 25571-1) 1.024 0.350-4.940 [facility]-UGEF3860-08-23 18:40:00 [facility] [address] [address] Patient Name: JAMEY ELAINE MR #: [id number] : 1940 Age/Sex: 79/F Req #: [id number] Adm Physician: Ordered by: HENRY FLAHERTY DO Report #: [id number] Location: [facility] Room/Bed: Procedure: [id number] HOP D/CT BRAIN WO-HOPD Exam Date: 05/18/19 [...] bnormality, particularly no hemorrhage. Signed by: Dr. Robby Snyder M.D. on 05/18/2019 6:42 PM Dictated By: ROBBY SNYDER MD 41 Transcribed By: CAMI on 05/18/191841 COPY TO: HENRY FLAHERTY DO Sodium Nrsah2890-18-84 05:02:00* Test Item Value Reference Range Interpretation Comments Sodium Level (test code = 2951-2) 139 136-145 [facility] HospitalPotassium Rokvq8442-58-24 05:02:00* Test Item Value Reference Range Interpretation Comments Potassium Level (test code = 2823-3) 3.7 3.5-5.1 VERIFIED PREVIOUS RESULTSColumbus Community HospitalChloride Level 2018-05-22 05:02:00* Test Item Value Reference Range Interpretation Comments Chloride Level (test code = 2075-0) 102 98-107 [facility] HospitalCarbon Dioxide Vjwsd5853-25-39 05:02:00* Test Item Value Reference Range Interpretation Comments Carbon Dioxide Level (test code = 8-9) 27 22-29 [facility] HospitalAnion Qzf8711-72-82 05:02:00* Test Item Value Reference Range Interpretation Comments Anion Gap (test code = 36691-7) 13.7 8-16 [facility] HospitalBlood Urea Ypzuoyev7716-14-49 05:02:00* Test Item Value Reference Range Interpretation Comments Blood Urea Nitrogen (test code = 3094-0) 20 7-26 [facility] HospitalCreatinine2018-08-27 05:02:00* Test Item Value Reference Range Interpretation Comments Creatinine (test code = 2160-0) 1.02 0.57-1.11 [facility] HospitalBUN/Creatinine Cxczb6267-59-51 05:02:00* Test Item Value Reference Range Interpretation Comments BUN/Creatinine Ratio (test code = 3097-3) 20 6-25 [facility] HospitalEstimat Glomerular Filtration Rate 2018-05-22 05:02:00* Test Item Value Reference Range Interpretation Comments Estimat Glomerular Filtration Rate (test code = 05239-5) 52 >60 L Ranges were taken from the National Kidney Disease Education Program and the [facility] literature.Reference ranges:60 or greater: Eltzai37-26 ( for 3 consecutive months): Chronic kidney disease 15 or less: Kidney failureColumbus Community HospitalGlucose Nqrnj8446-61-96 05:02:00* Test Item Value Reference Range Interpretation Comments Glucose Level (test code = TUM4865) 95 74-118 [facility] HospitalCalcium Rclza6020-77-89 05:02:00* Test Item Value Reference Range Interpretation Comments Calcium Level (test code = 79949-0) 8.8 8.4-10.2 [facility] HospitalMagnesium Iciuw6890-01-54 05:02:00* Test Item Value Reference Range Interpretation Comments Magnesium Level (test code = 46994-2) 2.3 1.3-2.1 H [facility] HospitalB-Type Natriuretic Cchsbbw0370-59-64 05:02:00* Test Item Value Reference Range Interpretation Comments B-Type Natriuretic Peptide (test code = 82068-8) 65.1 0-100 [facility] HospitalWhite Blood Zqtnr1752-96-09 04:37:00* Test Item Value Reference Range Interpretation Comments White Blood Count (test code = 6690-2) 10.51 4.8-10.8 [facility] HospitalRed Blood Hboyt0090-53-48 04:37:00* Test Item Value Reference Range Interpretation Comments Red Blood Count (test code = 789-8) 3.32 3.6-5.1 L [facility] HospitalHemoglobin2018-08-27 04:37:00* Test Item Value Reference Range Interpretation Comments Hemoglobin (test code = 71154-5) 10.4 12.0-16.0 L [facility] HospitalHematocrit2018-08-27 04:37:00* Test Item Value Reference Range Interpretation Comments Hematocrit (test code = 4544-3) 32.2 34.2-44.1 L [facility] HospitalMean Corpuscular Havyod7192-72-00 04:37:00* Test Item Value Reference Range Interpretation Comments Mean Corpuscular Volume (test code = 787-2) 97.0 81-99 [facility] HospitalMean Corpuscular Qnldpogent6580-53-21 04:37:00* Test Item Value Reference Range Interpretation Comments Mean Corpuscular Hemoglobin (test code = 785-6) 31.3 28-32 [facility] HospitalMean Corpuscular Hemoglobin Concent 2018-05-22 04:37:00* Test Item Value Reference Range Interpretation Comments Mean Corpuscular Hemoglobin Concent (test code = 786-4) 32.3 31-35 [facility] HospitalRed Cell Distribution Ulesw1408-44-36 04:37:00* Test Item Value Reference Range Interpretation Comments Red Cell Distribution Width (test code = 96179-1) 14.7 11.7 -14.4 H [facility] HospitalPlatelet Phebv2237-09-03 04:37:00* Test Item Value Reference Range Interpretation Comments Platelet Count (test code = 777-3) 324 140-360 [facility] HospitalNeutrophils (%) (Auto)2018-05-22 04:37:00 * Test Item Value Reference Range Interpretation Comments Neutrophils (%) (Auto) (test code = 88978-4) 64.3 38.7-80.0 [facility] HospitalLymphocytes (%) (Auto)2018-05-22 04:37:00 * Test Item Value Reference Range Interpretation Comments Lymphocytes (%) (Auto) (test code = 736-9) 26.5 18.0-39.1 [facility] HospitalMonocytes (%) (Auto)2018-05-22 04:37:00* Test Item Value Reference Range Interpretation Comments Monocytes (%) (Auto) (test code = 5905-5) 7.7 4.4-11.3 [facility] HospitalEosinophils (%) (Auto)2018-05-22 04:37:00 * Test Item Value Reference Range Interpretation Comments Eosinophils (%) (Auto) (test code = 713-8) 0.4 0.0-6.0 [facility] HospitalBasophils (%) (Auto)2018-05-22 04:37:00* Test Item Value Reference Range Interpretation Comments Basophils (%) (Auto) (test code = 706-2) 0.4 0.0-1.0 [facility] HospitalIM GRANULOCYTES %2018-05-22 04:37:00* Test Item Value Reference Range Interpretation Comments IM GRANULOCYTES % (test code = IM GRANULOCYTES %) 0.7 0.0- 1.0 [facility] HospitalNeutrophils # (Auto)2018-05-22 04:37:00* Test Item Value Reference Range Interpretation Comments Neutrophils # (Auto) (test code = 751-8) 6.8 2.1-6.9 [facility] HospitalLymphocytes # (Auto)2018-05-22 04:37:00* Test Item Value Reference Range Interpretation Comments Lymphocytes # (Auto) (test code = 27004-9) 2.8 1.0-3.2 [facility] HospitalMonocytes # (Auto)2018-05-22 04:37:00* Test Item Value Reference Range Interpretation Comments Monocytes # (Auto) (test code = 742-7) 0.8 0.2-0.8 [facility] HospitalEosinophils # (Auto)2018-05-22 04:37:00* Test Item Value Reference Range Interpretation Comments Eosinophils # (Auto) (test code = 711-2) 0.0 0.0-0.4 [facility] HospitalBasophils # (Auto)2018-05-22 04:37:00* Test Item Value Reference Range Interpretation Comments Basophils # (Auto) (test code = 704-7) 0.0 0.0-0.1 [facility] HospitalAbsolute Immature Granulocyte (auto 2018-05-22 04:37:00* Test Item Value Reference Range Interpretation Comments Absolute Immature Granulocyte (auto (kevin t code = Absolute Immature Granulocyte (auto) 0.07 0-0.1 [facility] HospitalThyroid Stimulating Hormone (TSH) 2018-05-21 15:39:00* Test Item Value Reference Range Interpretation Comments Thyroid Stimulating Hormone (TSH) (test code = 55847-2) 0.402 0.350-4.940 [facility] HospitalUric Lqlf7480-45-74 15:23:00* Test Item Value Reference Range Interpretation Comments Uric Acid (test code = 3084-1) 6.0 2.6-8.0 [facility] HospitalPhosphorus Sqzbg5170-35-90 15:23:00* Test Item Value Reference Range Interpretation Comments Phosphorus Level (test code = IHP2943) 1.2 2.3-4.7 L [facility] HospitalTotal Zwecoupex7711-09-45 15:23:00* Test Item Value Reference Range Interpretation Comments Total Bilirubin (test code = 1975-2) 0.3 0.2-1.2 [facility] HospitalDirect Zaowjcere0998-10-65 15:23:00* Test Item Value Reference Range Interpretation Comments Direct Bilirubin (test code = 53366-6) 0.1 0.0-0.5 [facility] HospitalAspartate Amino Transf (AST/SGOT) 2018-05-21 15:23:00* Test Item Value Reference Range Interpretation Comments Aspartate Amino Transf (AST/SGOT) (test code = Aspartate Amino Transf (AST/SGOT)) 25 5-34 [facility] HospitalAlanine Aminotransferase (ALT/SGPT) 2018-05-21 15:23:00* Test Item Value Reference Range Interpretation Comments Alanine Aminotransferase (ALT/SGPT) (test code = 1742-6) 36 0-55 [facility] HospitalTotal Nskmclx2182-86-38 15:23:00* Test Item Value Reference Range Interpretation Comments Total Protein (test code = 2885-2) 6.0 6.5-8.1 L [facility] HospitalAlbumin2018-08-26 15:23:00* Test Item Value Reference Range Interpretation Comments Albumin (test code = 1751-7) 2.6 3.5-5.0 L [facility] HospitalAlkaline Jlhbdrjtibt5066-35-09 15:23:00* Test Item Value Reference Range Interpretation Comments Alkaline Phosphatase (test code = 6768-6) 64 40-150 [facility] HospitalTriglycerides Yarvr9139-01-98 15:23:00* Test Item Value Reference Range Interpretation Comments Triglycerides Level (test code = 2571-8) 114 0-149 [facility] HospitalCholesterol Rsjks1533-30-14 15:23:00* Test Item Value Reference Range Interpretation Comments Cholesterol Level (test code = 2093-3) 212 0-199 H Less than 200 mg/dL Low Ozah536 - 239 mg/dL Borderline Qqen128 m g/dl and greater High Risk [facility] HospitalLDL Ylrythpezsi5339-62-74 15:23:00* Test Item Value Reference Range Interpretation Comments LDL Cholesterol (test code = 2089-1) 139 60-130 H [facility] HospitalHDL Eqhlobznffo9666-97-69 15:23:00* Test Item Value Reference Range Interpretation Comments HDL Cholesterol (test code = 2085-9) 50 40-60 [facility] HospitalCholesterol/HDL Ngtqt6160-20-24 15:23:00 * Test Item Value Reference Range Interpretation Comments Cholesterol/HDL Ratio (test code = 9830-1) 4.2 3.0-3.6 H [facility] HospitalAmylase Dexqu4361-35-67 15:23:00* Test Item Value Reference Range Interpretation Comments Amylase Level (test code = 1798-8) 69 25-125 [facility] HospitalD-Dimer Quantitative (PE/DVT)2018-05-21 09:22:00* Test Item Value Reference Range Interpretation Comments D-Dimer Quantitative (PE/DVT) (test code = 60955-3) 0.85 0. 00-0.45 H As with all in vitro diagnostic tests, the test results should be interpreted by the physician in conjunction with clinical findings and other test results.Test results are reported in NEW D-dimer units(ug/mLFEU).[facility] HospitalCreatine Kinase IW7503-21-60 05:43:00* Test Item Value Reference Range Interpretation Comments Creatine Kinase MB (test code = 14774-3) 0.70 0-5.0 [facility] HospitalTroponin R3090-74-79 05:43:00* Test Item Value Reference Range Interpretation Comments Troponin I (test code = KCP0889) 0.008 0-0.300 [facility] HospitalCreatine Fzlwdj8586-42-65 05:38:00* Test Item Value Reference Range Interpretation Comments Creatine Kinase (test code = 2157-6) 38 29-168 [facility] HospitalUrine JDB1633-01-39 14:43:00* Test Item Value Reference Range Interpretation Comments Urine WBC (test code = 5821-4) 6-10 0-5 H [facility] HospitalUrine QMO2765-32-66 14:43:00* Test Item Value Reference Range Interpretation Comments Urine RBC (test code = 00275-8) 6-10 0-5 H [facility] HospitalUrine Weppdubf6417-21-29 14:43:00* Test Item Value Reference Range Interpretation Comments Urine Bacteria (test code = 58126-2) FEW NONE [facility] HospitalUrine Epithelial Uhvle0135-83-73 14:43:00 * Test Item Value Reference Range Interpretation Comments Urine Epithelial Cells (test code = 72647-8) FEW NONE [facility] HospitalUrine Yscfg9000-23-00 14:32:00* Test Item Value Reference Range Interpretation Comments Urine Color (test code = 5778-6) YELLOW YELLOW [facility] HospitalUrine Ouuxwgc1109-55-45 14:32:00* Test Item Value Reference Range Interpretation Comments Urine Clarity (test code = 25594-8) HAZY CLEAR [facility] HospitalUrine Specific Kgseyag9501-25-70 14:32:00 * Test Item Value Reference Range Interpretation Comments Urine Specific [place] (test code = 5811-5) 1.010 1.010-1.02 5 [facility] HospitalUrine jN1155-38-13 14:32:00* Test Item Value Reference Range Interpretation Comments Urine pH (test code = 86659-0) 6 5-7 [facility] HospitalUrine Leukocyte Sdsirogf4990-09-59 14:32:00* Test Item Value Reference Range Interpretation Comments Urine Leukocyte Esterase (test code = 5799-2) TRACE NEGATIVE H [facility] HospitalUrine Ihgupio6413-60-75 14:32:00* Test Item Value Reference Range Interpretation Comments Urine Nitrite (test code = 81813-5) NEGATIVE NEGATIVE [facility] HospitalUrine Aeirtle0012-34-40 14:32:00* Test Item Value Reference Range Interpretation Comments Urine Protein (test code = 5804-0) NEGATIVE NEGATIVE [facility] HospitalUrine Glucose (UA)2018-05-20 14:32:00* Test Item Value Reference Range Interpretation Comments Urine Glucose (UA) (test code = 2349-9) NEGATIVE NEGATIVE [facility] HospitalUrine Vpirfvl5989-87-42 14:32:00* Test Item Value Reference Range Interpretation Comments Urine Ketones (test code = 26668-6) NEGATIVE NEGATIVE [facility] HospitalUrine Xqvuzkbqbtge5828-01-72 14:32:00* Test Item Value Reference Range Interpretation Comments Urine Urobilinogen (test code = 26662-9) 0.2 0.2-1 [facility] HospitalUrine Kctuwpnpn8000-09-81 14:32:00* Test Item Value Reference Range Interpretation Comments Urine Bilirubin (test code = 1978-6) NEGATIVE NEGATIVE [facility] HospitalUrine Flnlg5003-38-01 14:32:00* Test Item Value Reference Range Interpretation Comments Urine Blood (test code = 94697-9) TRACE NEGATIVE H [facility] HospitalCHEST SINGLE (PORTABLE)2018-05-20 13:52:00 [facility] [address] [place] [address] Patient Name: JAMEY ELAINE MR #: [id number] : 1940 Age/Sex: 78/F Req #: [id number] Adm Physician: Ordered by: ELIZABETH SWARTZ APPLICATIONS SALES CONSULTANT Report #: [id number] Location: ER Room/Bed: Procedure: [id number] DX/CHEST SINGLE (PORTABLE) Exam Date: 05/20/18 Exam [...] 1:53 PM Dictated By: LISA WALLIS MD [facility] Signed By: LISA WALLIS MD on 05/20/18 1353 Transcribed By: CAMI on 05/20/18 1353 COPY TO: ELIZABETH SWARTZ APPLICATIONS SALES CONSULTANT Rnzqrynu0048-11-99 13:48:00* Test Item Value Reference Range Interpretation Comments Globulin (test code = 71551-0) 3.6 2.3-3.5 H [facility] HospitalAlbumin/Globulin Jbypb7519-54-08 13:48:00 * Test Item Value Reference Range Interpretation Comments Albumin/Globulin Ratio (test code = 1759-0) 0.9 0.8-2.0 [facility] HospitalLipase2018-08-25 13:48:00* Test Item Value Reference Range Interpretation Comments Lipase (test code = 3040-3) 34 8-78 [facility] HospitalProthrombin Gjuu3278-07-85 13:39:00* Test Item Value Reference Range Interpretation Comments Prothrombin Time (test code = 5902-2) 13.7 11.9-14.5 [facility] HospitalProthromb Time International Ratio 2018-05-20 13:39:00* Test Item Value Reference Range Interpretation Comments Prothromb Time International Ratio (test code = 6301-6) 1.14 Oral Anticoagulant Therapy INR Values:1. Low Intensity Therapy 1.5 - 2.02 . Moderate Intensity Therapy 2.0 - 3.03. High Intensity Therapy(1) 2.5 - 3. 54. High Intensity Therapy(2) 3.0 - 4.05. Panic Value INR > 5.0 [facility] HospitalActivated Partial Thromboplast Time 2018-05-20 13:39:00* Test Item Value Reference Range Interpretation Comments Activated Partial Thromboplast Time (test code = 76189-4) 29.7 23.8-35.5 [facility]
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
== END 2020-05-21 10:37 | disposition home or self-care (01) ==
LOC: ER 10:24
DX: L03.116 Cellulitis of left lower limb (principal); W22.03XA Walked into furniture, initial encounter; Y92.003 Bedroom of unspecified non-institutional (private) residence as the place of occurrence of the external cause; I12.0 Hypertensive chronic kidney disease with stage 5 chronic kidney disease or end stage renal disease; N18.6 End stage renal disease
CPT/HCPCS: 99283

== ENCOUNTER → 2020-09-04 | Outpatient (CLI) | payer MEDICARE | LOC: MRI 14:11 | PROVIDERS: ATTEND Urology | DX: D41.01 Neoplasm of uncertain behavior of right kidney (principal); N18.9 Chronic kidney disease, unspecified | CPT/HCPCS: 74181 ==

== ENCOUNTER 2021-03-21 23:13 | Emergency (ER) | payer OTHER, MEDICARE ==
[~2021-03-21] VITALS: Ht 149.9 cm; Wt 48.1 kg
== END 2021-03-22 01:30 | disposition home or self-care (01) ==
LOC: FSED 23:49
DX: M25.551 Pain in right hip (principal); S70.01XA Contusion of right hip, initial encounter; R10.31 Right lower quadrant pain; W01.0XXA Fall on same level from slipping, tripping and stumbling without subsequent striking against object, initial encounter; Y92.008 Other place in unspecified non-institutional (private) residence as the place of occurrence of the external cause; I10 Essential (primary) hypertension; E78.5 Hyperlipidemia, unspecified
CPT/HCPCS: 99283

== ENCOUNTER → 2021-05-20 | Outpatient (CLI) | payer MEDICARE | LOC: US 09:38 | PROVIDERS: ATTEND Urology | DX: N28.1 Cyst of kidney, acquired (principal) | CPT/HCPCS: 76770 ==

== ENCOUNTER → 2021-06-02 | Outpatient (CLI) | payer MEDICARE ==
[~2021-06-02] MED LIST changes: +REGADENOSON 0.4 MG/5 ML SYR IV ONE
== END ==
LOC: NM 09:27
PROVIDERS: ATTEND Nurse Practitioner Family
DX: I20.8 Other forms of angina pectoris (principal)
CPT/HCPCS: 78452; 93017; A9502; J2785

== ENCOUNTER 2021-07-09 15:35 | Emergency (ER) | payer MEDICARE ==
[~2021-07-09] VITALS: Ht 149.9 cm; Wt 48.1 kg
[~2021-07-09 15:35] MED LIST changes: -REGADENOSON 0.4 MG/5 ML SYR IV ONE
[2021-07-09] MEDS ORDERED: PREDNISONE20 MG PO (17:12)
== END 2021-07-09 17:28 | disposition home or self-care (01) ==
LOC: FSED 15:50
DX: S63.095A Other dislocation of left wrist and hand, initial encounter (principal); M35.3 Polymyalgia rheumatica; I12.9 Hypertensive chronic kidney disease with stage 1 through stage 4 chronic kidney disease, or unspecified chronic kidney disease; N18.9 Chronic kidney disease, unspecified; E78.5 Hyperlipidemia, unspecified; Z79.52 Long term (current) use of systemic steroids
CPT/HCPCS: 99284

== ENCOUNTER 2021-11-19 19:41 | Emergency (ER) | payer MEDICARE ==
[~2021-11-19] VITALS: Ht 149.9 cm; Wt 48.1 kg
[~2021-11-19 19:41] MED LIST changes: +PREDNISONE20 MG PO
[2021-11-19 20:51] LABS: BASOPHILS # (AUTO) 0.1 (0.0-0.1); BASOPHILS % 0.2 % (0.0-1.0); EOSINOPHILS # (AUTO) 0.1 (0.0-0.4); EOSINOPHILS % 0.5 % (0.0-6.0); HEMATOCRIT 44.3 % (34.2-44.1); HEMOGLOBIN 14.5 g/dL (12.0-16.0); LYMPHOCYTES # (AUTO) 2.9 (1.0-3.2); MEAN CORPUSCULAR HEMOGLOBIN 31.7 pg (28-32); MEAN CORPUSCULAR HGB CONC 32.7 g/dL (31-35); MEAN CORPUSCULAR VOLUME 96.7 fL (81-99); MONOCYTES # (AUTO) 1.3 (0.2-0.8); MONOCYTES % 6.2 % (4.4-11.3); NEUTROPHILS # (AUTO) 15.9 (2.1-6.9); NEUTROPHILS % 77.5 % (38.7-80.0); PLATELET COUNT 416 x10e3/uL (140-360); RED BLOOD COUNT 4.58 x10e6/uL (3.6-5.1); RED CELL DISTRIBUTION WIDTH 12.5 % (11.7-14.4)
[2021-11-19 21:01] LABS: CLARITY,URINE CLEAR (CLEAR); COLOR,URINE YELLOW (YELLOW); KETONES,URINE NEGATIVE (NEGATIVE); LEUKOCYTE ESTERASE ,URINE NEGATIVE (NEGATIVE); NITRITE,URINE NEGATIVE (NEGATIVE); PROTEIN,URINE DIPSTICK NEGATIVE (NEGATIVE); URINE UROBILINOGEN 0.2 mg/dL (0.2 - 1)
[2021-11-19 21:10] LABS: BACTERIA,URINE FEW /HPF; EPITHELIAL CELLS,URINE MODERATE /LPF
[2021-11-19 21:12] LABS: ALBUMIN 4.2 g/dL (3.5-5.0); ALBUMIN/GLOBULIN RATIO 1.1 (0.8-2.0); ANION GAP 18.5 mmol/L (8-16); CALCIUM 10.1 mg/dL (8.4-10.2); CREATININE, SERUM 1.16 mg/dL (0.57-1.11); POTASSIUM 3.5 mmol/L (3.5-5.1)
[2021-11-19] MEDS ORDERED: SODIUM CHLORIDE 0.9% 1000ML 1,000 ML IV SCH (22:45)
== END 2021-11-20 00:30 | disposition home or self-care (01) ==
LOC: ER 19:50
DX: R21 Rash and other nonspecific skin eruption (principal); D72.829 Elevated white blood cell count, unspecified; I10 Essential (primary) hypertension; E78.5 Hyperlipidemia, unspecified; N18.9 Chronic kidney disease, unspecified; Z86.73 Personal history of transient ischemic attack (TIA), and cerebral infarction without residual deficits
CPT/HCPCS: 36415; 80053; 81001; 83605; 85025; 87040; 87086; 99284; J7030

== ENCOUNTER 2021-11-23 12:12 | Inpatient (IN) | payer MEDICARE ==
[~2021-11-23] VITALS: Ht 154.9 cm; Wt 49.4 kg
[2021-11-23] MEDS ORDERED: FUROSEMIDE INJ 10 MG/ML 4 ML VIAL IV ONE ×2 (12:45→23:30)
[2021-11-23 12:49] LABS: BASOPHILS # (AUTO) 0.1 (0.0-0.1); BASOPHILS % 0.2 % (0.0-1.0); EOSINOPHILS # (AUTO) 0.1 (0.0-0.4); EOSINOPHILS % 0.3 % (0.0-6.0); HEMATOCRIT 41.4 % (34.2-44.1); HEMOGLOBIN 14.3 g/dL (12.0-16.0); LYMPHOCYTES # (AUTO) 2.2 (1.0-3.2); LYMPHOCYTES % 10.4 % (18.0-39.1); MEAN CORPUSCULAR HEMOGLOBIN 32.7 pg (28-32); MEAN CORPUSCULAR HGB CONC 34.5 g/dL (31-35); MEAN CORPUSCULAR VOLUME 94.7 fL (81-99); MONOCYTES # (AUTO) 1.3 (0.2-0.8); NEUTROPHILS # (AUTO) 17.5 (2.1-6.9); NEUTROPHILS % 81.4 % (38.7-80.0); PLATELET COUNT 438 x10e3/uL (140-360); RED BLOOD COUNT 4.37 x10e6/uL (3.6-5.1); RED CELL DISTRIBUTION WIDTH 12.6 % (11.7-14.4)
[2021-11-23 13:13] LABS: ALBUMIN/GLOBULIN RATIO 1.2 (0.8-2.0); ANION GAP 16.3 mmol/L (8-16); CALCIUM 9.5 mg/dL (8.4-10.2); CREATININE, SERUM 0.97 mg/dL (0.57-1.11); POTASSIUM 3.3 mmol/L (3.5-5.1)
[2021-11-23] MEDS ORDERED: SODIUM CHLORIDE 0.9% 1000ML 1,000 ML IV ONE (13:15)
[2021-11-23 13:21] LABS: MAGNESIUM 1.7 MG/DL (1.3-2.1)
[2021-11-23] MEDS ORDERED: CEFTRIAXONE 1 GM in SODIUM CHLORIDE 0.9% 50ML 50 ML IV SCH (13:30)
[2021-11-23 13:52] LABS: CLARITY,URINE CLEAR (CLEAR); COLOR,URINE YELLOW (YELLOW); KETONES,URINE NEGATIVE (NEGATIVE); LEUKOCYTE ESTERASE ,URINE NEGATIVE (NEGATIVE); NITRITE,URINE NEGATIVE (NEGATIVE); PROTEIN,URINE DIPSTICK NEGATIVE (NEGATIVE); URINE UROBILINOGEN 0.2 mg/dL (0.2 - 1)
[2021-11-23 14:00] LABS: EPITHELIAL CELLS,URINE MODERATE /LPF; RBC,URINE 0-5 /HPF (0-5); WBC,URINE (MAN) 0-5 /HPF (0-5)
[2021-11-23] MEDS ORDERED: SODIUM CHLORIDE FLUSH 10 ML SYR INJ PRN (14:30)
[2021-11-23] MEDS ORDERED: ONDANSETRON HCL INJ 2MG/ML 2ML 2 MG/ML VIAL IV PRN (14:30)
[2021-11-23 16:06] VITALS: BP 157/75
[2021-11-23 16:52] VITALS: BP 157/75
[2021-11-23 17:08] VITALS: BP 157/75
[2021-11-23] MEDS ORDERED: LASIX40 MG PO (17:27)
[2021-11-23] MEDS ORDERED: CRESTOR5 MG PO (17:27)
[2021-11-23] MEDS ORDERED: PROTONIX20 MG PO (17:27)
[2021-11-23] MEDS ORDERED: VITAMIN D310 MCG (17:27)
[2021-11-23] MEDS ORDERED: ASPIRIN CHEW81 MG PO (17:27)
[2021-11-23] MEDS ORDERED: AZO CRANBERRY250 MG PO (17:27)
[2021-11-23 20:00] VITALS: BP 180/75
[2021-11-23] MEDS: METOPROLOL TARTRATE 50 MG TAB PO SCH (23:30)
[2021-11-23] MEDS ORDERED: NIFEDIPINE CR 30 MG TAB PO ONE (23:30)
[2021-11-23] MEDS ORDERED: ACETAMINOPHEN 325 MG TAB PO PRN (23:45)
[2021-11-23] MEDS ORDERED: HYDROXYZINE HCL 10 MG TAB PO PRN (23:45)
[2021-11-23] MEDS ORDERED: HYDROCODONE/APAP 7.5MG-325MG 1 EA TAB PO PRN (23:45)
[2021-11-23] MEDS ORDERED: MAGNESIUM HYDROXIDE 30 ML UDC PO PRN (23:45)
[2021-11-24] VITALS (7 sets, daily range): BP systolic 142–168; BP diastolic 60–74
[2021-11-24] MEDS: PIPERACILLIN/TAZOBACTAM 3.375 GM in SODIUM CHLORIDE 0.9% 50ML 50 ML IV SCH ×4 (00:44→21:00)
[2021-11-24] MEDS ORDERED: SODIUM CHLORIDE 0.9% 250ML 250 ML ONE (00:51)
[2021-11-24 05:49] LABS: BASOPHILS % 0.3 % (0.0-1.0); EOSINOPHILS % 0.1 % (0.0-6.0); HEMATOCRIT 39.7 % (34.2-44.1); HEMOGLOBIN 13.7 g/dL (12.0-16.0); LYMPHOCYTES # (AUTO) 2.2 (1.0-3.2); LYMPHOCYTES % 15.1 % (18.0-39.1); MEAN CORPUSCULAR HEMOGLOBIN 32.5 pg (28-32); MEAN CORPUSCULAR HGB CONC 34.5 g/dL (31-35); MEAN CORPUSCULAR VOLUME 94.3 fL (81-99); MONOCYTES % 6.4 % (4.4-11.3); NEUTROPHILS # (AUTO) 11.4 (2.1-6.9); NEUTROPHILS % 76.9 % (38.7-80.0); PLATELET COUNT 360 x10e3/uL (140-360); RED BLOOD COUNT 4.21 x10e6/uL (3.6-5.1); RED CELL DISTRIBUTION WIDTH 12.4 % (11.7-14.4)
[2021-11-24] MEDS ORDERED: NIFEDIPINE CR 30 MG TAB PO SCH ×2 (06:00)
[2021-11-24 06:15] LABS: ANION GAP 15.3 mmol/L (8-16); CALCIUM 8.2 mg/dL (8.4-10.2); CREATININE, SERUM 0.94 mg/dL (0.57-1.11); POTASSIUM 3.3 mmol/L (3.5-5.1)
[2021-11-24] MEDS: PANTOPRAZOLE SOD 40 MG TABEC PO SCH (07:30)
[2021-11-24] MEDS: SPIRONOLACTONE 25 MG TAB PO SCH ×2 (08:00→12:00)
[2021-11-24] MEDS: FUROSEMIDE INJ 10 MG/ML 4 ML VIAL IV SCH ×2 (08:00→12:00)
[2021-11-24] MEDS ORDERED: PANTOPRAZOLE SOD 40 MG TABEC PO SCH (09:00)
[2021-11-24] MEDS: METOPROLOL TARTRATE 50 MG TAB PO SCH ×2 (09:00→18:09)
[2021-11-24] MEDS ORDERED: POTASSIUM CHLORIDE 10MEQ EA PO NR (10:15)
[2021-11-24] MEDS: ASPIRIN 81 MG CHEW TAB PO SCH (13:01)
[2021-11-24] MEDS: FERROUS SULFATE 325 MG TAB PO SCH (13:02)
[2021-11-24] MEDS ORDERED: POTASSIUM CHLORIDE 20 MEQ TAB CR PO ONE (15:12)
[2021-11-24] MEDS: NIFEDIPINE CR 30 MG TAB PO SCH (21:00)
[2021-11-24] MEDS: SIMVASTATIN 20 MG TAB PO SCH (21:00)
[2021-11-25] VITALS (7 sets, daily range): BP systolic 114–142; BP diastolic 69–83
[2021-11-25 05:50] LABS: BASOPHILS # (AUTO) 0.1 (0.0-0.1); BASOPHILS % 0.7 % (0.0-1.0); EOSINOPHILS # (AUTO) 0.2 (0.0-0.4); HEMATOCRIT 42.8 % (34.2-44.1); HEMOGLOBIN 14.4 g/dL (12.0-16.0); LYMPHOCYTES # (AUTO) 2.9 (1.0-3.2); MEAN CORPUSCULAR HEMOGLOBIN 32.1 pg (28-32); MEAN CORPUSCULAR HGB CONC 33.6 g/dL (31-35); MEAN CORPUSCULAR VOLUME 95.5 fL (81-99); MONOCYTES # (AUTO) 1.4 (0.2-0.8); MONOCYTES % 8.8 % (4.4-11.3); NEUTROPHILS # (AUTO) 11.5 (2.1-6.9); NEUTROPHILS % 70.6 % (38.7-80.0); PLATELET COUNT 374 x10e3/uL (140-360); RED BLOOD COUNT 4.48 x10e6/uL (3.6-5.1); RED CELL DISTRIBUTION WIDTH 12.4 % (11.7-14.4)
[2021-11-25 06:25] LABS: MAGNESIUM 1.7 MG/DL (1.3-2.1); PHOSPHORUS 3.7 MG/DL (2.3-4.7)
[2021-11-25 06:29] LABS: ANION GAP 18.4 mmol/L (8-16); CALCIUM 9.2 mg/dL (8.4-10.2); CREATININE, SERUM 0.98 mg/dL (0.57-1.11); POTASSIUM 3.4 mmol/L (3.5-5.1)
[2021-11-25 06:50] LABS: THYROID STIMULATING HORMONE 2.249 uIU/mL (0.350-4.940)
[2021-11-25] MEDS: PANTOPRAZOLE SOD 40 MG TABEC PO SCH (07:30)
[2021-11-25] MEDS: FUROSEMIDE INJ 10 MG/ML 4 ML VIAL IV SCH ×2 (08:00→12:00)
[2021-11-25] MEDS: SPIRONOLACTONE 25 MG TAB PO SCH ×2 (08:00→12:00)
[2021-11-25] MEDS ORDERED: MAGNESIUM SULFATE 2GM/50ML IV ONE (08:45)
[2021-11-25] MEDS: NIFEDIPINE CR 30 MG TAB PO SCH ×2 (09:00→22:15)
[2021-11-25] MEDS: ASPIRIN 81 MG CHEW TAB PO SCH (09:00)
[2021-11-25] MEDS: POTASSIUM CHLORIDE 10MEQ EA PO SCH ×2 (09:00→16:42)
[2021-11-25] MEDS: METOPROLOL TARTRATE 50 MG TAB PO SCH ×2 (09:00→17:00)
[2021-11-25] MEDS: FERROUS SULFATE 325 MG TAB PO SCH (09:00)
[2021-11-25] MEDS ORDERED: MAGNESIUM SULFATE 2GM/50ML 50 ML IV ONE (09:30)
[2021-11-25] MEDS ORDERED: POTASSIUM CHLORIDE 10MEQ EA PO ONE (09:30)
[2021-11-25] MEDS ORDERED: ONDANSETRON HCL 4 MG ORAL DISINTEGRATING TAB PO PRN (09:45)
[2021-11-25] MEDS: PIPERACILLIN/TAZOBACTAM 3.375 GM in SODIUM CHLORIDE 0.9% 50ML 50 ML IV SCH ×2 (14:00→22:15)
[2021-11-25] MEDS: SIMVASTATIN 20 MG TAB PO SCH (22:15)
[2021-11-26] VITALS (9 sets, daily range): BP systolic 126–168; BP diastolic 67–76
[2021-11-26] MEDS: PIPERACILLIN/TAZOBACTAM 3.375 GM in SODIUM CHLORIDE 0.9% 50ML 50 ML IV SCH (06:10)
[2021-11-26] MEDS: PANTOPRAZOLE SOD 40 MG TABEC PO SCH (07:30)
[2021-11-26] MEDS: FUROSEMIDE INJ 10 MG/ML 4 ML VIAL IV SCH (08:00)
[2021-11-26] MEDS: SPIRONOLACTONE 25 MG TAB PO SCH ×2 (08:00→12:00)
[2021-11-26] MEDS: POTASSIUM CHLORIDE 10MEQ EA PO SCH ×2 (09:00→16:33)
[2021-11-26] MEDS: ASPIRIN 81 MG CHEW TAB PO SCH (09:00)
[2021-11-26] MEDS: FERROUS SULFATE 325 MG TAB PO SCH (09:00)
[2021-11-26] MEDS: NIFEDIPINE CR 30 MG TAB PO SCH ×2 (09:00→21:19)
[2021-11-26] MEDS: METOPROLOL TARTRATE 50 MG TAB PO SCH ×2 (09:00→16:33)
[2021-11-26 10:55] LABS: ANION GAP 16.7 mmol/L (8-16); CALCIUM 9.1 mg/dL (8.4-10.2); CREATININE, SERUM 0.97 mg/dL (0.57-1.11); POTASSIUM 3.7 mmol/L (3.5-5.1)
[2021-11-26] MEDS: FUROSEMIDE 40 MG TAB PO SCH (12:00)
[2021-11-26] MEDS: Cefazolin 1 GM in SODIUM CHLORIDE 0.9% 50ML 50 ML IV SCH ×2 (13:43→21:18)
[2021-11-26] MEDS: SIMVASTATIN 20 MG TAB PO SCH (21:19)
[2021-11-27 00:32] VITALS: BP 129/69
[2021-11-27 04:20] VITALS: BP 136/77
[2021-11-27 05:04] LABS: BASOPHILS # (AUTO) 0.1 (0.0-0.1); BASOPHILS % 0.4 % (0.0-1.0); EOSINOPHILS # (AUTO) 0.1 (0.0-0.4); EOSINOPHILS % 0.9 % (0.0-6.0); HEMATOCRIT 41.3 % (34.2-44.1); HEMOGLOBIN 14.3 g/dL (12.0-16.0); LYMPHOCYTES # (AUTO) 2.1 (1.0-3.2); LYMPHOCYTES % 16.5 % (18.0-39.1); MEAN CORPUSCULAR HEMOGLOBIN 32.8 pg (28-32); MEAN CORPUSCULAR HGB CONC 34.6 g/dL (31-35); MEAN CORPUSCULAR VOLUME 94.7 fL (81-99); MONOCYTES # (AUTO) 1.1 (0.2-0.8); MONOCYTES % 8.5 % (4.4-11.3); NEUTROPHILS # (AUTO) 9.4 (2.1-6.9); PLATELET COUNT 286 x10e3/uL (140-360); RED BLOOD COUNT 4.36 x10e6/uL (3.6-5.1); RED CELL DISTRIBUTION WIDTH 12.4 % (11.7-14.4)
[2021-11-27 06:09] LABS: ANION GAP 15.1 mmol/L (8-16); CALCIUM 9.2 mg/dL (8.4-10.2); CREATININE, SERUM 0.96 mg/dL (0.57-1.11); POTASSIUM 3.1 mmol/L (3.5-5.1)
[2021-11-27 08:45] VITALS: BP 129/83
[2021-11-27 08:47] VITALS: BP 129/83
[2021-11-27] MEDS: Cefazolin 1 GM in SODIUM CHLORIDE 0.9% 50ML 50 ML IV SCH (09:15)
[2021-11-27] MEDS: POTASSIUM CHLORIDE 10MEQ EA PO SCH (09:18)
[2021-11-27] MEDS: SPIRONOLACTONE 25 MG TAB PO SCH ×2 (09:18→12:01)
[2021-11-27] MEDS: FUROSEMIDE 40 MG TAB PO SCH ×2 (09:18→12:01)
[2021-11-27] MEDS: ASPIRIN 81 MG CHEW TAB PO SCH (09:18)
[2021-11-27] MEDS: FERROUS SULFATE 325 MG TAB PO SCH (09:18)
[2021-11-27] MEDS: PANTOPRAZOLE SOD 40 MG TABEC PO SCH (09:18)
[2021-11-27] MEDS: METOPROLOL TARTRATE 50 MG TAB PO SCH (09:19)
[2021-11-27] MEDS: NIFEDIPINE CR 30 MG TAB PO SCH (09:19)
[2021-11-27] MEDS ORDERED: POTASSIUM CHLORIDE 10MEQ EA PO ONE (11:15)
[2021-11-27 12:26] VITALS: BP 131/73
[2021-11-27] MEDS ORDERED: KEFLEX125 MG/5 M PO (12:27)
[2021-11-27] MEDS ORDERED: ONDANSETRON ODT4 MG PO (12:27)
[2021-11-27] MEDS ORDERED: DIFLUCAN100 MG PO (12:27)
[2021-11-27 16:19] VITALS: BP 119/66
== END 2021-11-27 13:06 | disposition home or self-care (01) | DRG 872 ==
LOC: ER 12:16 → ERHOLD 14:39 → MED/SURG2 15:01
PROVIDERS: ADMIT Internal Medicine; ATTEND Internal Medicine
DX: A41.9 Sepsis, unspecified organism (principal); L03.116 Cellulitis of left lower limb; L03.115 Cellulitis of right lower limb; N39.0 Urinary tract infection, site not specified; I13.0 Hypertensive heart and chronic kidney disease with heart failure and stage 1 through stage 4 chronic kidney disease, or unspecified chronic kidney disease; I50.9 Heart failure, unspecified; R65.20 Severe sepsis without septic shock; T37.8X5A Adverse effect of other specified systemic anti-infectives and antiparasitics, initial encounter; Z88.8 Allergy status to other drugs, medicaments and biological substances; N18.9 Chronic kidney disease, unspecified; Z86.73 Personal history of transient ischemic attack (TIA), and cerebral infarction without residual deficits; Z90.49 Acquired absence of other specified parts of digestive tract
CPT/HCPCS: 36415; 71045; 80048; 80053; 81001; 83605; 83735; 83880; 84100; 84443; 84484; 85025; 87040; 87086; 93005; 93306; 93970; 94799; 99284; J0690; J0696; J1940; J2543; J3475; J7030; J7050; U0002

== ENCOUNTER 2021-12-01 20:50 | Inpatient (IN) | payer MEDICARE, OTHER ==
[~2021-12-01] VITALS: Ht 154.9 cm; Wt 47.2 kg
[~2021-12-01 20:50] MED LIST changes: +ASPIRIN CHEW81 MG PO; +AZO CRANBERRY250 MG PO; +CRESTOR5 MG PO; +DIFLUCAN100 MG PO; +KEFLEX125 MG/5 M PO; +LASIX40 MG PO; +ONDANSETRON ODT4 MG PO; +PROTONIX20 MG PO; +VITAMIN D310 MCG
[2021-12-01 21:43] LABS: BASOPHILS # (AUTO) 0.1 (0.0-0.1); BASOPHILS % 0.5 % (0.0-1.0); EOSINOPHILS % 0.1 % (0.0-6.0); HEMATOCRIT 35.8 % (34.2-44.1); HEMOGLOBIN 12.9 g/dL (12.0-16.0); LYMPHOCYTES # (AUTO) 1.9 (1.0-3.2); LYMPHOCYTES % 15.4 % (18.0-39.1); MEAN CORPUSCULAR HEMOGLOBIN 32.6 pg (28-32); MEAN CORPUSCULAR VOLUME 90.4 fL (81-99); MONOCYTES # (AUTO) 1.2 (0.2-0.8); MONOCYTES % 9.6 % (4.4-11.3); NEUTROPHILS # (AUTO) 9.2 (2.1-6.9); NEUTROPHILS % 73.5 % (38.7-80.0); PLATELET COUNT 331 x10e3/uL (140-360); RED BLOOD COUNT 3.96 x10e6/uL (3.6-5.1); RED CELL DISTRIBUTION WIDTH 11.9 % (11.7-14.4)
[2021-12-01 21:57] LABS: ALBUMIN 2.9 g/dL (3.5-5.0); ALBUMIN/GLOBULIN RATIO 0.8 (0.8-2.0); CALCIUM 9.5 mg/dL (8.4-10.2); CREATININE, SERUM 1.56 mg/dL (0.57-1.11)
[2021-12-01 22:04] LABS: CREATINE KINASE MB 1.7 ng/mL (0-5.0)
[2021-12-01 22:09] LABS: B-TYPE NATRIURETIC PEPTIDE2 127.3 pg/mL (0-100)
[2021-12-01 22:26] LABS: BACTERIA,URINE FEW /HPF; CLARITY,URINE SL CLOUDY (CLEAR); COLOR,URINE YELLOW (YELLOW); EPITHELIAL CELLS,URINE MODERATE /LPF; KETONES,URINE NEGATIVE (NEGATIVE); LEUKOCYTE ESTERASE ,URINE NEGATIVE (NEGATIVE); NITRITE,URINE NEGATIVE (NEGATIVE); PROTEIN,URINE DIPSTICK NEGATIVE (NEGATIVE); URINE UROBILINOGEN 0.2 mg/dL (0.2 - 1); WBC,URINE (MAN) 0-5 /HPF (0-5)
[2021-12-01] MEDS ORDERED: ASPIRIN 81 MG CHEW TAB PO ONE (23:30)
[2021-12-01 23:55] VITALS: BP 131/72
[2021-12-02] VITALS (7 sets, daily range): BP systolic 111–125; BP diastolic 60–66
[2021-12-02] MEDS: SODIUM CHLORIDE 0.9% 1000ML 1,000 ML IV SCH ×2 (00:30→09:45)
[2021-12-02 05:48] LABS: BASOPHILS % 0.4 % (0.0-1.0); EOSINOPHILS % 0.2 % (0.0-6.0); HEMATOCRIT 33.6 % (34.2-44.1); HEMOGLOBIN 11.8 g/dL (12.0-16.0); LYMPHOCYTES # (AUTO) 1.3 (1.0-3.2); LYMPHOCYTES % 13.9 % (18.0-39.1); MEAN CORPUSCULAR HEMOGLOBIN 32.1 pg (28-32); MEAN CORPUSCULAR HGB CONC 35.1 g/dL (31-35); MEAN CORPUSCULAR VOLUME 91.3 fL (81-99); MONOCYTES % 10.3 % (4.4-11.3); NEUTROPHILS # (AUTO) 6.9 (2.1-6.9); NEUTROPHILS % 74.5 % (38.7-80.0); PLATELET COUNT 293 x10e3/uL (140-360); RED BLOOD COUNT 3.68 x10e6/uL (3.6-5.1)
[2021-12-02 06:12] LABS: ALBUMIN 2.4 g/dL (3.5-5.0); ALBUMIN/GLOBULIN RATIO 0.8 (0.8-2.0); ANION GAP 16.1 mmol/L (8-16); CALCIUM 8.7 mg/dL (8.4-10.2); CREATININE, SERUM 1.14 mg/dL (0.57-1.11); POTASSIUM 3.1 mmol/L (3.5-5.1)
[2021-12-02 07:03] LABS: CREATINE KINASE MB 1.3 ng/mL (0-5.0)
[2021-12-02] MEDS ORDERED: KCL 20MEQ/.9 SOD CHL 1,000 ML IV ONE (11:30)
[2021-12-02] MEDS: Aztreonam 1 GM in SODIUM CHLORIDE 0.9% 50ML 50 ML IV SCH ×2 (12:22→21:30)
[2021-12-02 15:01] LABS: CREATINE KINASE MB 1.3 ng/mL (0-5.0)
[2021-12-02] MEDS ORDERED: ACETAMINOPHEN 325 MG TAB PO PRN (17:45)
[2021-12-03] VITALS (9 sets, daily range): BP systolic 104–140; BP diastolic 60–75
[2021-12-03 06:09] LABS: BASOPHILS % 0.6 % (0.0-1.0); EOSINOPHILS # (AUTO) 0.1 (0.0-0.4); EOSINOPHILS % 0.9 % (0.0-6.0); HEMATOCRIT 31.5 % (34.2-44.1); LYMPHOCYTES # (AUTO) 1.1 (1.0-3.2); LYMPHOCYTES % 16.5 % (18.0-39.1); MEAN CORPUSCULAR HEMOGLOBIN 32.7 pg (28-32); MEAN CORPUSCULAR HGB CONC 34.9 g/dL (31-35); MEAN CORPUSCULAR VOLUME 93.8 fL (81-99); MONOCYTES # (AUTO) 0.7 (0.2-0.8); MONOCYTES % 10.2 % (4.4-11.3); NEUTROPHILS # (AUTO) 4.7 (2.1-6.9); NEUTROPHILS % 71.2 % (38.7-80.0); PLATELET COUNT 305 x10e3/uL (140-360); RED BLOOD COUNT 3.36 x10e6/uL (3.6-5.1); RED CELL DISTRIBUTION WIDTH 12.2 % (11.7-14.4)
[2021-12-03] MEDS: Aztreonam 1 GM in SODIUM CHLORIDE 0.9% 50ML 50 ML IV SCH ×2 (06:24→13:45)
[2021-12-03 06:34] LABS: ALBUMIN 2.1 g/dL (3.5-5.0); ALBUMIN/GLOBULIN RATIO 0.8 (0.8-2.0); ANION GAP 13.4 mmol/L (8-16); CALCIUM 8.2 mg/dL (8.4-10.2); CREATININE, SERUM 0.71 mg/dL (0.57-1.11); POTASSIUM 3.4 mmol/L (3.5-5.1)
[2021-12-03] MEDS ORDERED: ONDANSETRON HCL INJ 2MG/ML 2ML 2 MG/ML VIAL IV PRN (11:15)
[2021-12-03] MEDS ORDERED: POTASSIUM CHLORIDE 10MEQ EA PO ONE (12:30)
[2021-12-03] MEDS ORDERED: SODIUM CHLORIDE 0.9% 250ML 250 ML ONE (14:01)
[2021-12-03] MEDS ORDERED: FLUCONAZOLE 400MG/200ML BAG 200 ML IV SCH (21:00)
[2021-12-04] VITALS: BP 122/69
[2021-12-04 04:00] VITALS: BP 127/58
[2021-12-04 07:44] VITALS: BP 119/67
[2021-12-04 07:56] VITALS: BP 119/67
[2021-12-04] MEDS ORDERED: BALSAM PERU/CASTOR OIL 60 GM OINT...G. TP SCH (09:00)
== END 2021-12-04 13:03 | disposition home or self-care (01) | DRG 872 ==
LOC: ER 21:14 → ERHOLD 23:22 → MED/SURG2 23:50 → OBSVTOIN 12-02 11:28
PROVIDERS: ADMIT Internal Medicine; ATTEND Internal Medicine
DX: A41.9 Sepsis, unspecified organism (principal); E87.1 Hypo-osmolality and hyponatremia; D84.9 Immunodeficiency, unspecified; Z68.1 Body mass index [BMI] 19.9 or less, adult; B37.81 Candidal esophagitis; N39.0 Urinary tract infection, site not specified; J98.11 Atelectasis; E44.0 Moderate protein-calorie malnutrition; R62.7 Adult failure to thrive; I12.9 Hypertensive chronic kidney disease with stage 1 through stage 4 chronic kidney disease, or unspecified chronic kidney disease; N18.9 Chronic kidney disease, unspecified; K21.9 Gastro-esophageal reflux disease without esophagitis; E78.5 Hyperlipidemia, unspecified; M35.3 Polymyalgia rheumatica; Z87.440 Personal history of urinary (tract) infections; Z86.73 Personal history of transient ischemic attack (TIA), and cerebral infarction without residual deficits; Z88.8 Allergy status to other drugs, medicaments and biological substances; I87.8 Other specified disorders of veins; R63.0 Anorexia; F03.90 Unspecified dementia, unspecified severity, without behavioral disturbance, psychotic disturbance, mood disturbance, and anxiety; E87.6 Hypokalemia; R13.10 Dysphagia, unspecified; E86.0 Dehydration; Z20.822 Contact with and (suspected) exposure to COVID-19
CPT/HCPCS: 36415; 51700; 71045; 71250; 74176; 80053; 81001; 82550; 82553; 82607; 82746; 83605; 83880; 84443; 84484; 85025; 87040; 93005; 94799; 96361; 97139; 99251; 99284; G0378; J1450; J2405; J7030; J7050; U0002

== ENCOUNTER 2022-08-13 23:27 | Inpatient (IN) | payer MEDICARE, OTHER ==
[~2022-08-13] VITALS: Ht 154.9 cm; Wt 47.2 kg
[2022-08-14] VITALS (7 sets, daily range): BP systolic 146–184; BP diastolic 57–71
[2022-08-14 00:26] LABS: BASOPHILS # (AUTO) 0.1 (0.0-0.1); BASOPHILS % 0.4 % (0.0-1.0); EOSINOPHILS % 0.3 % (0.0-6.0); HEMATOCRIT 38.9 % (34.2-44.1); HEMOGLOBIN 12.3 g/dL (12.0-16.0); LYMPHOCYTES # (AUTO) 2.6 (1.0-3.2); LYMPHOCYTES % 18.1 % (18.0-39.1); MEAN CORPUSCULAR HEMOGLOBIN 31.5 pg (28-32); MEAN CORPUSCULAR HGB CONC 31.6 g/dL (31-35); MEAN CORPUSCULAR VOLUME 99.5 fL (81-99); MONOCYTES # (AUTO) 1.7 (0.2-0.8); MONOCYTES % 11.9 % (4.4-11.3); NEUTROPHILS # (AUTO) 9.7 (2.1-6.9); NEUTROPHILS % 68.8 % (38.7-80.0); PLATELET COUNT 387 x10e3/uL (140-360); RED BLOOD COUNT 3.91 x10e6/uL (3.6-5.1); RED CELL DISTRIBUTION WIDTH 12.7 % (11.7-14.4)
[2022-08-14 00:40] LABS: ALBUMIN 3.3 g/dL (3.5-5.0); ALBUMIN/GLOBULIN RATIO 1.1 (0.8-2.0); ANION GAP 16.6 mmol/L (8-16); CALCIUM 8.9 mg/dL (8.4-10.2); CREATININE, SERUM 0.81 mg/dL (0.57-1.11); POTASSIUM 3.6 mmol/L (3.5-5.1)
[2022-08-14 00:46] LABS: CREATINE KINASE MB 3.3 ng/mL (0-5.0)
[2022-08-14 01:49] LABS: CLARITY,URINE CLOUDY (CLEAR); COLOR,URINE YELLOW (YELLOW); KETONES,URINE NEGATIVE (NEGATIVE); LEUKOCYTE ESTERASE ,URINE NEGATIVE (NEGATIVE); NITRITE,URINE NEGATIVE (NEGATIVE); PROTEIN,URINE DIPSTICK NEGATIVE (NEGATIVE); URINE UROBILINOGEN 0.2 mg/dL (0.2 - 1)
[2022-08-14 02:03] LABS: BACTERIA,URINE FEW /HPF; EPITHELIAL CELLS,URINE FEW /LPF; MUCUS,URINE FEW (RARE); WBC,URINE (MAN) 0-5 /HPF (0-5)
[2022-08-14] MEDS ORDERED: METOPROLOL TARTRATE INJ 1 MG/ML VIAL IV ONE (02:45)
[2022-08-14] MEDS ORDERED: SODIUM CHLORIDE FLUSH 10 ML SYR INJ PRN (02:45)
[2022-08-14 09:09] LABS: CREATINE KINASE MB 2.3 ng/mL (0-5.0)
[2022-08-14] MEDS ORDERED: ONDANSETRON HCL INJ 2MG/ML 2ML 2 MG/ML VIAL IV PRN (11:00)
[2022-08-14] MEDS ORDERED: HYDRALAZINE HCL 20 MG/ML VIAL IV PRN (11:00)
[2022-08-14] MEDS: METOPROLOL TARTRATE 50 MG TAB PO SCH ×2 (11:36→17:03)
[2022-08-14 16:21] LABS: CREATINE KINASE MB 1.7 ng/mL (0-5.0)
[2022-08-14] MEDS ORDERED: SIMVASTATIN 20 MG TAB PO SCH (21:00)
[2022-08-14] MEDS ORDERED: NIFEDIPINE ER30 M1 PO (22:10)
[2022-08-15] VITALS (8 sets, daily range): BP systolic 124–170; BP diastolic 49–90
[2022-08-15] MEDS: ONDANSETRON HCL INJ 2MG/ML 2ML 2 MG/ML VIAL IV PRN ×2 (00:02→09:14)
[2022-08-15 06:29] LABS: BASOPHILS % 0.3 % (0.0-1.0); EOSINOPHILS % 0.2 % (0.0-6.0); HEMATOCRIT 35.3 % (34.2-44.1); HEMOGLOBIN 11.7 g/dL (12.0-16.0); LYMPHOCYTES # (AUTO) 1.9 (1.0-3.2); LYMPHOCYTES % 14.5 % (18.0-39.1); MEAN CORPUSCULAR HEMOGLOBIN 31.9 pg (28-32); MEAN CORPUSCULAR HGB CONC 33.1 g/dL (31-35); MEAN CORPUSCULAR VOLUME 96.2 fL (81-99); MONOCYTES # (AUTO) 1.5 (0.2-0.8); NEUTROPHILS # (AUTO) 9.3 (2.1-6.9); NEUTROPHILS % 72.4 % (38.7-80.0); PLATELET COUNT 284 x10e3/uL (140-360); RED BLOOD COUNT 3.67 x10e6/uL (3.6-5.1); RED CELL DISTRIBUTION WIDTH 12.8 % (11.7-14.4)
[2022-08-15 08:35] LABS: ALBUMIN 2.5 g/dL (3.5-5.0); ALBUMIN/GLOBULIN RATIO 0.8 (0.8-2.0); ANION GAP 20.3 mmol/L (8-16); CALCIUM 8.6 mg/dL (8.4-10.2); CREATININE, SERUM 0.7 mg/dL (0.57-1.11); POTASSIUM 3.3 mmol/L (3.5-5.1)
[2022-08-15] MEDS: METOPROLOL TARTRATE 50 MG TAB PO SCH ×2 (08:46→16:23)
[2022-08-15] MEDS: ASPIRIN 81 MG CHEW TAB PO SCH (08:47)
[2022-08-15] MEDS ORDERED: FERROUS SULFATE 325 MG TAB PO SCH (09:00)
[2022-08-15] MEDS ORDERED: FUROSEMIDE 40 MG TAB PO SCH (09:00)
[2022-08-15] MEDS ORDERED: PANTOPRAZOLE SOD 40 MG TABEC PO SCH (09:00)
[2022-08-15] MEDS ORDERED: NIFEDIPINE CR 30 MG TAB PO SCH (09:45)
[2022-08-15] MEDS ORDERED: IOPAMIDOL 370 MG/ML 100 ML INFUS..BTL INJ ONE ×2 (10:48→11:21)
[2022-08-15] MEDS: POTASSIUM CHLORIDE 10MEQ EA PO SCH ×2 (11:28→12:39)
[2022-08-15] MEDS: METRONIDAZOLE 500MG/NS 100ML 100 ML IV SCH ×2 (11:29→14:00)
[2022-08-15] MEDS: DEXTROSE 5%/0.45% SOD CHL 1,000 ML IV SCH ×2 (12:39→23:28)
[2022-08-15] MEDS ORDERED: FUROSEMIDE INJ 10 MG/ML 4 ML VIAL IV ONE (16:00)
[2022-08-15] MEDS: ACETAMINOPHEN 325 MG TAB PO PRN (16:24)
[2022-08-15] MEDS ORDERED: METHYLPREDNISOLONE SOD SUCC 40 MG/ML VIAL 1ML IV ONE (18:15)
[2022-08-15] MEDS: ALBUTEROL/IPRATROPIUM 3 ML NEB NEB SCH ×2 (19:10→22:50)
[2022-08-16] VITALS (8 sets, daily range): BP systolic 123–151; BP diastolic 60–70
[2022-08-16] MEDS: ALBUTEROL/IPRATROPIUM 3 ML NEB NEB SCH ×2 (03:30→06:31)
[2022-08-16 07:00] LABS: ANION GAP 15.8 mmol/L (8-16); CALCIUM 8.9 mg/dL (8.4-10.2); CREATININE, SERUM 0.87 mg/dL (0.57-1.11); POTASSIUM 3.8 mmol/L (3.5-5.1)
[2022-08-16 07:09] LABS: MAGNESIUM 1.4 MG/DL (1.3-2.1); PHOSPHORUS 2.5 MG/DL (2.3-4.7)
[2022-08-16] MEDS ORDERED: MAGNESIUM SULFATE 2GM/50ML IV ONE (09:00)
[2022-08-16] MEDS ORDERED: LEVALBUTEROL HCL SOLN NEBU 1.25 MG/3 ML NEB INH PRN (09:00)
[2022-08-16] MEDS: ASPIRIN 81 MG CHEW TAB PO SCH (09:24)
[2022-08-16] MEDS: FUROSEMIDE 40 MG TAB PO SCH (09:25)
[2022-08-16] MEDS: METOPROLOL TARTRATE 50 MG TAB PO SCH ×2 (09:25→17:48)
[2022-08-16] MEDS: NIFEDIPINE CR 30 MG TAB PO SCH (09:26)
[2022-08-16] MEDS ORDERED: MAGNESIUM SULFATE 2GM/50ML 50 ML IV ONE (09:30)
[2022-08-16] MEDS ORDERED: POTASSIUM PHOSPHATE 20 MM in SODIUM CHLORIDE 0.9% 250ML 250 ML IV ONE (11:30)
[2022-08-16] MEDS: LEVALBUTEROL HCL SOLN NEBU 1.25 MG/3 ML NEB INH SCH ×2 (13:05→19:47)
[2022-08-16] MEDS: IPRATROPIUM BROMIDE 0.02% 2.5 ML NEB NEB SCH ×2 (13:05→19:47)
[2022-08-16] MEDS ORDERED: BACITRACIN 50,000 UNIT VIAL IM ONE (16:30)
[2022-08-16] MEDS: BACITRACIN ZINC 15 GM OINT TOP SCH (16:59)
[2022-08-16] MEDS ORDERED: BACITRACIN ZINC 15 GM OINT TOP PRN (17:00)
[2022-08-16] MEDS: ACETAMINOPHEN 325 MG TAB PO PRN (20:24)
[2022-08-17] VITALS (7 sets, daily range): BP systolic 124–138; BP diastolic 57–70
[2022-08-17] MEDS: LEVALBUTEROL HCL SOLN NEBU 1.25 MG/3 ML NEB INH SCH ×4 (01:10→19:55)
[2022-08-17] MEDS: IPRATROPIUM BROMIDE 0.02% 2.5 ML NEB NEB SCH ×4 (01:10→19:55)
[2022-08-17 06:00] LABS: BASOPHILS % 0.2 % (0.0-1.0); HEMATOCRIT 33.2 % (34.2-44.1); LYMPHOCYTES # (AUTO) 1.1 (1.0-3.2); LYMPHOCYTES % 5.5 % (18.0-39.1); MEAN CORPUSCULAR HEMOGLOBIN 30.9 pg (28-32); MEAN CORPUSCULAR HGB CONC 33.1 g/dL (31-35); MEAN CORPUSCULAR VOLUME 93.3 fL (81-99); MONOCYTES # (AUTO) 0.8 (0.2-0.8); MONOCYTES % 4.3 % (4.4-11.3); NEUTROPHILS # (AUTO) 17.1 (2.1-6.9); NEUTROPHILS % 88.9 % (38.7-80.0); PLATELET COUNT 421 x10e3/uL (140-360); RED BLOOD COUNT 3.56 x10e6/uL (3.6-5.1); RED CELL DISTRIBUTION WIDTH 12.6 % (11.7-14.4)
[2022-08-17 06:23] LABS: ALBUMIN 3.4 g/dL (3.5-5.0); ALBUMIN/GLOBULIN RATIO 1.3 (0.8-2.0); ANION GAP 19.7 mmol/L (8-16); CALCIUM 8.8 mg/dL (8.4-10.2); CREATININE, SERUM 1.04 mg/dL (0.57-1.11); MAGNESIUM 2.1 MG/DL (1.3-2.1); PHOSPHORUS 3.8 MG/DL (2.3-4.7); POTASSIUM 3.7 mmol/L (3.5-5.1)
[2022-08-17] MEDS: ASPIRIN 81 MG CHEW TAB PO SCH (09:15)
[2022-08-17] MEDS: METOPROLOL TARTRATE 50 MG TAB PO SCH ×2 (09:16→18:51)
[2022-08-17] MEDS: FUROSEMIDE 40 MG TAB PO SCH (09:16)
[2022-08-17] MEDS: NIFEDIPINE CR 30 MG TAB PO SCH (09:16)
[2022-08-17] MEDS: BACITRACIN ZINC 15 GM OINT TOP SCH (13:19)
[2022-08-18] VITALS (9 sets, daily range): BP systolic 133–169; BP diastolic 42–68
[2022-08-18] MEDS: IPRATROPIUM BROMIDE 0.02% 2.5 ML NEB NEB SCH ×4 (01:20→19:55)
[2022-08-18] MEDS: LEVALBUTEROL HCL SOLN NEBU 1.25 MG/3 ML NEB INH SCH ×4 (01:20→19:55)
[2022-08-18 06:20] LABS: BASOPHILS % 0.2 % (0.0-1.0); EOSINOPHILS % 0.1 % (0.0-6.0); HEMATOCRIT 32.2 % (34.2-44.1); HEMOGLOBIN 10.8 g/dL (12.0-16.0); LYMPHOCYTES # (AUTO) 1.5 (1.0-3.2); MEAN CORPUSCULAR HEMOGLOBIN 31.3 pg (28-32); MEAN CORPUSCULAR HGB CONC 33.5 g/dL (31-35); MEAN CORPUSCULAR VOLUME 93.3 fL (81-99); MONOCYTES # (AUTO) 1.1 (0.2-0.8); MONOCYTES % 9.5 % (4.4-11.3); NEUTROPHILS # (AUTO) 8.6 (2.1-6.9); NEUTROPHILS % 76.6 % (38.7-80.0); PLATELET COUNT 401 x10e3/uL (140-360); RED BLOOD COUNT 3.45 x10e6/uL (3.6-5.1); RED CELL DISTRIBUTION WIDTH 12.9 % (11.7-14.4)
[2022-08-18 06:24] LABS: ANION GAP 16.2 mmol/L (8-16); CALCIUM 8.7 mg/dL (8.4-10.2); CREATININE, SERUM 0.83 mg/dL (0.57-1.11); POTASSIUM 3.2 mmol/L (3.5-5.1)
[2022-08-18] MEDS: NIFEDIPINE CR 30 MG TAB PO SCH (08:23)
[2022-08-18] MEDS: FUROSEMIDE 40 MG TAB PO SCH (08:23)
[2022-08-18] MEDS: ASPIRIN 81 MG CHEW TAB PO SCH (08:24)
[2022-08-18] MEDS: METOPROLOL TARTRATE 50 MG TAB PO SCH ×2 (08:24→15:48)
[2022-08-18] MEDS ORDERED: POTASSIUM CHLORIDE 20 MEQ TAB CR PO ONE (15:00)
[2022-08-18] MEDS: BACITRACIN ZINC 15 GM OINT TOP SCH (15:50)
[2022-08-19] VITALS (7 sets, daily range): BP systolic 158–169; BP diastolic 63–69
[2022-08-19] MEDS: IPRATROPIUM BROMIDE 0.02% 2.5 ML NEB NEB SCH ×4 (02:26→19:10)
[2022-08-19] MEDS: LEVALBUTEROL HCL SOLN NEBU 1.25 MG/3 ML NEB INH SCH ×4 (02:26→19:10)
[2022-08-19 05:54] LABS: BASOPHILS # (AUTO) 0.1 (0.0-0.1); BASOPHILS % 0.5 % (0.0-1.0); EOSINOPHILS # (AUTO) 0.2 (0.0-0.4); EOSINOPHILS % 1.9 % (0.0-6.0); HEMATOCRIT 33.7 % (34.2-44.1); HEMOGLOBIN 11.1 g/dL (12.0-16.0); LYMPHOCYTES # (AUTO) 2.1 (1.0-3.2); LYMPHOCYTES % 21.1 % (18.0-39.1); MEAN CORPUSCULAR HEMOGLOBIN 31.4 pg (28-32); MEAN CORPUSCULAR HGB CONC 32.9 g/dL (31-35); MEAN CORPUSCULAR VOLUME 95.5 fL (81-99); MONOCYTES # (AUTO) 0.9 (0.2-0.8); MONOCYTES % 9.1 % (4.4-11.3); NEUTROPHILS # (AUTO) 6.7 (2.1-6.9); NEUTROPHILS % 66.7 % (38.7-80.0); PLATELET COUNT 404 x10e3/uL (140-360); RED BLOOD COUNT 3.53 x10e6/uL (3.6-5.1); RED CELL DISTRIBUTION WIDTH 13.1 % (11.7-14.4)
[2022-08-19 06:08] LABS: ANION GAP 17.6 mmol/L (8-16); CALCIUM 8.5 mg/dL (8.4-10.2); CREATININE, SERUM 0.79 mg/dL (0.57-1.11); POTASSIUM 3.6 mmol/L (3.5-5.1)
[2022-08-19] MEDS: BACITRACIN ZINC 15 GM OINT TOP SCH (09:02)
[2022-08-19] MEDS: NIFEDIPINE CR 30 MG TAB PO SCH (09:03)
[2022-08-19] MEDS: FUROSEMIDE 40 MG TAB PO SCH (09:03)
[2022-08-19] MEDS: METOPROLOL TARTRATE 50 MG TAB PO SCH ×2 (09:04→16:20)
[2022-08-19] MEDS: ASPIRIN 81 MG CHEW TAB PO SCH (09:04)
[2022-08-19] MEDS: BUDESONIDE 0.5MG/2 ML NEB INH SCH ×2 (15:10→19:25)
[2022-08-20] VITALS: BP 156/69
[2022-08-20] MEDS: LEVALBUTEROL HCL SOLN NEBU 1.25 MG/3 ML NEB INH SCH ×3 (01:45→12:45)
[2022-08-20] MEDS: IPRATROPIUM BROMIDE 0.02% 2.5 ML NEB NEB SCH ×3 (01:45→12:45)
[2022-08-20 04:00] VITALS: BP 167/82
[2022-08-20] MEDS: BUDESONIDE 0.5MG/2 ML NEB INH SCH (06:05)
[2022-08-20 07:51] VITALS: BP 151/71
[2022-08-20 09:00] VITALS: BP 151/71
[2022-08-20] MEDS: METOPROLOL TARTRATE 50 MG TAB PO SCH (09:25)
[2022-08-20] MEDS: NIFEDIPINE CR 30 MG TAB PO SCH (09:26)
[2022-08-20] MEDS: FUROSEMIDE 40 MG TAB PO SCH (09:26)
[2022-08-20] MEDS: ASPIRIN 81 MG CHEW TAB PO SCH (09:26)
[2022-08-20] MEDS ORDERED: ONDANSETRON HCL 4 MG ORAL DISINTEGRATING TAB PO PRN (09:30)
[2022-08-20 11:20] VITALS: BP 154/74
[2022-08-20] MEDS ORDERED: AZITHROMYCIN 250 MG TAB PO SCH (15:15)
[2022-08-20 15:41] VITALS: BP 151/76
[2022-08-20] MEDS ORDERED: ZITHROMAX500 MG PO (15:46)
[2022-08-20] MEDS ORDERED: CEFDINIR300 MG PO (15:47)
[2022-08-21] MEDS ORDERED: PANTOPRAZOLE SOD 40 MG TABEC PO SCH (07:30)
== END 2022-08-20 17:00 | disposition home or self-care (01) | DRG 193 ==
LOC: ER 23:35 → ERHOLD 08-14 02:45 → MED/SURG2 08-14 07:49 → OBSVTOIN 08-14 10:51
PROVIDERS: ADMIT Internal Medicine; ATTEND Internal Medicine
DX: J18.9 Pneumonia, unspecified organism (principal); G92.8 Other toxic encephalopathy; N39.0 Urinary tract infection, site not specified; E44.0 Moderate protein-calorie malnutrition; Z68.1 Body mass index [BMI] 19.9 or less, adult; I16.0 Hypertensive urgency; I10 Essential (primary) hypertension; J45.909 Unspecified asthma, uncomplicated; K21.9 Gastro-esophageal reflux disease without esophagitis; Z87.440 Personal history of urinary (tract) infections; M79.7 Fibromyalgia; M19.91 Primary osteoarthritis, unspecified site; E87.6 Hypokalemia; T37.3X5A Adverse effect of other antiprotozoal drugs, initial encounter; F01.50 Vascular dementia, unspecified severity, without behavioral disturbance, psychotic disturbance, mood disturbance, and anxiety; K57.90 Diverticulosis of intestine, part unspecified, without perforation or abscess without bleeding; Z86.73 Personal history of transient ischemic attack (TIA), and cerebral infarction without residual deficits; I11.0 Hypertensive heart disease with heart failure; I50.9 Heart failure, unspecified
CPT/HCPCS: 36415; 70450; 70551; 71045; 71260; 74177; 80048; 80053; 81001; 82550; 82553; 83735; 84100; 84484; 85025; 87040; 87086; 93005; 94640; 94799; 99251; 99285; J0360; J0456; J0696; J1940; J2405; J2920; J3475; J7050; Q9967

== ENCOUNTER 2022-10-25 11:29 | Emergency (ER) | payer MEDICARE ==
[~2022-10-25] VITALS: Ht 154.9 cm; Wt 44.0 kg
[~2022-10-25 11:29] MED LIST changes: +BUDESONIDE EC3 MG PO; +CEFDINIR300 MG PO; -VITAMIN D310 MCG; +VITAMIN D310 MCG PO; +ZITHROMAX500 MG PO
[2022-10-25] MEDS ORDERED: BACTRIM DS TAB1 EACH PO (11:51)
[2022-10-25] MEDS ORDERED: CEPHALEXIN500 MG PO (11:51)
== END 2022-10-25 11:55 | disposition home or self-care (01) ==
LOC: FSED 11:50
DX: L03.116 Cellulitis of left lower limb (principal); L03.115 Cellulitis of right lower limb; I12.9 Hypertensive chronic kidney disease with stage 1 through stage 4 chronic kidney disease, or unspecified chronic kidney disease; N18.9 Chronic kidney disease, unspecified; Z88.1 Allergy status to other antibiotic agents; Z79.82 Long term (current) use of aspirin; Z79.899 Other long term (current) drug therapy; Z86.73 Personal history of transient ischemic attack (TIA), and cerebral infarction without residual deficits; Z87.440 Personal history of urinary (tract) infections
CPT/HCPCS: 99282

== ENCOUNTER 2022-12-21 17:02 | Emergency (ER) | payer MEDICARE ==
[~2022-12-21] VITALS: Ht 154.9 cm; Wt 47.2 kg
[~2022-12-21 17:02] MED LIST changes: +BACTRIM DS TAB1 EACH PO; +CEPHALEXIN500 MG PO
[2022-12-21] MEDS ORDERED: FUROSEMIDE INJ 10 MG/ML 2 ML VIAL IV ONE (17:45)
[2022-12-21] MEDS ORDERED: FUROSEMIDE INJ 10 MG/ML 4 ML VIAL ONE (17:48)
[2022-12-21] MEDS ORDERED: TAMIFLU75 MG PO (19:42)
[2022-12-21] MEDS ORDERED: AMOXICILLIN500 MG PO (19:42)
[2022-12-21 19:54] VITALS: BP 179/80
== END 2022-12-21 19:54 | disposition home or self-care (01) ==
LOC: FSED 17:08
DX: R05.9 Cough, unspecified (principal); J10.1 Influenza due to other identified influenza virus with other respiratory manifestations; I50.9 Heart failure, unspecified; N28.9 Disorder of kidney and ureter, unspecified; I10 Essential (primary) hypertension; E78.5 Hyperlipidemia, unspecified; M54.9 Dorsalgia, unspecified; G89.29 Other chronic pain; Z86.73 Personal history of transient ischemic attack (TIA), and cerebral infarction without residual deficits
CPT/HCPCS: 71046; 80048; 81003; 82553; 83518; 83880; 84484; 85025; 87400; 93005; 99283; J1940

== ENCOUNTER 2023-02-20 23:33 | Observation (INO) | payer MEDICARE ==
[~2023-02-20] VITALS: Ht 152.4 cm; Wt 46.3 kg
[~2023-02-20 23:33] MED LIST changes: +AMOXICILLIN500 MG PO; +TAMIFLU75 MG PO
[2023-02-21 00:24] LABS: BASOPHILS # (AUTO) 0.1 (0.0-0.1); BASOPHILS % 0.5 % (0.0-1.0); EOSINOPHILS # (AUTO) 0.1 (0.0-0.4); EOSINOPHILS % 0.8 % (0.0-6.0); HEMATOCRIT 39.9 % (34.2-44.1); HEMOGLOBIN 13.3 g/dL (12.0-16.0); LYMPHOCYTES % 15.2 % (18.0-39.1); MEAN CORPUSCULAR HEMOGLOBIN 32.4 pg (28-32); MEAN CORPUSCULAR HGB CONC 33.3 g/dL (31-35); MEAN CORPUSCULAR VOLUME 97.1 fL (81-99); MONOCYTES # (AUTO) 1.1 (0.2-0.8); MONOCYTES % 8.3 % (4.4-11.3); NEUTROPHILS # (AUTO) 9.8 (2.1-6.9); NEUTROPHILS % 74.7 % (38.7-80.0); PLATELET COUNT 397 x10e3/uL (140-360); RED BLOOD COUNT 4.11 x10e6/uL (3.6-5.1); RED CELL DISTRIBUTION WIDTH 12.4 % (11.7-14.4)
[2023-02-21 00:36] LABS: INR 0.94; PARTIAL THROMBOPLASTIN TIME 26.7 seconds (23.8-35.5); PROTHROMBIN TIME 13.1 seconds (11.9-14.5)
[2023-02-21 00:48] LABS: ALBUMIN 3.7 g/dL (3.5-5.0); ALBUMIN/GLOBULIN RATIO 1.2 (0.8-2.0); ANION GAP 14.8 mmol/L (8-16); CALCIUM 9.6 mg/dL (8.4-10.2); CREATININE, SERUM 1.51 mg/dL (0.57-1.11); POTASSIUM 3.8 mmol/L (3.5-5.1)
[2023-02-21] MEDS ORDERED: SODIUM CHLORIDE 0.9% 500ML 500 ML IV ONE (01:00)
[2023-02-21] MEDS ORDERED: IOPAMIDOL 370 MG/ML 100 ML INFUS..BTL INJ ONE ×2 (01:01→02:25)
[2023-02-21] MEDS ORDERED: SODIUM CHLORIDE 0.9% 1000ML 1,000 ML IV SCH (02:30)
[2023-02-21] MEDS: HYDRALAZINE HCL 20 MG/ML VIAL IV PRN (02:47)
[2023-02-21] MEDS ORDERED: ONDANSETRON HCL INJ 2MG/ML 2ML 2 MG/ML VIAL IV STA (03:13)
[2023-02-21 08:20] VITALS: BP 203/64; PULSE 77; RESP 19; TEMP 97.9; O2SAT 98
[2023-02-21 08:34] VITALS: BP 203/64; PULSE 72; RESP 16; TEMP 97.9; O2SAT 98
[2023-02-21] MEDS ORDERED: HYDRALAZINE HCL 20 MG/ML VIAL IV PRN (09:00)
[2023-02-21] MEDS ORDERED: MAGNESIUM HYDROXIDE 30 ML UDC PO PRN (09:00)
[2023-02-21] MEDS ORDERED: EYE PO SCH (09:00)
[2023-02-21] MEDS ORDERED: PANTOPRAZOLE SOD 40 MG TABEC PO SCH (09:00)
[2023-02-21 09:43] VITALS: BP 203/64; PULSE 72; RESP 16; TEMP 97.9; O2SAT 98
[2023-02-21] MEDS: SENNA-S TABLET PO SCH ×2 (10:01→17:29)
[2023-02-21] MEDS: SPIRONOLACTONE 25 MG TAB PO SCH ×2 (10:01→17:27)
[2023-02-21] MEDS: METOPROLOL TARTRATE 50 MG TAB PO SCH ×2 (10:02→17:29)
[2023-02-21] MEDS: FERROUS SULFATE 325 MG TAB PO SCH (10:03)
[2023-02-21] MEDS: BUDESONIDE 3 MG CAPCR PO SCH (10:07)
[2023-02-21] MEDS: NIFEDIPINE CR 30 MG TAB PO SCH (10:07)
[2023-02-21 12:39] LABS: HEMATOCRIT 36.2 % (34.2-44.1); HEMOGLOBIN 11.7 g/dL (12.0-16.0)
[2023-02-21 12:40] VITALS: BP 166/65; PULSE 55; RESP 18; TEMP 98; O2SAT 100
[2023-02-21 17:48] VITALS: BP 174/56; RESP 18; TEMP 98; O2SAT 100
[2023-02-21 18:21] LABS: HEMATOCRIT 35.9 % (34.2-44.1); HEMOGLOBIN 11.7 g/dL (12.0-16.0)
[2023-02-21 20:00] VITALS: BP 141/52; PULSE 60; RESP 17; TEMP 98.5; O2SAT 98
[2023-02-21] MEDS ORDERED: SIMVASTATIN 20 MG TAB PO SCH (21:00)
[2023-02-21 23:10] LABS: % IRON SATURATION 26 % (15-50); IRON 98 ug/dL (50-170); TOTAL IRON BINDING CAPACITY 375 ug/dL (261-478); TRANSFERRIN 268 mg/dL (180-382)
[2023-02-21] MEDS ORDERED: HYDROCORTISONE ACETATE 25 MG/SUPP.RECT SUPP RC STA (23:29)
[2023-02-21 23:42] LABS: HEMATOCRIT 35.4 % (34.2-44.1); HEMOGLOBIN 11.6 g/dL (12.0-16.0)
[2023-02-22] MEDS: HYDRALAZINE HCL 20 MG/ML VIAL IV PRN (00:14)
[2023-02-22 00:38] VITALS: BP 178/67; PULSE 62; RESP 18; TEMP 97.7; O2SAT 98
[2023-02-22 02:37] VITALS: BP 178/67; PULSE 62; RESP 18; TEMP 97.7; O2SAT 98
[2023-02-22 04:28] LABS: BASOPHILS # (AUTO) 0.1 (0.0-0.1); BASOPHILS % 0.4 % (0.0-1.0); EOSINOPHILS # (AUTO) 0.1 (0.0-0.4); EOSINOPHILS % 0.5 % (0.0-6.0); HEMATOCRIT 34.8 % (34.2-44.1); HEMOGLOBIN 11.5 g/dL (12.0-16.0); LYMPHOCYTES # (AUTO) 2.2 (1.0-3.2); LYMPHOCYTES % 18.4 % (18.0-39.1); MEAN CORPUSCULAR HEMOGLOBIN 32.8 pg (28-32); MEAN CORPUSCULAR VOLUME 99.1 fL (81-99); MONOCYTES % 8.1 % (4.4-11.3); NEUTROPHILS # (AUTO) 8.5 (2.1-6.9); NEUTROPHILS % 72.1 % (38.7-80.0); PLATELET COUNT 323 x10e3/uL (140-360); RED BLOOD COUNT 3.51 x10e6/uL (3.6-5.1); RED CELL DISTRIBUTION WIDTH 12.6 % (11.7-14.4)
[2023-02-22 04:47] LABS: ANION GAP 14.4 mmol/L (8-16); CALCIUM 8.6 mg/dL (8.4-10.2); CREATININE, SERUM 0.77 mg/dL (0.57-1.11); POTASSIUM 3.4 mmol/L (3.5-5.1)
[2023-02-22 04:54] VITALS: BP 146/64; PULSE 67; RESP 17; TEMP 97.5; O2SAT 98
[2023-02-22] MEDS: NIFEDIPINE CR 30 MG TAB PO SCH (05:39)
[2023-02-22] MEDS: SPIRONOLACTONE 25 MG TAB PO SCH (08:05)
[2023-02-22] MEDS: FERROUS SULFATE 325 MG TAB PO SCH (08:09)
[2023-02-22] MEDS: SENNA-S TABLET PO SCH (08:09)
[2023-02-22] MEDS: BUDESONIDE 3 MG CAPCR PO SCH (08:11)
[2023-02-22] MEDS: METOPROLOL TARTRATE 50 MG TAB PO SCH (08:11)
[2023-02-22 08:20] VITALS: BP 157/73; PULSE 69; RESP 18; TEMP 98.7; O2SAT 98
[2023-02-22] MEDS ORDERED: POTASSIUM CHLO10 ME1 PO (08:23)
[2023-02-22] MEDS ORDERED: MAGNESIUM OXID400 MG PO (08:23)
[2023-02-22 08:35] VITALS: BP 157/73; PULSE 69; RESP 18; TEMP 98.7; O2SAT 98
[2023-02-22] MEDS ORDERED: HYDROCORTISONE ACETATE 25 MG/SUPP.RECT SUPP RC SCH (09:00)
[2023-02-22] MEDS ORDERED: CILOXAN5 ML OS (23:41)
[2023-02-22] MEDS ORDERED: AMOX TR-K CLV1 EAC2 PO (23:41)
[2023-02-22] MEDS ORDERED: ONDANSETRON ODT4 MG PO (23:41)
== END 2023-02-22 10:30 | disposition home or self-care (01) ==
LOC: ER 23:43 → ERHOLD 02-21 02:19 → INTOOBSV 02-21 02:19 → MED/SURG 02-21 08:20
PROVIDERS: ADMIT Internal Medicine; ATTEND Internal Medicine
DX: K62.5 Hemorrhage of anus and rectum (principal); D62 Acute posthemorrhagic anemia; I16.0 Hypertensive urgency; I25.10 Atherosclerotic heart disease of native coronary artery without angina pectoris; I12.9 Hypertensive chronic kidney disease with stage 1 through stage 4 chronic kidney disease, or unspecified chronic kidney disease; N18.30 Chronic kidney disease, stage 3 unspecified; E78.5 Hyperlipidemia, unspecified; J45.909 Unspecified asthma, uncomplicated; F01.50 Vascular dementia, unspecified severity, without behavioral disturbance, psychotic disturbance, mood disturbance, and anxiety; Z20.822 Contact with and (suspected) exposure to COVID-19; Z88.1 Allergy status to other antibiotic agents; Z79.82 Long term (current) use of aspirin; Z79.899 Other long term (current) drug therapy; Z86.73 Personal history of transient ischemic attack (TIA), and cerebral infarction without residual deficits; Z87.440 Personal history of urinary (tract) infections
CPT/HCPCS: 0223U; 36415 ×2; 74174; 80048; 80053; 82607; 82746; 83540; 84466; 85014; 85018; 85025 ×2; 85045; 85610; 85730; 86850; 86900; 99284; C9113 ×2; G0378 ×2; J0360 ×2; J2405; J7030; J7040; Q9967

== ENCOUNTER 2023-02-22 21:34 | Emergency (ER) | payer MEDICARE ==
[~2023-02-22] VITALS: Ht 304.8 cm; Wt 46.3 kg
[~2023-02-22 21:34] MED LIST changes: +MAGNESIUM OXID400 MG PO; +POTASSIUM CHLO10 ME1 PO
[2023-02-22 23:41] VITALS: O2SAT 99
[2023-02-22] MEDS ORDERED: CILOXAN5 ML OS (23:41)
[2023-02-22] MEDS ORDERED: AMOX TR-K CLV1 EAC2 PO (23:41)
[2023-02-22] MEDS ORDERED: ONDANSETRON ODT4 MG PO (23:41)
== END 2023-02-22 23:44 | disposition home or self-care (01) ==
LOC: ER 21:49
DX: H10.9 Unspecified conjunctivitis (principal); I12.0 Hypertensive chronic kidney disease with stage 5 chronic kidney disease or end stage renal disease; N18.6 End stage renal disease; E78.5 Hyperlipidemia, unspecified; M54.9 Dorsalgia, unspecified; G89.29 Other chronic pain; Z86.12 Personal history of poliomyelitis; Z86.73 Personal history of transient ischemic attack (TIA), and cerebral infarction without residual deficits
CPT/HCPCS: 99282

== ENCOUNTER 2023-03-01 21:03 | Emergency (ER) | payer MEDICARE ==
[~2023-03-01] VITALS: Ht 304.8 cm; Wt 46.3 kg
[~2023-03-01 21:03] MED LIST changes: +AMOX TR-K CLV1 EAC2 PO; +CILOXAN5 ML OS
[2023-03-01 22:00] LABS: BASOPHILS # (AUTO) 0.1 (0.0-0.1); BASOPHILS % 0.6 % (0.0-1.0); EOSINOPHILS # (AUTO) 0.1 (0.0-0.4); EOSINOPHILS % 1.1 % (0.0-6.0); HEMATOCRIT 36.2 % (34.2-44.1); HEMOGLOBIN 11.8 g/dL (12.0-16.0); LYMPHOCYTES # (AUTO) 2.3 (1.0-3.2); LYMPHOCYTES % 18.7 % (18.0-39.1); MEAN CORPUSCULAR HEMOGLOBIN 32.6 pg (28-32); MEAN CORPUSCULAR HGB CONC 32.6 g/dL (31-35); MONOCYTES % 7.9 % (4.4-11.3); NEUTROPHILS # (AUTO) 8.7 (2.1-6.9); NEUTROPHILS % 71.1 % (38.7-80.0); PLATELET COUNT 410 x10e3/uL (140-360); RED BLOOD COUNT 3.62 x10e6/uL (3.6-5.1); RED CELL DISTRIBUTION WIDTH 12.8 % (11.7-14.4)
[2023-03-01 22:17] LABS: ALBUMIN 3.7 g/dL (3.5-5.0); ALBUMIN/GLOBULIN RATIO 1.2 (0.8-2.0); ANION GAP 17.3 mmol/L (8-16); CALCIUM 9.3 mg/dL (8.4-10.2); POTASSIUM 3.3 mmol/L (3.5-5.1)
[2023-03-02 01:08] VITALS: O2SAT 97
== END 2023-03-02 01:29 | disposition home or self-care (01) ==
LOC: ER 21:14
DX: M79.89 Other specified soft tissue disorders (principal); R60.9 Edema, unspecified; M79.605 Pain in left leg
CPT/HCPCS: 36415; 80053; 85025; 93926; 93971; 99283

== ENCOUNTER 2023-03-04 17:39 | Observation (INO) | payer MEDICARE ==
[~2023-03-04] VITALS: Ht 152.4 cm; Wt 48.5 kg
[2023-03-04 18:47] LABS: BASOPHILS # (AUTO) 0.1 (0.0-0.1); BASOPHILS % 0.5 % (0.0-1.0); EOSINOPHILS # (AUTO) 0.2 (0.0-0.4); HEMATOCRIT 35.2 % (34.2-44.1); HEMOGLOBIN 11.6 g/dL (12.0-16.0); LYMPHOCYTES # (AUTO) 3.5 (1.0-3.2); MEAN CORPUSCULAR VOLUME 97.2 fL (81-99); MONOCYTES # (AUTO) 1.4 (0.2-0.8); MONOCYTES % 9.3 % (4.4-11.3); NEUTROPHILS % 65.5 % (38.7-80.0); PLATELET COUNT 472 x10e3/uL (140-360); RED BLOOD COUNT 3.62 x10e6/uL (3.6-5.1); RED CELL DISTRIBUTION WIDTH 13.2 % (11.7-14.4)
[2023-03-04 18:59] LABS: ALBUMIN 3.6 g/dL (3.5-5.0); ALBUMIN/GLOBULIN RATIO 1.2 (0.8-2.0); ANION GAP 16.1 mmol/L (8-16); CALCIUM 9.1 mg/dL (8.4-10.2); CREATININE, SERUM 1.02 mg/dL (0.57-1.11); POTASSIUM 3.1 mmol/L (3.5-5.1)
[2023-03-04] MEDS ORDERED: Morphine 2mg Syringe 2 MG/ML SYR IV PRN (19:45)
[2023-03-04] MEDS ORDERED: ONDANSETRON HCL INJ 2MG/ML 2ML 2 MG/ML VIAL IV PRN (19:45)
[2023-03-04] MEDS ORDERED: POTASSIUM CHLORIDE 20 MEQ TAB CR PO STA (20:51)
[2023-03-04] MEDS ORDERED: HYDRALAZINE HCL 20 MG/ML VIAL IV PRN (23:30)
[2023-03-05 03:24] LABS: CHOL/HDL RATIO 2.6 (3.0-3.6)
[2023-03-05] MEDS ORDERED: ASPIRIN 81 MG ENTERIC COATED PO SCH (09:00)
[2023-03-05 09:46] VITALS: BP 144/65; O2SAT 96
[2023-03-05 09:50] VITALS: BP 144/65; O2SAT 96
[2023-03-05] MEDS ORDERED: ASPIRIN 81 MG CHEW TAB PO SCH (10:30)
[2023-03-05] MEDS ORDERED: FUROSEMIDE 20 MG TAB PO SCH (10:30)
[2023-03-05] MEDS ORDERED: NIFEDIPINE CR 30 MG TAB PO SCH (10:30)
[2023-03-05] MEDS ORDERED: METOPROLOL TARTRATE 50 MG TAB PO SCH (10:30)
[2023-03-05] MEDS ORDERED: PANTOPRAZOLE SOD 40 MG TABEC PO SCH (10:30)
[2023-03-05] MEDS ORDERED: POTASSIUM CHLORIDE 10MEQ EA PO ONE (11:15)
[2023-03-05] MEDS ORDERED: MAGNESIUM OXIDE 400 MG TAB PO SCH (17:00)
[2023-03-05] MEDS ORDERED: SPIRONOLACTONE 25 MG TAB PO SCH (17:00)
[2023-03-05] MEDS ORDERED: CRESTOR 10MG PO SCH (21:00)
[2023-03-06] MEDS ORDERED: BUDESONIDE 3 MG CAPCR PO SCH (09:00)
[2023-03-06] MEDS ORDERED: POTASSIUM 99MG PO SCH (09:00)
[2023-03-06] MEDS ORDERED: SIMVASTATIN 20 MG TAB PO SCH (09:00)
== END 2023-03-05 13:10 | disposition home or self-care (01) ==
LOC: ER 17:59 → ERHOLD 19:41
PROVIDERS: ADMIT Internal Medicine; ATTEND Internal Medicine
DX: M79.10 Myalgia, unspecified site (principal); M54.89 Other dorsalgia; R07.89 Other chest pain; E87.6 Hypokalemia; I10 Essential (primary) hypertension; E78.5 Hyperlipidemia, unspecified; Z20.822 Contact with and (suspected) exposure to COVID-19; Z79.82 Long term (current) use of aspirin; Z79.899 Other long term (current) drug therapy; Z86.73 Personal history of transient ischemic attack (TIA), and cerebral infarction without residual deficits
CPT/HCPCS: 0223U; 36415 ×2; 71045 ×2; 80053; 80061; 82550 ×2; 84484 ×2; 85025; 93005; 99285; G0378 ×2; J0360; J2270; J2405; S0164